=== PATIENT | female | born 1970 | race Caucasian/White ===

== ENCOUNTER 2016-05-19 16:12 | Emergency (ER) | payer OTHER ==
[~2016-05-19 16:12] MED LIST: GLYB2.5T6 OR
[2016-05-19] MEDS ORDERED: traMADol 50 MG TAB As Ordered ONE (17:28)
[2016-05-19] MEDS ORDERED: METHOCARBAMOL 500 MG TAB As Ordered ONE (17:28)
[2016-05-19] MEDS ORDERED: ONDANSETRON 4 MG ORAL DISINTEGRATING TAB (S0181) As Ordered ONE ×2 (17:29→17:35)
[2016-05-19 17:59] LABS: BASO # 0.1 K/mm3 (0.0-0.2); BASO % 1.1 % (0.0-1.0); EOS # 0.2 K/mm3 (0.0-0.50); LARGE UNSTAINED CELL # 0.2 K/mm3 (0.0-0.4); LARGE UNSTAINED CELL % 1.9 % (0.0-4.0); LYMPH # 2.8 K/mm3 (1.5-4.5); LYMPH % 31.8 % (24.0-44.0); MEAN CORPUSCULAR HEMOGLOBIN 28.1 pg (27.0-33.0); MEAN CORPUSCULAR HGB CONC 33.1 g/dl (32.0-36.5); MONO # 0.6 K/mm3 (0.0-0.8); MONO % 7.6 % (0.0-5.0); NEUTROPHILS # 4.5 K/mm3 (1.8-7.7); NEUTROPHILS % 55.5 % (36.0-66.0); PLATELET COUNT, AUTOMATED 279 k/mm3 (150-450); RED CELL DISTRIBUTION WIDTH 13.8 % (11.5-14.5); WHITE BLOOD COUNT 8.1 K/mm3 (4.0-10.0)
[2016-05-19 18:25] LABS: ANION GAP 7 MEQ/L (8-16); BLOOD UREA NITROGEN 6 MG/DL (7-18); CALCIUM LEVEL 8.5 MG/DL (8.5-10.1); CARBON DIOXIDE LEVEL 29 MEQ/L (21-32); CHLORIDE LEVEL 106 MEQ/L (98-107); CREATININE FOR GFR 0.69 MG/DL (0.55-1.02); GLOMERULAR FILTRATION RATE > 60.0 (>58); GLUCOSE, FASTING 123 MG/DL (70-105); SODIUM LEVEL 142 MEQ/L (136-145)
--- NOTE | 2016-05-19 18:40 | REP ---
CT cervical spine without contrast: HISTORY: Neck pain. There is no acute fracture or subluxation. Disc bulges are present at the C3-4 through C6-7 levels. There is minimal narrowing of the spinal canal. The neural foramina are patent. The C5-6 intervertebral disc is decreased in height consistent with disc degeneration. Calcification is present in the anterior longitudinal ligament at the C6-7 level. An accessory ossicle and osteophyte formation are present at the C1-2 level. IMPRESSION: 1. There is no acute fracture or subluxation. 2. There is cervical spondylosis at the C1-2 and C3-4 through C6-7 levels. Signed by Jimbo Green MD 05/19/2016 06:42 P
--- NOTE | 2016-05-19 18:59 | EDDOCDS ---
Nurse's Notes [facility] Name: Cece Bridges Age: 45 yrs Sex: Female : 1970 Arrival Date: 05/19/2016 Time: 16:12 Bed PD Private MD: Walter Hanks NCFM Diagnosis: Cervicalgia;Other sprain of left shoulder joint;Other internal derangements of left knee;Gastritis, unspecified Presentation: 05/19 16:57 Presenting complaint: Patient states: last Monday front deck collapsed and pt was in a dsf whole and c/o left side of body hurts. Risk Factors No acute neurological deficit is noted. Adult Sepsis Screening: The patient does not have new or worsening altered mentation. Patient's respiratory rate is less than 22. Systolic blood pressure is greater than 100. Patient has a qSOFA score of 0- Negative Sepsis Screen. Suicide/Homicide risk assessment- the patient denies having any suicidal and/or homicidal ideations and does not present with any other emotional, behavioral or mental health complaints. Status: Patient is not a social services assistant or dependent. Transition of care: patient was not received from another setting of care. 16:57 Acuity: ANNMARIE Level 4 dsf 16:57 Method Of Arrival: Walkin/Carried/Asstd dsf Triage Assessment: 17:01 General: Appears in no apparent distress, Behavior is appropriate for age, cooperative, dsf pt just rambling on . Pain: Location: left side of body Pain currently is 3 out of 10 on a pain scale. HIV screening NA for this visit Offered previously. GI: Reports upper abdominal pain, nausea. Musculoskeletal: Reports pain in left side of body. 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 atorvastatin oral once daily 2. glyburide 5 mg Oral tab 2 times per day (Last dose: 05/18/2016) 3. metformin 500 mg Oral Tb24 2 tabs 2 times per day (Last dose: 05/18/2016) 4. pregabalin 75 mg Oral cap three times a day (Last dose: 05/18/2016) 5. Onglyza 5 mg oral tab 1 tab once daily (Last dose: 05/18/2016) 6. multivitamin oral tab 1 tablet daily (Last dose: 05/18/2016) 7. muscle relaxant - PMHx: Diabetes - NIDDM: controlled; Hypercholesterolemia; neuropathy; - PSHx: ; - Social history: Smoking status: Patient uses tobacco products, current every day smoker. No barriers to communication noted, The patient speaks fluent Welsh, Speaks appropriately for age. - Family history: Not pertinent. - : The pt / caregiver states he / she is not on anticoagulants. Home medication list is obtained from the patient. - Exposure Risk Screening:: None identified. Screenin:56 Screening information is obtained from the patient. Primary language is Welsh. Fall dwg risk: No risks identified. Assistance ADL's: requires no assistance with activities of daily living. Abuse/DV Screen: The patient / caregiver reports he/she is: not in a situation that causes fear, pain or injury. Nutritional screening: No deficits noted. Advance Directives: Currently, there is no health care proxy. There is no active DNR order. There is no living will. There is no Power of [place] Machine Operator. Advance directive information has not previously been placed in an [facility] medical record. Further advance directive information is declined. home support is adequate. Assessment: 18:56 The patient / caregiver is instructed regarding the plan of care and ED course. [facility] Physical assessment to be completed by PA/EDMD. Vital Signs: 16:14 BP 134 / 73; Pulse 102; Resp 18 S; Temp 99.3(O); Pulse Ox 96% on R/A; Weight 97.98 kg gr2 (R); Height 5 ft. 3 in. (160.02 cm) (R); Pain 6/10; 18:57 BP 141 / 76; Pulse 92; Resp 16; Temp 98.9(T); Pulse Ox 97% on R/A; dwg 16:14 Body Mass Index 38.26 (97.98 kg, 160.02 cm) gr2 Vitals: 16:14 Log In Time: May 19, 2016 at 16:14. gr2 ED Course: 16:13 Patient visited by Ayla Tesfaye. gr2 16:13 Patient moved to Waiting gr2 16:14 Walter Hanks is Private Physician. gr2 16:16 Patient visited by Ayla Tesfaye. gr2 16:16 Patient moved to Pre RCE gr2 16:59 Triage Initiated dsf 17:02 Patient moved to Triage 1 dsf 17:05 [facility] ck7 17:05 Jodi Giron MD is Attending Physician. ck7 17:05 Patient visited by Quinn San RPA-C. ck7 17:20 Patient moved to I4 / M4 dwg 17:22 Patient moved to PD2 / 27 dwg 17:36 Patient visited by Pat Eugene. dem1 17:36 Ghazal collar applied to patient. dem1 17:51 MED Profile Sent. dem1 17:51 CBC with Diff Sent. dem1 18:18 Patient visited by Quinn San RPA-C. ck7 18:43 Walter Hanks is Referral Physician. ck7 18:58 No IV's were initiated during this patient's visit. No procedures done that require dwg assistance. 18:59 Patient has correct armband on for positive identification. dwg Administered Medications: 17:21 CANCELLED (Other Intervention Used): Ondansetron 4 mg IVP once ck7 17:37 Drug: traMADol 50 mg [tramadol 50 mg tablet (1 tabs)] Route: PO; dwg 18:58 Follow up: Response: Pain is decreased dwg 17:37 Drug: Methocarbamol 1 grams [methocarbamol 500 mg tablet (2 tabs)] Route: PO; dwg 18:57 Follow up: Response: Pain is decreased dwg 17:37 Drug: Ondansetron ODT 4 mg [ondansetron 4 mg disintegrating tablet (1 tabs)] Route: PO; dwg 18:57 Follow up: Response: Nausea is resolved dwg Order Results: Lab Order: CBC with Diff; SPEC'M 05/19/16 17:49 Test: WHITE BLOOD COUNT; Value: 8.1; Range: 4.0-10.0; Units: K/mm3; Status: F Test: RED BLOOD COUNT; Value: 4.70; Range: 4.00-5.40; Units: M/mm3; Status: F Test: HEMOGLOBIN; Value: 13.2; Range: 12.0-16.0; Units: g/dl; Status: F Test: HEMATOCRIT; Value: 39.9; Range: 36.0-47.0; Units: %; Status: F Test: MEAN CORPUSCULAR VOLUME; Value: 85.0; Range: 80.0-96.0; Units: fl; Status: F Test: MEAN CORPUSCULAR HEMOGLOBIN; Value: 28.1; Range: 27.0-33.0; Units: pg; Status: F Test: MEAN CORPUSCULAR HGB CONC; Value: 33.1; Range: 32.0-36.5; Units: g/dl; Status: F Test: RED CELL DISTRIBUTION WIDTH; Value: 13.8; Range: 11.5-14.5; Units: %; Status: F Test: PLATELET COUNT, AUTOMATED; Value: 279; Range: 150-450; Units: k/mm3; Status: F Test: NEUTROPHILS %; Value: 55.5; Range: 36.0-66.0; Units: %; Status: F Test: LYMPH %; Value: 31.8; Range: 24.0-44.0; Units: %; Status: F Test: MONO %; Value: 7.6; Range: 0.0-5.0; Abnormal: Above high normal; Units: %; Status: F Test: EOS %; Value: 2.0; Range: 0.0-3.0; Units: %; Status: F Test: BASO %; Value: 1.1; Range: 0.0-1.0; Abnormal: Above high normal; Units: %; Status: F Test: LARGE UNSTAINED CELL %; Value: 1.9; Range: 0.0-4.0; Units: %; Status: F Test: NEUTROPHILS #; Value: 4.5; Range: 1.8-7.7; Units: K/mm3; Status: F Test: LYMPH #; Value: 2.8; Range: 1.5-4.5; Units: K/mm3; Status: F Test: MONO #; Value: 0.6; Range: 0.0-0.8; Units: K/mm3; Status: F Test: EOS #; Value: 0.2; Range: 0.0-0.50; Units: K/mm3; Status: F Test: BASO #; Value: 0.1; Range: 0.0-0.2; Units: K/mm3; Status: F Test: LARGE UNSTAINED CELL #; Value: 0.2; Range: 0.0-0.4; Units: K/mm3; Status: F Lab Order: JOSE LUIS MITCHELL 05/19/16 17:49 Test: GLUCOSE, FASTING; Value: 123; Range: 70-105; Abnormal: Above high normal; Units: MG/DL; Status: F Test: BLOOD UREA NITROGEN; Value: 6; Range: 7-18; Abnormal: Below low normal; Units: MG/DL; Status: F Test: CREATININE FOR GFR; Value: 0.69; Range: 0.55-1.02; Units: MG/DL; Status: F Test: GLOMERULAR FILTRATION RATE; Value: > 60.0; Range: >58; Status: F Test: SODIUM LEVEL; Value: 142; Range: 136-145; Units: MEQ/L; Status: F Test: POTASSIUM SERUM; Value: 4.0; Range: 3.5-5.1; Units: MEQ/L; Status: F Test: CHLORIDE LEVEL; Value: 106; Range: 98-107; Units: MEQ/L; Status: F Test: CARBON DIOXIDE LEVEL; Value: 29; Range: 21-32; Units: MEQ/L; Status: F Test: ANION GAP; Value: 7; Range: 8-16; Abnormal: Below low normal; Units: MEQ/L; Status: F Test: CALCIUM LEVEL; Value: 8.5; Range: 8.5-10.1; Units: MG/DL; Status: F Test Note: ; Units are mL/min/1.73 m2 Chronic Kidney Disease Staging per NKF: Stage I & II GFR >=60 Normal to Mildly Decreased Stage III GFR 30-59 Moderately Decreased Stage IV GFR 15-29 Severely Decreased Stage V GFR <15 Very Little GFR Left ESRD GFR <15 on [employer] Outcome: 18:45 Discharge ordered by Provider. ck7 18:58 The following High Risk Discharge criteria are identified: None. Discharged to home dwg ambulatory. Condition: good Condition: stable. No special radiology studies were completed. 18:58 Discharge Assessment: Patient awake, alert and oriented x 3. No cognitive and/or dwg functional deficits noted. Patient verbalized understanding of disposition instructions. patient administered narcotics - no. Property sent home with patient. 18:59 Patient left the ED. dwg Signatures: Nabeel Ruiz, RN RN Pretty Garber RN RN dsf JabierDiliaedgartatiannaling dem1 Quinn San, RPA-C RPA-[id number] Ayla Tesfaye gr2 Corrections: (The following items were deleted from the chart) 17:36 17:35 Clavicle strap applied on dem1 dem1 MTDD
--- NOTE | 2016-05-19 18:59 | EDDOCDS ---
Physician Documentation [facility] Name: Cece Bridges Age: 45 yrs Sex: Female : 1970 Arrival Date: 05/19/2016 Time: 16:12 Bed PD Private MD: Walter Hanks [facility] Disposition: 05/19/16 18:45 Discharged to Home/Self Care. Impression: Cervicalgia, Other sprain of left shoulder joint, Other internal derangements of left knee, Gastritis, unspecified. - Condition is Stable. - Discharge Instructions: Gastritis, Adult, Knee Pain, Soft Tissue Injury of the Neck, Shoulder Sprain. - Prescriptions for Ultram 50 mg Oral Tablet - take 1 tablet by ORAL route every 6 hours As needed MDD: 4 tabs; 10 tablet. ZOFRAN ODT 4 mg - dissolve 1 tablet by ORAL route 4 times per day As needed do not chew, do not swallow whole; 10 tablet. - Medication Reconciliation, Local Pharmacy Hours form. - Follow up: Walter Hanks; When: 1 - 2 days; Reason: Recheck today's complaints, Continuance of care. - Problem is new. - Symptoms have improved. Historical: - Allergies: Naproxen; - Home Meds: 1. atorvastatin oral once daily 2. glyburide 5 mg Oral tab 2 times per day (Last dose: 05/18/2016) 3. metformin 500 mg Oral Tb24 2 tabs 2 times per day (Last dose: 05/18/2016) 4. pregabalin 75 mg Oral cap three times a day (Last dose: 05/18/2016) 5. Onglyza 5 mg oral tab 1 tab once daily (Last dose: 05/18/2016) 6. multivitamin oral tab 1 tablet daily (Last dose: 05/18/2016) 7. muscle relaxant - PMHx: Diabetes - NIDDM: controlled; Hypercholesterolemia; neuropathy; - PSHx: ; - Social history: Smoking status: Patient uses tobacco products, current every day smoker. No barriers to communication noted, The patient speaks fluent Chilean, Speaks appropriately for age. - Family history: Not pertinent. - : The pt / caregiver states he / she is not on anticoagulants. Home medication list is obtained from the patient. - Exposure Risk Screening:: None identified. 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 3 in. (160.02 cm) (R); Pain 6/10; 18:57 BP 141 / 76; Pulse 92; Resp 16; Temp 98.9(T); Pulse Ox 97% on R/A; dwg 16:14 Body Mass Index 38.26 (97.98 kg, 160.02 cm) gr2 MDM: 17:16 traMADol 50 mg PO once ordered. ck7 17:16 Methocarbamol 1 grams PO once ordered. ck7 17:17 Apply Ghazal Collar to Patient. ordered. ck7 17:18 CT Spine,Cervical W/o Contrast Ordered. EDMS 17:18 CBC with Diff Ordered. EDMS 17:18 MED Profile Ordered. EDMS 17:19 Shoulder, Complete Ordered. EDMS 17:19 Knee, Complete Ordered. EDMS 17:19 Abdomen, Flat\E\Upright,PA Chest Ordered. EDMS 17:22 Ondansetron ODT Oral Disintegrating Tablet 4 mg PO once ordered. ck7 18:03 CBC with Diff Reviewed. ck7 18:26 MED Profile Reviewed. ck7 Administered Medications: 17:21 CANCELLED (Other Intervention Used): Ondansetron 4 mg IVP once ck7 17:37 Drug: traMADol 50 mg [tramadol 50 mg tablet (1 tabs)] Route: PO; dwg 18:58 Follow up: Response: Pain is decreased dwg 17:37 Drug: Methocarbamol 1 grams [methocarbamol 500 mg tablet (2 tabs)] Route: PO; dwg 18:57 Follow up: Response: Pain is decreased dwg 17:37 Drug: Ondansetron ODT 4 mg [ondansetron 4 mg disintegrating tablet (1 tabs)] Route: PO; dwg 18:57 Follow up: Response: Nausea is resolved dw Signatures: Dispatcher [employer] EDNabeel Mosquera RN RN dwg Fuller, Desiree, RN RN dsf Quinn San, CHANCE-C [id number] The chart was reviewed and I authenticate all verbal orders and agree with the evaluation and treatment provided.Corrections: (The following items were deleted from the chart) 17:21 17:17 Ondansetron 4 mg IVP once ordered. ck7 ck7 MTDD
--- NOTE | 2016-05-19 19:12 | REP ---
LEFT SHOULDER, THREE VIEWS: HISTORY: Swelling. There is no acute fracture or dislocation. The joints spaces are normal in appearance. IMPRESSION: There is no acute fracture or dislocation. Signed by Jimbo Green MD 05/19/2016 07:14 P
--- NOTE | 2016-05-19 19:14 | REP ---
LEFT KNEE, FIVE VIEWS: HISTORY: Swelling. There is no acute fracture or dislocation. There is minimal narrowing of the patellofemoral joints space. Osteophytes are present on the patella and tibia. IMPRESSION: Degenerative changes as described above. Signed by Jimbo Green MD 05/19/2016 07:15 P
--- NOTE | 2016-05-19 19:16 | REP ---
ABDOMEN FLAT UPRIGHT, PA CHEST, THREE VIEWS: HISTORY: Abdominal pain. A small amount of air is present in the small and large intestine. There are no air fluid levels or dilated loops of intestine. There is no pneumoperitoneum. A mild amount of stool is present in the colon. The lungs are clear. IMPRESSION:Nonspecific bowel gas pattern. There is a mild amount of stool in the colon. Signed by Jimbo Green MD 05/19/2016 07:18 P
--- NOTE | 2016-05-21 20:00 | EDDOCDS ---
Physician Documentation [facility] Name: Cece Bridges Age: 45 yrs Sex: Female : 1970 Arrival Date: 05/19/2016 Time: 16:12 Bed PD Private MD: Walter Hanks [facility] Disposition: 05/19/16 18:45 Discharged to Home/Self Care. Impression: Cervicalgia, Other sprain of left shoulder joint, Other internal derangements of left knee, Gastritis, unspecified. - Condition is Stable. - Discharge Instructions: Gastritis, Adult, Knee Pain, Soft Tissue Injury of the Neck, Shoulder Sprain. - Prescriptions for Ultram 50 mg Oral Tablet - take 1 tablet by ORAL route every 6 hours As needed MDD: 4 tabs; 10 tablet. ZOFRAN ODT 4 mg - dissolve 1 tablet by ORAL route 4 times per day As needed do not chew, do not swallow whole; 10 tablet. - Medication Reconciliation, Local Pharmacy Hours form. - Follow up: Walter Hanks; When: 1 - 2 days; Reason: Recheck today's complaints, Continuance of care. - Problem is new. - Symptoms have improved. Historical: - Allergies: Naproxen; - Home Meds: 1. atorvastatin oral once daily 2. glyburide 5 mg Oral tab 2 times per day (Last dose: 05/18/2016) 3. metformin 500 mg Oral Tb24 2 tabs 2 times per day (Last dose: 05/18/2016) 4. pregabalin 75 mg Oral cap three times a day (Last dose: 05/18/2016) 5. Onglyza 5 mg oral tab 1 tab once daily (Last dose: 05/18/2016) 6. multivitamin oral tab 1 tablet daily (Last dose: 05/18/2016) 7. muscle relaxant - PMHx: Diabetes - NIDDM: controlled; Hypercholesterolemia; neuropathy; - PSHx: ; - Social history: Smoking status: Patient uses tobacco products, current every day smoker. No barriers to communication noted, The patient speaks fluent [place], Speaks appropriately for age. - Family history: Not pertinent. - : The pt / caregiver states he / she is not on anticoagulants. Home medication list is obtained from the patient. - Exposure Risk Screening:: None identified. 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 3 in. (160.02 cm) (R); Pain 6/10; 18:57 BP 141 / 76; Pulse 92; Resp 16; Temp 98.9(T); Pulse Ox 97% on R/A; dwg 16:14 Body Mass Index 38.26 (97.98 kg, 160.02 cm) gr2 MDM: 17:16 traMADol 50 mg PO once ordered. ck7 17:16 Methocarbamol 1 grams PO once ordered. ck7 17:17 Apply Ghazal Collar to Patient. ordered. ck7 17:18 CT Spine,Cervical W/o Contrast Ordered. EDMS 17:18 CBC with Diff Ordered. EDMS 17:18 MED Profile Ordered. EDMS 17:19 Shoulder, Complete Ordered. EDMS 17:19 Knee, Complete Ordered. EDMS 17:19 Abdomen, Flat\E\Upright,PA Chest Ordered. EDMS 17:22 Ondansetron ODT Oral Disintegrating Tablet 4 mg PO once ordered. ck7 18:03 CBC with Diff Reviewed. ck7 18:26 MED Profile Reviewed. ck7 05/20 11:00 T-Sheet-- Draft Copy was scanned into [employer] and attached to record. gb Administered Medications: 05/19 17:21 CANCELLED (Other Intervention Used): Ondansetron 4 mg IVP once ck7 17:37 Drug: traMADol 50 mg [tramadol 50 mg tablet (1 tabs)] Route: PO; [facility] 18:58 Follow up: Response: Pain is decreased dw 17:37 Drug: Methocarbamol 1 grams [methocarbamol 500 mg tablet (2 tabs)] Route: PO; dwg 18:57 Follow up: Response: Pain is decreased dw 17:37 Drug: Ondansetron ODT 4 mg [ondansetron 4 mg disintegrating tablet (1 tabs)] Route: PO; dwg 18:57 Follow up: Response: Nausea is resolved dwg Signatures: Dispatcher [employer] EDMS Nabeel Ruiz RN RN dwg Geovanna Purdy, Reg Reg gb Pretty Ya,RN RN dsf Quinn San, RPA-C [id number] The chart was reviewed and I authenticate all verbal orders and agree with the evaluation and treatment provided.Corrections: (The following items were deleted from the chart) 17:21 17:17 Ondansetron 4 mg IVP once ordered. ck7 ck7 Attachments: 05/20 11:00 T-Sheet-- Draft Copy gb Chart Complete MTDD
--- NOTE | 2016-05-21 20:00 | EDDOCDS ---
Physician Documentation [facility] Name: Cece Bridges Age: 45 yrs Sex: Female : 1970 Arrival Date: 05/19/2016 Time: 16:12 Bed PD Private MD: Walter Hanks [facility] Disposition: 05/19/16 18:45 Discharged to Home/Self Care. Impression: Cervicalgia, Other sprain of left shoulder joint, Other internal derangements of left knee, Gastritis, unspecified. - Condition is Stable. - Discharge Instructions: Gastritis, Adult, Knee Pain, Soft Tissue Injury of the Neck, Shoulder Sprain. - Prescriptions for Ultram 50 mg Oral Tablet - take 1 tablet by ORAL route every 6 hours As needed MDD: 4 tabs; 10 tablet. ZOFRAN ODT 4 mg - dissolve 1 tablet by ORAL route 4 times per day As needed do not chew, do not swallow whole; 10 tablet. - Medication Reconciliation, Local Pharmacy Hours form. - Follow up: Walter Hanks; When: 1 - 2 days; Reason: Recheck today's complaints, Continuance of care. - Problem is new. - Symptoms have improved. Historical: - Allergies: Naproxen; - Home Meds: 1. atorvastatin oral once daily 2. glyburide 5 mg Oral tab 2 times per day (Last dose: 05/18/2016) 3. metformin 500 mg Oral Tb24 2 tabs 2 times per day (Last dose: 05/18/2016) 4. pregabalin 75 mg Oral cap three times a day (Last dose: 05/18/2016) 5. Onglyza 5 mg oral tab 1 tab once daily (Last dose: 05/18/2016) 6. multivitamin oral tab 1 tablet daily (Last dose: 05/18/2016) 7. muscle relaxant - PMHx: Diabetes - NIDDM: controlled; Hypercholesterolemia; neuropathy; - PSHx: ; - Social history: Smoking status: Patient uses tobacco products, current every day smoker. No barriers to communication noted, The patient speaks fluent Micronesian, Speaks appropriately for age. - Family history: Not pertinent. - : The pt / caregiver states he / she is not on anticoagulants. Home medication list is obtained from the patient. - Exposure Risk Screening:: None identified. 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 3 in. (160.02 cm) (R); Pain 6/10; 18:57 BP 141 / 76; Pulse 92; Resp 16; Temp 98.9(T); Pulse Ox 97% on R/A; dwg 16:14 Body Mass Index 38.26 (97.98 kg, 160.02 cm) gr2 MDM: 17:16 traMADol 50 mg PO once ordered. ck7 17:16 Methocarbamol 1 grams PO once ordered. ck7 17:17 Apply Ghazal Collar to Patient. ordered. ck7 17:18 CT Spine,Cervical W/o Contrast Ordered. EDMS 17:18 CBC with Diff Ordered. EDMS 17:18 MED Profile Ordered. EDMS 17:19 Shoulder, Complete Ordered. EDMS 17:19 Knee, Complete Ordered. EDMS 17:19 Abdomen, Flat\E\Upright,PA Chest Ordered. EDMS 17:22 Ondansetron ODT Oral Disintegrating Tablet 4 mg PO once ordered. ck7 18:03 CBC with Diff Reviewed. ck7 18:26 MED Profile Reviewed. ck7 05/20 11:00 T-Sheet-- Draft Copy was scanned into [employer] and attached to record. gb Administered Medications: 05/19 17:21 CANCELLED (Other Intervention Used): Ondansetron 4 mg IVP once ck7 17:37 Drug: traMADol 50 mg [tramadol 50 mg tablet (1 tabs)] Route: PO; [facility] 18:58 Follow up: Response: Pain is decreased dw 17:37 Drug: Methocarbamol 1 grams [methocarbamol 500 mg tablet (2 tabs)] Route: PO; dwg 18:57 Follow up: Response: Pain is decreased dw 17:37 Drug: Ondansetron ODT 4 mg [ondansetron 4 mg disintegrating tablet (1 tabs)] Route: PO; dwg 18:57 Follow up: Response: Nausea is resolved dwg Signatures: Dispatcher [employer] EDMS Nabeel Riuz RN RN dwg Geovanna Purdy, Reg Reg gb Pretty Ya,RN RN dsf Quinn San, RPA-C [id number] The chart was reviewed and I authenticate all verbal orders and agree with the evaluation and treatment provided.Corrections: (The following items were deleted from the chart) 17:21 17:17 Ondansetron 4 mg IVP once ordered. ck7 ck7 Attachments: 05/20 11:00 T-Sheet-- Draft Copy gb Chart Complete MTDD
--- NOTE | 2016-05-21 20:01 | EDDOCDS ---
Nurse's Notes [facility] Name: Cece Bridges Age: 45 yrs Sex: Female : 1970 Arrival Date: 05/19/2016 Time: 16:12 Bed PD Private MD: Walter Hanks NCFM Diagnosis: Cervicalgia;Other sprain of left shoulder joint;Other internal derangements of left knee;Gastritis, unspecified Presentation: 05/19 16:57 Presenting complaint: Patient states: last Monday front deck collapsed and pt was in a dsf whole and c/o left side of body hurts. Risk Factors No acute neurological deficit is noted. Adult Sepsis Screening: The patient does not have new or worsening altered mentation. Patient's respiratory rate is less than 22. Systolic blood pressure is greater than 100. Patient has a qSOFA score of 0- Negative Sepsis Screen. Suicide/Homicide risk assessment- the patient denies having any suicidal and/or homicidal ideations and does not present with any other emotional, behavioral or mental health complaints. 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 Transition of care: patient was not received from another setting of care. 16:57 Acuity: ANNMARIE Level 4 dsf 16:57 Method Of Arrival: Walkin/Carried/Asstd dsf Triage Assessment: 17:01 General: Appears in no apparent distress, Behavior is appropriate for age, cooperative, dsf pt just rambling on . Pain: Location: left side of body Pain currently is 3 out of 10 on a pain scale. HIV screening NA for this visit Offered previously. GI: Reports upper abdominal pain, nausea. Musculoskeletal: Reports pain in left side of body. 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 atorvastatin oral once daily 2. glyburide 5 mg Oral tab 2 times per day (Last dose: 05/18/2016) 3. metformin 500 mg Oral Tb24 2 tabs 2 times per day (Last dose: 05/18/2016) 4. pregabalin 75 mg Oral cap three times a day (Last dose: 05/18/2016) 5. Onglyza 5 mg oral tab 1 tab once daily (Last dose: 05/18/2016) 6. multivitamin oral tab 1 tablet daily (Last dose: 05/18/2016) 7. muscle relaxant - PMHx: Diabetes - NIDDM: controlled; Hypercholesterolemia; neuropathy; - PSHx: ; - Social history: Smoking status: Patient uses tobacco products, current every day smoker. No barriers to communication noted, The patient speaks fluent Croatian, Speaks appropriately for age. - Family history: Not pertinent. - : The pt / caregiver states he / she is not on anticoagulants. Home medication list is obtained from the patient. - Exposure Risk Screening:: None identified. Screenin:56 Screening information is obtained from the patient. Primary language is Croatian. Fall dwg risk: No risks identified. Assistance ADL's: requires no assistance with activities of daily living. Abuse/DV Screen: The patient / caregiver reports he/she is: not in a situation that causes fear, pain or injury. Nutritional screening: No deficits noted. Advance Directives: Currently, there is no health care proxy. There is no active DNR order. There is no living will. There is no Power of Passenger Agent. Advance directive information has not previously been placed in an [facility] medical record. Further advance directive information is declined. home support is adequate. Assessment: 18:56 The patient / caregiver is instructed regarding the plan of care and ED course. [facility] Physical assessment to be completed by PA/EDMD. Vital Signs: 16:14 BP 134 / 73; Pulse 102; Resp 18 S; Temp 99.3(O); Pulse Ox 96% on R/A; Weight 97.98 kg gr2 (R); Height 5 ft. 3 in. (160.02 cm) (R); Pain 6/10; 18:57 BP 141 / 76; Pulse 92; Resp 16; Temp 98.9(T); Pulse Ox 97% on R/A; dwg 16:14 Body Mass Index 38.26 (97.98 kg, 160.02 cm) gr2 Vitals: 16:14 Log In Time: May 19, 2016 at 16:14. gr2 ED Course: 16:13 Patient visited by Ayla Tesfaye. gr2 16:13 Patient moved to Waiting gr2 16:14 Walter Hanks is Private Physician. gr2 16:16 Patient visited by Ayla Tesfaye. gr2 16:16 Patient moved to Pre RCE gr2 16:59 Triage Initiated dsf 17:02 Patient moved to Triage 1 dsf 17:05 Quinn [facility] ck7 17:05 Jodi Giron MD is Attending Physician. ck7 17:05 Patient visited by Quinn San RPA-C. ck7 17:20 Patient moved to I4 / M4 dwg 17:22 Patient moved to PD2 / 27 dwg 17:36 Patient visited by Pat Eugene. dem1 17:36 Ghazal collar applied to patient. dem1 17:51 MED Profile Sent. dem1 17:51 CBC with Diff Sent. dem1 18:18 Patient visited by Quinn San RPA-C. ck7 18:43 Walter Hanks is Referral Physician. ck7 18:58 No IV's were initiated during this patient's visit. No procedures done that require dwg assistance. 18:59 Patient has correct armband on for positive identification. dwg 19:11 CT Spine,Cervical W/o Contrast Returned. EDMS 20:09 Shoulder, Complete Returned. EDMS 20:09 Knee, Complete Returned. EDMS 20:09 Abdomen, Flat\E\Upright,PA Chest Returned. EDMS 05/20 11:00 T-Sheet-- Draft Copy was scanned into [employer] and attached to record. gb Administered Medications: 05/19 17:21 CANCELLED (Other Intervention Used): Ondansetron 4 mg IVP once ck7 17:37 Drug: traMADol 50 mg [tramadol 50 mg tablet (1 tabs)] Route: PO; dwg 18:58 Follow up: Response: Pain is decreased dwg 17:37 Drug: Methocarbamol 1 grams [methocarbamol 500 mg tablet (2 tabs)] Route: PO; dwg 18:57 Follow up: Response: Pain is decreased dwg 17:37 Drug: Ondansetron ODT 4 mg [ondansetron 4 mg disintegrating tablet (1 tabs)] Route: PO; dwg 18:57 Follow up: Response: Nausea is resolved dwg Order Results: Lab Order: CBC with Diff; SPEC'M 05/19/16 17:49 Test: WHITE BLOOD COUNT; Value: 8.1; Range: 4.0-10.0; Units: K/mm3; Status: F Test: RED BLOOD COUNT; Value: 4.70; Range: 4.00-5.40; Units: M/mm3; Status: F Test: HEMOGLOBIN; Value: 13.2; Range: 12.0-16.0; Units: g/dl; Status: F Test: HEMATOCRIT; Value: 39.9; Range: 36.0-47.0; Units: %; Status: F Test: MEAN CORPUSCULAR VOLUME; Value: 85.0; Range: 80.0-96.0; Units: fl; Status: F Test: MEAN CORPUSCULAR HEMOGLOBIN; Value: 28.1; Range: 27.0-33.0; Units: pg; Status: F Test: MEAN CORPUSCULAR HGB CONC; Value: 33.1; Range: 32.0-36.5; Units: g/dl; Status: F Test: RED CELL DISTRIBUTION WIDTH; Value: 13.8; Range: 11.5-14.5; Units: %; Status: F Test: PLATELET COUNT, AUTOMATED; Value: 279; Range: 150-450; Units: k/mm3; Status: F Test: NEUTROPHILS %; Value: 55.5; Range: 36.0-66.0; Units: %; Status: F Test: LYMPH %; Value: 31.8; Range: 24.0-44.0; Units: %; Status: F Test: MONO %; Value: 7.6; Range: 0.0-5.0; Abnormal: Above high normal; Units: %; Status: F Test: EOS %; Value: 2.0; Range: 0.0-3.0; Units: %; Status: F Test: BASO %; Value: 1.1; Range: 0.0-1.0; Abnormal: Above high normal; Units: %; Status: F Test: LARGE UNSTAINED CELL %; Value: 1.9; Range: 0.0-4.0; Units: %; Status: F Test: NEUTROPHILS #; Value: 4.5; Range: 1.8-7.7; Units: K/mm3; Status: F Test: LYMPH #; Value: 2.8; Range: 1.5-4.5; Units: K/mm3; Status: F Test: MONO #; Value: 0.6; Range: 0.0-0.8; Units: K/mm3; Status: F Test: EOS #; Value: 0.2; Range: 0.0-0.50; Units: K/mm3; Status: F Test: BASO #; Value: 0.1; Range: 0.0-0.2; Units: K/mm3; Status: F Test: LARGE UNSTAINED CELL #; Value: 0.2; Range: 0.0-0.4; Units: K/mm3; Status: F Lab Order: MED Profile; SPEC'M 05/19/16 17:49 Test: GLUCOSE, FASTING; Value: 123; Range: 70-105; Abnormal: Above high normal; Units: MG/DL; Status: F Test: BLOOD UREA NITROGEN; Value: 6; Range: 7-18; Abnormal: Below low normal; Units: MG/DL; Status: F Test: CREATININE FOR GFR; Value: 0.69; Range: 0.55-1.02; Units: MG/DL; Status: F Test: GLOMERULAR FILTRATION RATE; Value: > 60.0; Range: >58; Status: F Test: SODIUM LEVEL; Value: 142; Range: 136-145; Units: MEQ/L; Status: F Test: POTASSIUM SERUM; Value: 4.0; Range: 3.5-5.1; Units: MEQ/L; Status: F Test: CHLORIDE LEVEL; Value: 106; Range: 98-107; Units: MEQ/L; Status: F Test: CARBON DIOXIDE LEVEL; Value: 29; Range: 21-32; Units: MEQ/L; Status: F Test: ANION GAP; Value: 7; Range: 8-16; Abnormal: Below low normal; Units: MEQ/L; Status: F Test: CALCIUM LEVEL; Value: 8.5; Range: 8.5-10.1; Units: MG/DL; Status: F Test Note: ; Units are mL/min/1.73 m2 Chronic Kidney Disease Staging per NKF: Stage I & II GFR >=60 Normal to Mildly Decreased Stage III GFR 30-59 Moderately Decreased Stage IV GFR 15-29 Severely Decreased Stage V GFR <15 Very Little GFR Left ESRD GFR <15 on [employer]ER Radiology Order: CT Spine,Cervical W/o Contrast Test: CT Spine,Cervical W/o Contrast REASON FOR EXAMINATION: neck pain s/p fall; CT cervical spine without contrast:; ; HISTORY: Neck pain.; ; There is no acute fracture or subluxation. Disc bulges are present at the C3-4; through C6-7 levels. There is minimal narrowing of the spinal canal. The neural; foramina are patent. The C5-6 intervertebral disc is decreased in height; consistent with disc degeneration. Calcification is present in the anterior; longitudinal ligament at the C6-7 level. An accessory ossicle and osteophyte; formation are present at the C1-2 level.; ; IMPRESSION:; ; 1. There is no acute fracture or subluxation.; ; 2. There is cervical spondylosis at the C1-2 and C3-4 through C6-7 levels.; ; ; Signed by; Jimbo Green MD 05/19/2016 06:42 P; Radiology Order: Shoulder, Complete Test: Shoulder, Complete REASON FOR EXAMINATION: Deformity/Swelling; LEFT SHOULDER, THREE VIEWS:; ; HISTORY: Swelling.; ; There is no acute fracture or dislocation. The joints spaces are normal in; appearance.; ; IMPRESSION:; ; There is no acute fracture or dislocation.; ; ; Signed by; Jimbo Green MD 05/19/2016 07:14 P; Radiology Order: Knee, Complete Test: Knee, Complete REASON FOR EXAMINATION: Deformity/Swelling; LEFT KNEE, FIVE VIEWS:; ; HISTORY: Swelling.; ; There is no acute fracture or dislocation. There is minimal narrowing of the; patellofemoral joints space. Osteophytes are present on the patella and tibia.; ; IMPRESSION:; ; Degenerative changes as described above.; ; ; Signed by; Jimbo Green MD 05/19/2016 07:15 P; Radiology Order: Abdomen, Flat\E\Upright,PA Chest Test: Abdomen, Flat\E\Upright,PA Chest REASON FOR EXAMINATION: abdominal pain, nausea, r/o obstruction/constipation; ABDOMEN FLAT UPRIGHT, PA CHEST, THREE VIEWS:; ; HISTORY: Abdominal pain.; ; A small amount of air is present in the small and large intestine. There are no; air fluid levels or dilated loops of intestine. There is no pneumoperitoneum. A; mild amount of stool is present in the colon. The lungs are clear.; ; IMPRESSION:Nonspecific bowel gas pattern. There is a mild amount of stool in the; colon.; ; ; Signed by; Jimbo Green MD 05/19/2016 07:18 P; Outcome: 18:45 Discharge ordered by Provider. ck7 18:58 The following High Risk Discharge criteria are identified: None. Discharged to home dwg ambulatory. Condition: good Condition: stable. No special radiology studies were completed. 18:58 Discharge Assessment: Patient awake, alert and oriented x 3. No cognitive and/or dwg functional deficits noted. Patient verbalized understanding of disposition instructions. patient administered narcotics - no. Property sent home with patient. 18:59 Patient left the ED. dwg Signatures: Dispatcher [employer] EDNabeel Mosquera, RN RN dwGeovanna Morrison Reg Reg gb Fuller, DesireeRN RN Pat [facility] Quinn San, RPA-C [id number] Ayla Tesfaye gr2 Corrections: (The following items were deleted from the chart) 17:36 17:35 Clavicle strap applied on dem1 dem1 Chart Complete MTDD
== END 2016-05-19 18:59 | disposition home or self-care (01) ==
LOC: M ED 16:12
DX: S43.402A Unspecified sprain of left shoulder joint, initial encounter (principal); M54.2 Cervicalgia; M23.92 Unspecified internal derangement of left knee; W17.89XA Other fall from one level to another, initial encounter; Y92.098 Other place in other non-institutional residence as the place of occurrence of the external cause; Y93.89 Activity, other specified; Y99.8 Other external cause status; R11.0 Nausea; R10.9 Unspecified abdominal pain; E11.9 Type 2 diabetes mellitus without complications; G62.9 Polyneuropathy, unspecified; E78.00 Pure hypercholesterolemia, unspecified; F17.210 Nicotine dependence, cigarettes, uncomplicated; Z79.899 Other long term (current) drug therapy; Z79.84 Long term (current) use of oral hypoglycemic drugs; Z88.8 Allergy status to other drugs, medicaments and biological substances

== ENCOUNTER 2017-03-15 20:51 | Emergency (ER) | payer OTHER ==
[~2017-03-15] VITALS: Ht 160 cm; Wt 99.1 kg
[2017-03-15] MEDS ORDERED: LYRI75CA PO (21:05)
[2017-03-15] MEDS ORDERED: LIPI10TA PO (21:05)
[2017-03-15] MEDS ORDERED: METF10004 PO (21:05)
[2017-03-15] MEDS ORDERED: CYCL5TAB PO (21:05)
[2017-03-15] MEDS ORDERED: PENICILLIN V POTASSIUM 500 MG TAB PO ONE (21:30)
[2017-03-15] MEDS ORDERED: PENI500T PO (21:35)
[2017-03-15 21:43] VITALS: BP 165/86
== END 2017-03-15 21:54 | disposition home or self-care (01) ==
LOC: M ED 20:51
DX: J02.9 Acute pharyngitis, unspecified (principal); I10 Essential (primary) hypertension; E11.9 Type 2 diabetes mellitus without complications; F17.210 Nicotine dependence, cigarettes, uncomplicated; Z79.899 Other long term (current) drug therapy; Z79.52 Long term (current) use of systemic steroids; Z88.8 Allergy status to other drugs, medicaments and biological substances

== ENCOUNTER → 2018-01-09 | Outpatient (CLI) | payer OTHER ==
[2018-01-09 10:50] LABS: ESTIMATED AVERAGE GLUCOSE 137 MG/DL (60-110); HEMOGLOBIN A1c 6.4 %
[2018-01-09 11:13] LABS: FREE T4 1.01 NG/DL (0.76-1.46); THYROID STIMULATING HORMONE 0.632 uIU/ML (0.358-3.740)
== END ==
LOC: M RAD 08:46
DX: Z12.31 Encounter for screening mammogram for malignant neoplasm of breast (principal)
CPT/HCPCS: 77067

== ENCOUNTER → 2018-05-15 | Outpatient (CLI) | payer OTHER ==
[~2018-05-15] MED LIST changes: +CYCL5TAB PO; +LIPI10TA PO; +LYRI75CA PO; +METF10004 PO; +PENI500T PO
--- NOTE | 2018-05-16 08:48 | REP ---
MRI CERVICAL SPINE WITHOUT CONTRAST: HISTORY: Neck pain. A small central disc protrusion is present at the C3-4 level. There is minimal effacement of the thecal sac without spinal cord compression. The C3 neural foramina are patent. A disc bulge is present at the C4-5 level. There is minimal effacement of the thecal sac without spinal cord compression. The C4 neural foramina are patent. A disc bulge with associated osteophyte formation is present at the C5-6 level. There is moderate effacement of the thecal sac without spinal cord compression. Bilateral uncinate process hypertrophy is present. This produces moderate narrowing of the C5 neural foramina. A disc bulge is present at the C6-7 level. There is minimal effacement of the thecal sac without spinal cord compression. The C6 neural foramina are patent. There is no other disc bulge or herniation. The remaining neural foramina are patent. The spinal cord is normal in signal intensity. The C5-6 intervertebral disc is decreased in height consistent with disc degeneration. Normal signal intensity is present in the cervical vertebral bodies. IMPRESSION: There is cervical spondylosis at the C3-4 through C6-7 levels without spinal cord compression. Electronically Signed by Jimbo Green MD 05/16/2018 08:54 A
== END ==
LOC: M RAD 18:06
PROVIDERS: ATTEND Physician Assistant
DX: M47.812 Spondylosis without myelopathy or radiculopathy, cervical region (principal); M50.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, unspecified cervical region

== ENCOUNTER → 2018-06-14 | Outpatient (CLI) | payer OTHER ==
[2018-06-14 10:35] LABS: BASO % 0.3 % (0.0-1.0); EOS # 0.2 10^3/uL (0.0-0.50); EOS % 1.8 % (0.0-3.0); HEMATOCRIT 39.7 % (36.0-47.0); LYMPH # 3.7 10^3/uL (1.5-4.5); LYMPH % 33.8 % (24.0-44.0); MEAN CORPUSCULAR HEMOGLOBIN 29.2 pg (27.0-33.0); MEAN CORPUSCULAR HGB CONC 32.7 g/dl (32.0-36.5); MEAN CORPUSCULAR VOLUME 89.2 fl (80.0-96.0); MONO # 0.8 10^3/uL (0.0-0.8); MONO % 7.6 % (0.0-5.0); NEUTROPHILS # 6.1 10^3/uL (1.8-7.7); PLATELET COUNT, AUTOMATED 337 10^3/uL (150-450); RED BLOOD COUNT 4.45 10^6/uL (4.00-5.40); WHITE BLOOD COUNT 10.8 10^3/uL (4.0-10.0)
[2018-06-14 10:56] LABS: HEMOGLOBIN A1c 7.7 %
[2018-06-14 11:00] LABS: ALBUMIN 3.6 GM/DL (3.2-5.2); ALT/SGPT 27 U/L (12-78); BILIRUBIN,TOTAL 0.4 MG/DL (0.2-1.0); BLOOD UREA NITROGEN 11 MG/DL (7-18); CALCIUM LEVEL 8.6 MG/DL (8.5-10.1); CARBON DIOXIDE LEVEL 28 MEQ/L (21-32); CHLORIDE LEVEL 106 MEQ/L (98-107); CREATININE FOR GFR 0.64 MG/DL (0.55-1.30); GLOMERULAR FILTRATION RATE > 60.0 (>58); GLUCOSE, FASTING 131 MG/DL (70-100); POTASSIUM SERUM 4.6 MEQ/L (3.5-5.1); SODIUM LEVEL 139 MEQ/L (136-145); TOTAL PROTEIN 6.8 GM/DL (6.4-8.2)
[2018-06-14 11:35] LABS: MALB URINE SIEMENS 5.6 MG/L
== END ==
LOC: M LAB 10:04
PROVIDERS: ATTEND Physician Assistant Medical
DX: E78.00 Pure hypercholesterolemia, unspecified (principal)

== ENCOUNTER → 2018-06-22 | Outpatient (CLI) | payer OTHER ==
--- NOTE | 2018-06-22 11:14 | REP ---
Clinical: Subacute cough . Comparison: 05/19/2016 of the . Technique: PA and lateral. Findings: The mediastinum and cardiac silhouette are normal. The lung bhandari are clear and without acute consolidation, effusion, or pneumothorax. The skeletal structures are intact and normal. Impression: 1. No acute cardiopulmonary process. Electronically Signed by Rodríguez Carey MD 06/22/2018 11:06 A
== END ==
LOC: M SMT 10:44
PROVIDERS: ATTEND Physician Assistant Medical
DX: R05 Cough (principal)

== ENCOUNTER 2018-12-22 22:12 | Emergency (ER) | payer OTHER ==
[~2018-12-22] VITALS: Ht 160 cm; Wt 94.1 kg
[2018-12-22] MEDS ORDERED: OFLO3OPSO IO (22:53)
[2018-12-22] MEDS ORDERED: ALL10TAB29 OR (22:53)
[2018-12-22] MEDS ORDERED: ALOG25TA OR (22:53)
[2018-12-22] MEDS ORDERED: PARO20TA3 OR (22:53)
[2018-12-22] MEDS ORDERED: LISI10TA4 OR (22:53)
[2018-12-23] MEDS ORDERED: FLUORESCEIN OPHTH 1 MG STRIP OS ONE (00:30)
[2018-12-23] MEDS ORDERED: TETRACAINE 0.5% OPHTH SOLN 4ML OS ONE (00:30)
[2018-12-23] MEDS ORDERED: CLEO300C2 PO (00:47)
[2018-12-23] MEDS ORDERED: ERYT1OIN26 OP (00:48)
[2018-12-23 00:56] VITALS: BP 139/96
== END 2018-12-23 01:00 | disposition home or self-care (01) ==
LOC: M ED 22:12
DX: H10.022 Other mucopurulent conjunctivitis, left eye (principal); L03.213 Periorbital cellulitis; E11.9 Type 2 diabetes mellitus without complications; Z79.899 Other long term (current) drug therapy; Z79.84 Long term (current) use of oral hypoglycemic drugs; Z88.8 Allergy status to other drugs, medicaments and biological substances

== ENCOUNTER → 2018-12-26 | Outpatient (REF) | payer OTHER ==
[~2018-12-26] MED LIST changes: +ALL10TAB29 OR; +ALOG25TA OR; +CLEO300C2 PO; +ERYT1OIN26 OP; +LISI10TA4 OR; +OFLO3OPSO IO; +PARO20TA3 OR
== END ==
LOC: M LAB REF 15:41
PROVIDERS: ATTEND Ophthalmology
DX: Z00.00 Encounter for general adult medical examination without abnormal findings (principal)

== ENCOUNTER → 2019-01-08 | Outpatient (REF) | payer OTHER ==
[2019-01-08 17:11] LABS: HEMOGLOBIN A1c 7.8 %
== END ==
LOC: M SFHCPLAZ 14:14
PROVIDERS: ATTEND Physician Assistant Medical
DX: E11.8 Type 2 diabetes mellitus with unspecified complications (principal)

== ENCOUNTER 2019-01-22 09:55 | Emergency (ER) | payer OTHER ==
[~2019-01-22] VITALS: Ht 160 cm; Wt 93.5 kg
[2019-01-22] MEDS ORDERED: FLUTISP (10:02)
[2019-01-22] MEDS ORDERED: IPRATROPIUM 0.5MG/ALBUTEROL 2.5MG INH SOL UD 3ML (DUONEB)(J7620) NEB ONE (11:45)
[2019-01-22] MEDS ORDERED: guaiFENesin SYRUP 200 MG/10 ML UDC PO ONE (11:45)
--- NOTE | 2019-01-22 12:18 | REP ---
Chest x-ray: Two views. History: cough cough, pneumonia exposure . Comparison study: June 22, 2018 . Findings: The lungs are well inflated and free of infiltrate. The pleural angles are sharp. The heart size is normal. Pulmonary vasculature is not increased. No significant bony abnormality is seen. Impression: Negative chest x-ray. Electronically Signed by Spencer Nichols MD 01/22/2019 12:10 P
[2019-01-22] MEDS ORDERED: GUAI100L6 PO (12:29)
[2019-01-22 12:43] VITALS: BP 146/79
== END 2019-01-22 12:44 | disposition home or self-care (01) ==
LOC: M ED 09:55
DX: J06.9 Acute upper respiratory infection, unspecified (principal); R06.09 Other forms of dyspnea; F17.218 Nicotine dependence, cigarettes, with other nicotine-induced disorders; E11.9 Type 2 diabetes mellitus without complications; K21.9 Gastro-esophageal reflux disease without esophagitis; Z88.8 Allergy status to other drugs, medicaments and biological substances

== ENCOUNTER → 2019-02-14 | Outpatient (REF) | payer OTHER ==
[~2019-02-14] MED LIST changes: +FLUTISP; +GUAI100L6 PO
[2019-02-16 15:57] LABS: HPV HYBRID CAPTURE II Negative (Negative)
== END ==
LOC: M SFHCWAGY 10:39
PROVIDERS: ATTEND Nurse Practitioner Family
DX: Z12.4 Encounter for screening for malignant neoplasm of cervix (principal)

== ENCOUNTER 2019-02-26 21:31 | Emergency (ER) | payer OTHER ==
[~2019-02-26] VITALS: Ht 160 cm; Wt 94.5 kg
[2019-02-26] MEDS ORDERED: IBUP200C33 PO (21:45)
[2019-02-26] MEDS ORDERED: GLIM2TAB29 PO (21:45)
[2019-02-26 23:34] VITALS: BP 146/71
--- NOTE | 2019-02-27 02:27 | REP ---
Clinical: Trauma . Technique: AP, lateral, bilateral oblique, and coned-down views. Findings: Alignment and lordosis is maintained. The vertebral bodies including transverse process and spinous processes are intact and relatively age-appropriate. There is no evidence for acute fracture / compression injury or subluxation. No evidence for spondylolysis or spondylolisthesis. Impression: No acute fracture / compression injury or subluxation. Electronically Signed by Rodríguez Carey MD 02/27/2019 02:19 A
--- NOTE | 2019-02-27 02:29 | REP ---
Clinical: Trauma with thoracic pain. Technique: AP, lateral, and swimmers views. Findings: Alignment and kyphosis is maintained. Vertebral bodies intact. No acute fracture / compression injury or subluxation. Paravertebral soft tissues are normal. Impression: No acute fracture / compression injury or subluxation. Electronically Signed by Rodríguez Carey MD 02/27/2019 02:21 A
--- NOTE | 2019-02-27 02:30 | REP ---
Clinical: Trauma. Technique: AP and frog lateral views of the right femur. Findings: No acute fracture or dislocation. Skeletal structures, joint spaces, and surrounding soft tissues are essentially normal for age. No subcutaneous emphysema. No foreign body. Impression: No acute fracture or dislocation. Electronically Signed by Rodríguez Carey MD 02/27/2019 02:22 A
== END 2019-02-26 23:35 | disposition home or self-care (01) ==
LOC: M ED 21:31
DX: S70.11XA Contusion of right thigh, initial encounter (principal); M54.9 Dorsalgia, unspecified; W00.0XXA Fall on same level due to ice and snow, initial encounter; Y92.007 Garden or yard of unspecified non-institutional (private) residence as the place of occurrence of the external cause; Y93.9 Activity, unspecified; E11.40 Type 2 diabetes mellitus with diabetic neuropathy, unspecified; K21.9 Gastro-esophageal reflux disease without esophagitis; Z79.4 Long term (current) use of insulin; Z88.6 Allergy status to analgesic agent; Z79.84 Long term (current) use of oral hypoglycemic drugs; F17.218 Nicotine dependence, cigarettes, with other nicotine-induced disorders; Y99.9 Unspecified external cause status; Z91.81 History of falling

== ENCOUNTER → 2019-03-19 | Outpatient (REF) | payer OTHER ==
[~2019-03-19] MED LIST changes: +GLIM2TAB29 PO; +IBUP200C33 PO
== END ==
LOC: M SFHCPLAZ 18:46
PROVIDERS: ATTEND Physician Assistant Medical
DX: L82.0 Inflamed seborrheic keratosis (principal)

== ENCOUNTER → 2019-04-09 | Outpatient (CLI) | payer OTHER ==
--- NOTE | 2019-04-09 16:36 | REPPI ---
Seven views cervical spine: 04/09/2019. Indication: Cervical myelopathy. Comparison: 05/15/2018. Findings: There is no acute fracture, subluxation or dislocation. Multilevel spondylosis is redemonstrated. The prevertebral and remaining visualized soft tissues are unremarkable. There is no instability demonstrated during dynamic testing. Impression: No acute cervical spine osseous injury. Electronically Signed by Efe Garner DO 04/09/2019 04:29 P
--- NOTE | 2019-04-09 17:29 | REPPI ---
REASON: Shoulder pain. No trauma. PRIORS: 05/19/2016. FINDINGS: Three views of the shoulder were performed. The acromioclavicular and glenohumeral relationships are within normal limits. There is no acute fracture or destructive osseous lesion. No significant change from the prior exam. Electronically Signed by Zachary Jj DO 04/10/2019 11:31 A
== END ==
LOC: M PLAIMG 15:47
PROVIDERS: ATTEND Nurse Practitioner Family
DX: M47.12 Other spondylosis with myelopathy, cervical region (principal); M25.512 Pain in left shoulder

== ENCOUNTER → 2019-06-07 | Outpatient (REF) | payer OTHER ==
[2019-06-07 15:37] LABS: CHLAMYDIA DNA AMPLIFICATION NEGATIVE (NEGATIVE); GC DNA AMPLIFICATION NEGATIVE (NEGATIVE)
== END ==
LOC: M WHC 13:43
PROVIDERS: ATTEND Nurse Practitioner Family
DX: Z11.3 Encounter for screening for infections with a predominantly sexual mode of transmission (principal)

== ENCOUNTER → 2019-06-10 | Outpatient (CLI) | payer OTHER ==
--- NOTE | 2019-06-10 14:05 | REP ---
Clinical: Right ovarian cyst. Technique: Transabdominal ultrasound examination with color evaluation. Comparison: 04/18/2012 Comparison: Bladder is normal and measures approximately 11.0 x 9.6 x 6.4 cm Normal anteverted uterus measures 10.7 x 3.2 x 6.0 cm. Endometrial complex measures 6.5 mm thickness. The bilateral ovaries are normal in appearance and vascularity without torsion. Right ovary measures 3.1 x 1.5 x 2.3 cm and includes 1.3 cm simple likely physiologic cyst. Left ovary measures 4.0 x 2.7 x 3.4 cm and demonstrates 3.3 cm simple likely physiologic cyst. No pelvic fluid or adnexal mass lesion. Impression: Simple bilateral ovarian cysts likely physiologic.
== END ==
LOC: M WHC 13:04
PROVIDERS: ATTEND Nurse Practitioner Family
DX: N83.201 Unspecified ovarian cyst, right side (principal)

== ENCOUNTER → 2019-07-03 | Outpatient (REF) | payer OTHER | LOC: M SFHCPLAZ 11:08 | PROVIDERS: ATTEND Physician Assistant Medical | DX: J30.9 Allergic rhinitis, unspecified (principal) ==

== ENCOUNTER → 2019-08-26 | Outpatient (REF) | payer OTHER ==
[~2019-08-26] MED LIST changes: -ERYT1OIN26 OP; +ERYT5OIN25 OP
[2019-08-26 17:38] LABS: BASO % 0.3 % (0.0-1.0); EOS # 0.1 10^3/uL (0.0-0.5); EOS % 1.3 % (0.0-3.0); HEMATOCRIT 41.7 % (36.0-47.0); HEMOGLOBIN 14.4 g/dl (12.0-15.5); LYMPH # 3.7 10^3/uL (1.5-5.0); LYMPH % 37.1 % (24.0-44.0); MEAN CORPUSCULAR HEMOGLOBIN 31.2 pg (27.0-33.0); MEAN CORPUSCULAR HGB CONC 34.5 g/dl (32.0-36.5); MEAN CORPUSCULAR VOLUME 90.3 fl (80.0-96.0); MONO # 0.8 10^3/uL (0.0-0.8); MONO % 7.8 % (0.0-5.0); NEUTROPHILS # 5.3 10^3/uL (1.5-8.5); NEUTROPHILS % 53.1 % (36.0-66.0); PLATELET COUNT, AUTOMATED 272 10^3/uL (150-450); RED BLOOD COUNT 4.62 10^6/uL (4.00-5.40)
[2019-08-26 18:13] LABS: ALBUMIN 3.9 GM/DL (3.2-5.2); ALT/SGPT 34 U/L (12-78); BILIRUBIN,TOTAL 0.2 MG/DL (0.2-1.0); BLOOD UREA NITROGEN 11 MG/DL (7-18); CALCIUM LEVEL 9.4 MG/DL (8.5-10.1); CARBON DIOXIDE LEVEL 29 MEQ/L (21-32); CHLORIDE LEVEL 99 MEQ/L (98-107); CREATININE FOR GFR 0.62 MG/DL (0.55-1.30); FREE T4 1.08 NG/DL (0.76-1.46); GLOMERULAR FILTRATION RATE > 60.0 (>58); GLUCOSE, FASTING 212 MG/DL (70-100); POTASSIUM SERUM 4.1 MEQ/L (3.5-5.1); SODIUM LEVEL 134 MEQ/L (136-145); THYROID STIMULATING HORMONE 0.859 uIU/ML (0.358-3.740); TOTAL PROTEIN 7.4 GM/DL (6.4-8.2)
[2019-08-26 18:56] LABS: HEMOGLOBIN A1c 9.1 %
== END ==
LOC: M SFHCPLAZ 15:43
PROVIDERS: ATTEND Physician Assistant Medical
DX: E11.3219 Type 2 diabetes mellitus with mild nonproliferative diabetic retinopathy with macular edema, unspecified eye (principal); I10 Essential (primary) hypertension; F41.9 Anxiety disorder, unspecified

== ENCOUNTER → 2019-09-13 | Outpatient (REF) | payer OTHER ==
[2019-09-13 17:28] LABS: APPEARANCE, URINE CLOUDY (CLEAR); BACTERIA, URINE AUTO NEGATIVE (NEGATIVE); BILIRUBIN, URINE AUTO NEGATIVE (NEGATIVE); BLOOD, URINE BLOOD 3+ (NEGATIVE); COLOR, URINE YELLOW (YELLOW); GLUCOSE, URINE (UA) AUTO 3+ mg/dL (NEGATIVE); KETONE, URINE AUTO NEGATIVE (NEGATIVE); LEUKOCYTE ESTERASE, URINE AUTO 2+ (NEGATIVE); MUCUS, URINE SMALL (NEGATIVE); NITRITE, URINE AUTO NEGATIVE (NEGATIVE); PROTEIN, URINE AUTO 1+ mg/dL (NEGATIVE); RBC, URINE AUTO 105 /HPF (0-3); SPECIFIC GRAVITY URINE AUTO 1.021 (1.002-1.035); SQUAMOUS EPITHELIAL CELL UR AU 1 /HPF (0-6); TRANSITIONAL EPITHELIAL AUTO 3 /HPF; UROBILINOGEN, URINE AUTO 0.2 mg/dL (0.0-2.0); WBC, URINE AUTO 180 /HPF (0-3)
== END ==
LOC: M SFHCPLAZ 14:57
PROVIDERS: ATTEND Family Medicine
DX: R30.0 Dysuria (principal)

== ENCOUNTER → 2019-12-11 | Outpatient (CLI) | payer OTHER ==
[~2019-12-11] MED LIST changes: -ALL10TAB29 OR; +CETI-24 OR
[2019-12-11 18:48] LABS: ALBUMIN 3.7 GM/DL (3.2-5.2); ALT/SGPT 32 U/L (12-78); BILIRUBIN,TOTAL 0.2 MG/DL (0.2-1.0); BLOOD UREA NITROGEN 7 MG/DL (7-18); CALCIUM LEVEL 9.5 MG/DL (8.5-10.1); CARBON DIOXIDE LEVEL 32 MEQ/L (21-32); CHLORIDE LEVEL 103 MEQ/L (98-107); CREATININE FOR GFR 0.74 MG/DL (0.55-1.30); GLOMERULAR FILTRATION RATE > 60.0 (>51); GLUCOSE, FASTING 126 MG/DL (70-100); POTASSIUM SERUM 4.3 MEQ/L (3.5-5.1); SODIUM LEVEL 138 MEQ/L (136-145); TOTAL PROTEIN 7.3 GM/DL (6.4-8.2)
== END ==
LOC: M PLALAB 15:33
PROVIDERS: ATTEND Podiatrist Foot & Ankle Surgery
DX: E86.0 Dehydration (principal)

== ENCOUNTER → 2020-02-07 | Outpatient (CLI) | payer OTHER ==
[2020-02-07 15:07] LABS: ALBUMIN 3.8 GM/DL (3.2-5.2); ALT/SGPT 34 U/L (12-78); BILIRUBIN,TOTAL 0.2 MG/DL (0.2-1.0); BLOOD UREA NITROGEN 11 MG/DL (7-18); CALCIUM LEVEL 9.1 MG/DL (8.5-10.1); CARBON DIOXIDE LEVEL 29 MEQ/L (21-32); CHLORIDE LEVEL 104 MEQ/L (98-107); CREATININE FOR GFR 0.71 MG/DL (0.55-1.30); GLOMERULAR FILTRATION RATE > 60.0 (>51); GLUCOSE, FASTING 175 MG/DL (70-100); POTASSIUM SERUM 4.6 MEQ/L (3.5-5.1); SODIUM LEVEL 137 MEQ/L (136-145); TOTAL PROTEIN 7.1 GM/DL (6.4-8.2)
== END ==
LOC: M PLALAB 09:51
PROVIDERS: ATTEND Physician Assistant Medical
DX: E11.9 Type 2 diabetes mellitus without complications (principal)

== ENCOUNTER → 2020-02-20 | Outpatient (CLI) | payer OTHER ==
--- NOTE | 2020-02-20 12:29 | REPMRS ---
Patient History No known family history of cancer. 3D TOMOSYNTHESIS WAS PERFORMED. The Hemal Garland lifetime risk for breast cancer is 9.1 %. Volpara breast density b. Digital Woman Screen Mammo: February 20, 2020 - Exam #: [id number] Bilateral CC and MLO view(s) were taken. Technologist: Carmella Lott, Technologist Prior study comparison: January 09, 2018, bilateral digital mammo screening bilat, performed at [facility]. February 27, 2014, bilateral digital mammo screening bilat, performed at [facility]. FINDINGS: There are scattered fibroglandular densities. There has been no change in the appearance of the mammogram from the prior studies. There is a mild amount of residual fibroglandular tissue which is fairly symmetric. There is no interval development of dominant mass, architectural distortion, or clustered microcalcification suggestive of malignancy. Assessment: BI-RADS/ACR category 1 mammogram. Negative Mammogram. Recommendation Routine screening mammogram in 1 year (for women over age 40). This mammogram was interpreted with the aid of an FDA-approved computer-aided dectection system. Electronically Signed By: Nabeel Munoz MD 02/20/20 [id number]
== END ==
LOC: M WHC 10:29
PROVIDERS: ATTEND Nurse Practitioner Family
DX: Z12.31 Encounter for screening mammogram for malignant neoplasm of breast (principal)

== ENCOUNTER → 2020-03-25 | Outpatient (CLI) | payer OTHER ==
--- NOTE | 2020-03-26 01:38 | REPPI ---
INDICATION: M54.5 ACUTE MIDLINE LOW BACK PAIN WITHOUT SCIATICA COMPARISON: 02/26/2019 TECHNIQUE: AP, lateral, bilateral oblique, and coned-down views of the lumbar spine. FINDINGS: Alignment and lordosis maintained. Vertebral bodies are intact and there is no evidence for acute fracture/compression injury or subluxation. Moderate multilevel degenerative changes are similar to prior examination and include endplate sclerosis with hypertrophic facet changes and mild disc space narrowing at L1-2 and L2-3. No obvious spondylolysis or spondylolisthesis. IMPRESSION: Moderate multilevel degenerative changes similar to prior examination. <Electronically signed by Rodríguez Carey > 03/26/20 0134
--- NOTE | 2020-03-26 01:40 | REPPI ---
INDICATION: M54.5 ACUTE MIDLINE LOW BACK PAIN WITHOUT SCIATICA COMPARISON: 02/26/2019 TECHNIQUE: AP, lateral, and swimmers views. FINDINGS: Alignment and kyphosis is maintained. Vertebral bodies intact. No acute fracture / compression injury or subluxation. Mild/early moderate degenerative changes include endplate sclerosis with marginal spurring and minimal disc space narrowing at multiple levels. IMPRESSION: Mild/early moderate degenerative changes. <Electronically signed by Rodríguez Carey > 03/26/20 0136
== END ==
LOC: M PLAIMG 15:34
PROVIDERS: ATTEND Physician Assistant Medical
DX: M54.5 Low back pain (principal)

== ENCOUNTER → 2020-04-29 | Outpatient (REF) | payer OTHER ==
[2020-04-29 13:51] LABS: BASO % 0.3 % (0.0-1.0); EOS # 0.2 10^3/uL (0.0-0.5); EOS % 1.5 % (0.0-3.0); HEMATOCRIT 38.5 % (36.0-47.0); HEMOGLOBIN 12.7 g/dl (12.0-15.5); LYMPH # 2.8 10^3/uL (1.5-5.0); LYMPH % 25.1 % (24.0-44.0); MEAN CORPUSCULAR HEMOGLOBIN 30.7 pg (27.0-33.0); MONO # 0.8 10^3/uL (0.0-0.8); MONO % 7.7 % (0.0-5.0); NEUTROPHILS # 7.1 10^3/uL (1.5-8.5); NEUTROPHILS % 64.9 % (36.0-66.0); PLATELET COUNT, AUTOMATED 309 10^3/uL (150-450); RED BLOOD COUNT 4.14 10^6/uL (4.00-5.40)
[2020-04-29 14:17] LABS: HEMOGLOBIN A1c 9.5 %
[2020-04-29 14:31] LABS: ALBUMIN 3.5 GM/DL (3.2-5.2); ALT/SGPT 27 U/L (12-78); BILIRUBIN,TOTAL 0.2 MG/DL (0.2-1.0); BLOOD UREA NITROGEN 8 MG/DL (7-18); CALCIUM LEVEL 9.1 MG/DL (8.5-10.1); CARBON DIOXIDE LEVEL 30 MEQ/L (21-32); CHLORIDE LEVEL 102 MEQ/L (98-107); CHOLESTEROL LEVEL 207 MG/DL (<200); CHOLESTEROL RISK RATIO 5.594 (<5); CREATININE FOR GFR 0.72 MG/DL (0.55-1.30); FREE T4 0.99 NG/DL (0.76-1.46); GLOMERULAR FILTRATION RATE > 60.0 (>51); GLUCOSE, FASTING 291 MG/DL (70-100); HDL CHOLESTEROL 37 MG/DL (>40); LDL CHOLESTEROL 102 MG/DL (<100); NON-HDL-C 170 MG/DL; POTASSIUM SERUM 4.6 MEQ/L (3.5-5.1); SODIUM LEVEL 136 MEQ/L (136-145); THYROID STIMULATING HORMONE 0.994 uIU/ML (0.358-3.740); TOTAL PROTEIN 6.8 GM/DL (6.4-8.2); TRIGLYCERIDES LEVEL 340 MG/DL (<150)
[2020-04-30 06:08] LABS: RUBELLA IgG FOR TORCH EVAL 4.97 index (Immune >0.99); RUBEOLA IgG ANTIBODY 84.2 AU/mL (Immune >16.4)
== END ==
LOC: M SFHCPLAZ 09:13
PROVIDERS: ATTEND Physician Assistant Medical
DX: Z23 Encounter for immunization (principal); I10 Essential (primary) hypertension; E78.00 Pure hypercholesterolemia, unspecified; F41.9 Anxiety disorder, unspecified; E11.8 Type 2 diabetes mellitus with unspecified complications

== ENCOUNTER → 2020-08-11 | Outpatient (REF) | payer OTHER ==
[~2020-08-11] MED LIST changes: +LISI10TA22 OR; -LISI10TA4 OR
[2020-08-11 16:04] LABS: HEMOGLOBIN A1c 8.6 %
[2020-08-11 16:19] LABS: ALBUMIN 4.1 GM/DL (3.2-5.2); ALT/SGPT 44 U/L (12-78); BILIRUBIN,TOTAL 0.2 MG/DL (0.2-1.0); BLOOD UREA NITROGEN 9 MG/DL (7-18); CALCIUM LEVEL 9.6 MG/DL (8.5-10.1); CARBON DIOXIDE LEVEL 31 MEQ/L (21-32); CHLORIDE LEVEL 104 MEQ/L (98-107); CREATININE FOR GFR 0.65 MG/DL (0.55-1.30); GLOMERULAR FILTRATION RATE > 60.0 (>51); GLUCOSE, FASTING 129 MG/DL (70-100); POTASSIUM SERUM 4.4 MEQ/L (3.5-5.1); SODIUM LEVEL 140 MEQ/L (136-145); TOTAL PROTEIN 7.7 GM/DL (6.4-8.2)
== END ==
LOC: M SFHCPLAZ 14:05
PROVIDERS: ATTEND Physician Assistant Medical
DX: E11.9 Type 2 diabetes mellitus without complications (principal); E78.00 Pure hypercholesterolemia, unspecified

== ENCOUNTER → 2020-09-15 | Outpatient (REF) | payer OTHER ==
[2020-09-15 17:40] LABS: BASO # 0.1 10^3/uL (0.0-0.2); BASO % 0.5 % (0.0-1.0); EOS # 0.3 10^3/uL (0.0-0.5); EOS % 2.6 % (0.0-3.0); HEMATOCRIT 39.7 % (36.0-47.0); HEMOGLOBIN 13.3 g/dl (12.0-15.5); LYMPH # 3.7 10^3/uL (1.5-5.0); LYMPH % 34.3 % (24.0-44.0); MEAN CORPUSCULAR HEMOGLOBIN 31.2 pg (27.0-33.0); MEAN CORPUSCULAR HGB CONC 33.5 g/dl (32.0-36.5); MEAN CORPUSCULAR VOLUME 93.2 fl (80.0-96.0); MONO # 0.8 10^3/uL (0.0-0.8); MONO % 7.5 % (2.0-8.0); NEUTROPHILS # 5.8 10^3/uL (1.5-8.5); NEUTROPHILS % 54.7 % (36.0-66.0); PLATELET COUNT, AUTOMATED 292 10^3/uL (150-450); RED BLOOD COUNT 4.26 10^6/uL (4.00-5.40); WHITE BLOOD COUNT 10.7 10^3/uL (4.0-10.0)
[2020-09-15 17:46] LABS: HCG, SERUM QUALITATIVE NEGATIVE (NEGATIVE)
[2020-09-15 17:56] LABS: ALBUMIN 3.6 GM/DL (3.2-5.2); ALT/SGPT 111 U/L (12-78); BILIRUBIN,TOTAL 0.2 MG/DL (0.2-1.0); BLOOD UREA NITROGEN 8 MG/DL (7-18); CALCIUM LEVEL 9.4 MG/DL (8.5-10.1); CARBON DIOXIDE LEVEL 29 MEQ/L (21-32); CHLORIDE LEVEL 100 MEQ/L (98-107); CREATININE FOR GFR 0.71 MG/DL (0.55-1.30); GLOMERULAR FILTRATION RATE > 60.0 (>51); GLUCOSE, FASTING 322 MG/DL (70-100); POTASSIUM SERUM 4.4 MEQ/L (3.5-5.1); SODIUM LEVEL 134 MEQ/L (136-145)
[2020-09-16 12:27] LABS: STABLE ALKPHOS 60 U/L
[2020-09-16 12:28] LABS: % LABILE ALKALINE PHOSPHATASE 62.3 %; LABILE ALKPHOS 99 U/L
[2020-09-16 12:41] LABS: HEPATITIS A ANTIBODY IGM NEGATIVE (NEGATIVE); HEPATITIS B SURFACE ANTIBODY NEGATIVE (POSITIVE); HEPATITIS B SURFACE ANTIGEN NEGATIVE (NEGATIVE)
== END ==
LOC: M SFHCPLAZ 14:43
PROVIDERS: ATTEND Physician Assistant Medical
DX: E11.8 Type 2 diabetes mellitus with unspecified complications (principal); N91.2 Amenorrhea, unspecified; R11.0 Nausea

== ENCOUNTER → 2020-11-05 | Outpatient (CLI) | payer OTHER ==
--- NOTE | 2020-11-05 08:29 | REP ---
INDICATION: R79.89 ELEVATED LFTs COMPARISON: Correlation with CT dated 03/29/2009 TECHNIQUE: Real time cameron scale ultrasound examination using curved array transducer. FINDINGS: Liver is hyperechoic and enlarged measuring 19 cm in craniocaudal length. Hypoechoic area adjacent to the gallbladder fossa suggests focal fat sparing or possible hepatic cyst. Pancreas is incompletely evaluated due to interposed bowel gas. Gallbladder and biliary system are normal. No gallstones, wall thickening, or pericholecystic fluid is appreciated. No biliary ductal dilatation noted and the common bile duct measures 4.2 mm diameter. The right kidney is normal in reniform shape without hydronephrosis and measures 11.7 x 5.1 x 4.3 cm. No ascites in the visualized right upper quadrant. IMPRESSION: Mild hepatomegaly and diffuse hepatosteatosis. Focal fatty sparing versus hepatic cyst adjacent to the gallbladder fossa. <Electronically signed by Rodríguez Carey > 11/05/20 0626
== END ==
LOC: M WHC 07:18
PROVIDERS: ATTEND Physician Assistant Medical
DX: R79.89 Other specified abnormal findings of blood chemistry (principal)

== ENCOUNTER → 2020-12-11 | Outpatient (CLI) | payer OTHER | LOC: M PLALAB 12:59 | PROVIDERS: ATTEND Physician Assistant Medical | DX: R79.89 Other specified abnormal findings of blood chemistry (principal) ==

== ENCOUNTER 2021-02-05 23:34 | Emergency (ER) | payer OTHER ==
--- OUTSIDE RECORDS SUMMARY | 2021-02-06 00:10 | CCD ---
Author Author [facility] em[facility] Organization [facility] ems Address Unknown Phone Unavailable Care Team Providers Care Mooner Name Role Phone Estelle Craven Unavailable PROBLEMS Type Condition ICD9-CM Code UXV01-KB Code Onset Dates Condition S tatus W/U Status Risk SNOMED Code Notes Problem Pure hypercholesterolemia E78.00 Active confirmed 259127391 Problem Anxiety disorder, unspecified F41.9 Active confirm ed 82937358 Problem Essential hypertension I10 Active confirmed 85528930 Problem Abscess L02.91 Active confirmed 413198869 Problem Major depressive disorder, single episode, unspecified F32.9 Active confirmed 60696168 Problem Cervical spine disease M48.9 Active confirmed 599939236 Problem Carpal tunnel syndrome of left wrist G56.02 Act scarlet confirmed 62580721 Problem Dyspareunia in female N94.10 Active confirmed 71763496 Problem Late menses N92.6 Active confirmed 85331221 Problem Obesity (BMI 35.0-39.9 without comorbidity) E66.9 Active confirmed 673895733 Problem Complication of type 2 diabetes mellitus E11.8 Active confirmed 90375473783090 Problem Infection of both eyes H44.003 Active confirmed 667626238 Problem Cigarette smoker F17.210 Active confirmed 65 515290 Problem Obesity (BMI 30-39.9) E66.9 Active confirmed 241334770 Problem Stress incontinence N39.3 Active confirmed 89051578 Problem Other spondylosis with myelopathy, cervical region M47.12 Active confirmed 46252873 Problem 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 Active confirmed 32433656 Problem Perimenopausal N95.1 Active confirmed 29511 8717078112 Problem Cervical spondylosis with myelopathy and radiculopathy M47.12 Active confirmed 23005289 Problem Type 2 diabetes mellitus wit hout complication, without long-term current use of insulin E11.9 Active confirmed 701817121 Problem Encounter for screening for malignant neoplasm of breast, unspecified screening modality Z12.39 Active confirmed 293740404 Problem Cervical cancer screening Z12.4 Active confirmed 244450291 Problem Perceived hearing changes H91.90 Active confir med 43796240906154125 Problem Seasonal allergic rhinitis, unspecified trigger J3 0.2 Active confirmed 615437093 Problem Fatty liver K76.0 Active confirmed 37423520 7 Problem Physical exam, pre-employment Z02.1 Active confirm ed 800675380 Problem Allergic rhinitis, unspecified seasonality, unspecifie d trigger J30.9 Active confirmed 41987473 Problem Encounter for screening mammogram for malignant neoplasm of breast Z12.31 Active confirmed 331265390 Problem Colon cancer screening Z12.11 Active confirmed 861490054 Problem Amenorrhea N91.2 Active confirmed 65097787 Problem Elevated LFTs R79.89 Active confirmed 639298 004 ALLERGIES Allergen (clinical drug ingredient) Drug/Non Drug Allergy do cumented on EMR Reaction Allergy Type Onset Date Status naproxen Naproxen([facility] Code:[address]-15) itching Drug Allergy Active ENCOUNTERS from 1970 to 2021-01-13 Encounter Location Date Provider Diagnosis [place] [address] [facility] [phone] [place] [address] Dec, Estelle Craven IMMUNIZATIONS Vaccine Route Administration Date Status Influenza 18 yrs & older Flublok IM Intramuscular Mar 12, 2019 Administered SOCIAL HISTORY Tobacco Use: Social History Observation Description Date Details (start date - stop date) Current Smoker Sex Assigned At : Social History Observation Description Sex Assigned At Unknown Education: Question Answer Notes Level of Education: Finished High School Audit Question Answer Notes Total Score: 0 Interpretation: Alcohol Education Language: Question Answer Notes Languages spoken: Yi Jew: Question Answer Notes Jew 20 Christian Sexual Hx: Question Answer Notes Had sex in the last 12 months (vaginal, oral, or anal)? Yes LMP: 12/16/2017 Have you ever had an STD? No Prevention Strategies discussed: Other with Men only Use protection? No Drug and Alcohol Question Answer Notes Total Score: 0 Interpretation: No problems reported Alcohol Screening: Question Answer Notes Did you have a drink containing alcohol in the past year? Ye s Points 1 Interpretation Negative How often did you have six or more drinks on one occas ion in the past year? Never (0 points) How many drinks did you have on a typica l day when you were drinking in the past year? 1 or 2 (0 points) How often did you have a drink containing alcohol in t he past year? Monthly or less (1 point) BMI Care Goal Follow-Up Question Answer Notes Above Normal BMI Follow-Up Lifestyle education regarding t Tobacco Use: Question Answer Notes Are you a: current smoker Smoking Cessation Information Given 08/11/2020 Patient counseled on the dangers of tobacco use and urged to quit: 08/11/2020 How many cigarettes a day do you smoke? 6-10 Are you interested in quitting? Ready to quit Counseled the patient on tobacco use, cessation provided REASON FOR REFERRAL No Information VITAL SIGNS No information MEDICATIONS Medication SIG (Take, Route, Frequency, Duration) Notes Start Da te End Date Status Glucometer as directed dx E11.8 3-4x/week Active Lisinopril 20 MG 1 tablet Orally Once a day Active Cyclobenzaprine HCl 10 MG 1 tablet as needed Orally bid for 30 days Active Lancets - as directed dx E11.8 3-4x/week Active Mucinex 600 MG 1 tablet as needed Orally every 12 hrs for 5 day (s) Nov, Active Trulicity 3 MG/0.5ML as directed Subcutaneous weekly for 30 Days Nov, Active Atorvastatin Calcium 20 MG TAKE ONE TABLET BY MOUTH EVERY DAY for 30 Active Lyrica 75 MG 1 capsule mdd:3 Orally Three times a day for 30 Days Active Glimepiride 4 MG 1 tablet with breakfast or t he first main meal of the day Orally bid for 30 Days Active Levocetirizine Dihydrochloride 5 MG 1 tablet in the ev ening Orally Once a day for 30 day(s) Dec, Active Vitamin B Complex - as directed Orally Active Ibuprofen 600 MG 1 tablet with food or milk a s needed Orally Three times a day for 30 Days Active metFORMIN HCl 500 MG 2 tablet with meals Orally Twice a day Active Atorvastatin Calcium 20 MG TAKE ONE TABLET BY MOUTH EVERY DAY Active May Have - cockup wrist splint _ before bedtime for 99 months Mar, Active Blood Glucose Test - as directed dx E11,8 3-4x/week Active Glimepiride 4 MG 1 tablet with breakfast or t he first main meal of the day Orally Once a day Active Paxil 10 MG 1.5 tablet Orally Once a day Active Lisinopril 20 MG 1 tablet Orally Once a day for 30 Active Trulicity 0.75 MG/0.5ML as directed Subcutaneous weekly for 30 Days Active Fish Oil 1000 MG 1 capsule Orally twice daily Active PROCEDURES No Information RESULTS No Results REASON FOR VISIT no show informational letter MEDICAL (GENERAL) HISTORY Type Description Date Medical History migraines Medical History Type 2 diabetes Medical History HTN Medical History HL Medical History DDD-cervical Medical History allergic rhinitis Medical History fungal eye infection and eye ulcers left Surgical History Left knee arthroscopy 2007 Surgical History Right knee arthroscopy 1996 Surgical History Right carpal tunnel repair 2012 Surgical History C section Surgical History Left Carpal Tunnel Repair 2020 Hospitalization History surgeries Goals Section No Information Health Concerns No Information MEDICAL EQUIPMENT No Information MENTAL STATUS No Information FUNCTIONAL STATUS No Information ASSESSMENTS No Information PLAN OF TREATMENT Medication Medication Name Sig Start Date Stop Date Lyrica 75 MG 1 capsule mdd:3 Orally Three times a day for 30 Days Levocetirizine Dihydrochloride 5 MG 1 tablet in the ev ening Orally Once a day for 30 day(s) Dec, Trulicity 3 MG/0.5ML as directed Subcutaneous weekly for 30 Days Nov, Glimepiride 4 MG 1 tablet with breakfast or t he first main meal of the day Orally bid for 30 Days Glimepiride 4 MG 1 tablet with breakfast or t he first main meal of the day Orally Once a day Ibuprofen 600 MG 1 tablet with food or milk a s needed Orally Three times a day for 30 Days Trulicity 0.75 MG/0.5ML as directed Subcutaneous weekly for 30 D ays metFORMIN HCl 500 MG 2 tablet with meals Orally Twice a day Lancets - as directed dx E11.8 3-4x/week Blood Glucose Test - as directed dx E11,8 3-4x/week Atorvastatin Calcium 20 MG TAKE ONE TABLET BY MOUTH EVERY DAY Cyclobenzaprine HCl 10 MG 1 tablet as needed Orally bid for 30 d ays Lisinopril 20 MG 1 tablet Orally Once a day Paxil 10 MG 1.5 tablet Orally Once a day Next Appt Details Provider Name:Estelle Craven, 2020-04 09:30:00 AM, [address] [place] [address], , [place], [address], Provider Name:Kaylin ROMERO, 2021-02-22 09:30:00 AM, [address] [place] [address], , [place], [address], Provider Name:Beatrice Chahal, 2021-02-25 02:00:00 PM, [address] [place] [address], , [place], [address], Provider Name:Alix Weir, 2021-02-23 4 01:00:00 PM, [address] [place] [address], , [place], [address], Insurance Providers Payer Name Payer Address Payer Phone Insured Name Patient Relati onship to Insured Coverage Start Date Coverage End Date [facility] [address] [facility] [address] MARITZA FLORES self
--- OUTSIDE RECORDS SUMMARY | 2021-02-06 00:10 | CCD ---
Continuity of Care Document (CCD) Created on: 12/09/2020 Cece Bridges External Reference #: [id number] : [id number] Sex: Female Author Author Cece AVELAR DPM Organization Unknown Address [address] [place] [address], [facility] [address] [place] [address] Phone [phone] Care Team Providers Care Esthetician Makeup Artist Name Role Phone DR. Kimball AUTM [phone] Problems Active Problems Provider Date Type 2 diabetes mellitus Cuate Avelar DPM Onset: 018 Neuralgia Cuate Avelar DPM Onset: 08/29/2017 Bunion Cuate Avelar DPM Onset: 10/22/2019 Plantar fascial fibromatosis Cuate Avelar DPM Onset: 05/2019 Social History Type Date Description Comments Sex Unknown ETOH Use Denies alcohol use Tobacco Use Start: Unknown Has smoked for 48 years with 6 c igarettes daily. Allergies, Adverse Reactions, Alerts Active Allergies Criticality Reaction | Severity Comments Date Naproxen Unable to assess criticality 08/22/2017 Gabapentin Unable to assess criticality 08/22/2017 Medications Active Medications SIG Qnty Indications Ordering Provide r Date B Complex Tablets 1 b y mouth every day 90tabs Cuate Avelar DPM 10/21/2019 Alogliptin Benzoate 12.5mg Tablets Unknown Trulicity Unknown Penicillin V Potassium 500mg Tablets Unknown Fluticasone Propionate 50mcg/Act Suspension Newport One Newport In Each Nostril Every Day Unknown Prednisone 20mg Tablets Unknown Ventolin HFA 108(90Base) mcg/Act A erosol Unknown Benzonatate 100mg Capsules Unknown Acetaminophen-Codeine 120-12mg/5ML Solution Unknown Amoxicillin/Clavulanate Potassium 875-125mg Tablets Unknown Atorvastatin Calcium 20mg Tablets Unknown Cyclobenzaprine HCL 10mg Tablets Unknown Glyburide 5mg Tablets Unknown Metformin HCL 500mg Tablets Unknown Onetouch Delica Lancets Extra Fine 33G Misc Test Once Daily Unknown Onetouch Ultra Blue Strips Use as Directed Once Daily Unknown Lisinopril 10mg Tablets Take One Tablet By Mouth Every Day Unknown Lyrica 75mg Capsules 1 tablet three times daily 90caps Cuate Avelar DPM Immunizations Description No Information Available Vital Signs Date Vital Result Comment 10/19/2020 1:42pm Height 63 inches 5'3" Weight 208.00 lb BP Systolic 122 mmHg BP Diastolic 68 mmHg Heart Rate 93 /min BMI (Body Mass Index) 36.8 kg/m2 10/21/2019 1:42pm Height 63 inches 5'3" Weight 212.00 lb BP Systolic 124 mmHg BP Diastolic 66 mmHg Heart Rate 100 /min BMI (Body Mass Index) 37.6 kg/m2 Results Description No Information Available Procedures Date Code Description Status 10/19/2020 67445 Office/Outpatient Established Lo w MDM 20-29 Min Completed Medical Devices Description No Information Available Encounters Type Date Location Provider Dx Diagnosis Office Visit 10/19/2020 1:30p [place] [facility] Cuate Avelar DPM M21.619 Bunion of unspecified foot E11.9 Type 2 diabetes mellitus wit hout complications Assessments Date Code Description Provider 10/19/2020 M21.619 Bunion of unspecified foot Vitaly Avelar DPM 10/19/2020 E11.9 Type 2 diabetes mellitus without complications Cuate Avelar DPM Plan of Treatment Future Appointment(s):* 10/19/2021 1:30 pm - Cuate Avelar DPM at [facility] [place] [facility] [place] Functional Status Description No Information Available Mental Status Description No Information Available Referrals Refer to Reason for Referral Status Appt Date Cuate Avelar DPM Created [address] [facility] [address] [place] [address] [phone]
--- OUTSIDE RECORDS SUMMARY | 2021-02-06 00:10 | CCD ---
Author Author [facility] em[facility] Organization [facility] ems Address Unknown Phone Unavailable Care Team Providers Care Histotechnician Name Role Phone Estelle Craven Unavailable PROBLEMS Type Condition ICD9-CM Code ASA20-RW Code Onset Dates Condition S tatus W/U Status Risk SNOMED Code Notes Problem Pure hypercholesterolemia E78.00 Active confirmed 330143514 Problem Anxiety disorder, unspecified F41.9 Active confirm ed 08551214 Problem Essential hypertension I10 Active confirmed 55188711 Problem Abscess L02.91 Active confirmed 526957883 Problem Major depressive disorder, single episode, unspecified F32.9 Active confirmed 51373195 Problem Cervical spine disease M48.9 Active confirmed 586314013 Problem Carpal tunnel syndrome of left wrist G56.02 Act scarlet confirmed 22598458 Problem Dyspareunia in female N94.10 Active confirmed 55683440 Problem Late menses N92.6 Active confirmed 71548719 Problem Obesity (BMI 35.0-39.9 without comorbidity) E66.9 Active confirmed 553101945 Problem Complication of type 2 diabetes mellitus E11.8 Active confirmed 07404023042139 Problem Infection of both eyes H44.003 Active confirmed 770518785 Problem Cigarette smoker F17.210 Active confirmed 65 064095 Problem Obesity (BMI 30-39.9) E66.9 Active confirmed 507025739 Problem Stress incontinence N39.3 Active confirmed 63186862 Problem Other spondylosis with myelopathy, cervical region M47.12 Active confirmed 79323005 Problem 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 Active confirmed 52157550 Problem Perimenopausal N95.1 Active confirmed 04408 1108539298 Problem Cervical spondylosis with myelopathy and radiculopathy M47.12 Active confirmed 34976032 Problem Type 2 diabetes mellitus wit hout complication, without long-term current use of insulin E11.9 Active confirmed 456481794 Problem Encounter for screening for malignant neoplasm of breast, unspecified screening modality Z12.39 Active confirmed 337959865 Problem Cervical cancer screening Z12.4 Active confirmed 515572718 Problem Perceived hearing changes H91.90 Active confir med 94662740833794665 Problem Seasonal allergic rhinitis, unspecified trigger J3 0.2 Active confirmed 971952410 Problem Fatty liver K76.0 Active confirmed 42516107 7 Problem Physical exam, pre-employment Z02.1 Active confirm ed 082591114 Problem Allergic rhinitis, unspecified seasonality, unspecifie d trigger J30.9 Active confirmed 33125544 Problem Encounter for screening mammogram for malignant neoplasm of breast Z12.31 Active confirmed 650312768 Problem Colon cancer screening Z12.11 Active confirmed 995577801 Problem Amenorrhea N91.2 Active confirmed 07644455 Problem Elevated LFTs R79.89 Active confirmed 389933 004 ALLERGIES Allergen (clinical drug ingredient) Drug/Non Drug Allergy do cumented on EMR Reaction Allergy Type Onset Date Status naproxen Naproxen([facility] Code:[address]-86) itching Drug Allergy Active ENCOUNTERS from 1970 to 2021-01-22 Encounter Location Date Provider Diagnosis [address] [phone] [place] [address] Jan, Estelle Merissa Complication of type 2 diabe negrito mellitus E11.8 ; Cervical spine disease M48.9 ; Essential hypertension I10 ; Pure hypercholesterolemia E78.00 ; Anxiety disorder, unspecified F41.9 ; Colon cancer screening Z12.11 ; Cervical cancer screening Z12.4 ; Encounter for screening mammogram for malignant neoplasm of breast Z12.31 and Type 2 diabetes mellitus without complication, without long-term current use of insulin E11.9 IMMUNIZATIONS Vaccine Route Administration Date Status Influenza [...] Education Language: Question Answer Notes Languages spoken: Vietnamese Evangelical: Question Answer Notes Evangelical 21 Anabaptist Sexual Hx: Question Answer Notes Had sex [...] a: current smoker Smoking Cessation Information Given 01/22/2021 Patient counseled on the dangers of tobacco use and urged to quit: 01/22/2021 How many cigarettes a day do you smoke? 6-10 Are you interested in quitting? Ready to quit Counseled the patient on tobacco use, cessation provided 04/2020 REASON FOR REFERRAL from 1970 to 2021-01-22 Reason 50yoc[age] c cervical stenosis, spine dis. for further rx. Diagnosis 1 Cervical spine disease (M48. 9) Diagnosis 2 Spinal stenosis in cervical region (M48.02) Referral Organization [facility] Referring Provider First Name Estelle Referring Provider Last Name Merissa Referring Provider Specialty Family Medicine Referred Provider [facility],Orthopedics Referred Provider Specialty Physical Therapist Referral Priority Routine VITAL SIGNS Weight 202 lbs Jan, Weight-kg 91.63 kg Jan, Height 63 in Jan, BMI 35.78 kg/m2 Jan, Heart Rate 100 /min Jan, Respiratory Rate 18 /min Jan, Temperature 97.4 degrees Fahrenheit Jan, Oximetry 100 Jan, Blood pressure systolic 122 mm Hg Jan, Blood pressure diastolic 68 mm Hg Jan, MEDICATIONS Medication SIG (Take, Route, Frequency, Duration) Notes Start Da te End Date Status Blood Glucose Test - as directed dx E11,8 3-4x/week Active Glimepiride 4 MG 1 tablet with breakfast or t he first main meal of the day Orally Once a day Active Trulicity 3 MG/0.5ML as directed Subcutaneous weekly for 30 Days Nov, Active Trulicity 4.5 MG/0.5ML as directed Subcutaneous weekly for 30 Da ys Jan, Active Paxil 10 MG 1.5 tablet Orally Once a day Active Ibuprofen 600 MG 1 tablet with food or milk a s needed Orally Three times a day for 30 Days Active Lancets - as directed dx E11.8 3-4x/week Active Cyclobenzaprine HCl 10 MG 1 tablet as needed Orally bid Active Lyrica 75 MG 1 capsule mdd:3 Orally Three times a day for 30 Days Active metFORMIN HCl 500 MG 2 tablet with meals Orally Twice a day Active Fish Oil 1000 MG 1 capsule Orally twice daily Active Mucinex 600 MG 1 tablet as needed Orally every 12 hrs for 5 day (s) prn Nov, Active Levocetirizine Dihydrochloride 5 MG 1 tablet in the ev ening Orally Once a day for 30 day(s) Dec, Active Glucometer as directed dx E11.8 3-4x/week Active Lisinopril 20 MG 1 tablet Orally Once a day Active Atorvastatin Calcium 20 MG TAKE ONE TABLET BY MOUTH EVERY DAY Active Vitamin B Complex - as directed Orally Active PROCEDURES No Information RESULTS No Results REASON FOR VISIT FOLLOW UP MEDICAL (GENERAL) HISTORY Type Description Date Medical [...] No Information FUNCTIONAL STATUS No Information ASSESSMENTS Encounter Date Diagnosis Assessment Notes Treatment Notes Treatm ent Clinical Notes Jan, Complication of type 2 diabetes mellitus (ICD-10 - E11.8) neuropathy Jan, Cervical spine disease (ICD-10 - M48.9) Wants to retry PT again c NCOG- PT Jan, Essential hypertension (ICD-10 - I10) repeat bp 122/88 will monitor 04/2020 wbc 11.0, H&H 12.7&38.5, 309k Jan, Pure hypercholesterolemia (ICD-10 - E78.00) 04/2020 Ldl 102/HDl 37/TG 340; nl lfts 04/2020 na 135, 4.6, bun/cr 8/0.72, gluc 291, clac. 9.1, ast 9, alt 27 Jan, Anxiety disorder, unspecified (ICD-10 - F41.9) Corrected well c above 04/2020 TSh 0.994, FT4 0.99 Jan, Colon cancer screening (ICD-10 - Z12.11) Her Dad has colon CA, polyps Jan, Cervical cancer screening (ICD-10 - Z12.4) 01/[address] 01/2019 PAP NILM, HPV- ST Jan, Encounter for screening mamm ogram for malignant neoplasm of breast (ICD-10 - Z12.31) 01/2020 Cat. 1 zoey. mammo. Jan, Type 2 diabetes mellitus wit hout complication, without long-term current use of insulin (ICD-10 - E11.9) check a1c, increasing trulicity Jan, Other 30" chart revie w, orders, h&p PLAN OF TREATMENT Medication Medication Name Sig Start Date Stop Date Cyclobenzaprine HCl 10 MG 1 tablet as needed Orally bid Lisinopril 20 MG 1 tablet Orally Once a day Lancets - as directed dx E11.8 3-4x/week Trulicity 4.5 MG/0.5ML as directed Subcutaneous weekly for 30 Da ys Jan, Ibuprofen 600 MG 1 tablet with food or milk a s needed Orally Three times a day for 30 Days Blood Glucose Test - as directed dx E11,8 3-4x/week Glimepiride 4 MG 1 tablet with breakfast or t he first main meal of the day Orally Once a day Atorvastatin Calcium 20 MG TAKE ONE TABLET BY MOUTH EVERY DAY Paxil 10 MG 1.5 tablet Orally Once a day Lyrica 75 MG 1 capsule mdd:3 Orally Three times a day for 30 Days metFORMIN HCl 500 MG 2 tablet with meals Orally Twice a day Treatment Notes Assessment Notes Clinical Notes Complication of type 2 diabetes mellitus neuropathy Cervical spine disease Wants to retry PT again c NCOG- PT Essential hypertension repeat bp 122/88 will monitor04/2020 wbc 11.0, H&H 12.7&38.5, 309k Pure hypercholesterolemia 04/2020 Ldl 102 /HDl 37/TG 340; nl lfts04/2020 na 135, 4.6, bun/cr 8/0.72, gluc 291, clac. 9.1, ast 9, alt 27 Anxiety disorder, unspecified Corrected well c above04/2020 TSh 0.994, FT4 0.99 Colon cancer screening Her Dad has colon CA, polyps Cervical cancer screening 01/[address]/2019 PAP NILM, HPV- ST Encounter for screening mammogram for malignant neoplasm of breast 01/2020 Cat. 1 zoey. mammo. Type 2 diabetes mellitus without complic ation, without long-term current use of insulin check a1c, increasing trulic ity Referrals Referral Date Details 50yocf c cervical stenosis, spine dis. for further rx., Orthopedics [facility] Next Appt Details 4 Weeks c SS med dose increase Reason: Provider Name:Estelle Craven, 2020-04 0 08:30:00 AM, [address] [place] [address] , [place], [place], [address] [place] [address], Provider Name:Kaylin ROMERO, 2021-02-22 09:30:00 AM, [address] [place] [address] , [place], [address], Provider Name:Beatrice Chahal, 2021-02-25 02:00:00 PM, [address] [place] [address]785-[address]155, [place], [address], Provider Name:Alix Weir, 2021-02-23 4 01:00:00 PM, [address] [place] [address] , [place], [address], Insurance Providers Payer Name Payer Address Payer Phone Insured Name Patient Relati onship to Insured Coverage Start Date Coverage End Date [facility] [address] [facility] [id number] MARITZA FLORES self
--- OUTSIDE RECORDS SUMMARY | 2021-02-06 00:10 | CCD | Continuity of Care Document ---
Author Author Cece WARREN P.A. Organization Unknown Address [address] [place] [address] Phone [phone] Care Team Providers Care Lead Cargo Mover Name Role Phone Nati Carter NP AUTM Unavailable Elliot Breen [facility] AUTM [phone] Estelle Craven RPA-C AUTM [phone] Problems Description No Information Available Social History Type Date Description Comments Sex Unknown ETOH Use Rarely consumes alcohol Tobacco Use Start: Unknown Patient is a current smoker, smo kes every day Allergies, Adverse Reactions, Alerts Active Allergies Criticality Reaction | Severity Comments Date Naproxin Unable to assess criticality 03/27/2018 Medications Active Medications SIG Qnty Indications Ordering Provide r Date Tylenol With Codeine #3 300-30mg T ablets 1 tab every 6 hours as needed for post op pain(Please DO Not Fill Until 06/02/2020) 30tabs Reji Tyson MD 06/02/2020 Glimepiride 4mg Tablets Estelle Craven RPA-Eduarda Oseltamivir Phosphate 75mg Capsules Estelle Craven RPA-C Ciprofloxacin HCL 500mg Tablets Bhaskar Kearney MD Glimepiride 2mg Tablets Take One Tablet By Mouth Once Daily With Breakfast Or The First Meal Of The Day Unknown Hydrochlorothiazide 12.5mg Tablets Estelle Craven RPA-C Fluconazole 150mg Tablets Kaylin Jacobsen FNP Onetouch Delica Plus Lancets Extra Fine 33G Plus 33G Misc Use as Directed 3 4 Times A Week Unknow n Onetouch Ultra Strips Use as Directed 3 4 Times A Week Unknown Alogliptin Benzoate 25mg Tablets Take One Tablet By Mouth Every Day Unknown Cetirizine HCL 10mg Tablets Take One Tablet By Mouth Every Day Unknown Trulicity 0.75mg/0.5 ML Solution Pen-Inject Estelle Craven, CHANCE-C 0 Multivitamin Adult Tablets 1 by mouth every day G56.02 Unknown Ibuprofen 200mg Tablets 2 tabs by mouth every 4 hours as needed G56.02 Unknown 00 Cyclobenzaprine HCL 10mg Tablets take one tablet by mouth three times a day as needed Unkn own Lyrica 75mg Capsules 1 by mouth twice a day Unknown Paxil 10mg Tablets 1 by mo uth every day Unknown Atorvastatin Calcium 20mg Tablets 1 by mouth every day Unknown Lisinopril 10mg Tablets 1 by mouth every day Unknown Alogliptin Benzoate 12.5mg Tablets 1 by mouth every day Unknown Metformin HCL 500mg Tablets take one tablet by mouth twice a day Unknown Glyburide 5mg Tablets take two tablets by mouth twice a day Unknown Immunizations Description No Information Available Vital Signs Date Vital Result Comment 06/16/2020 9:35am Body Temperature 97.1 F 05/28/2020 10:11am Body Temperature 97.3 F Height 63 inches 5'3" Weight 205.00 lb BMI (Body Mass Index) 36.3 kg/m2 Results Description No Information Available Procedures Date Code Description Status 11/12/2020 21138 Office/Outpatient Established Mo d MDM 30-39 Min Completed 11/10/2020 64322 Therapeutic Activities Direct, E ach 15 Minutes Completed 11/06/2020 04684 Therapeutic Activities Direct, E ach 15 Minutes Completed 11/06/2020 50196 Manual Therapy Each 15 Minutes C ompleted 11/06/2020 16120 Therapeutic Procedure, Each 15 M inutes Completed 11/06/2020 84056 Electrical Stimulati on Manual, Each 15 Min, Constant Attendance Completed 11/04/2020 92407 Therapeutic Activities Direct, E ach 15 Minutes Completed 11/04/2020 56223 Manual Therapy Each 15 Minutes C ompleted 11/04/2020 44794 Therapeutic Procedure, Each 15 M inutes Completed 11/04/2020 68832 Electrical Stimulati on Manual, Each 15 Min, Constant Attendance Completed 11/02/2020 88227 Therapeutic Activities Direct, E ach 15 Minutes Completed 11/02/2020 21974 Manual Therapy Each 15 Minutes C ompleted 11/02/2020 18856 Therapeutic Procedure, Each 15 M inutes Completed 11/02/2020 52696 Electrical Stimulati on Manual, Each 15 Min, Constant Attendance Completed 10/29/2020 61066 Therapeutic Activities Direct, E ach 15 Minutes Completed 10/29/2020 46983 Hot Or Cold Packs Completed 10/27/2020 20993 Electrical Stimulati on Manual, Each 15 Min, Constant Attendance Completed 10/27/2020 01417 Therapeutic Activities Direct, E ach 15 Minutes Completed 10/23/2020 98855 Therapeutic Activities Direct, E ach 15 Minutes Completed 10/21/2020 80735 Therapeutic Activities Direct, E ach 15 Minutes Completed 10/21/2020 77614 Manual Therapy Each 15 Minutes C ompleted 10/21/2020 09427 Electrical Stimulati on Manual, Each 15 Min, Constant Attendance Completed 10/16/2020 20666 Electrical Stimulati on Manual, Each 15 Min, Constant Attendance Completed 10/16/2020 28607 Therapeutic Procedure, Each 15 M inutes Completed 10/16/2020 05959 Manual Therapy Each 15 Minutes C ompleted 10/16/2020 47924 Therapeutic Activities Direct, E ach 15 Minutes Completed 10/12/2020 55076 Therapeutic Activities Direct, E ach 15 Minutes Completed 10/12/2020 37830 Electrical Stimulati on Manual, Each 15 Min, Constant Attendance Completed 10/12/2020 68437 Hot Or Cold Packs Completed 10/09/2020 55748 Therapeutic Activities Direct, E ach 15 Minutes Completed 10/09/2020 05131 Electrical Stimulati on Manual, Each 15 Min, Constant Attendance Completed 10/01/2020 81105 Therapeutic Activities Direct, E ach 15 Minutes Completed 10/01/2020 13995 Hot Or Cold Packs Completed 10/01/2020 58552 Electrical Stimulati on Manual, Each 15 Min, Constant Attendance Completed 10/01/2020 25844 Manual Therapy Each 15 Minutes C ompleted 10/01/2020 61708 Therapeutic Procedure, Each 15 M inutes Completed 09/29/2020 97216 Therapeutic Activities Direct, E ach 15 Minutes Completed 09/24/2020 74863 Therapeutic Activities Direct, E ach 15 Minutes Completed 09/22/2020 86906 Therapeutic Activities Direct, E ach 15 Minutes Completed 09/22/2020 77037 Manual Therapy Each 15 Minutes C ompleted 09/22/2020 20753 Therapeutic Procedure, Each 15 M inutes Completed 09/22/2020 48644 Electrical Stimulati on Manual, Each 15 Min, Constant Attendance Completed 09/22/2020 76210 Hot Or Cold Packs Completed 09/17/2020 07874 Therapeutic Activities Direct, E ach 15 Minutes Completed 09/17/2020 29938 Manual Therapy Each 15 Minutes C ompleted 09/17/2020 43122 Therapeutic Procedure, Each 15 M inutes Completed 09/17/2020 20069 Hot Or Cold Packs Completed 09/15/2020 81602 Manual Therapy Each 15 Minutes C ompleted 09/15/2020 90083 Electrical Stimulati on Manual, Each 15 Min, Constant Attendance Completed 09/15/2020 13195 Therapeutic Procedure, Each 15 M inutes Completed 09/15/2020 32487 Therapeutic Activities Direct, E ach 15 Minutes Completed 09/11/2020 78331 Office/Outpatient Established Lo w MDM 20-29 Min Completed 09/10/2020 79659 Therapeutic Activities Direct, E ach 15 Minutes Completed 09/10/2020 22443 Manual Therapy Each 15 Minutes C ompleted 09/10/2020 23746 Therapeutic Procedure, Each 15 M inutes Completed 09/10/2020 43232 Electrical Stimulati on Manual, Each 15 Min, Constant Attendance Completed 09/08/2020 51058 Therapeutic Activities Direct, E ach 15 Minutes Completed 09/08/2020 97684 Manual Therapy Each 15 Minutes C ompleted 09/08/2020 83475 Therapeutic Procedure, Each 15 M inutes Completed 09/08/2020 03115 Electrical Stimulati on Manual, Each 15 Min, Constant Attendance Completed 09/01/2020 76605 Physical Therapy Eval - Low Comp lexity Completed 08/06/2020 93941 Office/Outpatient Established Mo d MDM 30-39 Min Completed Medical Devices Description No Information Available Encounters Type Date Location Provider Dx Diagnosis Office Visit 11/12/2020 10:45a [facility] Schrader M50.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, unsp cervical 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, 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, lumbar region Office Visit 09/11/2020 4:00p [facility]urnumEmeterio SchraderALupe M50.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, unsp cervical 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, 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, lumbar region Office Visit 08/10/2020 5:30p Jaelyn Good Z48.811 Encntr for surgical aftcr fol surgery on the nervous sys Office Visit 08/06/2020 2:15p Emeterio GoodALupe M50.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, unsp cervical 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, 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, lumbar region Assessments Date Code Description Provider 01/01/2021 M50.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 , unspecified cervical region Samir Warren, P.A. 01/01/2021 M51.34 Other intervertebral disc degene ration, thoracic region Samri Warren, P.A. 01/01/2021 M51.36 Other intervertebral disc degene ration, lumbar region Samir Warren, P.A. 01/01/2021 M48.02 Spinal stenosis, cervical region Samir Warren, P.A. 11/12/2020 M50.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 , unspecified cervical region Samir Warren, P.A. 11/12/2020 M51.34 Other intervertebral disc degene ration, thoracic region Samir Warren, P.A. 11/12/2020 M51.36 Other intervertebral disc degene ration, lumbar region Samir Warren, P.A. 11/10/2020 M50.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 , unspecified cervical region Nayla Cuevase P.T.A. 11/10/2020 M51.34 Other intervertebral disc degene ration, thoracic region Nayla Scee P.T.A. 11/10/2020 M51.36 Other intervertebral disc degene ration, lumbar region Nayla Scee P.T.A. 11/06/2020 M50.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 , unspecified cervical region Nayla Scee P.T.A. 11/06/2020 M51.34 Other intervertebral disc degene ration, thoracic region Nayla Scee P.T.A. 11/06/2020 M51.36 Other intervertebral disc degene ration, lumbar region Nayla Scee P.T.A. 11/04/2020 M50.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 , unspecified cervical region Danamarie Ortolano, CRISIS INTERVENTION SPECIALIST 11/04/2020 M51.34 Other intervertebral disc degene ration, thoracic region Danamarie Ortolano, CRISIS INTERVENTION SPECIALIST 11/04/2020 M51.36 Other intervertebral disc degene ration, lumbar region Danamarie Ortolano, CRISIS INTERVENTION SPECIALIST 11/02/2020 M50.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 , unspecified cervical region Danamarie Ortolano, CRISIS INTERVENTION SPECIALIST 11/02/2020 M51.34 Other intervertebral disc degene ration, thoracic region Danamarie Ortolano, CRISIS INTERVENTION SPECIALIST 11/02/2020 M51.36 Other intervertebral disc degene ration, lumbar region Danamarie Ortolano, CRISIS INTERVENTION SPECIALIST 10/29/2020 M50.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 , unspecified cervical region Yen [place], MSPT 10/29/2020 M51.34 Other intervertebral disc degene ration, thoracic region Yen [place], MSPT 10/29/2020 M51.36 Other intervertebral disc degene ration, lumbar region [place]en [place], MSPT 10/27/2020 M50.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 , unspecified cervical region Danamarie Ortolano, CRISIS INTERVENTION SPECIALIST 10/27/2020 M51.34 Other intervertebral disc degene ration, thoracic region Danamarie Ortolano, CRISIS INTERVENTION SPECIALIST 10/27/2020 M51.36 Other intervertebral disc degene ration, lumbar region Danamarie Ortolano, CRISIS INTERVENTION SPECIALIST 10/23/2020 M50.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 , unspecified cervical region Danamarie Ortolano, CRISIS INTERVENTION SPECIALIST 10/23/2020 M51.34 Other intervertebral disc degene ration, thoracic region Danamarie Ortolano, CRISIS INTERVENTION SPECIALIST 10/23/2020 M51.36 Other intervertebral disc degene ration, lumbar region Danamarie Ortolano, CRISIS INTERVENTION SPECIALIST 10/21/2020 M50.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 , unspecified cervical region Danamarie Ortolano, CRISIS INTERVENTION SPECIALIST 10/21/2020 M51.34 Other intervertebral disc degene ration, thoracic region Danamarie Ortolano, CRISIS INTERVENTION SPECIALIST 10/21/2020 M51.36 Other intervertebral disc degene ration, lumbar region Danamarie Ortolano, CRISIS INTERVENTION SPECIALIST 10/16/2020 M50.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 , unspecified cervical region Nayla Scee P.T.A. 10/16/2020 M51.34 Other intervertebral disc degene ration, thoracic region Nayla Scee P.T.A. 10/16/2020 M51.36 Other intervertebral disc degene ration, lumbar region Nayla Scee P.T.A. 10/12/2020 M50.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 , unspecified cervical region Yen NicoleLupe [place], MSPT 10/12/2020 M51.34 Other intervertebral disc degene ration, thoracic region Yen NicoleLupe [place], MSPT 10/12/2020 M51.36 Other intervertebral disc degene ration, lumbar region Yen NicoleLupe [place], MSPT 10/09/2020 M50.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 , unspecified cervical region Danamarie Ortolano, CRISIS INTERVENTION SPECIALIST 10/09/2020 M51.34 Other intervertebral disc degene ration, thoracic region Danamarie Ortolano, CRISIS INTERVENTION SPECIALIST 10/09/2020 M51.36 Other intervertebral disc degene ration, lumbar region Danamarie Ortolano, CRISIS INTERVENTION SPECIALIST 10/01/2020 M50.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 , unspecified cervical region Yen Nicole. Jaya, MSPT 10/01/2020 M51.34 Other intervertebral disc degene ration, thoracic region Yen [place], MSPT 10/01/2020 M51.36 Other intervertebral disc degene ration, lumbar region Yen [place], MSPT 09/29/2020 M50.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 , unspecified cervical region Danamarie Ortolano, CRISIS INTERVENTION SPECIALIST 09/29/2020 M51.34 Other intervertebral disc degene ration, thoracic region Danamarie Ortolano, CRISIS INTERVENTION SPECIALIST 09/29/2020 M51.36 Other intervertebral disc degene ration, lumbar region Danamarie Ortolano, CRISIS INTERVENTION SPECIALIST 09/24/2020 M50.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 , unspecified cervical region Alix Lyndsey Rowley, CRISIS INTERVENTION SPECIALIST 09/24/2020 M51.34 Other intervertebral disc degene ration, thoracic region Alix Lyndsey Rowley, CRISIS INTERVENTION SPECIALIST 09/24/2020 M51.36 Other intervertebral disc degene ration, lumbar region Alix Lyndsey Rowley, CRISIS INTERVENTION SPECIALIST 09/22/2020 M50.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 , unspecified cervical region Alix Lyndsey Rowley, CRISIS INTERVENTION SPECIALIST 09/22/2020 M51.34 Other intervertebral disc degene ration, thoracic region Alix Lyndsey Rowley, CRISIS INTERVENTION SPECIALIST 09/22/2020 M51.36 Other intervertebral disc degene ration, lumbar region Alix Lyndsey Rowley, CRISIS INTERVENTION SPECIALIST 09/17/2020 M50.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 , unspecified cervical region Alix Lyndsey Rowley, CRISIS INTERVENTION SPECIALIST 09/17/2020 M51.34 Other intervertebral disc degene ration, thoracic region Alix Lyndsey Rowley, CRISIS INTERVENTION SPECIALIST 09/17/2020 M51.36 Other intervertebral disc degene ration, lumbar region Alix Lyndsey Rowley, CRISIS INTERVENTION SPECIALIST 09/15/2020 M50.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 , unspecified cervical region Yen [place], MSPT 09/15/2020 M51.34 Other intervertebral disc degene ration, thoracic region Yen [place], MSPT 09/15/2020 M51.36 Other intervertebral disc degene ration, lumbar region Yen [place], MSPT 09/11/2020 M50.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 , unspecified cervical region Samir Warren, P.A. 09/11/2020 M51.34 Other intervertebral disc degene ration, thoracic region Samir Warren, P.A. 09/11/2020 M51.36 Other intervertebral disc degene ration, lumbar region Samir Warren, P.A. 09/10/2020 M50.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 , unspecified cervical region Nayla Scee P.T.A. 09/10/2020 M51.34 Other intervertebral disc degene ration, thoracic region Nayla Scee P.T.A. 09/10/2020 M51.36 Other intervertebral disc degene ration, lumbar region Nayla Scee P.T.A. 09/08/2020 M50.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 , unspecified cervical region Nayla Scee P.T.A. 09/08/2020 M51.34 Other intervertebral disc degene ration, thoracic region Nayla Scee P.T.A. 09/08/2020 M51.36 Other intervertebral disc degene ration, lumbar region Nayla Scee P.T.A. 09/01/2020 M50.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 , unspecified cervical region [facility]en [place]upe [place], [facility] 09/01/2020 M51.34 Other intervertebral disc degene ration, thoracic region Yen MLupe Lake, MSPT 09/01/2020 M51.36 Other intervertebral disc degene ration, lumbar region Yen RiveraLupe [place], [facility] 08/10/2020 Z48.811 Encounter for surgic al aftercare following surgery on the nervous system Samir Warren, P.A. 08/06/2020 M50.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 , unspecified cervical region Samir Warren, P.A. 08/06/2020 M51.34 Other intervertebral disc degene ration, thoracic region Samir Warren, P.A. 08/06/2020 M51.36 Other intervertebral disc degene ration, lumbar region Samir Warren, P.A. Plan of Treatment 01/01/2021 - Johanna Diallo.* M50.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, unspecified cervical region* Follow up:* prn * M51.34 Other intervertebral disc degeneration, thoracic region * M51.36 Other intervertebral disc degeneration, lumbar region * M48.02 Spinal stenosis, cervical region Functional Status Description No Information Available Mental Status Description No Information Available Referrals Refer to Reason for Referral Status Appt Date Samir Warren, PA OV M50.30 OTHER CERVICAL DIS C DEGENERATION, UNSPECIFIED CERVICAL REGION Created [address] [place] [address] [phone] Samir Warren, PA MRI APPROVED PER THE [facility] WEB FOR MRI OF CERVICAL SPINE (18551) TO ZIGGY Marnie DG Created [facility] [place] [address] [phone] Samir Warren, PA AUTH FOR PT EVAL C,T,L-SPINE [id number]. PAT GOING TO [facility] – [place]. PASSED TO PT DEPT.HW Created [address] [place] [address] [phone] [place] Warren[place] [id number] C,T,L- SPINE. 64 15 MINUTE VISITS.HW Created [address] [place] [address] [phone] Samir Warren PA O/V - M51.36 & M51.34 BACK Created [facility] [address] [phone]
--- OUTSIDE RECORDS SUMMARY | 2021-02-06 00:10 | CCD ---
Author Author [facility] em[facility] Organization [facility] ems Address Unknown Phone Unavailable Care Team Providers Care Recruitment Director Name Role Phone Estelle Craven Unavailable PROBLEMS Type Condition ICD9-CM Code XMD43-DD Code Onset Dates Condition S tatus W/U Status Risk SNOMED Code Notes Problem Pure hypercholesterolemia E78.00 Active confirmed 394006323 Problem Anxiety disorder, unspecified F41.9 Active confirm ed 27171800 Problem Essential hypertension I10 Active confirmed 31226461 Problem Abscess L02.91 Active confirmed 051180083 Problem Major depressive disorder, single episode, unspecified F32.9 Active confirmed 92704170 Problem Cervical spine disease M48.9 Active confirmed 105811868 Problem Carpal tunnel syndrome of left wrist G56.02 Act scarlet confirmed 84567666 Problem Dyspareunia in female N94.10 Active confirmed 13612539 Problem Late menses N92.6 Active confirmed 65458040 Problem Obesity (BMI 35.0-39.9 without comorbidity) E66.9 Active confirmed 434973982 Problem Complication of type 2 diabetes mellitus E11.8 Active confirmed 55039819655270 Problem Infection of both eyes H44.003 Active confirmed 416388968 Problem Cigarette smoker F17.210 Active confirmed 65 943889 Problem Obesity (BMI 30-39.9) E66.9 Active confirmed 131427331 Problem Stress incontinence N39.3 Active confirmed 85602658 Problem Other spondylosis with myelopathy, cervical region M47.12 Active confirmed 96296122 Problem 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 Active confirmed 92696812 Problem Perimenopausal N95.1 Active confirmed 35567 6452993598 Problem Cervical spondylosis with myelopathy and radiculopathy M47.12 Active confirmed 83519487 Problem Type 2 diabetes mellitus wit hout complication, without long-term current use of insulin E11.9 Active confirmed 202807591 Problem Encounter for screening for malignant neoplasm of breast, unspecified screening modality Z12.39 Active confirmed 044818023 Problem Cervical cancer screening Z12.4 Active confirmed 403661177 Problem Perceived hearing changes H91.90 Active confir med 24221430874532883 Problem Seasonal allergic rhinitis, unspecified trigger J3 0.2 Active confirmed 951150797 Problem Fatty liver K76.0 Active confirmed 50834424 7 Problem Physical exam, pre-employment Z02.1 Active confirm ed 818368733 Problem Allergic rhinitis, unspecified seasonality, unspecifie d trigger J30.9 Active confirmed 97853527 Problem Encounter for screening mammogram for malignant neoplasm of breast Z12.31 Active confirmed 793388662 Problem Colon cancer screening Z12.11 Active confirmed 936779690 Problem Amenorrhea N91.2 Active confirmed 04201499 Problem Elevated LFTs R79.89 Active confirmed 658898 004 ALLERGIES Allergen (clinical drug ingredient) Drug/Non Drug Allergy do cumented on EMR Reaction Allergy Type Onset Date Status naproxen Naproxen([facility] Code:[address]-03) itching Drug Allergy Active ENCOUNTERS from 1970 to 2021-01-07 Encounter Location Date Provider Diagnosis [place] [id number] [facility] [phone] [place] [address] 16 Dec, 2020 Estelle Craven Complication of type 2 diabe negrito mellitus E11.8 IMMUNIZATIONS Vaccine Route Administration Date Status Influenza [...] Education Language: Question Answer Notes Languages spoken: Khmer Latter-Day: Question Answer Notes Latter-Day 21 Evangelical Sexual Hx: Question Answer Notes Had sex [...] Notes Start Da te End Date Status metFORMIN HCl 500 MG 2 tablet with meals Orally Twice a day Active Atorvastatin Calcium 20 MG TAKE ONE TABLET BY MOUTH EVERY DAY for 30 Active Cyclobenzaprine HCl 10 MG 1 tablet as needed Orally bid for 30 Active May Have - cockup wrist splint _ before bedtime for 99 months Mar, Active Trulicity 3 MG/0.5ML as directed Subcutaneous weekly for 30 Days Nov, Active Lyrica 75 MG 1 capsule mdd:3 Orally Three times a day for 30 Days Dec, Active Glimepiride 4 MG 1 tablet with breakfast or t he first main meal of the day Orally bid for 30 Days Active Levocetirizine Dihydrochloride 5 MG 1 tablet in the ev ening Orally Once a day for 30 day(s) Dec, Active Paxil 10 MG 1.5 tablet Orally Once a day for 30 Days Active Fish Oil 1000 MG 1 capsule Orally twice daily Active Blood Glucose Test - as directed dx E11,8 3-4x/week Active Mucinex 600 MG 1 tablet as needed Orally every 12 hrs for 5 day (s) Nov, Active Ibuprofen 600 MG 1 tablet with food or milk as needed Ora lly Three times a day Active Glucometer as directed dx E11.8 3-4x/week Active Lisinopril 20 MG 1 tablet Orally Once a day for 30 Active Vitamin B Complex - as directed Orally Active Lancets - as directed dx E11.8 3-4x/week Active PROCEDURES No Information RESULTS No Results REASON FOR VISIT refill MEDICAL (GENERAL) HISTORY Type Description Date Medical [...] Notes Treatment Notes Treatm ent Clinical Notes Dec, Complication of type 2 diabetes mellitus (ICD-10 - E11.8) PLAN OF TREATMENT Medication Medication Name Sig Start Date Stop Date Lyrica 75 MG 1 capsule mdd:3 Orally Three times a day for 30 Days Dec, Levocetirizine Dihydrochloride 5 MG 1 tablet in the ev ening Orally Once a day for 30 day(s) Dec, Trulicity 3 MG/0.5ML as directed Subcutaneous weekly for 30 Days Nov, Glimepiride 4 MG 1 tablet with breakfast or t he first main meal of the day Orally bid for 30 Days Lancets - as directed dx E11.8 3-4x/week Blood Glucose Test - as directed dx E11,8 3-4x/week metFORMIN HCl 500 MG 2 tablet with meals Orally Twice a day Next Appt Details Provider Name:Estelle Craven, 9- 10:45:00 AM, [address] [place] [address] , [place], [address], Provider Name:Alix Weir, 2020-12-24 2 01:00:00 PM, [address] [place] [address] , [place], [address], Provider Name:Kaylin ROMERO, 2021-02-22 09:30:00 AM, [address] [place] [address] , [place], [address], Insurance Providers Payer Name Payer Address Payer Phone Insured Name Patient Relati onship to Insured Coverage Start Date Coverage End Date [facility] [address] [facility] [phone] MARITZA FLORES self
--- OUTSIDE RECORDS SUMMARY | 2021-02-06 00:10 | CCD | Continuity of Care Document ---
Author Author Cece WARREN P.A. Organization Unknown Address [address] [place] [address] Phone [phone] Care Team Providers Care Assistant Golf Professional Name Role Phone Nati Carter NP AUTM Unavailable Elliot Breen [facility] [phone] Estelle Craven RPA-C AUTM Problems Description No Information Available Social History [...] Information Available Procedures Date Code Description Status 01/01/2021 76143 Office/Outpatient Established Lo w MDM 20-29 Min Completed 11/12/2020 18708 Office/Outpatient Established Mo d MDM 30-39 Min Completed 11/10/2020 04603 Therapeutic Activities Direct, E ach 15 Minutes Completed 11/06/2020 38291 Therapeutic Activities Direct, E ach 15 Minutes Completed 11/06/2020 64958 Manual Therapy Each 15 Minutes C ompleted 11/06/2020 74227 Therapeutic Procedure, Each 15 M inutes Completed 11/06/2020 72028 Electrical Stimulati on Manual, Each 15 Min, Constant Attendance Completed 11/04/2020 74508 Therapeutic Activities Direct, E ach 15 Minutes Completed 11/04/2020 87132 Manual Therapy Each 15 Minutes C ompleted 11/04/2020 21141 Therapeutic Procedure, Each 15 M inutes Completed 11/04/2020 44755 Electrical Stimulati on Manual, Each 15 Min, Constant Attendance Completed 11/02/2020 38173 Therapeutic Activities Direct, E ach 15 Minutes Completed 11/02/2020 22785 Manual Therapy Each 15 Minutes C ompleted 11/02/2020 13505 Therapeutic Procedure, Each 15 M inutes Completed 11/02/2020 50828 Electrical Stimulati on Manual, Each 15 Min, Constant Attendance Completed 10/29/2020 89023 Hot Or Cold Packs Completed 10/29/2020 02603 Therapeutic Activities Direct, E ach 15 Minutes Completed 10/27/2020 96090 Therapeutic Activities Direct, E ach 15 Minutes Completed 10/27/2020 67107 Electrical Stimulati on Manual, Each 15 Min, Constant Attendance Completed 10/23/2020 73799 Therapeutic Activities Direct, E ach 15 Minutes Completed 10/21/2020 97829 Therapeutic Activities Direct, E ach 15 Minutes Completed 10/21/2020 96065 Manual Therapy Each 15 Minutes C ompleted 10/21/2020 09387 Electrical Stimulati on Manual, Each 15 Min, Constant Attendance Completed 10/16/2020 58866 Therapeutic Activities Direct, E ach 15 Minutes Completed 10/16/2020 14951 Manual Therapy Each 15 Minutes C ompleted 10/16/2020 98641 Therapeutic Procedure, Each 15 M inutes Completed 10/16/2020 32723 Electrical Stimulati on Manual, Each 15 Min, Constant Attendance Completed 10/12/2020 15431 Therapeutic Activities Direct, E ach 15 Minutes Completed 10/12/2020 20786 Electrical Stimulati on Manual, Each 15 Min, Constant Attendance Completed 10/12/2020 99541 Hot Or Cold Packs Completed 10/09/2020 86202 Electrical Stimulati on Manual, Each 15 Min, Constant Attendance Completed 10/09/2020 11316 Therapeutic Activities Direct, E ach 15 Minutes Completed 10/01/2020 49165 Therapeutic Activities Direct, E ach 15 Minutes Completed 10/01/2020 92023 Manual Therapy Each 15 Minutes C ompleted 10/01/2020 05701 Therapeutic Procedure, Each 15 M inutes Completed 10/01/2020 53244 Electrical Stimulati on Manual, Each 15 Min, Constant Attendance Completed 10/01/2020 08461 Hot Or Cold Packs Completed 09/29/2020 01708 Therapeutic Activities Direct, E ach 15 Minutes Completed 09/24/2020 11774 Therapeutic Activities Direct, E ach 15 Minutes Completed 09/22/2020 71862 Therapeutic Activities Direct, E ach 15 Minutes Completed 09/22/2020 26748 Manual Therapy Each 15 Minutes C ompleted 09/22/2020 17342 Therapeutic Procedure, Each 15 M inutes Completed 09/22/2020 98499 Electrical Stimulati on Manual, Each 15 Min, Constant Attendance Completed 09/22/2020 19308 Hot Or Cold Packs Completed 09/17/2020 74543 Hot Or Cold Packs Completed 09/17/2020 90620 Therapeutic Procedure, Each 15 M inutes Completed 09/17/2020 47540 Therapeutic Activities Direct, E ach 15 Minutes Completed 09/17/2020 60267 Manual Therapy Each 15 Minutes C ompleted 09/15/2020 86990 Therapeutic Activities Direct, E ach 15 Minutes Completed 09/15/2020 04445 Manual Therapy Each 15 Minutes C ompleted 09/15/2020 52701 Therapeutic Procedure, Each 15 M inutes Completed 09/15/2020 16787 Electrical Stimulati on Manual, Each 15 Min, Constant Attendance Completed 09/11/2020 28857 Office/Outpatient Established Lo w MDM 20-29 Min Completed 09/10/2020 82097 Manual Therapy Each 15 Minutes C ompleted 09/10/2020 40669 Electrical Stimulati on Manual, Each 15 Min, Constant Attendance Completed 09/10/2020 67550 Therapeutic Procedure, Each 15 M inutes Completed 09/10/2020 64969 Therapeutic Activities Direct, E ach 15 Minutes Completed 09/08/2020 34040 Therapeutic Activities Direct, E ach 15 Minutes Completed 09/08/2020 61617 Manual Therapy Each 15 Minutes C ompleted 09/08/2020 61268 Therapeutic Procedure, Each 15 M inutes Completed 09/08/2020 96446 Electrical Stimulati on Manual, Each 15 Min, Constant Attendance Completed 09/01/2020 00680 Physical Therapy Eval - Low Comp lexity Completed 08/06/2020 24605 Office/Outpatient Established Mo d MDM 30-39 Min Completed Medical Devices Description No Information Available Encounters Type Date Location Provider Dx Diagnosis Office Visit 01/01/2021 5:30p [place] Sameera Diallo.A. M50.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, unsp cervical 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, 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, lumbar region M48.02 Spinal stenosis, cervical re gion Office Visit 11/12/2020 10:45a [place] Samir Warren P.A. M50.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, unsp cervical 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, 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, lumbar region Office Visit 09/11/2020 4:00p [place] P.A. M50.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, unsp cervical 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, 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, lumbar region Office Visit 08/10/2020 5:30p [place] Samir Warren, P.A. Z48.811 Encntr for surgical aftcr fol surgery on the nervous sys Office Visit 08/06/2020 2:15p [place] P.A. M50.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, unsp cervical 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, 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, lumbar region Assessments Date Code Description Provider 01/01/2021 M50.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 , unspecified cervical region Samir Warren, P.A. 01/01/2021 M51.34 Other intervertebral disc degene ration, thoracic region Samir Warren P.A. 01/01/2021 M51.36 Other intervertebral disc degene ration, lumbar region Sameera Diallo.A. 01/01/2021 M48.02 Spinal stenosis, cervical region Samir Warren, P.A. 11/12/2020 M50.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 , unspecified cervical region Samir Warren, P.A. 11/12/2020 M51.34 Other intervertebral disc degene ration, thoracic region Samir Warren, P.A. 11/12/2020 M51.36 Other intervertebral disc degene ration, lumbar region Samir Warren, P.A. 11/10/2020 M50.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 , unspecified cervical region Nayla Scee P.T.A. 11/10/2020 M51.34 Other intervertebral disc degene [...] degeneration , unspecified cervical region Danamarie Ortolano, [employer] 11/04/2020 M51.34 Other intervertebral disc degene ration, thoracic region Danamarie Ortolano, [employer] CLERK 11/04/2020 M51.36 Other intervertebral disc degene ration, lumbar region Danamarie Ortolano, [employer] CLERK 11/02/2020 M50.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 , unspecified cervical region Danamarie Ortolano, [employer] CLERK 11/02/2020 M51.34 Other intervertebral disc degene ration, thoracic region Danamarie Ortolano, [employer] CLERK 11/02/2020 M51.36 Other intervertebral disc degene ration, lumbar region Danamarie Ortolano, [employer] CLERK 10/29/2020 M50.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 , unspecified cervical region Yen Lake, MSPT 10/29/2020 M51.34 Other intervertebral disc degene ration, thoracic region [place], MSPT 10/29/2020 M51.36 Other intervertebral disc degene ration, lumbar region Yen M. Vespa, MSPT 10/27/2020 M50.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 , unspecified cervical region Danamarie Ortolano, [employer] CLERK 10/27/2020 M51.34 Other intervertebral disc degene ration, thoracic region Danamarie Ortolano, [employer] CLERK 10/27/2020 M51.36 Other intervertebral disc degene ration, lumbar region Danamarie Ortolano, [employer] CLERK 10/23/2020 M50.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 , unspecified cervical region Danamarie Ortolano, [employer] CLERK 10/23/2020 M51.34 Other intervertebral disc degene ration, thoracic region Danamarie Ortolano, [employer] CLERK 10/23/2020 M51.36 Other intervertebral disc degene ration, lumbar region Danamarie Ortolano, [employer] CLERK 10/21/2020 M50.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 , unspecified cervical region Danamarie Ortolano, [employer] CLERK 10/21/2020 M51.34 Other intervertebral disc degene ration, thoracic region Danamarie Ortolano, [employer] CLERK 10/21/2020 M51.36 Other intervertebral disc degene ration, lumbar region Danamarie Ortolano, [employer] CLERK 10/16/2020 M50.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 , unspecified cervical region Nayla Scee P.T.A. 10/16/2020 M51.34 Other intervertebral disc degene ration, thoracic region Nayla Scee P.T.A. 10/16/2020 M51.36 Other intervertebral disc degene ration, lumbar region Nayla Scee P.T.A. 10/12/2020 M50.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 , unspecified cervical region Yen [place], MSPT 10/12/2020 M51.34 Other intervertebral disc degene ration, thoracic region Yen [place], MSPT 10/12/2020 M51.36 Other intervertebral disc degene ration, lumbar region Yen [place], MSPT 10/09/2020 M50.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 , unspecified cervical region Danamarie Ortolano, [employer] CLERK 10/09/2020 M51.34 Other intervertebral disc degene ration, thoracic region Danamarie Ortolano, [employer] CLERK 10/09/2020 M51.36 Other intervertebral disc degene ration, lumbar region Danamarie Ortolano, [employer] CLERK 10/01/2020 M50.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 , unspecified cervical region Yen [place], MSPT 10/01/2020 M51.34 Other intervertebral disc degene ration, thoracic region Yen [place], MSPT 10/01/2020 M51.36 Other intervertebral disc degene ration, lumbar region Yen [place], MSPT 09/29/2020 M50.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 , unspecified cervical region Danamarie Ortolano, [employer] CLERK 09/29/2020 M51.34 Other intervertebral disc degene ration, thoracic region Danamarie Ortolano, [employer] CLERK 09/29/2020 M51.36 Other intervertebral disc degene ration, lumbar region Danamarie Ortolano, [employer] CLERK 09/24/2020 M50.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 , unspecified cervical region Alix Lyndsey Rowley, [employer] CLERK 09/24/2020 M51.34 Other intervertebral disc degene ration, thoracic region Alix Lyndsey Rowley, [employer] CLERK 09/24/2020 M51.36 Other intervertebral disc degene ration, lumbar region Alix Lyndsey Rowley, [employer] CLERK 09/22/2020 M50.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 , unspecified cervical region Alix Lyndsey Rowley, [employer] CLERK 09/22/2020 M51.34 Other intervertebral disc degene ration, thoracic region Alix Lyndsey Rowley, [employer] CLERK 09/22/2020 M51.36 Other intervertebral disc degene ration, lumbar region Alix Lyndsey Rowley, [employer] CLERK 09/17/2020 M50.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 , unspecified cervical region Alix Lyndsey Rowley, [employer] CLERK 09/17/2020 M51.34 Other intervertebral disc degene ration, thoracic region Alix Lyndsey Rowley, [employer] CLERK 09/17/2020 M51.36 Other intervertebral disc degene ration, lumbar region Alix Lyndsey Rowley, [employer] CLERK 09/15/2020 M50.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 , unspecified cervical region Yen [place], MSPT 09/15/2020 M51.34 Other intervertebral disc degene ration, thoracic region Yen [place], MSPT 09/15/2020 M51.36 Other intervertebral disc degene ration, lumbar region Yen Laek, [facility] 09/11/2020 M50.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 , [...] degeneration , unspecified cervical region Yen [place], [facility] 09/01/2020 M51.34 Other intervertebral disc degene ration, thoracic region Yen [place], [facility] 09/01/2020 M51.36 Other intervertebral disc degene ration, lumbar region Yen [place], [facility] 08/10/2020 Z48.811 Encounter for surgic al aftercare following surgery on the nervous system Samir Warren, P.A. 08/06/2020 M50.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 , unspecified cervical region Samir Warren, P.A. 08/06/2020 M51.34 Other intervertebral disc degene ration, thoracic region Samir Warren, P.A. 08/06/2020 M51.36 Other intervertebral disc degene ration, lumbar region Jaelyn Diallo Plan of Treatment 01/01/2021 - Jaelyn Diallo* M50.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, unspecified cervical region* Follow up:* prn * M51.34 Other intervertebral disc degeneration, thoracic region * M51.36 Other intervertebral disc degeneration, lumbar region * M48.02 Spinal stenosis, cervical region Functional Status Description No Information Available Mental Status Description No Information Available Referrals Refer to Dr Reason for Referral Status Appt Date Samir Warren PA OV M50.30 OTHER CERVICAL DIS C DEGENERATION, UNSPECIFIED CERVICAL REGION Created [address] [place] [address] [phone] Samir Warren PA MRI APPROVED PER [facility] WEB FOR MRI OF CERVICAL SPINE (71721) TO ZIGGY BeasleyLupe DG Created [address] [place] [address] [phone] Samir Warren, PA AUTH FOR PT EVAL C,T,L-SPINE [id number]. PAT GOING TO [facility]. PASSED TO PT DEPT.HW Created [facility] [place] [address] [phone] Samir [place] [id number] C,T,L- SPINE. 64 15 MINUTE VISITS. Created [facility] [place] [address] [phone]
--- OUTSIDE RECORDS SUMMARY | 2021-02-06 00:10 | CCD ---
Author Author [facility] em[facility] Organization [facility] ems Address Unknown Phone Unavailable Care Team Providers Care Elastic Cutter Name Role Phone Estelle Craven Unavailable PROBLEMS Type Condition ICD9-CM Code [id number] Code Onset Dates Condition S tatus W/U Status Risk SNOMED Code Notes Problem Pure hypercholesterolemia E78.00 Active confirmed 367899261 Problem Anxiety disorder, unspecified F41.9 Active confirm ed 82873141 Problem Essential hypertension I10 Active confirmed 98538226 Problem Abscess L02.91 Active confirmed 769549061 Problem Major depressive disorder, single episode, unspecified F32.9 Active confirmed 95140195 Problem Cervical spine disease M48.9 Active confirmed 176881359 Problem Carpal tunnel syndrome of left wrist G56.02 Act scarlet confirmed 94207977 Problem Dyspareunia in female N94.10 Active confirmed 77207029 Problem Late menses N92.6 Active confirmed 06012998 Problem Obesity (BMI 35.0-39.9 without comorbidity) E66.9 Active confirmed 995196930 Problem Complication of type 2 diabetes mellitus E11.8 Active confirmed 18283887212360 Problem Infection of both eyes H44.003 Active confirmed 770218027 Problem Cigarette smoker F17.210 Active confirmed 65 974342 Problem Obesity (BMI 30-39.9) E66.9 Active confirmed 399239584 Problem Stress incontinence N39.3 Active confirmed 53816162 Problem Other spondylosis with myelopathy, cervical region M47.12 Active confirmed 56808502 Problem 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 Active confirmed 35236247 Problem Perimenopausal N95.1 Active confirmed 18794 1074148215 Problem Cervical spondylosis with myelopathy and radiculopathy M47.12 Active confirmed 62563782 Problem Type 2 diabetes mellitus wit hout complication, without long-term current use of insulin E11.9 Active confirmed 228689375 Problem Encounter for screening for malignant neoplasm of breast, unspecified screening modality Z12.39 Active confirmed 234412471 Problem Cervical cancer screening Z12.4 Active confirmed 427296129 Problem Perceived hearing changes H91.90 Active confir med 46668858758608992 Problem Seasonal allergic rhinitis, unspecified trigger J3 0.2 Active confirmed 667468902 Problem Fatty liver K76.0 Active confirmed 90188900 7 Problem Physical exam, pre-employment Z02.1 Active confirm ed 970422575 Problem Allergic rhinitis, unspecified seasonality, unspecifie d trigger J30.9 Active confirmed 90312278 Problem Encounter for screening mammogram for malignant neoplasm of breast Z12.31 Active confirmed 978017411 Problem Colon cancer screening Z12.11 Active confirmed 565909465 Problem Amenorrhea N91.2 Active confirmed 31944155 Problem Elevated LFTs R79.89 Active confirmed 760678 004 ALLERGIES Allergen (clinical drug ingredient) Drug/Non Drug Allergy do cumented on EMR Reaction Allergy Type Onset Date Status naproxen Naproxen([facility] Code:[address]-30) itching Drug Allergy Active ENCOUNTERS from 1969 to 2021-01-07 Encounter Location Date Provider Diagnosis [place] [address] [facility] [phone] [place] [address] 14 Dec, 2020 Estelle Craven Allergic rhinitis, unspecifi ed seasonality, unspecified trigger J30.9 IMMUNIZATIONS Vaccine Route Administration Date Status Influenza [...] Education Language: Question Answer Notes Languages spoken: Urdu Jewish: Question Answer Notes Jewish 21 Islam Sexual Hx: Question Answer Notes Had sex [...] Information RESULTS No Results REASON FOR VISIT allergy medication MEDICAL (GENERAL) HISTORY Type Description Date Medical [...] Treatment Notes Treatm ent Clinical Notes Dec, Allergic rhinitis, unspecifi ed seasonality, unspecified trigger (ICD-10 - J30.9) PLAN OF TREATMENT Medication Medication Name Sig [...] day Next Appt Details Provider Name:Estelle Craven, - 10:45:00 AM, [address] [place] [address] , [place], [address], Provider Name:Alix Weir, 2020-12-24 2 01:00:00 PM, [address] [place] [address] , [place], [address], Provider Name:Kaylin ROMERO, 2021-02-22 09:30:00 AM, [address] [place] [address] , [place], [address], Insurance Providers Payer Name Payer Address Payer Phone Insured Name Patient Relati onship to Insured Coverage Start Date Coverage End Date [facility] COMMUNITY PLAN [facility] [address] [facility] [address] MARITZA FLORES self
--- OUTSIDE RECORDS SUMMARY | 2021-02-06 00:10 | CCD ---
Author Author [facility] em[facility] Organization [facility] ems Address Unknown Phone Unavailable Care Team Providers Care Monologist Name Role Phone Beatrice Chahal Unavailable PROBLEMS Type Condition ICD9-CM Code WAX15-YE Code Onset Dates Condition S tatus W/U Status Risk SNOMED Code Notes Problem Pure hypercholesterolemia E78.00 Active confirmed 058665558 Problem Anxiety disorder, unspecified F41.9 Active confirm ed 77641974 Problem Essential hypertension I10 Active confirmed 47329298 Problem Abscess L02.91 Active confirmed 983734933 Problem Major depressive disorder, single episode, unspecified F32.9 Active confirmed 98474411 Problem Cervical spine disease M48.9 Active confirmed 778426783 Problem Carpal tunnel syndrome of left wrist G56.02 Act scarlet confirmed 20676964 Problem Dyspareunia in female N94.10 Active confirmed 54650540 Problem Late menses N92.6 Active confirmed 39185757 Problem Obesity (BMI 35.0-39.9 without comorbidity) E66.9 Active confirmed 379840136 Problem Complication of type 2 diabetes mellitus E11.8 Active confirmed 03021524505213 Problem Infection of both eyes H44.003 Active confirmed 969918296 Problem Cigarette smoker F17.210 Active confirmed 65 201158 Problem Obesity (BMI 30-39.9) E66.9 Active confirmed 365193970 Problem Stress incontinence N39.3 Active confirmed 30487719 Problem Other spondylosis with myelopathy, cervical region M47.12 Active confirmed 67502816 Problem 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 Active confirmed 17003128 Problem Perimenopausal N95.1 Active confirmed 72587 2392745601 Problem Cervical spondylosis with myelopathy and radiculopathy M47.12 Active confirmed 77681221 Problem Type 2 diabetes mellitus wit hout complication, without long-term current use of insulin E11.9 Active confirmed 347364845 Problem Encounter for screening for malignant neoplasm of breast, unspecified screening modality Z12.39 Active confirmed 302522844 Problem Cervical cancer screening Z12.4 Active confirmed 680742725 Problem Perceived hearing changes H91.90 Active confir med 25476496889227167 Problem Seasonal allergic rhinitis, unspecified trigger J3 0.2 Active confirmed 064085813 Problem Fatty liver K76.0 Active confirmed 93039049 7 Problem Physical exam, pre-employment Z02.1 Active confirm ed 302702288 Problem Allergic rhinitis, unspecified seasonality, unspecifie d trigger J30.9 Active confirmed 64668533 Problem Encounter for screening mammogram for malignant neoplasm of breast Z12.31 Active confirmed 432778137 Problem Colon cancer screening Z12.11 Active confirmed 054208721 Problem Amenorrhea N91.2 Active confirmed 65888896 Problem Elevated LFTs R79.89 Active confirmed 909014 004 ALLERGIES Allergen (clinical drug ingredient) Drug/Non Drug Allergy do cumented on EMR Reaction Allergy Type Onset Date Status naproxen Naproxen([facility] Code:[address]-91) itching Drug Allergy Active ENCOUNTERS from 1969 to 2021-01-13 Encounter Location Date Provider Diagnosis [facility] [address] [facility] [phone] [place] [address] 22 Dec, 2020 Beatrice Chahal IMMUNIZATIONS Vaccine Route Administration Date Status Influenza [...] Education Language: Question Answer Notes Languages spoken: Filipino Episcopalian: Question Answer Notes Episcopalian 21 Latter Day Sexual Hx: Question Answer Notes Had sex [...] Information RESULTS No Results REASON FOR VISIT appt MEDICAL (GENERAL) HISTORY Type Description Date Medical [...] Details Provider Name:Estelle Craven, 2020-04 09:30:00 AM, [address] [place] [address], , [place], [address], Provider Name:Kaylin ROMERO, 2021-02-22 09:30:00 AM, [address] [place] [address], , [place], [address], Provider Name:Beatrice Chahal, 2021-02-25 02:00:00 PM, [address] [place] [address], , [place], [address], Provider Name:Alix Weir, 2021-02-23 4 01:00:00 PM, [address] [place] [address], , [place], [address], Insurance Providers Payer Name Payer Address Payer Phone Insured Name Patient Relati onship to Insured Coverage Start Date Coverage End Date [facility] COMMUNITY PLAN [facility] [address] [facility] [phone] MARITZA FLORES self
--- OUTSIDE RECORDS SUMMARY | 2021-02-06 00:10 | CCD ---
Author Author [facility]st ems Organization [facility] ems Address Unknown Phone Unavailable Care Team Providers Care Chairman Name Role Phone Alix Weir Unavailable PROBLEMS Type Condition ICD9-CM Code [id number] Code Onset Dates Condition S tatus W/U Status Risk SNOMED Code Notes Problem Pure hypercholesterolemia E78.00 Active confirmed 654414951 Problem Anxiety disorder, unspecified F41.9 Active confirm ed 69566619 Problem Essential hypertension I10 Active confirmed 51772898 Problem Abscess L02.91 Active confirmed 592005404 Problem Major depressive disorder, single episode, unspecified F32.9 Active confirmed 21242819 Problem Cervical spine disease M48.9 Active confirmed 887873702 Problem Carpal tunnel syndrome of left wrist G56.02 Act scarlet confirmed 45437315 Problem Dyspareunia in female N94.10 Active confirmed 66705868 Problem Late menses N92.6 Active confirmed 62058611 Problem Obesity (BMI 35.0-39.9 without comorbidity) E66.9 Active confirmed 469960243 Problem Complication of type 2 diabetes mellitus E11.8 Active confirmed 00048999138638 Problem Infection of both eyes H44.003 Active confirmed 712013480 Problem Cigarette smoker F17.210 Active confirmed 65 179880 Problem Obesity (BMI 30-39.9) E66.9 Active confirmed 954009719 Problem Stress incontinence N39.3 Active confirmed 11551304 Problem Other spondylosis with myelopathy, cervical region M47.12 Active confirmed 10204238 Problem 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 Active confirmed 35349664 Problem Perimenopausal N95.1 Active confirmed 65832 3258376964 Problem Cervical spondylosis with myelopathy and radiculopathy M47.12 Active confirmed 06956020 Problem Type 2 diabetes mellitus wit hout complication, without long-term current use of insulin E11.9 Active confirmed 578456238 Problem Encounter for screening for malignant neoplasm of breast, unspecified screening modality Z12.39 Active confirmed 168310340 Problem Cervical cancer screening Z12.4 Active confirmed 439012545 Problem Perceived hearing changes H91.90 Active confir med [id number] Problem Seasonal allergic rhinitis, unspecified trigger J3 0.2 Active confirmed 055086497 Problem Fatty liver K76.0 Active confirmed 50945093 7 Problem Physical exam, pre-employment Z02.1 Active confirm ed 357281831 Problem Allergic rhinitis, unspecified seasonality, unspecifie d trigger J30.9 Active confirmed 96853501 Problem Encounter for screening mammogram for malignant neoplasm of breast Z12.31 Active confirmed 476800703 Problem Colon cancer screening Z12.11 Active confirmed 045492937 Problem Amenorrhea N91.2 Active confirmed 07087337 Problem Elevated LFTs R79.89 Active confirmed 866114 004 ALLERGIES Allergen (clinical drug ingredient) Drug/Non Drug Allergy do cumented on EMR Reaction Allergy Type Onset Date Status naproxen Naproxen([facility] Code:[address]-51) itching Drug Allergy Active ENCOUNTERS from 1969 to 2021-01-14 Encounter Location Date Provider Diagnosis [address] [phone] [place] [address] Dec, Alix Intorcia Type 2 diabetes mellitus wit hout complication, [...] Language: Question Answer Notes Languages spoken: Vietnamese Jehovah'S Witness: Question Answer Notes Jehovah'S Witness 21 Worship Sexual Hx: Question Answer Notes Had sex [...] REASON FOR REFERRAL No Information VITAL SIGNS Weight 203.6 lbs Dec, Weight-kg 92.35 kg Dec, Height 63 in Dec, BMI 36.06 kg/m2 Dec, MEDICATIONS Medication SIG (Take, Route, Frequency, Duration) [...] Information RESULTS No Results REASON FOR VISIT Initial Medical Nutrition Therapy r/t E11.9 MEDICAL (GENERAL) HISTORY Type Description Date Medical [...] Treatment Notes Treatm ent Clinical Notes Dec, Type 2 diabetes mellitus wit hout complication, without long-term current use of insulin (ICD-10 - E11.9) Dec, Other Food Allergies: NKFA'S Food Dislikes: REE= 1533 calories/day for weight loss 24 hour food recall: Breakfast: coffee n sweet n low Lunch: [employer] -filet of fish, medium ff, medium coke Dinner: chicken thigh, 1 c. real mashed potato, 1/3 c corn Snacks: 9 amaral tomatoes off my plant, banana, apple Drinks: not discussed today LABS: 09/15/20 no new labs A1c 8.6%^ (was 9.5% 04/29/20) Glucose Fasting- 322^ EAG- 226^ Na-134v K+ wnl BUN/Cr/GFR-wnl ALT-33^ Alk Phos-156^ Leroy/Cr -PLEASE ORDER F16-UIISCK ORDER 04/29/20: TG -340^ Cholesterol- 207^ LDL- 102^ HDL-37v TSH/T4-wnl Blood Glucose: complained cannot get below 200 mg/dl Pertinent Medications: glimepiride 4mg- times per day with meals, Trulicity 1.5 weekly, Metformin HCL-500 jh-7grvw-0cejon daily, atorvastatin 20 mg daily, lisinopril 20 mg daily, paxil 10 mg-1.5 pills daily, Lyrica 75 mg TID, Vit B complex bid, cyclobenzaprine 10 mg -2 times daily prn Failed DM Medications: none noted (d/c'd DPP-4 to start GLP-1 RA) Activity: very active working on her [employer] Eye Exam: did not discuss today Foot Exam: did not discuss today-saw Dr. 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 Nutrition Prescription: 1) Diet Education: 30 gm carb each meal 2) Goal Setting-Patient will continue to improve her A1c. 3) Evidence of Learning: Verbalizes Understanding 4) Expected Adherence: Unable to Determine 5) Barriers to Adherence: None noted COMMENTS: Patient returned for MNT r/t recently diagnosed Type 2 DM with hyperglycemia. A1c showed improvement but remained elevated( 04/29/20 was 9.5% improved to 8.6 08/11/20)and lipids elevated. Currently prescribed medications per above. No problems taking meds or getting refills in a timely manner. Last checked fingerstick last week and was 180 mg/dl. Reviewed 24 hour food recall. Made patient aware that [facility] [place] meal had 90 gm carb and if she must eat there to order a small plain burger and small ff with water. Also encouraged patient to eat 3 balanced meals a day using portin plate method which would keep carb intake to 30-40 gm carb each meal. Reviewed portion plate method. Explained Non carb foods including: non-starchy vegetables, lean meat, and healthy fats in small amounts, helped to keep her full and avoid symptoms of low blood sugar. Next educated which food groups contained carbohydrate and the importance of increased fiber in her carbohydrate choices. Used food models to display appropriate portion sizes on an 8 inch plate to make a meal. 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 Patient seemed to understand and has RDs contact information in case of questions. GOALS: I will reach an A1c below 8% by next lab draw. 1) Eat 3 meals a day using portion plate method/carb counting 2) Check BS before meals with goal 80-130. 3) Be as active as possible on the [employer]. Monitor: _x_ Diet _x _WT _x__ Meds _x_ BS log __ Food Log __Activity PLAN OF TREATMENT Medication Medication Name Sig [...] Orally Once a day Next Appt Details MonMar 17, 2021 1-2pm Reason: Provider Name:Estelle Craven, 2020-04 09:30:00 AM, [address] [facility], , [place], [address], Provider Name:Kaylin ROMERO, 2021-02-22 09:30:00 AM, [address] [place] [address], , [place], [address], Provider Name:Beatrice Chahal, 2021-02-25 02:00:00 PM, [address] [place] [address], , [place], [address], Provider Name:Alix Weir, 2021-02-23 4 01:00:00 PM, [address] [place] [address], , [place], [address], Insurance Providers Payer Name Payer Address Payer Phone Insured Name Patient Relati onship to Insured Coverage Start Date Coverage End Date [facility] [address] [facility] [address] [phone] MARITZA FLORES self
--- OUTSIDE RECORDS SUMMARY | 2021-02-06 00:10 | CCD ---
Author Author [facility] ems Organization [facility] ems Address Unknown Phone Unavailable Care Team Providers Care Machine Ironer Name Role Phone Estelle Craven Unavailable PROBLEMS Type Condition ICD9-CM Code [id number] Code Onset Dates Condition S tatus W/U Status Risk SNOMED Code Notes Problem Pure hypercholesterolemia E78.00 Active confirmed 906658881 Problem Anxiety disorder, unspecified F41.9 Active confirm ed 40796137 Problem Essential hypertension I10 Active confirmed 25186919 Problem Abscess L02.91 Active confirmed 741125845 Problem Major depressive disorder, single episode, unspecified F32.9 Active confirmed 75487484 Problem Cervical spine disease M48.9 Active confirmed 253815188 Problem Carpal tunnel syndrome of left wrist G56.02 Act scarlet confirmed 03763785 Problem Dyspareunia in female N94.10 Active confirmed 81819427 Problem Late menses N92.6 Active confirmed 94803276 Problem Obesity (BMI 35.0-39.9 without comorbidity) E66.9 Active confirmed 329657447 Problem Complication of type 2 diabetes mellitus E11.8 Active confirmed 81682885652313 Problem Infection of both eyes H44.003 Active confirmed 307965822 Problem Cigarette smoker F17.210 Active confirmed 65 683280 Problem Obesity (BMI 30-39.9) E66.9 Active confirmed 240113051 Problem Stress incontinence N39.3 Active confirmed 74746089 Problem Other spondylosis with myelopathy, cervical region M47.12 Active confirmed 14639142 Problem 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 Active confirmed 52273756 Problem Perimenopausal N95.1 Active confirmed 22438 2357030178 Problem Cervical spondylosis with myelopathy and radiculopathy M47.12 Active confirmed 68260488 Problem Type 2 diabetes mellitus wit hout complication, without long-term current use of insulin E11.9 Active confirmed 079133218 Problem Encounter for screening for malignant neoplasm of breast, unspecified screening modality Z12.39 Active confirmed 038774620 Problem Cervical cancer screening Z12.4 Active confirmed 113207836 Problem Perceived hearing changes H91.90 Active confir med 73409400721273906 Problem Seasonal allergic rhinitis, unspecified trigger J3 0.2 Active confirmed 006935332 Problem Fatty liver K76.0 Active confirmed 06686735 7 Problem Physical exam, pre-employment Z02.1 Active confirm ed 130332831 Problem Allergic rhinitis, unspecified seasonality, unspecifie d trigger J30.9 Active confirmed 07538518 Problem Encounter for screening mammogram for malignant neoplasm of breast Z12.31 Active confirmed 571233541 Problem Colon cancer screening Z12.11 Active confirmed 538061633 Problem Amenorrhea N91.2 Active confirmed 24311701 Problem Elevated LFTs R79.89 Active confirmed 792932 004 ALLERGIES Allergen (clinical drug ingredient) Drug/Non Drug Allergy do cumented on EMR Reaction Allergy Type Onset Date Status naproxen Naproxen([facility] Code:[address]-22) itching Drug Allergy Active ENCOUNTERS from 1969 to 2021-02-02 Encounter Location Date Provider Diagnosis [place] [address] [facility] [phone] [place] [address] 12 Jan, 2021 Estelle Craven IMMUNIZATIONS Vaccine Route Administration Date [...] Education Language: Question Answer Notes Languages spoken: Kyrgyz Orthodoxy: Question Answer Notes Orthodoxy 21 Religious Sexual Hx: Question Answer Notes Had sex [...] use, cessation provided 04/2020 REASON FOR REFERRAL No Information VITAL SIGNS [...] Three times a day for 30 Days lost her medication Jan, Active metFORMIN HCl 500 MG 2 tablet [...] Information RESULTS No Results REASON FOR VISIT lost medication MEDICAL (GENERAL) HISTORY Type Description Date [...] Three times a day for 30 Days Jan, metFORMIN HCl 500 MG 2 tablet with meals Orally Twice a day Next Appt Details Provider Name:Estelle Craven, 2020-04 08:30:00 AM, [address] [place] [address] , [place], [address], Provider Name:Beatrice Chahal, 2021-02-25 02:00:00 PM, [address] [place] [address] , [place], [address], Provider Name:Alix Weir, 2021-02-23 4 01:00:00 PM, [address] [place] [address] , [place], [address], Insurance Providers Payer Name Payer Address Payer Phone Insured Name Patient Relati onship to Insured Coverage Start Date Coverage End Date [facility] [address] [facility] [phone] MARITZA FLORES self
--- OUTSIDE RECORDS SUMMARY | 2021-02-06 00:10 | CCD ---
Author Author [facility] ems Organization [facility] ems Address Unknown Phone Unavailable Care Team Providers Care Tax Professional Name Role Phone Bhaskar Kearney Unavailable PROBLEMS Type Condition ICD9-CM Code [id number] Code Onset Dates Condition S tatus W/U Status Risk SNOMED Code Notes Problem Pure hypercholesterolemia E78.00 Active confirmed 372883467 Problem Anxiety disorder, unspecified F41.9 Active confirm ed 19612998 Problem Essential hypertension I10 Active confirmed 52299557 Problem Abscess L02.91 Active confirmed 498964891 Problem Major depressive disorder, single episode, unspecified F32.9 Active confirmed 25019072 Problem Cervical spine disease M48.9 Active confirmed 887595359 Problem Carpal tunnel syndrome of left wrist G56.02 Act scarlet confirmed 05569030 Problem Dyspareunia in female N94.10 Active confirmed 62234895 Problem Late menses N92.6 Active confirmed 00904798 Problem Obesity (BMI 35.0-39.9 without comorbidity) E66.9 Active confirmed 556590154 Problem Complication of type 2 diabetes mellitus E11.8 Active confirmed 53183682706947 Problem Infection of both eyes H44.003 Active confirmed 003985271 Problem Cigarette smoker F17.210 Active confirmed 65 046166 Problem Obesity (BMI 30-39.9) E66.9 Active confirmed 274575053 Problem Stress incontinence N39.3 Active confirmed 15023260 Problem Other spondylosis with myelopathy, cervical region M47.12 Active confirmed 35773499 Problem 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 Active confirmed 61334537 Problem Perimenopausal N95.1 Active confirmed 53365 8277853203 Problem Cervical spondylosis with myelopathy and radiculopathy M47.12 Active confirmed 53645236 Problem Type 2 diabetes mellitus wit hout complication, without long-term current use of insulin E11.9 Active confirmed 241159695 Problem Encounter for screening for malignant neoplasm of breast, unspecified screening modality Z12.39 Active confirmed 478155060 Problem Cervical cancer screening Z12.4 Active confirmed 732430557 Problem Perceived hearing changes H91.90 Active confir med 71787980197458931 Problem Seasonal allergic rhinitis, unspecified trigger J3 0.2 Active confirmed 692018248 Problem Fatty liver K76.0 Active confirmed 62857545 7 Problem Physical exam, pre-employment Z02.1 Active confirm ed 401354821 Problem Allergic rhinitis, unspecified seasonality, unspecifie d trigger J30.9 Active confirmed 33258798 Problem Encounter for screening mammogram for malignant neoplasm of breast Z12.31 Active confirmed 239696229 Problem Colon cancer screening Z12.11 Active confirmed 395788750 Problem Amenorrhea N91.2 Active confirmed 74156993 Problem Elevated LFTs R79.89 Active confirmed 817052 004 ALLERGIES Allergen (clinical drug ingredient) Drug/Non Drug Allergy do cumented on EMR Reaction Allergy Type Onset Date Status naproxen Naproxen([facility] Code:[address]-26) itching Drug Allergy Active ENCOUNTERS from 1969 to 2021-02-02 Encounter Location Date Provider Diagnosis [address] [phone] [place] [address] 12 Jan, 2021 Bhaskar Kearney Complication of type 2 diabe negrito mellitus [...] Education Language: Question Answer Notes Languages spoken: Japanese Yazidi: Question Answer Notes Yazidi 21 Spiritism Sexual Hx: Question Answer Notes Had sex [...] Information RESULTS No Results REASON FOR VISIT scripts MEDICAL (GENERAL) HISTORY Type Description Date Medical [...] Next Appt Details Provider Name:Estelle Craven, 2020-04 0 08:30:00 AM, [address] [place] [address], , [place], [address], Provider Name:Beatrice Chahal, 2021-02-25 02:00:00 PM, [address] [place] [address], , [place], [address], Provider Name:Alix Weir, 2021-02-23 4 01:00:00 PM, [address] [facility], , [place], [address], Insurance Providers Payer Name Payer Address Payer Phone Insured Name Patient Relati onship to Insured Coverage Start Date Coverage End Date [facility] [address] [facility] [address] MARITZA FLORES self
--- OUTSIDE RECORDS SUMMARY | 2021-02-06 00:10 | CCD ---
Author Author [facility] Syst ems Organization [facility] ems Address Unknown Phone Unavailable Care Team Providers Care Inspector Returned Materials Name Role Phone Estelle Craven Unavailable PROBLEMS Type Condition ICD9-CM Code [id number] Code Onset Dates Condition S tatus W/U Status Risk SNOMED Code Notes Problem Pure hypercholesterolemia E78.00 Active confirmed 599890782 Problem Anxiety disorder, unspecified F41.9 Active confirm ed 42030390 Problem Essential hypertension I10 Active confirmed 44544934 Problem Abscess L02.91 Active confirmed 855127322 Problem Major depressive disorder, single episode, unspecified F32.9 Active confirmed 81874595 Problem Cervical spine disease M48.9 Active confirmed 956760083 Problem Carpal tunnel syndrome of left wrist G56.02 Act scarlet confirmed 13534799 Problem Dyspareunia in female N94.10 Active confirmed 32836325 Problem Late menses N92.6 Active confirmed 30953448 Problem Obesity (BMI 35.0-39.9 without comorbidity) E66.9 Active confirmed 692364544 Problem Complication of type 2 diabetes mellitus E11.8 Active confirmed 03123601345859 Problem Infection of both eyes H44.003 Active confirmed 079814245 Problem Cigarette smoker F17.210 Active confirmed 65 237361 Problem Obesity (BMI 30-39.9) E66.9 Active confirmed 780195018 Problem Stress incontinence N39.3 Active confirmed 89830092 Problem Other spondylosis with myelopathy, cervical region M47.12 Active confirmed 79245497 Problem 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 Active confirmed 24410785 Problem Perimenopausal N95.1 Active confirmed 74731 1735313759 Problem Cervical spondylosis with myelopathy and radiculopathy M47.12 Active confirmed 78370756 Problem Type 2 diabetes mellitus wit hout complication, without long-term current use of insulin E11.9 Active confirmed 294649644 Problem Encounter for screening for malignant neoplasm of breast, unspecified screening modality Z12.39 Active confirmed 294898338 Problem Cervical cancer screening Z12.4 Active confirmed 178465431 Problem Perceived hearing changes H91.90 Active confir med 14430177269756735 Problem Seasonal allergic rhinitis, unspecified trigger J3 0.2 Active confirmed 513878592 Problem Fatty liver K76.0 Active confirmed 25013975 7 Problem Physical exam, pre-employment Z02.1 Active confirm ed 649070497 Problem Allergic rhinitis, unspecified seasonality, unspecifie d trigger J30.9 Active confirmed 90683885 Problem Encounter for screening mammogram for malignant neoplasm of breast Z12.31 Active confirmed 513299331 Problem Colon cancer screening Z12.11 Active confirmed 756271210 Problem Amenorrhea N91.2 Active confirmed 90033545 Problem Elevated LFTs R79.89 Active confirmed 519030 004 ALLERGIES Allergen (clinical drug ingredient) Drug/Non Drug Allergy do cumented on EMR Reaction Allergy Type Onset Date Status naproxen Naproxen([facility] Code:[address]-44) itching Drug Allergy Active ENCOUNTERS from 1969 to 2020-12-24 Encounter Location Date Provider Diagnosis [place] [address] [facility] [phone] [place] [address] 20 Nov, 2020 Estelle Craven Elevated LFTs R79.89 ; Fatty liver K76.0 and Complication of type 2 diabetes mellitus E11.8 IMMUNIZATIONS Vaccine Route Administration Date [...] Education Language: Question Answer Notes Languages spoken: Belgian Pentecostal: Question Answer Notes Pentecostal 21 Shinto Sexual Hx: Question Answer Notes Had sex [...] FOR REFERRAL No Information VITAL SIGNS Weight 207 lbs Nov, Weight-kg 93.89 kg Nov, Height 63 in Nov, BMI 36.66 kg/m2 Nov, Heart Rate 98 /min Nov, Respiratory Rate 18 /min Nov, Temperature 97.2 degrees Fahrenheit Nov, Oximetry 98 Nov, Blood pressure systolic 124 mm Hg Nov, Blood pressure diastolic 78 mm Hg Nov, MEDICATIONS Medication SIG (Take, Route, Frequency, Duration) Notes Start Da te End Date Status Lyrica 75 MG 1 capsule mdd:3 Orally Three times a day for 30 Days Active May Have - cockup wrist splint _ before bedtime for 99 months Mar, Active Paxil 10 MG 1.5 tablet Orally Once a day for 30 Days Active Vitamin B Complex - as directed Orally Active Trulicity 3 MG/0.5ML as directed Subcutaneous weekly for 30 Days Nov, Active Blood Glucose Test - as directed dx E11,8 3-4x/week Active Glimepiride 4 MG 1 tablet with breakfast or t he first main meal of the day Orally bid for 30 Days Active Mucinex 600 MG 1 tablet as needed Orally every 12 hrs for 5 day (s) Nov, Active Glucometer as directed dx E11.8 3-4x/week Active Ibuprofen 600 MG 1 tablet with food or milk as needed Ora lly Three times a day Active Atorvastatin Calcium 20 MG TAKE ONE TABLET BY MOUTH EVERY DAY for 30 Active Fish Oil 1000 MG 1 capsule Orally twice daily Active Lancets - as directed dx E11.8 3-4x/week Active Lisinopril 20 MG 1 tablet Orally Once a day for 30 Active Cyclobenzaprine HCl 10 MG 1 tablet as needed Orally bid for 30 Active metFORMIN HCl 500 MG 2 tablet with meals Orally Twice a day Active PROCEDURES No Information RESULTS Component Value Reference Range Fibrospect Diaz Reviewed date:12/22/2020 17:26:05 Interpretation: Performing Lab:[facility], [email or web address] [address] [facility] [address] , ,[place] [address] AMG(Alpha-2 macroglobulin) SEE SEPARATE REPORT REASON FOR VISIT f/u after ultrasound MEDICAL (GENERAL) HISTORY Type Description Date Medical [...] Notes Treatment Notes Treatm ent Clinical Notes Nov, Elevated LFTs (ICD-10 - R79.89) She is pending colonoscopy, egd consult & wants this addressed 08/2020 ast 111, alt 156; afp neg., neg. Hep A,B,C Nov, Fatty liver (ICD-10 - K76.0) mild hepatomegaly on US, fatty liver seen s ascites 10/2020 Liver US fatty liver, mild HM Nov, Complication of type 2 diabetes mellitus (ICD-10 - E11.8) Refilled glimeperide 08/2020 increased glimeperide to 4mg bid Nov, Other 20" chart revie w, h&p, orders/plan PLAN OF TREATMENT Medication Medication Name Sig Start Date Stop Date Trulicity 3 MG/0.5ML as directed Subcutaneous weekly [...] day Treatment Notes Assessment Notes Clinical Notes Elevated LFTs She is pending colon oscopy, egd consult & wants this addressed ast 111, alt 156; afp neg., neg. Hep A,B,C Fatty liver mild hepatomegaly on US, fatty liver seen s ascites10/2020 Liver US fatty liver, mild HM Complication of type 2 diabetes mellitus Refilled glimeperide08/2020 increased glimeperide to 4mg bid Next Appt Details c SS Reason: Provider Name:Estelle Craven, - 10:45:00 AM, [address] [place] [address], , [place], [address], Provider Name:Alix Weir, 2020-12-24 2 01:00:00 PM, [address] [place] [address], , [place], [address], Provider Name:Kaylin ROMERO, 2021-02-22 09:30:00 AM, [address] [place] [address], , [place], [address], Insurance Providers Payer Name Payer Address Payer Phone Insured Name Patient Relati onship to Insured Coverage Start Date Coverage End Date [facility] [address] [facility] [phone] MARITZA FLORES self
--- OUTSIDE RECORDS SUMMARY | 2021-02-06 00:10 | CCD ---
Author Author [facility] Syst ems Organization [facility] ems Address Unknown Phone Unavailable Care Team Providers Care Body Trimmer Name Role Phone Estelle Craven Unavailable PROBLEMS Type Condition ICD9-CM Code [id number] Code Onset Dates Condition S tatus W/U Status Risk SNOMED Code Notes Problem Obesity (BMI 35.0-39.9 without comorbidity) E66.9 Active confirmed 691930124 Problem Essential hypertension I10 Active confirmed 62510487 Problem Pure hypercholesterolemia E78.00 Active confirmed 387694303 Problem Major depressive disorder, single episode, unspecified F32.9 Active confirmed 49972065 Problem Anxiety disorder, unspecified F41.9 Active confirm ed 00360656 Problem Carpal tunnel syndrome of left wrist G56.02 Act scarlet confirmed 26076560 Problem Abscess L02.91 Active confirmed 602714581 Problem Late menses N92.6 Active confirmed 18008108 Problem Perimenopausal N95.1 Active confirmed 84992 0107470044 Problem Complication of type 2 diabetes mellitus E11.8 Active confirmed 74354112403415 Problem Allergic rhinitis, unspecified seasonality, unspecifie d trigger J30.9 Active confirmed 52303068 Problem Seasonal allergic rhinitis, unspecified trigger J3 0.2 Active confirmed 115540978 Problem Stress incontinence N39.3 Active confirmed 80374755 Problem Infection of both eyes H44.003 Active confirmed 330100896 Problem 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 Active confirmed 17383562 Problem Obesity (BMI 30-39.9) E66.9 Active confirmed 188320482 Problem Cervical spondylosis with myelopathy and radiculopathy M47.12 Active confirmed 93406126 Problem Other spondylosis with myelopathy, cervical region M47.12 Active confirmed 72038592 Problem Dyspareunia in female N94.10 Active confirmed 52407326 Problem Type 2 diabetes mellitus wit hout complication, without long-term current use of insulin E11.9 Active confirmed 007050350 Problem Encounter for screening for malignant neoplasm of breast, unspecified screening modality Z12.39 Active confirmed 724154981 Problem Amenorrhea N91.2 Active confirmed 00527418 Problem Physical exam, pre-employment Z02.1 Active confirm ed 798306797 Problem Perceived hearing changes H91.90 Active confir med [id number] Problem Cervical spine disease M48.9 Active confirmed 610824742 Problem Cigarette smoker F17.210 Active confirmed 65 343404 Problem Cervical cancer screening Z12.4 Active confirmed 148297611 Problem Encounter for screening mammogram for malignant neoplasm of breast Z12.31 Active confirmed 364171554 Problem Colon cancer screening Z12.11 Active confirmed 570545298 Problem Elevated LFTs R79.89 Active confirmed 899167 004 ALLERGIES Allergen (clinical drug ingredient) Drug/Non Drug Allergy do cumented on EMR Reaction Allergy Type Onset Date Status naproxen Naproxen([facility] Code:[address]-53) itching Drug Allergy Active ENCOUNTERS from 1969 to 2020-12-10 Encounter Location Date Provider Diagnosis [address] [phone] [place] [address] 05 Nov, 2020 Estelle Craven Allergic rhinitis, unspecifi ed seasonality, unspecified trigger J30.9 and Acute pansinusitis, recurrence not specified J01.40 IMMUNIZATIONS Vaccine Route Administration Date Status Influenza [...] Education Language: Question Answer Notes Languages spoken: Tunisian Latter Day: Question Answer Notes Latter Day 21 Orthodox Sexual Hx: Question Answer Notes Had sex [...] FOR REFERRAL No Information VITAL SIGNS Weight 206 lbs Nov, Height 63 in Nov, BMI 36.49 kg/m2 Nov, Heart Rate 118 /min Nov, Respiratory Rate 18 /min Nov, Temperature 96.4 degrees Fahrenheit Nov, Oximetry 98 Nov, Blood pressure systolic 118 mm Hg Nov, Blood pressure diastolic 60 mm Hg Nov, MEDICATIONS Medication SIG (Take, Route, Frequency, Duration) Notes Start Da te End Date Status Glucometer as directed dx E11.8 3-4x/week Active Cyclobenzaprine HCl 10 MG 1 tablet as needed Orally bid for 30 Active Vitamin B Complex - as directed Orally Active May Have - cockup wrist splint _ before bedtime for 99 months Mar, Active Lyrica 75 MG 1 capsule mdd:3 Orally Three times a day for 30 Days Active Lancets - as directed dx E11.8 3-4x/week Active Paxil 10 MG 1.5 tablet Orally Once a day for 30 Days Active Trulicity 1.5 MG/0.5ML 1 injection Subcutaneous weekly for 30 Days Active Triamcinolone Acetonide 55 MCG/ACT 1 spray in each nos tril Nasally Once a day for 30 day(s) Nov, Active Mucinex 600 MG 1 tablet as needed Orally every 12 hrs for 5 day (s) Nov, Active Fish Oil 1000 MG 1 capsule Orally twice daily Active Glimepiride 4 MG 1 tablet with breakfast or t he first main meal of the day Orally bid for 30 Days Active Lisinopril 20 MG 1 tablet Orally Once a day for 30 Active metFORMIN HCl 500 MG 2 tablet with meals Orally Twice a day Active Triamcinolone Acetonide 55 MCG/ACT 1 spray in each nos tril Nasally Once a day for 30 day(s) Sep, Active Atorvastatin Calcium 20 MG TAKE ONE TABLET BY MOUTH EVERY DAY for 30 Active Ibuprofen 600 MG 1 tablet with food or milk as needed Ora lly Three times a day Active Levaquin 750 MG 1 tablet Orally Once a day for 10 day(s) 0 Nov, Active Blood Glucose Test - as directed dx E11,8 3-4x/week Active PROCEDURES No Information RESULTS No Results REASON FOR VISIT green phlegm/cough MEDICAL (GENERAL) HISTORY Type Description Date Medical [...] Treatment Notes Treatm ent Clinical Notes Nov, Allergic rhinitis, unspecifi ed seasonality, unspecified trigger (ICD-10 - J30.9) May resume zyrtec when sinusitis is resolved Nov, Acute pansinusitis, recurrence not specified (IC D-10 - J01.40) hold anithist. until symps. are gone Nov, Other 15" h&p, orders /plan PLAN OF TREATMENT Medication Medication Name Sig Start Date Stop Date Mucinex 600 MG 1 tablet as needed Orally every 12 hrs for 5 day (s) Nov, Ibuprofen 600 MG 1 tablet with food or milk as needed Ora lly Three times a day Levaquin 750 MG 1 tablet Orally Once a day for 10 day(s) Nov, Triamcinolone Acetonide 55 MCG/ACT 1 spray in each nos tril Nasally Once a day for 30 day(s) Nov, Treatment Notes Assessment Notes Clinical Notes Allergic rhinitis, unspecified seasonality, unspecified trig pepe May resume zyrtec when sinusitis is resolved Acute pansinusitis, recurrence not specified hold anithist. until symps. are gone Next Appt Details c SS Reason: Provider Name:Estelle Craven, 12-11 11:15:00 AM, [address] [place] [address], , [place], [address], Provider Name:Estelle Craven, 01-12 10:45:00 AM, [address] [place] [address], , [place], [address], Provider Name:Kaylin ROMERO, 2021-02-22 09:30:00 AM, [address] [place] [address], , [place], [address], Insurance Providers Payer Name Payer Address Payer Phone Insured Name Patient Relati onship to Insured Coverage Start Date Coverage End Date [facility] [address] [facility] [address] MARITZA FLORES self
--- OUTSIDE RECORDS SUMMARY | 2021-02-06 00:11 | CCD ---
Author Author [facility] Syst ems Organization [facility] ems Address Unknown Phone Unavailable Care Team Providers Care Dividing Machine Operator Name Role Phone Estelle Craven Unavailable PROBLEMS Type Condition ICD9-CM Code [id number] Code Onset Dates Condition S tatus W/U Status Risk SNOMED Code Notes Problem Obesity (BMI 35.0-39.9 without comorbidity) E66.9 Active confirmed 829968997 Problem Essential hypertension I10 Active confirmed 47785062 Problem Pure hypercholesterolemia E78.00 Active confirmed 174231219 Problem Major depressive disorder, single episode, unspecified F32.9 Active confirmed 27839147 Problem Anxiety disorder, unspecified F41.9 Active confirm ed 50377011 Problem Carpal tunnel syndrome of left wrist G56.02 Act scarlet confirmed 93797665 Problem Abscess L02.91 Active confirmed 284138819 Problem Late menses N92.6 Active confirmed 39252946 Problem Perimenopausal N95.1 Active confirmed 92711 7494367584 Problem Complication of type 2 diabetes mellitus E11.8 Active confirmed 04866976690377 Problem Allergic rhinitis, unspecified seasonality, unspecifie d trigger J30.9 Active confirmed 07129621 Problem Seasonal allergic rhinitis, unspecified trigger J3 0.2 Active confirmed 381421950 Problem Stress incontinence N39.3 Active confirmed 39160817 Problem Infection of both eyes H44.003 Active confirmed 935168079 Problem 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 Active confirmed 86234536 Problem Obesity (BMI 30-39.9) E66.9 Active confirmed 174794073 Problem Cervical spondylosis with myelopathy and radiculopathy M47.12 Active confirmed 49022986 Problem Other spondylosis with myelopathy, cervical region M47.12 Active confirmed 82674363 Problem Dyspareunia in female N94.10 Active confirmed 71101132 Problem Type 2 diabetes mellitus wit hout complication, without long-term current use of insulin E11.9 Active confirmed 431010644 Problem Encounter for screening for malignant neoplasm of breast, unspecified screening modality Z12.39 Active confirmed 457742860 Problem Amenorrhea N91.2 Active confirmed 07366005 Problem Physical exam, pre-employment Z02.1 Active confirm ed 896938123 Problem Perceived hearing changes H91.90 Active confir med 21767716312717137 Problem Cervical spine disease M48.9 Active confirmed 750948586 Problem Cigarette smoker F17.210 Active confirmed 65 369322 Problem Cervical cancer screening Z12.4 Active confirmed 494444767 Problem Encounter for screening mammogram for malignant neoplasm of breast Z12.31 Active confirmed 881546509 Problem Colon cancer screening Z12.11 Active confirmed 305701374 Problem Elevated LFTs R79.89 Active confirmed 271558 004 ALLERGIES Allergen (clinical drug ingredient) Drug/Non Drug Allergy do cumented on EMR Reaction Allergy Type Onset Date Status naproxen Naproxen([facility] Code:[address]-19) itching Drug Allergy Active ENCOUNTERS from 1969 to 2020-11-16 Encounter Location Date Provider Diagnosis [address] [phone] [place] [address] Oct, Estelle Pamelaworth Complication of type 2 diabe negrito mellitus E11.8 and Anxiety disorder, unspecified F41.9 IMMUNIZATIONS Vaccine Route Administration Date Status Influenza [...] Education Language: Question Answer Notes Languages spoken: Pashto Adventism: Question Answer Notes Adventism 21 Gnosticist Sexual Hx: Question Answer Notes Had sex [...] Notes Start Da te End Date Status Cyclobenzaprine HCl 10 MG 1 tablet as needed Orally bid for 30 Active ZyrTEC 10 MG 1 tablet Orally Daily A ctive Trulicity 1.5 MG/0.5ML 1 injection Subcutaneous weekly for 30 Days Active Lisinopril 20 MG 1 tablet Orally Once a day for 30 Active Triamcinolone Acetonide 55 MCG/ACT 1 spray in each nos tril Nasally Once a day for 30 day(s) Sep, Active May Have - cockup wrist splint _ before bedtime for 99 months Mar, Active Fish Oil 1000 MG 1 capsule Orally twice daily Active Vitamin B Complex - as directed Orally Active Blood Glucose Test - as directed dx E11,8 3-4x/week Active Atorvastatin Calcium 20 MG TAKE ONE TABLET BY MOUTH EVERY DAY for 30 Active Ibuprofen 600 MG 1 tablet with food or milk a s needed Orally Three times a day for 30 Days Active Lancets - as directed dx E11.8 3-4x/week Active Lyrica 75 MG 1 capsule mdd:3 Orally Three times a day for 30 Days Active Glimepiride 4 MG 1 tablet with breakfast or t he first main meal of the day Orally bid for 30 Days Active Glucometer as directed dx E11.8 3-4x/week Active Paxil 10 MG 1.5 tablet Orally Once a day for 30 Days Active metFORMIN HCl 500 MG 2 tablet with meals Orally Twice a day Active PROCEDURES No Information RESULTS No Results REASON FOR VISIT meds refill MEDICAL (GENERAL) HISTORY Type Description Date [...] Notes Treatment Notes Treatm ent Clinical Notes Oct, Complication of type 2 diabetes mellitus (ICD-10 - E11.8) Oct, Anxiety disorder, unspecified (ICD-10 - F41.9) PLAN OF TREATMENT Medication Medication Name Sig Start Date Stop Date Lyrica 75 MG 1 capsule mdd:3 Orally Three times a day for 30 Days Paxil 10 MG 1.5 tablet Orally Once a day for 30 Days Atorvastatin Calcium 20 MG TAKE ONE TABLET BY MOUTH EVERY DAY fo r 30 Trulicity 1.5 MG/0.5ML 1 injection Subcutaneous weekly for 30 Da ys Glimepiride 4 MG 1 tablet with breakfast or t he first main meal of the day Orally bid for 30 Days Blood Glucose Test - as directed dx E11,8 3-4x/week metFORMIN HCl 500 MG 2 tablet with meals Orally Twice a day Lancets - as directed dx E11.8 3-4x/week Next Appt Details Provider Name:Alix Weir, 3 09:00:00 AM, [address] [place] [address] , [place], [address], Provider Name:Estelle Craven, 12-08 10:30:00 AM, [address] [place] [address] , [place], [address], Provider Name:Estelle Craven, 01-12 10:45:00 AM, [address] [place] [address] , [place], [address], Provider Name:Kaylin Jacobsen, 2021-02-22 09:30:00 AM, [address] [facility], , [place], [address], Insurance Providers Payer Name Payer Address Payer Phone Insured Name Patient Relati onship to Insured Coverage Start Date Coverage End Date [facility] [address] [facility] [address] MARITZA FLORES self
--- OUTSIDE RECORDS SUMMARY | 2021-02-06 00:11 | CCD ---
Author Author [facility] Syst ems Organization [facility] ems Address Unknown Phone Unavailable Care Team Providers Care Applications Sales Representative Name Role Phone Carmella Carson Unavailable PROBLEMS Type Condition ICD9-CM Code KBR21-AU Code Onset Dates Condition S tatus W/U Status Risk SNOMED Code Notes Problem Obesity (BMI 35.0-39.9 without comorbidity) E66.9 Active confirmed 294361801 Problem Essential hypertension I10 Active confirmed 82589479 Problem Pure hypercholesterolemia E78.00 Active confirmed 762505477 Problem Major depressive disorder, single episode, unspecified F32.9 Active confirmed 63200652 Problem Anxiety disorder, unspecified F41.9 Active confirm ed 01692131 Problem Carpal tunnel syndrome of left wrist G56.02 Act scarlet confirmed 63444933 Problem Abscess L02.91 Active confirmed 748590384 Problem Late menses N92.6 Active confirmed 89866279 Problem Perimenopausal N95.1 Active confirmed 73904 7340380935 Problem Complication of type 2 diabetes mellitus E11.8 Active confirmed 58487702690275 Problem Allergic rhinitis, unspecified seasonality, unspecifie d trigger J30.9 Active confirmed 30267567 Problem Seasonal allergic rhinitis, unspecified trigger J3 0.2 Active confirmed 673007675 Problem Stress incontinence N39.3 Active confirmed 49758169 Problem Infection of both eyes H44.003 Active confirmed 222276145 Problem 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 Active confirmed 29360917 Problem Obesity (BMI 30-39.9) E66.9 Active confirmed 085434520 Problem Cervical spondylosis with myelopathy and radiculopathy M47.12 Active confirmed 85646633 Problem Other spondylosis with myelopathy, cervical region M47.12 Active confirmed 19907911 Problem Dyspareunia in female N94.10 Active confirmed 33746671 Problem Type 2 diabetes mellitus wit hout complication, without long-term current use of insulin E11.9 Active confirmed 737730628 Problem Encounter for screening for malignant neoplasm of breast, unspecified screening modality Z12.39 Active confirmed 147396266 Problem Amenorrhea N91.2 Active confirmed 87881811 Problem Physical exam, pre-employment Z02.1 Active confirm ed 857221454 Problem Perceived hearing changes H91.90 Active confir med 03513185234441190 Problem Cervical spine disease M48.9 Active confirmed 058983501 Problem Cigarette smoker F17.210 Active confirmed 65 448262 Problem Cervical cancer screening Z12.4 Active confirmed 119163957 Problem Encounter for screening mammogram for malignant neoplasm of breast Z12.31 Active confirmed 138197116 Problem Colon cancer screening Z12.11 Active confirmed 387270556 Problem Elevated LFTs R79.89 Active confirmed 439676 004 ALLERGIES Allergen (clinical drug ingredient) Drug/Non Drug Allergy do cumented on EMR Reaction Allergy Type Onset Date Status naproxen Naproxen([facility] Code:[address]-53) itching Drug Allergy Active ENCOUNTERS from 1969 to 2020-11-25 Encounter Location Date Provider Diagnosis [facility] [address] [facility] [phone] [place] [address] 04 Nov, 2020 Carmella Carson IMMUNIZATIONS Vaccine Route Administration Date Status Influenza [...] Education Language: Question Answer Notes Languages spoken: Spanish Presybeterian: Question Answer Notes Presybeterian 21 Anglican Sexual Hx: Question Answer Notes Had sex [...] dx E11.8 3-4x/week Next Appt Details Provider Name:Estelle Craven, 12-08 10:30:00 AM, [address] [place] [address] , [place], [address], Provider Name:Estelle Craven, 01-12 10:45:00 AM, [address] [place] [address] , [place], [address], Provider Name:Kaylin Jacobsen, 2021-02-22 09:30:00 AM, [address] [place] [address] , [place], [address], Insurance Providers Payer Name Payer Address Payer Phone Insured Name Patient Relati onship to Insured Coverage Start Date Coverage End Date [facility] [id number] [facility] [phone] MARITZA FLORES self
--- OUTSIDE RECORDS SUMMARY | 2021-02-06 00:11 | CCD | Continuity of Care Document ---
Author Author Cece WARREN P.A. Organization Unknown Address [address] [place] [address] Phone [phone] Care Team Providers Care Doctor Of Naprapathic Medicine Name Role Phone Nati Carter NP AUTM Unavailable Elliot Breen [facility] AUTM [phone] Estelle Craven RPA-C AUTM Problems Description No Information Available Social History Type Date Description Comments Sex Unknown ETOH Use Rarely consumes alcohol Tobacco Use Start: Unknown Patient is a current smoker, smo kes every day Allergies, Adverse Reactions, Alerts Active Allergies Reaction Severity Comments Date Naproxin 03/27/2018 Medications Active Medications SIG Qnty Indications Ordering Provide r Date Tylenol With Codeine #3 300-30mg T ablets 1 tab every 6 hours as needed for post op pain(Please DO Not Fill Until 06/02/2020) 30tabs Reji Tyson MD 06/02/2020 Glimepiride 4mg Tablets Estelle Craven RPA-C Oseltamivir Phosphate 75mg Capsules Estelle Craven RPA-Eduarda Ciprofloxacin HCL 500mg Tablets Bhaskar Kearney MD [...] Trulicity 0.75mg/0.5 ML Solution Pen-Inject Estelle Craven, CHANCE-Eduarda 0 Multivitamin Adult Tablets 1 by mouth [...] BMI (Body Mass Index) 36.3 kg/m2 Results Test Acquired Date Facility Test Result H/L Range Note Laboratory test finding 05/25/2020 In House Covid Rapid Testing NEGATIVE Procedures Date Code Description Status 11/10/2020 68034 Therapeutic Procedure, Each 15 M inutes Completed 11/10/2020 15471 Manual Therapy Each 15 Minutes C ompleted 11/10/2020 61963 Electrical Stimulati on Manual, Each 15 Min, Constant Attendance Completed 11/06/2020 66009 Therapeutic Activities Direct, E ach 15 Minutes Completed 11/06/2020 27997 Manual Therapy Each 15 Minutes C ompleted 11/06/2020 03656 Therapeutic Procedure, Each 15 M inutes Completed 11/06/2020 11988 Electrical Stimulati on Manual, Each 15 Min, Constant Attendance Completed 11/04/2020 24726 Therapeutic Activities Direct, E ach 15 Minutes Completed 11/04/2020 02921 Manual Therapy Each 15 Minutes C ompleted 11/04/2020 59568 Therapeutic Procedure, Each 15 M inutes Completed 11/04/2020 72106 Electrical Stimulati on Manual, Each 15 Min, Constant Attendance Completed 11/02/2020 73485 Therapeutic Activities Direct, E ach 15 Minutes Completed 11/02/2020 69125 Manual Therapy Each 15 Minutes C ompleted 11/02/2020 75352 Therapeutic Procedure, Each 15 M inutes Completed 11/02/2020 41169 Electrical Stimulati on Manual, Each 15 Min, Constant Attendance Completed 10/29/2020 79164 Therapeutic Activities Direct, E ach 15 Minutes Completed 10/29/2020 34384 Hot Or Cold Packs Completed 10/27/2020 09337 Therapeutic Activities Direct, E ach 15 Minutes Completed 10/27/2020 52047 Electrical Stimulati on Manual, Each 15 Min, Constant Attendance Completed 10/23/2020 38454 Therapeutic Activities Direct, E ach 15 Minutes Completed 10/21/2020 48323 Therapeutic Activities Direct, E ach 15 Minutes Completed 10/21/2020 10582 Manual Therapy Each 15 Minutes C ompleted 10/21/2020 46626 Electrical Stimulati on Manual, Each 15 Min, Constant Attendance Completed 10/16/2020 90352 Electrical Stimulati on Manual, Each 15 Min, Constant Attendance Completed 10/16/2020 38901 Therapeutic Procedure, Each 15 M inutes Completed 10/16/2020 81495 Manual Therapy Each 15 Minutes C ompleted 10/16/2020 83270 Therapeutic Activities Direct, E ach 15 Minutes Completed 10/12/2020 57839 Therapeutic Activities Direct, E ach 15 Minutes Completed 10/12/2020 03280 Electrical Stimulati on Manual, Each 15 Min, Constant Attendance Completed 10/12/2020 46603 Hot Or Cold Packs Completed 10/09/2020 73342 Therapeutic Activities Direct, E ach 15 Minutes Completed 10/09/2020 01163 Electrical Stimulati on Manual, Each 15 Min, Constant Attendance Completed 10/01/2020 78836 Hot Or Cold Packs Completed 10/01/2020 21732 Manual Therapy Each 15 Minutes C ompleted 10/01/2020 12812 Electrical Stimulati on Manual, Each 15 Min, Constant Attendance Completed 10/01/2020 51964 Therapeutic Activities Direct, E ach 15 Minutes Completed 10/01/2020 42914 Therapeutic Procedure, Each 15 M inutes Completed 09/29/2020 98812 Therapeutic Activities Direct, E ach 15 Minutes Completed 09/24/2020 87190 Therapeutic Activities Direct, E ach 15 Minutes Completed 09/22/2020 96924 Therapeutic Activities Direct, E ach 15 Minutes Completed 09/22/2020 47448 Manual Therapy Each 15 Minutes C ompleted 09/22/2020 15602 Therapeutic Procedure, Each 15 M inutes Completed 09/22/2020 08552 Electrical Stimulati on Manual, Each 15 Min, Constant Attendance Completed 09/22/2020 08334 Hot Or Cold Packs Completed 09/17/2020 47765 Therapeutic Activities Direct, E ach 15 Minutes Completed 09/17/2020 53515 Manual Therapy Each 15 Minutes C ompleted 09/17/2020 65614 Therapeutic Procedure, Each 15 M inutes Completed 09/17/2020 11655 Hot Or Cold Packs Completed 09/15/2020 97472 Electrical Stimulati on Manual, Each 15 Min, Constant Attendance Completed 09/15/2020 50699 Therapeutic Procedure, Each 15 M inutes Completed 09/15/2020 53104 Therapeutic Activities Direct, E ach 15 Minutes Completed 09/15/2020 48197 Manual Therapy Each 15 Minutes C ompleted 09/11/2020 28181 Office/Outpatient Established Lo w MDM 20-29 Min Completed 09/10/2020 79202 Therapeutic Activities Direct, E ach 15 Minutes Completed 09/10/2020 20990 Manual Therapy Each 15 Minutes C ompleted 09/10/2020 89520 Therapeutic Procedure, Each 15 M inutes Completed 09/10/2020 64303 Electrical Stimulati on Manual, Each 15 Min, Constant Attendance Completed 09/08/2020 92047 Manual Therapy Each 15 Minutes C ompleted 09/08/2020 78853 Electrical Stimulati on Manual, Each 15 Min, Constant Attendance Completed 09/08/2020 76731 Therapeutic Procedure, Each 15 M inutes Completed 09/08/2020 68911 Therapeutic Activities Direct, E ach 15 Minutes Completed 09/01/2020 46218 Physical Therapy Eval - Low Comp lexity Completed 08/06/2020 76081 Office/Outpatient Established Mo d MDM 30-39 Min Completed 06/02/2020 21208 Neuroplasty/Transposition, Media n Nerve At Carpal Tunnel Completed 05/28/2020 93870 Office/Outpatient Established Mo d MDM 30-39 Min Completed 05/28/2020 83962 X-Ray Spine Cervical 6 Or More V iews Completed 05/21/2020 56399 Office/Outpatient Established Mo d MDM 30-39 Min Completed Medical Devices Description No Information Available Encounters Type Date Location Provider Dx Diagnosis Office Visit 09/11/2020 4:00p Emeterio GoodALupe M50.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, unsp cervical 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, 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, lumbar region Office Visit 08/10/2020 5:30p Emeterio GoodALupe Z48.811 Encntr for surgical aftcr fol surgery on the nervous sys Office Visit 08/06/2020 2:15p Emeterio GoodALupe M50.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, unsp cervical 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, 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, lumbar region Office Visit 06/16/2020 9:15a Juaquin Tyson MD Z48.811 Encntr for surgical aftcr fol surgery on the nervous sys Office Visit 05/28/2020 10:00a Juaquin Warren P.A. M51.36 Other intervertebral disc degeneration, 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, thoracic region M50.30 Other cervical disc degenera tion, unsp cervical region Office Visit 05/21/2020 10:15a Juaquin Tyson MD G56.02 Carpal tunnel syndrome, left upper limb Assessments Date Code Description Provider 11/12/2020 M50.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 , unspecified cervical region Jaelyn Diallo 11/12/2020 M51.34 Other intervertebral disc degene ration, [...] degeneration , unspecified cervical region Danamarie Ortolano, APPLICATION DEVELOPMENT PROJECT MANAGER 11/04/2020 M51.34 Other intervertebral disc degene ration, thoracic region Danamarie Ortolano, APPLICATION DEVELOPMENT PROJECT MANAGER 11/04/2020 M51.36 Other intervertebral disc degene ration, lumbar region Danamarie Ortolano, APPLICATION DEVELOPMENT PROJECT MANAGER 11/02/2020 M50.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 , unspecified cervical region Danamarie Ortolano, APPLICATION DEVELOPMENT PROJECT MANAGER 11/02/2020 M51.34 Other intervertebral disc degene ration, thoracic region Danamarie Ortolano, APPLICATION DEVELOPMENT PROJECT MANAGER 11/02/2020 M51.36 Other intervertebral disc degene ration, lumbar region Danamarie Ortolano, APPLICATION DEVELOPMENT PROJECT MANAGER 10/29/2020 M50.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 , unspecified cervical region Yen [place], MSPT 10/29/2020 M51.34 Other intervertebral disc degene ration, thoracic region Yen [place], MSPT 10/29/2020 M51.36 Other intervertebral disc degene ration, lumbar region [place]en [place], MSPT 10/27/2020 M50.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 , unspecified cervical region Danamarie Ortolano, APPLICATION DEVELOPMENT PROJECT MANAGER 10/27/2020 M51.34 Other intervertebral disc degene ration, thoracic region Danamarie Ortolano, APPLICATION DEVELOPMENT PROJECT MANAGER 10/27/2020 M51.36 Other intervertebral disc degene ration, lumbar region Danamarie Ortolano, APPLICATION DEVELOPMENT PROJECT MANAGER 10/23/2020 M50.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 , unspecified cervical region Danamarie Ortolano, APPLICATION DEVELOPMENT PROJECT MANAGER 10/23/2020 M51.34 Other intervertebral disc degene ration, thoracic region Danamarie Ortolano, APPLICATION DEVELOPMENT PROJECT MANAGER 10/23/2020 M51.36 Other intervertebral disc degene ration, lumbar region Danamarie Ortolano, APPLICATION DEVELOPMENT PROJECT MANAGER 10/21/2020 M50.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 , unspecified cervical region Danamarie Ortolano, APPLICATION DEVELOPMENT PROJECT MANAGER 10/21/2020 M51.34 Other intervertebral disc degene ration, thoracic region Danamarie Ortolano, APPLICATION DEVELOPMENT PROJECT MANAGER 10/21/2020 M51.36 Other intervertebral disc degene ration, lumbar region Danamarie Ortolano, APPLICATION DEVELOPMENT PROJECT MANAGER 10/16/2020 M50.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 , [...] intervertebral disc degene ration, lumbar region Yen Rivera. Jaya, MSPT 10/09/2020 M50.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 , unspecified cervical region Danamarie Ortolano, APPLICATION DEVELOPMENT PROJECT MANAGER 10/09/2020 M51.34 Other intervertebral disc degene ration, thoracic region Danamarie Ortolano, APPLICATION DEVELOPMENT PROJECT MANAGER 10/09/2020 M51.36 Other intervertebral disc degene ration, lumbar region Danamarie Ortolano, APPLICATION DEVELOPMENT PROJECT MANAGER 10/01/2020 M50.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 , unspecified cervical region [place], MSPT 10/01/2020 M51.34 Other intervertebral disc degene ration, thoracic region Yen [place], MSPT 10/01/2020 M51.36 Other intervertebral disc degene ration, lumbar region Yen [place], MSPT 09/29/2020 M50.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 , unspecified cervical region Danamarie Ortolano, APPLICATION DEVELOPMENT PROJECT MANAGER 09/29/2020 M51.34 Other intervertebral disc degene ration, thoracic region Danamarie Ortolano, APPLICATION DEVELOPMENT PROJECT MANAGER 09/29/2020 M51.36 Other intervertebral disc degene ration, lumbar region Danamarie Ortolano, APPLICATION DEVELOPMENT PROJECT MANAGER 09/24/2020 M50.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 , unspecified cervical region Alix Lyndsey Rowley, APPLICATION DEVELOPMENT PROJECT MANAGER 09/24/2020 M51.34 Other intervertebral disc degene ration, thoracic region Alix Lyndsey Rowley, APPLICATION DEVELOPMENT PROJECT MANAGER 09/24/2020 M51.36 Other intervertebral disc degene ration, lumbar region Alix Lyndsey Rowley, APPLICATION DEVELOPMENT PROJECT MANAGER 09/22/2020 M50.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 , unspecified cervical region Alix Lyndsey Rowley, APPLICATION DEVELOPMENT PROJECT MANAGER 09/22/2020 M51.34 Other intervertebral disc degene ration, thoracic region Alix Lyndsey Rowley, APPLICATION DEVELOPMENT PROJECT MANAGER 09/22/2020 M51.36 Other intervertebral disc degene ration, lumbar region Alix Lyndsey Rowley, APPLICATION DEVELOPMENT PROJECT MANAGER 09/17/2020 M50.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 , unspecified cervical region Alix Lyndsey Rowley, APPLICATION DEVELOPMENT PROJECT MANAGER 09/17/2020 M51.34 Other intervertebral disc degene ration, thoracic region Alix Lyndsey Rowley, APPLICATION DEVELOPMENT PROJECT MANAGER 09/17/2020 M51.36 Other intervertebral disc degene ration, lumbar region Alix Lyndsey Rowley, APPLICATION DEVELOPMENT PROJECT MANAGER 09/15/2020 M50.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 , unspecified cervical region Yen [place], MSPT 09/15/2020 M51.34 Other intervertebral disc degene ration, thoracic region Yen [place], MSPT 09/15/2020 M51.36 Other intervertebral disc degene ration, lumbar region Yen M. Nolviapa, [facility] 09/11/2020 M50.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 , [...] degeneration , unspecified cervical region [place]en [place], [facility] 09/01/2020 M51.34 Other intervertebral disc degene ration, thoracic region [place]en [place], [facility] 09/01/2020 M51.36 Other intervertebral disc degene ration, lumbar region Yen [place], [facility] 08/10/2020 Z48.811 Encounter for surgic al aftercare following surgery on the nervous system Samir Warren, P.A. 08/06/2020 M50.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 , unspecified cervical region Samir Warren, P.A. 08/06/2020 M51.34 Other intervertebral disc degene ration, thoracic region Samir Warren, P.A. 08/06/2020 M51.36 Other intervertebral disc degene ration, lumbar region Samir Warren, P.A. 06/16/2020 Z48.811 Encounter for surgic al aftercare following surgery on the nervous system Reji Tyson MD 06/02/2020 G56.02 Carpal tunnel syndrome, left upp er limb Reji Tyson MD 05/28/2020 Z20.828 Contact with and (lakhani spected) exposure to other viral communicable diseases Vasu Aleman MD 05/28/2020 M51.36 Other intervertebral disc degene ration, lumbar region Emeterio DialloA. 05/28/2020 Z20.828 Contact with and (lakhani spected) exposure to other viral communicable diseases Lab 05/28/2020 M51.34 Other intervertebral disc degene ration, thoracic region Emeterio DialloA. 05/28/2020 Z01.818 Encounter for other preprocedura l examination Vasu Aleman MD 05/28/2020 M50.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 , unspecified cervical region Emeterio DialloA. 05/28/2020 Z01.818 Encounter for other preprocedura l examination Lab 05/25/2020 Z20.828 Contact w and exposure to oth vi ral communicable diseases Reji Tyson MD 05/21/2020 G56.02 Carpal tunnel syndrome, left upp er limb Reji Tyson MD Plan of Treatment 11/12/2020 - Samir Warren, P.A.* M50.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, unspecified cervical region* New Xrays:* MRI Cervical Spine, Ordered: 11/12/20 * Follow up:* with M after mri for results * M51.34 Other intervertebral disc degeneration, thoracic region * M51.36 Other intervertebral disc degeneration, lumbar region Functional Status Description No Information Available Mental Status Description No Information Available Referrals Refer to Dr Reason for Referral Status Appt Date Samir Warren PA AUTH FOR PT EVAL C,T,L-SPINE [id number]. PAT GOING TO [facility]. PASSED TO PT DEPT.HW Created [address] [place] [address] [address] [place] [address] [phone] [place] [id number] C,T,L- SPINE. 64 15 MINUTE VISITS. Created [address] [facility] [address] [place], [place] [id number] [phone] Samir Warren PA O/V - M51.36 & M51.34 BACK Created [address] [place] [address] [address] [place] [id number] [phone] Reji Tyson MD AUTH FOR PT EVAL C-SPINE/L-S PINE [id number]. PAT GOING TO [facility]. PASSED TO PT DEPT. Created [facility], [address] [address] [phone] [place] [id number]. 24 15 MINUTE VISITS. Cremele katie [facility], [address] [address] [phone] Reji Tyson MD SURGERY PER [employer] NO AU TH REQUIRED FOR LEFT CTR([id number]) TO SURGERY NT Created [address] [place] [address], [address] [place] [address] [phone]
--- OUTSIDE RECORDS SUMMARY | 2021-02-06 00:11 | CCD ---
Author Author [facility] em[facility] Organization [facility] ems Address Unknown Phone Unavailable Care Team Providers Care Body Painter Name Role Phone Estelle Craven Unavailable PROBLEMS Type Condition ICD9-CM Code [id number] Code Onset Dates Condition S tatus W/U Status Risk SNOMED Code Notes Problem Obesity (BMI 35.0-39.9 without comorbidity) E66.9 Active confirmed 382685137 Problem Essential hypertension I10 Active confirmed 66678709 Problem Pure hypercholesterolemia E78.00 Active confirmed 358100124 Problem Major depressive disorder, single episode, unspecified F32.9 Active confirmed 84217207 Problem Anxiety disorder, unspecified F41.9 Active confirm ed 49802453 Problem Carpal tunnel syndrome of left wrist G56.02 Act scarlet confirmed 68203087 Problem Abscess L02.91 Active confirmed 606256374 Problem Late menses N92.6 Active confirmed 68896722 Problem Perimenopausal N95.1 Active confirmed 37866 7537831773 Problem Complication of type 2 diabetes mellitus E11.8 Active confirmed 99983376247592 Problem Allergic rhinitis, unspecified seasonality, unspecifie d trigger J30.9 Active confirmed 54183888 Problem Seasonal allergic rhinitis, unspecified trigger J3 0.2 Active confirmed 309769072 Problem Stress incontinence N39.3 Active confirmed 99468734 Problem Infection of both eyes H44.003 Active confirmed 115511702 Problem 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 Active confirmed 75467629 Problem Obesity (BMI 30-39.9) E66.9 Active confirmed 082497394 Problem Cervical spondylosis with myelopathy and radiculopathy M47.12 Active confirmed 49461942 Problem Other spondylosis with myelopathy, cervical region M47.12 Active confirmed 91515602 Problem Dyspareunia in female N94.10 Active confirmed 68509710 Problem Type 2 diabetes mellitus wit hout complication, without long-term current use of insulin E11.9 Active confirmed 215014775 Problem Encounter for screening for malignant neoplasm of breast, unspecified screening modality Z12.39 Active confirmed 551636433 Problem Amenorrhea N91.2 Active confirmed 54195566 Problem Physical exam, pre-employment Z02.1 Active confirm ed 889656817 Problem Perceived hearing changes H91.90 Active confir med [id number] Problem Cervical spine disease M48.9 Active confirmed 051804917 Problem Cigarette smoker F17.210 Active confirmed 65 860699 Problem Cervical cancer screening Z12.4 Active confirmed 596396115 Problem Encounter for screening mammogram for malignant neoplasm of breast Z12.31 Active confirmed 549469969 Problem Colon cancer screening Z12.11 Active confirmed 805372353 Problem Elevated LFTs R79.89 Active confirmed 457683 004 ALLERGIES Allergen (clinical drug ingredient) Drug/Non Drug Allergy do cumented on EMR Reaction Allergy Type Onset Date Status naproxen Naproxen([facility] Code:[address]-46) itching Drug Allergy Active ENCOUNTERS from 1969 to 2020-11-26 Encounter Location Date Provider Diagnosis [address] [phone] [place] [address] 05 Nov, 2020 Estelle Craven Anxiety disorder, unspecifie d F41.9 IMMUNIZATIONS Vaccine Route Administration Date Status [...] Education Language: Question Answer Notes Languages spoken: Czech Jain: Question Answer Notes Jain 21 Rastafari Sexual Hx: Question Answer Notes Had sex [...] Treatment Notes Treatm ent Clinical Notes Nov, Anxiety disorder, unspecified (ICD-10 - F41.9) PLAN [...] Once a day for 30 day(s) Nov, Next Appt Details Provider Name:Estelle Craven, 12-11 11:15:00 AM, [address] [place] [address] , [place], [address], Provider Name:Estelle Craven, 01-12 10:45:00 AM, [address] [place] [address] , [place], [address], Provider Name:Kaylin Jacobsen, 2021-02-22 09:30:00 AM, [address] [place] [address] , [place], [address], Insurance Providers Payer Name Payer Address Payer Phone Insured Name Patient Relati onship to Insured Coverage Start Date Coverage End Date [facility] [address] [facility] [address] MARITZA FLORES self
--- OUTSIDE RECORDS SUMMARY | 2021-02-06 00:11 | CCD | Continuity of Care Document ---
Author Author Cece CHAN Organization Unknown Address [address] [place] [address] Phone [phone] Care Team Providers Care Junk Dealer Name Role Phone Nati Carter STILL OPERATOR [facility] AUTM Unavailable Elliot Breen [facility] AUTM [phone] Estelle Craven RPA-C AUTM Problems Description No [...] Trulicity 0.75mg/0.5 ML Solution Pen-Inject Estelle Craven, [facility] 0 Multivitamin Adult Tablets 1 by mouth [...] Available Procedures Date Code Description Status 11/12/2020 47314 Office/Outpatient Established Mo d MDM 30-39 Min Completed 11/10/2020 57758 Therapeutic Activities Direct, E ach 15 Minutes Completed 11/06/2020 83653 Therapeutic Activities Direct, E ach 15 Minutes Completed 11/06/2020 87775 Manual Therapy Each 15 Minutes C ompleted 11/06/2020 04136 Therapeutic Procedure, Each 15 M inutes Completed 11/06/2020 23709 Electrical Stimulati on Manual, Each 15 Min, Constant Attendance Completed 11/04/2020 30198 Therapeutic Activities Direct, E ach 15 Minutes Completed 11/04/2020 67575 Manual Therapy Each 15 Minutes C ompleted 11/04/2020 96368 Therapeutic Procedure, Each 15 M inutes Completed 11/04/2020 77802 Electrical Stimulati on Manual, Each 15 Min, Constant Attendance Completed 11/02/2020 41788 Therapeutic Activities Direct, E ach 15 Minutes Completed 11/02/2020 33738 Manual Therapy Each 15 Minutes C ompleted 11/02/2020 60876 Therapeutic Procedure, Each 15 M inutes Completed 11/02/2020 12679 Electrical Stimulati on Manual, Each 15 Min, Constant Attendance Completed 10/29/2020 74181 Therapeutic Activities Direct, E ach 15 Minutes Completed 10/29/2020 39056 Hot Or Cold Packs Completed 10/27/2020 76578 Electrical Stimulati on Manual, Each 15 Min, Constant Attendance Completed 10/27/2020 61938 Therapeutic Activities Direct, E ach 15 Minutes Completed 10/23/2020 89607 Therapeutic Activities Direct, E ach 15 Minutes Completed 10/21/2020 12312 Therapeutic Activities Direct, E ach 15 Minutes Completed 10/21/2020 16231 Manual Therapy Each 15 Minutes C ompleted 10/21/2020 13045 Electrical Stimulati on Manual, Each 15 Min, Constant Attendance Completed 10/16/2020 82509 Electrical Stimulati on Manual, Each 15 Min, Constant Attendance Completed 10/16/2020 44261 Therapeutic Procedure, Each 15 M inutes Completed 10/16/2020 60949 Manual Therapy Each 15 Minutes C ompleted 10/16/2020 98024 Therapeutic Activities Direct, E ach 15 Minutes Completed 10/12/2020 90995 Therapeutic Activities Direct, E ach 15 Minutes Completed 10/12/2020 13535 Electrical Stimulati on Manual, Each 15 Min, Constant Attendance Completed 10/12/2020 23379 Hot Or Cold Packs Completed 10/09/2020 26723 Therapeutic Activities Direct, E ach 15 Minutes Completed 10/09/2020 95507 Electrical Stimulati on Manual, Each 15 Min, Constant Attendance Completed 10/01/2020 92659 Therapeutic Activities Direct, E ach 15 Minutes Completed 10/01/2020 50116 Hot Or Cold Packs Completed 10/01/2020 19804 Electrical Stimulati on Manual, Each 15 Min, Constant Attendance Completed 10/01/2020 21843 Manual Therapy Each 15 Minutes C ompleted 10/01/2020 84730 Therapeutic Procedure, Each 15 M inutes Completed 09/29/2020 29038 Therapeutic Activities Direct, E ach 15 Minutes Completed 09/24/2020 92733 Therapeutic Activities Direct, E ach 15 Minutes Completed 09/22/2020 25041 Therapeutic Activities Direct, E ach 15 Minutes Completed 09/22/2020 68646 Manual Therapy Each 15 Minutes C ompleted 09/22/2020 24298 Therapeutic Procedure, Each 15 M inutes Completed 09/22/2020 51271 Electrical Stimulati on Manual, Each 15 Min, Constant Attendance Completed 09/22/2020 34403 Hot Or Cold Packs Completed 09/17/2020 81504 Therapeutic Activities Direct, E ach 15 Minutes Completed 09/17/2020 28850 Manual Therapy Each 15 Minutes C ompleted 09/17/2020 51087 Therapeutic Procedure, Each 15 M inutes Completed 09/17/2020 39152 Hot Or Cold Packs Completed 09/15/2020 69383 Manual Therapy Each 15 Minutes C ompleted 09/15/2020 02109 Electrical Stimulati on Manual, Each 15 Min, Constant Attendance Completed 09/15/2020 47650 Therapeutic Procedure, Each 15 M inutes Completed 09/15/2020 99057 Therapeutic Activities Direct, E ach 15 Minutes Completed 09/11/2020 61128 Office/Outpatient Established Lo w MDM 20-29 Min Completed 09/10/2020 07051 Therapeutic Activities Direct, E ach 15 Minutes Completed 09/10/2020 76784 Manual Therapy Each 15 Minutes C ompleted 09/10/2020 55370 Therapeutic Procedure, Each 15 M inutes Completed 09/10/2020 91224 Electrical Stimulati on Manual, Each 15 Min, Constant Attendance Completed 09/08/2020 79422 Therapeutic Activities Direct, E ach 15 Minutes Completed 09/08/2020 85852 Manual Therapy Each 15 Minutes C ompleted 09/08/2020 27106 Therapeutic Procedure, Each 15 M inutes Completed 09/08/2020 40110 Electrical Stimulati on Manual, Each 15 Min, Constant Attendance Completed 09/01/2020 12250 Physical Therapy Eval - Low Comp lexity Completed 08/06/2020 42789 Office/Outpatient Established Mo d MDM 30-39 Min Completed Medical Devices Description No Information Available Encounters Type Date Location Provider Dx Diagnosis Office Visit 11/12/2020 10:45a [facility] M50.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, unsp cervical 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, 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, lumbar region Office Visit 09/11/2020 4:00p [facility] Schrader[facility] M50.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, unsp cervical 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, 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, lumbar region Office Visit 08/10/2020 5:30p [facility].AL[facility] Z48.811 Encntr for surgical aftcr fol surgery on the nervous sys Office Visit 08/06/2020 2:15p [facility] M50.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, unsp cervical 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, 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, lumbar region Office Visit 06/16/2020 9:15a [facility] MD Z48.811 Encntr for surgical aftcr fol surgery on the nervous sys Assessments Date Code Description Provider 11/12/2020 M50.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 , unspecified cervical region Sameera Diallo.A. 11/12/2020 M51.34 Other intervertebral disc degene ration, thoracic region Samir Warren P.A. 11/12/2020 M51.36 Other intervertebral disc degene [...] degeneration , unspecified cervical region Danamarie Ortolano, [employer] OPERATOR 11/04/2020 M51.34 Other intervertebral disc degene ration, thoracic region Danamarie Ortolano, [employer]LE[employer] OPERATOR 11/04/2020 M51.36 Other intervertebral disc degene ration, lumbar region Danamarie Ortolano, [employer] OPERATOR 11/02/2020 M50.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 , unspecified cervical region Danamarie Ortolano, [employer] OPERATOR 11/02/2020 M51.34 Other intervertebral disc degene ration, thoracic region Danamarie Ortolano, [employer] OPERATOR 11/02/2020 M51.36 Other intervertebral disc degene ration, lumbar region Danamarie Ortolano, [employer] OPERATOR 10/29/2020 M50.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 , unspecified cervical region Yen M. Vesmorris, MSPT 10/29/2020 M51.34 Other intervertebral disc degene ration, thoracic region Yen M. Vespa, MSPT 10/29/2020 M51.36 Other intervertebral disc degene ration, lumbar region Yen M. Vespa, MSPT 10/27/2020 M50.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 , unspecified cervical region Danamarie Ortolano, [employer] OPERATOR 10/27/2020 M51.34 Other intervertebral disc degene ration, thoracic region Danamarie Ortolano, [employer] OPERATOR 10/27/2020 M51.36 Other intervertebral disc degene ration, lumbar region Danamarie Ortolano, [employer]LE[employer] OPERATOR 10/23/2020 M50.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 , unspecified cervical region Danamarie Ortolano, [employer]LE[employer] OPERATOR 10/23/2020 M51.34 Other intervertebral disc degene ration, thoracic region Danamarie Ortolano, [employer]LE[employer] OPERATOR 10/23/2020 M51.36 Other intervertebral disc degene ration, lumbar region Danamarie Ortolano, [employer]LE[employer] OPERATOR 10/21/2020 M50.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 , unspecified cervical region Danamarie Ortolano, [employer]LE[employer] OPERATOR 10/21/2020 M51.34 Other intervertebral disc degene ration, thoracic region Danamarie Ortolano, [employer]LE[employer] OPERATOR 10/21/2020 M51.36 Other intervertebral disc degene ration, lumbar region Danamarie Ortolano, [employer]LE[employer] OPERATOR 10/16/2020 M50.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 , unspecified cervical region Nayla Scee P.T.A. 10/16/2020 M51.34 Other intervertebral disc degene ration, thoracic region Nayla Scee P.T.A. 10/16/2020 M51.36 Other intervertebral disc degene ration, lumbar region Nayla Scee P.T.A. 10/12/2020 M50.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 , unspecified cervical region Yen Lake, MSPT 10/12/2020 M51.34 Other intervertebral disc degene ration, thoracic region Yen De Souzapa, MSPT 10/12/2020 M51.36 Other intervertebral disc degene ration, lumbar region Yen Nicole. Nolviapa, MSPT 10/09/2020 M50.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 , unspecified cervical region Danamarie Ortolano, [employer]LE[employer] OPERATOR 10/09/2020 M51.34 Other intervertebral disc degene ration, thoracic region Danamarie Ortolano, [employer]LE[employer] OPERATOR 10/09/2020 M51.36 Other intervertebral disc degene ration, lumbar region Danamarie Ortolano, [employer]LE[employer] OPERATOR 10/01/2020 M50.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 , unspecified cervical region Yen M. Nolviapa, MSPT 10/01/2020 M51.34 Other intervertebral disc degene ration, thoracic region Yen M. Vespa, MSPT 10/01/2020 M51.36 Other intervertebral disc degene ration, lumbar region Yen M. Vespa, MSPT 09/29/2020 M50.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 , unspecified cervical region Danamarie Ortolano, [employer]LE[employer] OPERATOR 09/29/2020 M51.34 Other intervertebral disc degene ration, thoracic region Danamarie Ortolano, [employer]LE[employer] OPERATOR 09/29/2020 M51.36 Other intervertebral disc degene ration, lumbar region Danamarie Ortolano, [employer]LE[employer] OPERATOR 09/24/2020 M50.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 , unspecified cervical region Alix Lyndsey Rowley, [employer]LE[employer] OPERATOR 09/24/2020 M51.34 Other intervertebral disc degene ration, thoracic region Alix Lyndsey Rowley, [employer]LE[employer] OPERATOR 09/24/2020 M51.36 Other intervertebral disc degene ration, lumbar region Alix Lyndsey Rowley, [employer]LE[employer] OPERATOR 09/22/2020 M50.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 , unspecified cervical region Alix Lyndsey Rowley, [employer]LECTION OPERATOR 09/22/2020 M51.34 Other intervertebral disc degene ration, thoracic region Alix Lyndsey Rowley, [employer]LE[employer] OPERATOR 09/22/2020 M51.36 Other intervertebral disc degene ration, lumbar region Alix Lyndsey Rowley, [employer]LE[employer] OPERATOR 09/17/2020 M50.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 , unspecified cervical region Alix Lyndsey Rowley, [employer]LECTION OPERATOR 09/17/2020 M51.34 Other intervertebral disc degene ration, thoracic region Alix Lyndsey Rowley, [employer]LECTION OPERATOR 09/17/2020 M51.36 Other intervertebral disc degene ration, lumbar region Alix Lyndsey Rowley, [employer]LE[employer] OPERATOR 09/15/2020 M50.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 , [...] disc degeneration , unspecified cervical region Nayla Chan P.T.A. 09/10/2020 M51.34 Other intervertebral disc degene [...] degeneration , unspecified cervical region [facility] [place], [facility] 09/01/2020 M51.34 Other intervertebral disc degene ration, thoracic region Yen [place], [facility] 09/01/2020 M51.36 Other intervertebral disc degene ration, lumbar region Yen [place], [facility] 08/10/2020 Z48.811 Encounter for surgic al aftercare following surgery on the nervous system Emeterio DialloA. 08/06/2020 M50.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 , unspecified cervical region Samir Warren P.A. 08/06/2020 M51.34 Other intervertebral disc degene ration, thoracic region Samir Warren P.A. 08/06/2020 M51.36 Other intervertebral disc degene ration, lumbar region Samir Warren, P.A. 06/16/2020 Z48.811 Encounter for surgic al aftercare following surgery on the nervous system Reji Tyson MD Plan of Treatment Future Appointment(s):* 01/01/2021 5:30 pm - Je[facility]yn Diallo at [facility] 11/12/2020 - Jaelyn Diallo* M50.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, unspecified cervical region* Follow up:* with [facility] after mri for results * M51.34 Other intervertebral disc degeneration, thoracic region * M51.36 Other intervertebral disc degeneration, lumbar region Functional Status Description No Information Available Mental Status Description No Information Available Referrals Refer to Dr Reason for Referral Status Appt Date Samir Warren PA MRI APPROVED PER [facility] FOR MRI OF CERVICAL SPINE (71093) TO [facility] D[facility] DG Created [address] [place] [address] [phone] Samir Warren, PA AUTH FOR PT EVAL C,T,L-SPINE [id number]. [place] [facility] [place]PT.HW Created [address] [place] [address] [phone] [place] [id number] C,T,L- SPINE. 64 15 MINUTE VISITS.HW Created [facility] [place] [address] [phone] Samir Warren PA O/V - M51.36 & M51.34 BACK Created [address] [place] [address] [phone]
--- OUTSIDE RECORDS SUMMARY | 2021-02-06 00:11 | CCD ---
Author Author [facility] Syst ems Organization [facility] ems Address Unknown Phone Unavailable Care Team Providers Care Client Development Manager Name Role Phone Estelle Craven Unavailable PROBLEMS Type Condition ICD9-CM Code [id number] Code Onset Dates Condition S tatus W/U Status Risk SNOMED Code Notes Problem Obesity (BMI 35.0-39.9 without comorbidity) E66.9 Active confirmed 811917988 Problem Essential hypertension I10 Active confirmed 73930105 Problem Pure hypercholesterolemia E78.00 Active confirmed 374465790 Problem Major depressive disorder, single episode, unspecified F32.9 Active confirmed 65036803 Problem Anxiety disorder, unspecified F41.9 Active confirm ed 05418836 Problem Carpal tunnel syndrome of left wrist G56.02 Act scarlet confirmed 29664620 Problem Abscess L02.91 Active confirmed 466379557 Problem Late menses N92.6 Active confirmed 01225589 Problem Perimenopausal N95.1 Active confirmed 80148 9095418750 Problem Complication of type 2 diabetes mellitus E11.8 Active confirmed 00260116272944 Problem Allergic rhinitis, unspecified seasonality, unspecifie d trigger J30.9 Active confirmed 55032620 Problem Seasonal allergic rhinitis, unspecified trigger J3 0.2 Active confirmed 760291723 Problem Stress incontinence N39.3 Active confirmed 17698018 Problem Infection of both eyes H44.003 Active confirmed 010768815 Problem 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 Active confirmed 07211394 Problem Obesity (BMI 30-39.9) E66.9 Active confirmed 386032556 Problem Cervical spondylosis with myelopathy and radiculopathy M47.12 Active confirmed 85023281 Problem Other spondylosis with myelopathy, cervical region M47.12 Active confirmed 01320453 Problem Dyspareunia in female N94.10 Active confirmed 69986928 Problem Type 2 diabetes mellitus wit hout complication, without long-term current use of insulin E11.9 Active confirmed 283536330 Problem Encounter for screening for malignant neoplasm of breast, unspecified screening modality Z12.39 Active confirmed 316690804 Problem Amenorrhea N91.2 Active confirmed 28958930 Problem Physical exam, pre-employment Z02.1 Active confirm ed 023868765 Problem Perceived hearing changes H91.90 Active confir med 55462567212291242 Problem Cervical spine disease M48.9 Active confirmed 079580176 Problem Cigarette smoker F17.210 Active confirmed 65 219915 Problem Cervical cancer screening Z12.4 Active confirmed 929963159 Problem Encounter for screening mammogram for malignant neoplasm of breast Z12.31 Active confirmed 493120437 Problem Colon cancer screening Z12.11 Active confirmed 512053652 Problem Elevated LFTs R79.89 Active confirmed 808706 004 ALLERGIES Allergen (clinical drug ingredient) Drug/Non Drug Allergy do cumented on EMR Reaction Allergy Type Onset Date Status naproxen Naproxen([facility] Code:[address]-00) itching Drug Allergy Active ENCOUNTERS from 1969 to 2020-11-19 Encounter Location Date Provider Diagnosis [address] [phone] [place] [address] 06 Oct, 2020 Estelle Craven Elevated LFTs R79.89 and Com plication of type 2 diabetes mellitus E11.8 IMMUNIZATIONS [...] Education Language: Question Answer Notes Languages spoken: Ghanaian Voodoo: Question Answer Notes Voodoo 21 Confucianism Sexual Hx: Question Answer Notes Had sex [...] No Information VITAL SIGNS Weight 207 lbs Oct, Height 63 in Oct, BMI 36.66 kg/m2 Oct, Heart Rate 102 /min Oct, Respiratory Rate 18 /min Oct, Temperature 97.4 degrees Fahrenheit Oct, Oximetry 99 Oct, Blood pressure systolic 122 mm Hg Oct, Blood pressure diastolic 68 mm Hg Oct, MEDICATIONS Medication SIG (Take, Route, Frequency, Duration) [...] Information RESULTS No Results REASON FOR VISIT 1-2 Week f/u for other issues c SS MEDICAL (GENERAL) HISTORY Type Description Date Medical [...] Treatment Notes Treatm ent Clinical Notes Oct, Elevated LFTs (ICD-10 - R79.89) She is pending colonoscopy, egd consult & wants this addressed 08/2020 ast 111, alt 156; afp neg., neg. Hep A,B,C Oct, Complication of type 2 diabetes mellitus (ICD-10 - E11.8) Refilled glimeperide 08/2020 increased glimeperide to 4mg bid Oct, Other 10:51-11:18=27" review of chart, H&P, orders PLAN OF TREATMENT Medication Medication Name Sig [...] Lancets - as directed dx E11.8 3-4x/week Treatment Notes Assessment Notes Clinical Notes Elevated LFTs She is pending colon oscopy, egd consult & wants this addressed ast 111, alt 156; afp neg., neg. Hep A,B,C Complication of type 2 diabetes mellitus Refilled glimeperide08/2020 increased glimeperide to 4mg bid Next Appt Details 12/2020 Reason: Provider Name:Alix Nusratjes, 3 09:00:00 AM, [address] [place], [place] [id number], [place], [address], Provider Name:Estelle Craven, 12-08 10:30:00 AM, [address] [place], [place] [id number], [place], [address], Provider Name:Estelle Craven, 01-12 10:45:00 AM, [address] [place] [phone], [place], [address], Provider Name:Kaylin Ann-Marie, 2021-02-22 09:30:00 AM, [address] [place] [address] , [place], [address], Insurance Providers Payer Name Payer Address Payer Phone Insured Name Patient Relati onship to Insured Coverage Start Date Coverage End Date [facility] [employer] [facility] [address] [facility] [address] MARITZA FLORES self
--- OUTSIDE RECORDS SUMMARY | 2021-02-06 00:11 | CCD ---
Author Author [facility] Syst ems Organization [facility] ems Address Unknown Phone Unavailable Care Team Providers Care Painter And Decorator Name Role Phone Estelle Craven Unavailable PROBLEMS Type Condition ICD9-CM Code [id number] Code Onset Dates Condition S tatus W/U Status Risk SNOMED Code Notes Problem Obesity (BMI 35.0-39.9 without comorbidity) E66.9 Active confirmed 587219010 Problem Essential hypertension I10 Active confirmed 19367393 Problem Pure hypercholesterolemia E78.00 Active confirmed 465467105 Problem Major depressive disorder, single episode, unspecified F32.9 Active confirmed 32058558 Problem Anxiety disorder, unspecified F41.9 Active confirm ed 68586020 Problem Carpal tunnel syndrome of left wrist G56.02 Act scarlet confirmed 72134719 Problem Abscess L02.91 Active confirmed 973325509 Problem Late menses N92.6 Active confirmed 20542483 Problem Perimenopausal N95.1 Active confirmed 18405 2697058785 Problem Complication of type 2 diabetes mellitus E11.8 Active confirmed 23134011904445 Problem Allergic rhinitis, unspecified seasonality, unspecifie d trigger J30.9 Active confirmed 31605153 Problem Seasonal allergic rhinitis, unspecified trigger J3 0.2 Active confirmed 715004268 Problem Stress incontinence N39.3 Active confirmed 68601714 Problem Infection of both eyes H44.003 Active confirmed 454140747 Problem 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 Active confirmed 57778562 Problem Obesity (BMI 30-39.9) E66.9 Active confirmed 023015767 Problem Cervical spondylosis with myelopathy and radiculopathy M47.12 Active confirmed 07899453 Problem Other spondylosis with myelopathy, cervical region M47.12 Active confirmed 70468100 Problem Dyspareunia in female N94.10 Active confirmed 64166336 Problem Type 2 diabetes mellitus wit hout complication, without long-term current use of insulin E11.9 Active confirmed 367516391 Problem Encounter for screening for malignant neoplasm of breast, unspecified screening modality Z12.39 Active confirmed 452324380 Problem Amenorrhea N91.2 Active confirmed 08373204 Problem Physical exam, pre-employment Z02.1 Active confirm ed 301181773 Problem Perceived hearing changes H91.90 Active confir med 11484722810394058 Problem Cervical spine disease M48.9 Active confirmed 014376817 Problem Cigarette smoker F17.210 Active confirmed 65 989792 Problem Cervical cancer screening Z12.4 Active confirmed 867502461 Problem Encounter for screening mammogram for malignant neoplasm of breast Z12.31 Active confirmed 636714908 Problem Colon cancer screening Z12.11 Active confirmed 781110791 Problem Elevated LFTs R79.89 Active confirmed 840626 004 ALLERGIES Allergen (clinical drug ingredient) Drug/Non Drug Allergy do cumented on EMR Reaction Allergy Type Onset Date Status naproxen Naproxen([facility] Code:[address]-33) itching Drug Allergy Active ENCOUNTERS from 1969 to 2020-11-30 Encounter Location Date Provider Diagnosis [address] [phone] [place] [address] 05 Nov, 2020 Estelle Craven IMMUNIZATIONS Vaccine Route Administration Date [...] Education Language: Question Answer Notes Languages spoken: Burundian Amish: Question Answer Notes Amish 21 Yazidi Sexual Hx: Question Answer Notes Had sex [...] Information RESULTS No Results REASON FOR VISIT PA Paxil 10mg tablets, #45/30 MEDICAL (GENERAL) HISTORY Type Description Date Medical [...] Details Provider Name:Estelle Craven, 12-11 11:15:00 AM, [address] [place] [address] , [place], [address], Provider Name:Estelle Craven, 01-12 10:45:00 AM, [address] [place] [address] , [place], [address], Provider Name:Kaylin ROMERO, 2021-02-22 09:30:00 AM, [address] [place] [address] , [place], [address], Insurance Providers Payer Name Payer Address Payer Phone Insured Name Patient Relati onship to Insured Coverage Start Date Coverage End Date [facility] [address] [facility] [address] [phone] MARITZA FLORES self
--- OUTSIDE RECORDS SUMMARY | 2021-02-06 00:11 | CCD ---
Author Author [facility] Syst ems Organization [facility] ems Address Unknown Phone Unavailable Care Team Providers Care Talent Development Specialist Name Role Phone Estelle Craven Unavailable PROBLEMS Type Condition ICD9-CM Code [id number] Code Onset Dates Condition S tatus W/U Status Risk SNOMED Code Notes Problem Obesity (BMI 35.0-39.9 without comorbidity) E66.9 Active confirmed 483616812 Problem Essential hypertension I10 Active confirmed 19707717 Problem Pure hypercholesterolemia E78.00 Active confirmed 988084071 Problem Major depressive disorder, single episode, unspecified F32.9 Active confirmed 85153584 Problem Anxiety disorder, unspecified F41.9 Active confirm ed 68431422 Problem Carpal tunnel syndrome of left wrist G56.02 Act scarlet confirmed 57646651 Problem Abscess L02.91 Active confirmed 856506204 Problem Late menses N92.6 Active confirmed 78555512 Problem Perimenopausal N95.1 Active confirmed 89528 9617869282 Problem Complication of type 2 diabetes mellitus E11.8 Active confirmed 78229412477308 Problem Allergic rhinitis, unspecified seasonality, unspecifie d trigger J30.9 Active confirmed 90593318 Problem Seasonal allergic rhinitis, unspecified trigger J3 0.2 Active confirmed 656279418 Problem Stress incontinence N39.3 Active confirmed 48467923 Problem Infection of both eyes H44.003 Active confirmed 421583284 Problem 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 Active confirmed 26798646 Problem Obesity (BMI 30-39.9) E66.9 Active confirmed 503850992 Problem Cervical spondylosis with myelopathy and radiculopathy M47.12 Active confirmed 65972520 Problem Other spondylosis with myelopathy, cervical region M47.12 Active confirmed 68193263 Problem Dyspareunia in female N94.10 Active confirmed 25359604 Problem Type 2 diabetes mellitus wit hout complication, without long-term current use of insulin E11.9 Active confirmed 437937403 Problem Encounter for screening for malignant neoplasm of breast, unspecified screening modality Z12.39 Active confirmed 296713535 Problem Amenorrhea N91.2 Active confirmed 31698961 Problem Physical exam, pre-employment Z02.1 Active confirm ed 414022840 Problem Perceived hearing changes H91.90 Active confir med 91056230040703624 Problem Cervical spine disease M48.9 Active confirmed 739911701 Problem Cigarette smoker F17.210 Active confirmed 65 742706 Problem Cervical cancer screening Z12.4 Active confirmed 888088444 Problem Encounter for screening mammogram for malignant neoplasm of breast Z12.31 Active confirmed 150913343 Problem Colon cancer screening Z12.11 Active confirmed 079526406 Problem Elevated LFTs R79.89 Active confirmed 497226 004 ALLERGIES Allergen (clinical drug ingredient) Drug/Non Drug Allergy do cumented on EMR Reaction Allergy Type Onset Date Status naproxen Naproxen([facility] Code:[address]-94) itching Drug Allergy Active ENCOUNTERS from 1969 to 2020-11-26 Encounter Location Date Provider Diagnosis [address] [phone] [place] [address] 05 Nov, 2020 Estelle Craven IMMUNIZATIONS Vaccine [...] Education Language: Question Answer Notes Languages spoken: [place] Scientologist: Question Answer Notes Scientologist 21 Sikh Sexual Hx: Question Answer Notes Had sex [...] Once a day for 10 day(s) 0 5 Nov, 2020 Active Blood Glucose Test - as directed [...] Details Provider Name:Estelle Craven, 12-11 11:15:00 AM, [address] [place], [place] [id number], [place], [address], Provider Name:Estelle Craven, 01-12 10:45:00 AM, [address] [place] [address] , [place], [address], Provider Name:Kaylin Jacobsen, 2021-02-22 09:30:00 AM, [address] [place] [phone], [place], [address], Insurance Providers Payer Name Payer Address Payer Phone Insured Name Patient Relati onship to Insured Coverage Start Date Coverage End Date [facility] [address] [place] [phone] MARITZA FLORES self
--- OUTSIDE RECORDS SUMMARY | 2021-02-06 00:11 | CCD | Continuity of Care Document ---
Author Author Cece CHAN Organization Unknown Address [address] [place] [address] Phone [phone] Care Team Providers Care Manufacturers Representative Name Role Phone Nati Carter TECHNICIAN TRAINEE AUTM Unavailable Elliot Breen [facility] AUTM [phone] Estelle Craven RPA-C AUTM Problems Description No [...] Estelle Craven RPA-C Fluconazole 150mg Tablets Kaylin Jacosben FNP Onetouch Delica Plus Lancets Extra Fine [...] Trulicity 0.75mg/0.5 ML Solution Pen-Inject Estelle Craven, RPA-C 0 Multivitamin Adult Tablets 1 by mouth [...] NEGATIVE Procedures Date Code Description Status 11/10/2020 19397 Therapeutic Procedure, Each 15 M inutes Completed 11/10/2020 00644 Manual Therapy Each 15 Minutes C ompleted 11/10/2020 93201 Electrical Stimulati on Manual, Each 15 Min, Constant Attendance Completed 11/06/2020 18695 Therapeutic Activities Direct, E ach 15 Minutes Completed 11/06/2020 78392 Manual Therapy Each 15 Minutes C ompleted 11/06/2020 55055 Therapeutic Procedure, Each 15 M inutes Completed 11/06/2020 11684 Electrical Stimulati on Manual, Each 15 Min, Constant Attendance Completed 11/04/2020 12218 Therapeutic Activities Direct, E ach 15 Minutes Completed 11/04/2020 90118 Manual Therapy Each 15 Minutes C ompleted 11/04/2020 18015 Therapeutic Procedure, Each 15 M inutes Completed 11/04/2020 22788 Electrical Stimulati on Manual, Each 15 Min, Constant Attendance Completed 11/02/2020 98861 Therapeutic Activities Direct, E ach 15 Minutes Completed 11/02/2020 23584 Manual Therapy Each 15 Minutes C ompleted 11/02/2020 72595 Therapeutic Procedure, Each 15 M inutes Completed 11/02/2020 08930 Electrical Stimulati on Manual, Each 15 Min, Constant Attendance Completed 10/29/2020 41949 Therapeutic Activities Direct, E ach 15 Minutes Completed 10/29/2020 90247 Hot Or Cold Packs Completed 10/27/2020 69497 Therapeutic Activities Direct, E ach 15 Minutes Completed 10/27/2020 76707 Electrical Stimulati on Manual, Each 15 Min, Constant Attendance Completed 10/23/2020 24770 Therapeutic Activities Direct, E ach 15 Minutes Completed 10/21/2020 39437 Therapeutic Activities Direct, E ach 15 Minutes Completed 10/21/2020 14073 Manual Therapy Each 15 Minutes C ompleted 10/21/2020 13454 Electrical Stimulati on Manual, Each 15 Min, Constant Attendance Completed 10/16/2020 25458 Electrical Stimulati on Manual, Each 15 Min, Constant Attendance Completed 10/16/2020 34632 Therapeutic Procedure, Each 15 M inutes Completed 10/16/2020 17291 Manual Therapy Each 15 Minutes C ompleted 10/16/2020 80998 Therapeutic Activities Direct, E ach 15 Minutes Completed 10/12/2020 00316 Therapeutic Activities Direct, E ach 15 Minutes Completed 10/12/2020 55891 Electrical Stimulati on Manual, Each 15 Min, Constant Attendance Completed 10/12/2020 47277 Hot Or Cold Packs Completed 10/09/2020 67717 Therapeutic Activities Direct, E ach 15 Minutes Completed 10/09/2020 67529 Electrical Stimulati on Manual, Each 15 Min, Constant Attendance Completed 10/01/2020 13186 Hot Or Cold Packs Completed 10/01/2020 92174 Manual Therapy Each 15 Minutes C ompleted 10/01/2020 82912 Electrical Stimulati on Manual, Each 15 Min, Constant Attendance Completed 10/01/2020 72101 Therapeutic Activities Direct, E ach 15 Minutes Completed 10/01/2020 27078 Therapeutic Procedure, Each 15 M inutes Completed 09/29/2020 82153 Therapeutic Activities Direct, E ach 15 Minutes Completed 09/24/2020 51449 Therapeutic Activities Direct, E ach 15 Minutes Completed 09/22/2020 88087 Therapeutic Activities Direct, E ach 15 Minutes Completed 09/22/2020 55846 Manual Therapy Each 15 Minutes C ompleted 09/22/2020 77281 Therapeutic Procedure, Each 15 M inutes Completed 09/22/2020 85490 Electrical Stimulati on Manual, Each 15 Min, Constant Attendance Completed 09/22/2020 73129 Hot Or Cold Packs Completed 09/17/2020 59634 Therapeutic Activities Direct, E ach 15 Minutes Completed 09/17/2020 86779 Manual Therapy Each 15 Minutes C ompleted 09/17/2020 09436 Therapeutic Procedure, Each 15 M inutes Completed 09/17/2020 42121 Hot Or Cold Packs Completed 09/15/2020 83572 Electrical Stimulati on Manual, Each 15 Min, Constant Attendance Completed 09/15/2020 18057 Therapeutic Procedure, Each 15 M inutes Completed 09/15/2020 86813 Therapeutic Activities Direct, E ach 15 Minutes Completed 09/15/2020 20279 Manual Therapy Each 15 Minutes C ompleted 09/11/2020 80287 Office/Outpatient Established Lo w MDM 20-29 Min Completed 09/10/2020 65782 Therapeutic Activities Direct, E ach 15 Minutes Completed 09/10/2020 39285 Manual Therapy Each 15 Minutes C ompleted 09/10/2020 51488 Therapeutic Procedure, Each 15 M inutes Completed 09/10/2020 91589 Electrical Stimulati on Manual, Each 15 Min, Constant Attendance Completed 09/08/2020 56684 Manual Therapy Each 15 Minutes C ompleted 09/08/2020 81515 Electrical Stimulati on Manual, Each 15 Min, Constant Attendance Completed 09/08/2020 84122 Therapeutic Procedure, Each 15 M inutes Completed 09/08/2020 85049 Therapeutic Activities Direct, E ach 15 Minutes Completed 09/01/2020 58196 Physical Therapy Eval - Low Comp lexity Completed 08/06/2020 77982 Office/Outpatient Established Mo d MDM 30-39 Min Completed 06/02/2020 33538 Neuroplasty/Transposition, Media n Nerve At Carpal Tunnel Completed 05/28/2020 28189 Office/Outpatient Established Mo d MDM 30-39 Min Completed 05/28/2020 91251 X-Ray Spine Cervical 6 Or More V iews Completed 05/21/2020 47504 Office/Outpatient Established Mo d MDM 30-39 Min Completed Medical Devices Description No Information Available Encounters Type Date Location Provider Dx Diagnosis Office Visit 09/11/2020 4[facility]p [facility] M50.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, unsp cervical 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, 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, lumbar region Office Visit 08/10/2020 5:30p Emeterio GoodA. Z48.811 Encntr for surgical aftcr fol surgery on the nervous sys Office Visit 08/06/2020 2:15p Sameera Good.A. M50.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, unsp cervical 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, 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, lumbar region Office Visit 06/16/2020 9:15a Juaquin Tyson MD Z48.811 Encntr for surgical aftcr fol surgery on the nervous sys Office Visit 05/28/2020 10:00a [facility] Warren P.A. M51.36 Other intervertebral disc degeneration, 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, thoracic region M50.30 Other cervical disc degenera tion, unsp cervical region Office Visit 05/21/2020 10:15a Juaquin Tyson MD G56.02 Carpal tunnel syndrome, left upper limb Assessments Date Code Description Provider 11/10/2020 M50.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 , unspecified cervical region Nayla Chan P.T.A. 11/10/2020 M51.34 Other intervertebral disc degene [...] degeneration , unspecified cervical region Danamarie Ortolano, SOLAR SALES REPRESENTATIVE 11/04/2020 M51.34 Other intervertebral disc degene ration, thoracic region Danamarie Ortolano, SOLAR SALES REPRESENTATIVE 11/04/2020 M51.36 Other intervertebral disc degene ration, lumbar region Danamarie Ortolano, SOLAR SALES REPRESENTATIVE 11/02/2020 M50.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 , unspecified cervical region Danamarie Ortolano, SOLAR SALES REPRESENTATIVE 11/02/2020 M51.34 Other intervertebral disc degene ration, thoracic region Danamarie Ortolano, SOLAR SALES REPRESENTATIVE 11/02/2020 M51.36 Other intervertebral disc degene ration, lumbar region Danamarie Ortolano, SOLAR SALES REPRESENTATIVE 10/29/2020 M50.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 , unspecified cervical region Yen M. Jaya, MSPT 10/29/2020 M51.34 Other intervertebral disc degene ration, thoracic region Yen M. Vesmorris, MSPT 10/29/2020 M51.36 Other intervertebral disc degene ration, lumbar region Yen M. Vespa, MSPT 10/27/2020 M50.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 , unspecified cervical region Danamarie Ortolano, SOLAR SALES REPRESENTATIVE 10/27/2020 M51.34 Other intervertebral disc degene ration, thoracic region Danamarie Ortolano, SOLAR SALES REPRESENTATIVE 10/27/2020 M51.36 Other intervertebral disc degene ration, lumbar region Danamarie Ortolano, SOLAR SALES REPRESENTATIVE 10/23/2020 M50.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 , unspecified cervical region Danamarie Ortolano, SOLAR SALES REPRESENTATIVE 10/23/2020 M51.34 Other intervertebral disc degene ration, thoracic region Danamarie Ortolano, SOLAR SALES REPRESENTATIVE 10/23/2020 M51.36 Other intervertebral disc degene ration, lumbar region Danamarie Ortolano, SOLAR SALES REPRESENTATIVE 10/21/2020 M50.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 , unspecified cervical region Danamarie Ortolano, SOLAR SALES REPRESENTATIVE 10/21/2020 M51.34 Other intervertebral disc degene ration, thoracic region Danamarie Ortolano, SOLAR SALES REPRESENTATIVE 10/21/2020 M51.36 Other intervertebral disc degene ration, lumbar region Danamarie Ortolano, SOLAR SALES REPRESENTATIVE 10/16/2020 M50.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 , unspecified cervical region Nayla Scee P.T.A. 10/16/2020 M51.34 Other intervertebral disc degene ration, thoracic region Nayla Scee P.T.A. 10/16/2020 M51.36 Other intervertebral disc degene ration, lumbar region Nayla Scee P.T.A. 10/12/2020 M50.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 , unspecified cervical region Yen M. Nolvi[place], MSPT 10/12/2020 M51.34 Other intervertebral disc degene ration, thoracic region Yen M. Vespa, MSPT 10/12/2020 M51.36 Other intervertebral disc degene ration, lumbar region Yen M. Vespa, MSPT 10/09/2020 M50.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 , unspecified cervical region Danamarie Ortolano, SOLAR SALES REPRESENTATIVE 10/09/2020 M51.34 Other intervertebral disc degene ration, thoracic region Danamarie Ortolano, SOLAR SALES REPRESENTATIVE 10/09/2020 M51.36 Other intervertebral disc degene ration, lumbar region Danamarie Ortolano, SOLAR SALES REPRESENTATIVE 10/01/2020 M50.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 , unspecified cervical region Yen M. Vespa, MSPT 10/01/2020 M51.34 Other intervertebral disc degene ration, thoracic region Yen M. Vespa, MSPT 10/01/2020 M51.36 Other intervertebral disc degene ration, lumbar region Yen M. Vespa, MSPT 09/29/2020 M50.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 , unspecified cervical region Danamarie Ortolano, SOLAR SALES REPRESENTATIVE 09/29/2020 M51.34 Other intervertebral disc degene ration, thoracic region Danamarie Ortolano, SOLAR SALES REPRESENTATIVE 09/29/2020 M51.36 Other intervertebral disc degene ration, lumbar region Danamarie Ortolano, SOLAR SALES REPRESENTATIVE 09/24/2020 M50.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 , unspecified cervical region Alix Lyndsey Rowley, SOLAR SALES REPRESENTATIVE 09/24/2020 M51.34 Other intervertebral disc degene ration, thoracic region Alix Lyndsey Rowley, SOLAR SALES REPRESENTATIVE 09/24/2020 M51.36 Other intervertebral disc degene ration, lumbar region Alix Lyndsey Rowley, SOLAR SALES REPRESENTATIVE 09/22/2020 M50.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 , unspecified cervical region Alix Lyndsey Rowley, SOLAR SALES REPRESENTATIVE 09/22/2020 M51.34 Other intervertebral disc degene ration, thoracic region Alix Lyndsey Rowley, SOLAR SALES REPRESENTATIVE 09/22/2020 M51.36 Other intervertebral disc degene ration, lumbar region Alix Lyndsey Rowley, SOLAR SALES REPRESENTATIVE 09/17/2020 M50.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 , unspecified cervical region Alix Lyndsey Rowley, SOLAR SALES REPRESENTATIVE 09/17/2020 M51.34 Other intervertebral disc degene ration, thoracic region Alix Lyndsey Rowley, SOLAR SALES REPRESENTATIVE 09/17/2020 M51.36 Other intervertebral disc degene ration, lumbar region Alix Lyndsey Rowley, SOLAR SALES REPRESENTATIVE 09/15/2020 M50.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 , unspecified cervical region Yen NicoleLupe [place], MSPT 09/15/2020 M51.34 Other intervertebral disc degene ration, thoracic region Yen Nicole. [place], MSPT 09/15/2020 M51.36 Other intervertebral disc degene ration, lumbar region Yen M. Vespa, MSPT 09/11/2020 M50.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 [...] degeneration , unspecified cervical region [place], [facility] 09/01/2020 M51.34 Other intervertebral disc degene ration, thoracic region [place]en [place], [facility] 09/01/2020 M51.36 Other intervertebral disc degene ration, lumbar region [place], [facility] 08/10/2020 Z48.811 Encounter for surgic al aftercare [...] limb Reji Tyson MD Plan of Treatment Future Appointment(s):* 11/12/2020 10:45 am - Jaelyn Diallo at [facility] Functional Status Description No Information Available Mental Status Description No Information Available Referrals Refer to Dr Reason for Referral Status Appt Date Samir Warren PA AUTH FOR PT EVAL C,T,L-SPINE [id number]. PAT GOING TO NCO. PASSED TO PT DEPT. Created [address] [place] [address] [phone] [place] [id number] C,T,L- SPINE. 64 15 MINUTE VISITS. Created [address] [place] [address] [phone] Samir Warern PA O/V - M51.36 & M51.34 BACK Created [address] [place] [address] [phone] Reji Tyson MD AUTH FOR PT EVAL C-SPINE/L-S PINE [id number]. PAT GOING TO NCOG. PASSED TO PT DEPT. Created [address] [place] [address], [address] [phone] [place] [id number]. 24 15 MINUTE VISITS. GABO wilson [address] [place] [address], [address] [place] [address] [phone] Reji Tyson MD SURGERY PER [employer] NO AU TH REQUIRED FOR LEFT CTR([id number]) TO SURGERY NT Created [address] [place] [address], [address] [place] [address] [phone]
--- OUTSIDE RECORDS SUMMARY | 2021-02-06 00:11 | CCD | Continuity of Care Document ---
Author Author Cece WARREN P.A. Organization Unknown Address [address] [place] [id number] Phone [phone] Care Team Providers Care Neurology Epilepsy Physician Name Role Phone Nati Carter NP [facility] Unavailable Elliot Breen [facility] [phone] Estelle Craven RPA-C [facility] Problems Description No [...] Available Procedures Date Code Description Status 11/12/2020 41101 Office/Outpatient Established Mo d MDM 30-39 Min Completed 11/10/2020 63292 Manual Therapy Each 15 Minutes C ompleted 11/10/2020 97779 Electrical Stimulati on Manual, Each 15 Min, Constant Attendance Completed 11/10/2020 48104 Therapeutic Procedure, Each 15 M inutes Completed 11/06/2020 20546 Therapeutic Activities Direct, E ach 15 Minutes Completed 11/06/2020 82054 Manual Therapy Each 15 Minutes C ompleted 11/06/2020 82940 Therapeutic Procedure, Each 15 M inutes Completed 11/06/2020 25849 Electrical Stimulati on Manual, Each 15 Min, Constant Attendance Completed 11/04/2020 15882 Therapeutic Activities Direct, E ach 15 Minutes Completed 11/04/2020 07711 Manual Therapy Each 15 Minutes C ompleted 11/04/2020 16591 Therapeutic Procedure, Each 15 M inutes Completed 11/04/2020 16812 Electrical Stimulati on Manual, Each 15 Min, Constant Attendance Completed 11/02/2020 52072 Therapeutic Activities Direct, E ach 15 Minutes Completed 11/02/2020 61304 Manual Therapy Each 15 Minutes C ompleted 11/02/2020 58486 Therapeutic Procedure, Each 15 M inutes Completed 11/02/2020 46954 Electrical Stimulati on Manual, Each 15 Min, Constant Attendance Completed 10/29/2020 05376 Therapeutic Activities Direct, E ach 15 Minutes Completed 10/29/2020 21333 Hot Or Cold Packs Completed 10/27/2020 27272 Therapeutic Activities Direct, E ach 15 Minutes Completed 10/27/2020 62636 Electrical Stimulati on Manual, Each 15 Min, Constant Attendance Completed 10/23/2020 35547 Therapeutic Activities Direct, E ach 15 Minutes Completed 10/21/2020 98321 Therapeutic Activities Direct, E ach 15 Minutes Completed 10/21/2020 78829 Manual Therapy Each 15 Minutes C ompleted 10/21/2020 60425 Electrical Stimulati on Manual, Each 15 Min, Constant Attendance Completed 10/16/2020 72552 Electrical Stimulati on Manual, Each 15 Min, Constant Attendance Completed 10/16/2020 20708 Therapeutic Procedure, Each 15 M inutes Completed 10/16/2020 40502 Manual Therapy Each 15 Minutes C ompleted 10/16/2020 83717 Therapeutic Activities Direct, E ach 15 Minutes Completed 10/12/2020 12872 Therapeutic Activities Direct, E ach 15 Minutes Completed 10/12/2020 31594 Electrical Stimulati on Manual, Each 15 Min, Constant Attendance Completed 10/12/2020 65363 Hot Or Cold Packs Completed 10/09/2020 80865 Therapeutic Activities Direct, E ach 15 Minutes Completed 10/09/2020 98982 Electrical Stimulati on Manual, Each 15 Min, Constant Attendance Completed 10/01/2020 89318 Therapeutic Activities Direct, E ach 15 Minutes Completed 10/01/2020 30638 Hot Or Cold Packs Completed 10/01/2020 27983 Electrical Stimulati on Manual, Each 15 Min, Constant Attendance Completed 10/01/2020 44584 Manual Therapy Each 15 Minutes C ompleted 10/01/2020 53111 Therapeutic Procedure, Each 15 M inutes Completed 09/29/2020 68499 Therapeutic Activities Direct, E ach 15 Minutes Completed 09/24/2020 85250 Therapeutic Activities Direct, E ach 15 Minutes Completed 09/22/2020 13103 Therapeutic Activities Direct, E ach 15 Minutes Completed 09/22/2020 06386 Manual Therapy Each 15 Minutes C ompleted 09/22/2020 19371 Therapeutic Procedure, Each 15 M inutes Completed 09/22/2020 25951 Electrical Stimulati on Manual, Each 15 Min, Constant Attendance Completed 09/22/2020 30367 Hot Or Cold Packs Completed 09/17/2020 17780 Therapeutic Activities Direct, E ach 15 Minutes Completed 09/17/2020 68027 Manual Therapy Each 15 Minutes C ompleted 09/17/2020 52252 Therapeutic Procedure, Each 15 M inutes Completed 09/17/2020 88153 Hot Or Cold Packs Completed 09/15/2020 42764 Therapeutic Procedure, Each 15 M inutes Completed 09/15/2020 17329 Electrical Stimulati on Manual, Each 15 Min, Constant Attendance Completed 09/15/2020 56723 Manual Therapy Each 15 Minutes C ompleted 09/15/2020 71683 Therapeutic Activities Direct, E ach 15 Minutes Completed 09/11/2020 00657 Office/Outpatient Established Lo w MDM 20-29 Min Completed 09/10/2020 53355 Therapeutic Activities Direct, E ach 15 Minutes Completed 09/10/2020 06231 Manual Therapy Each 15 Minutes C ompleted 09/10/2020 29219 Therapeutic Procedure, Each 15 M inutes Completed 09/10/2020 25748 Electrical Stimulati on Manual, Each 15 Min, Constant Attendance Completed 09/08/2020 37409 Therapeutic Activities Direct, E ach 15 Minutes Completed 09/08/2020 25363 Manual Therapy Each 15 Minutes C ompleted 09/08/2020 30673 Therapeutic Procedure, Each 15 M inutes Completed 09/08/2020 40172 Electrical Stimulati on Manual, Each 15 Min, Constant Attendance Completed 09/01/2020 42273 Physical Therapy Eval - Low Comp lexity Completed 08/06/2020 92522 Office/Outpatient Established Mo d MDM 30-39 Min Completed 06/02/2020 73429 Neuroplasty/Transposition, Media n Nerve At Carpal Tunnel Completed 05/28/2020 72963 Office/Outpatient Established Mo d MDM 30-39 Min Completed 05/28/2020 57444 X-Ray Spine Cervical 6 Or More V iews Completed Medical Devices Description No Information Available Encounters Type Date Location Provider Dx Diagnosis Office Visit [place].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, unsp cervical 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, 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, lumbar region Office Visit 09/11/2020 4[place] M50.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, unsp cervical 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, 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, lumbar region Office Visit 08/10/2020 5[place] Z48.811 Encntr for surgical aftcr fol surgery on the nervous sys Office Visit 08/06/2020 2:[place]p [place] M50.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, unsp cervical 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, 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, lumbar region Office Visit 06/16/2020 9:[place] Z48.811 Encntr for surgical aftcr fol surgery on the nervous sys Office Visit 05/28/2020 10:[place]a [place] M51.36 Other intervertebral disc degeneration, 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, thoracic region M50.30 Other cervical disc degenera tion, unsp cervical region Assessments Date Code Description Provider 11/12/2020 M50.30 [...] degeneration , unspecified cervical region Danamarie Ortolano, [employer] 11/04/2020 M51.34 Other intervertebral disc degene ration, thoracic region Danamarie Ortolano, [employer] 11/04/2020 M51.36 Other intervertebral disc degene ration, lumbar region Danamarie Ortolano, [employer] 11/02/2020 M50.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 , unspecified cervical region Danamarie Ortolano, [employer] 11/02/2020 M51.34 Other intervertebral disc degene ration, thoracic region Danamarie Ortolano, [employer] 11/02/2020 M51.36 Other intervertebral disc degene ration, lumbar region Danamarie Ortolano, [employer] 10/29/2020 M50.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 , unspecified cervical region [place]en [place], [facility] 10/29/2020 M51.34 Other intervertebral disc degene ration, thoracic region [place], [facility] 10/29/2020 M51.36 Other intervertebral disc degene ration, lumbar region [place], [facility] 10/27/2020 M50.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 , unspecified cervical region Danamarie Ortolano, [employer] 10/27/2020 M51.34 Other intervertebral disc degene ration, thoracic region Danamarie Ortolano, [employer] 10/27/2020 M51.36 Other intervertebral disc degene ration, lumbar region Danamarie Ortolano, [employer] 10/23/2020 M50.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 , unspecified cervical region Danamarie Ortolano, [employer] 10/23/2020 M51.34 Other intervertebral disc degene ration, thoracic region Danamarie Ortolano, [employer] 10/23/2020 M51.36 Other intervertebral disc degene ration, lumbar region Danamarie Ortolano, [employer] 10/21/2020 M50.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 , unspecified cervical region Danamarie Ortolano, [employer] 10/21/2020 M51.34 Other intervertebral disc degene ration, thoracic region Danamarie Ortolano, [employer] 10/21/2020 M51.36 Other intervertebral disc degene ration, lumbar region Danamarie Ortolano, [employer] 10/16/2020 M50.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 , [...] degeneration , unspecified cervical region Danamarie Ortolano, [employer] 10/09/2020 M51.34 Other intervertebral disc degene ration, thoracic region Danamarie Ortolano, [employer] 10/09/2020 M51.36 Other intervertebral disc degene ration, lumbar region Danamarie Ortolano, [employer] 10/01/2020 M50.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 , unspecified cervical region [place], [facility] 10/01/2020 M51.34 Other intervertebral disc degene ration, thoracic region [place], [facility] 10/01/2020 M51.36 Other intervertebral disc degene ration, lumbar region [place], [facility] 09/29/2020 M50.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 , unspecified cervical region Danamarie Ortolano, [employer] 09/29/2020 M51.34 Other intervertebral disc degene ration, thoracic region Danamarie Ortolano, [employer] 09/29/2020 M51.36 Other intervertebral disc degene ration, lumbar region Danamarie Ortolano, [employer] 09/24/2020 M50.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 , unspecified cervical region Alix Lyndsey Rowley, [employer] 09/24/2020 M51.34 Other intervertebral disc degene ration, thoracic region Alix Lyndsey Rowley, [employer] 09/24/2020 M51.36 Other intervertebral disc degene ration, lumbar region Alix Lyndsey Rowley, [employer] 09/22/2020 M50.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 , unspecified cervical region Alix Lyndsey Rowley, [employer] 09/22/2020 M51.34 Other intervertebral disc degene ration, thoracic region Alix Lyndsey Rowley, [employer] 09/22/2020 M51.36 Other intervertebral disc degene ration, lumbar region Alix Lyndsey Rowley, [employer] 09/17/2020 M50.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 , unspecified cervical region Alix Lyndsey Rowley, [employer] 09/17/2020 M51.34 Other intervertebral disc degene ration, thoracic region Alix Lyndsey Rowley, [employer] 09/17/2020 M51.36 Other intervertebral disc degene ration, lumbar region Alix Lyndsey Rowley, [employer] 09/15/2020 M50.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 , [...] , unspecified cervical region [facility] [place], [facility] 09/01/2020 M51.34 Other intervertebral disc degene ration, thoracic region [place], [facility] 09/01/2020 M51.36 Other intervertebral disc degene ration, lumbar region [place], [facility] 08/10/2020 Z48.811 Encounter for surgic al [...] Encounter for other preprocedura l examination Lab Plan of Treatment 11/12/2020 - Samir Warren, P.A.* M50.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, unspecified cervical region* New Xrays:* MRI Cervical Spine, Scheduled: 12/08/20 * Follow up:* with [facility] after mri for results * M51.34 Other intervertebral disc degeneration, thoracic region * M51.36 Other intervertebral disc degeneration, lumbar region Functional Status Description No Information Available Mental Status Description No Information Available Referrals Refer to Dr Reason for Referral Status Appt Date Samir Warren PA MRI APPROVED PER [facility] FOR MRI OF CERVICAL SPINE (81029) TO [facility] D[facility] DG Created [address] [place] [address] [phone] Samir Warren PA AUTH FOR PT EVAL C,T,L-SPINE [id number]. PAT GOING TO [facility]. PASSED TO PT DEPT.HW Created [address] [place] [address] [address] [place] [address] [phone] [place] [id number] C,T,L- SPINE. 64 15 MINUTE VISITS.HW Created [address] [place] [address] [phone] Samir Warren PA O/V - M51.36 & M51.34 BACK Created [facility] [place] [address] [phone] Reji Tyson MD AUTH FOR PT EVAL C-SPINE/L-S [place] [id number]. PAT GOING TO [facility]. PASSED TO PT DEPT. Created [facility] [address] [address] [phone] [place] [id number]. 24 15 MINUTE VISITS. Ezequiel wilson [facility] [address] [address] [phone]
--- OUTSIDE RECORDS SUMMARY | 2021-02-06 00:13 | CCD ---
Author Author [facility] Organization [facility] Address Unknown Phone Unavailable Care Team Providers Care Travel Director Name Role Phone Fish, B Reji DIAZ Unavailable Unavailable Fish, B Reji DIAZ Unavailable Unavailable Fish, B Reji DIAZ Unavailable Unavailable Fish, B Reji DIAZ Unavailable Unavailable Fish, B Reji DIAZ Unavailable Unavailable Fish, B Reji DIAZ Unavailable Unavailable Fish, B Reji DIAZ Unavailable Unavailable Fish, B Reji DIAZ Unavailable Unavailable Fish, B Reji DIAZ Unavailable Unavailable Fish, B Reji DIAZ Unavailable Unavailable Fish, B Reji DIAZ Unavailable Unavailable Fish, B Reji DIAZ Unavailable Unavailable Fish, B Reji DIAZ Unavailable Unavailable Fish, B Reji DIAZ Unavailable Unavailable Fish, B Reji DIAZ Unavailable Unavailable Fish, B Reji DIAZ Unavailable Unavailable Fish, B Reji DIAZ Unavailable Unavailable Fish, B Reji DIAZ Unavailable Unavailable Fish, B Reji DIAZ Unavailable Unavailable Fish, B Reji DIAZ Unavailable Unavailable Fish, B Reji DIAZ Unavailable Unavailable Fish, B Reji DIAZ Unavailable Unavailable Fish, B Reji DIAZ Unavailable Unavailable Fish, B Reji DIAZ Unavailable Unavailable Fish, B Reji DIAZ Unavailable Unavailable Fish, B Reji DIAZ Unavailable Unavailable Fish, B Reji DIAZ Unavailable Unavailable Fish, B Reji DIAZ Unavailable Unavailable Fish, B Reji DIAZ Unavailable Unavailable Fish, B Reji DIAZ Unavailable Unavailable Fish, B Reji DIAZ Unavailable Unavailable Fish, B Reji DIAZ Unavailable Unavailable Fish, B Reji DIAZ Unavailable Unavailable Fish, B Reji DIAZ Unavailable Unavailable Fish, B Reji DIAZ Unavailable Unavailable Fish, B Reji DIAZ Unavailable Unavailable Fish, B Reji DIAZ Unavailable Unavailable Fish, B Reji DIAZ Unavailable Unavailable Fish, B Reji DIAZ Unavailable Unavailable Fish, B Reji DIAZ Unavailable Unavailable Fish, B Reji DIAZ Unavailable Unavailable Fish, B Reji DIAZ Unavailable Unavailable Fish, B Reji DIAZ Unavailable Unavailable Fish, B Reji DIAZ Unavailable Unavailable Fish, B Reji DIAZ Unavailable Unavailable Fish, B Reji DIAZ Unavailable Unavailable Fish, B Reji DIAZ Unavailable Unavailable Fish, B Reji DIAZ Unavailable Unavailable Fish, B Reji DIAZ Unavailable Unavailable Fish, B Reji DIAZ Unavailable Unavailable Fish, B Reji DIAZ Unavailable Unavailable Fish, B Reji DIAZ Unavailable Unavailable Fish, B Reji DIAZ Unavailable Unavailable Fish, B Reji DIAZ Unavailable Unavailable Fish, B Reji DIAZ Unavailable Unavailable Fish, B Reji DIAZ Unavailable Unavailable MCELHERAN, CB PA Unavailable Unavailable MCELHERAN, CB PA Unavailable Unavailable MCELHERAN, CB PA Unavailable Unavailable MCELHERAN, CB PA Unavailable Unavailable MCELHERAN, CB PA Unavailable Unavailable MCELHERAN, CB PA Unavailable Unavailable MCELHERAN, CB PA Unavailable Unavailable MCELHERAN, CB PA Unavailable Unavailable MCELHERAN, CB PA Unavailable Unavailable MCELHERAN, CB PA Unavailable Unavailable MCELHERAN, CB PA Unavailable Unavailable MCELHERAN, CB PA Unavailable Unavailable MCELHERAN, CB PA Unavailable Unavailable MCELHERAN, CB PA Unavailable Unavailable MCELHERAN, CB PA Unavailable Unavailable MCELHERAN, CB PA Unavailable Unavailable MCELHERAN, CB PA Unavailable Unavailable MCELHERAN, CB PA Unavailable Unavailable MCELHERAN, CB PA Unavailable Unavailable MCELHERAN, CB PA Unavailable Unavailable MCELHERAN, CB PA Unavailable Unavailable MCELHERAN, CB PA Unavailable Unavailable MCELHERAN, CB PA Unavailable Unavailable MCELHERAN, CB PA Unavailable Unavailable MCELHERAN, CB PA Unavailable Unavailable MCELHERAN, CB PA Unavailable Unavailable MCELHERAN, CB PA Unavailable Unavailable MCELHERAN, CB PA Unavailable Unavailable MCELHERAN, CB PA Unavailable Unavailable MCELHERAN, CB PA Unavailable Unavailable MCELHERAN, CB PA Unavailable Unavailable MCELHERAN, CB PA Unavailable Unavailable MCELHERAN, CB PA Unavailable Unavailable MCELHERAN, CB PA Unavailable Unavailable MCELHERAN, CB PA Unavailable Unavailable MCELHERAN, CB PA Unavailable Unavailable MCELHERAN, CB PA Unavailable Unavailable MCELHERAN, CB PA Unavailable Unavailable MCELHERAN, CB PA Unavailable Unavailable MCELHERAN, CB PA Unavailable Unavailable MCELHERAN, CB PA Unavailable Unavailable MCELHERAN, CB PA Unavailable Unavailable MCELHERAN, CB PA Unavailable Unavailable MCELHERAN, CB PA Unavailable Unavailable MCELHERAN, CB PA Unavailable Unavailable MCELHERAN, CB PA Unavailable Unavailable MCELHERAN, CB PA Unavailable Unavailable MCELHERAN, CB PA Unavailable Unavailable MCELHERAN, CB PA Unavailable Unavailable MCELHERAN, CB PA Unavailable Unavailable MCELHERAN, CB PA Unavailable Unavailable MCELHERAN, CB PA Unavailable Unavailable MCELHERAN, CB PA Unavailable Unavailable MCELHERAN, CB PA Unavailable Unavailable MCELHERAN, CB PA Unavailable Unavailable MCELHERAN, CB PA Unavailable Unavailable MCELHERAN, CB PA Unavailable Unavailable MCELHERAN, CB PA Unavailable Unavailable Barter, D Walter PRIOR AUTHORIZATION NURSE Unavailable Unavailable Barter, D Walter PRIOR AUTHORIZATION NURSE Unavailable Unavailable Barter, D Walter PRIOR AUTHORIZATION NURSE Unavailable Unavailable Barter, D Walter PRIOR AUTHORIZATION NURSE Unavailable Unavailable Barter, D Walter PRIOR AUTHORIZATION NURSE Unavailable Unavailable Barter, D Walter PRIOR AUTHORIZATION NURSE Unavailable Unavailable Barter, D Walter PRIOR AUTHORIZATION NURSE Unavailable Unavailable Barter, D Walter PRIOR AUTHORIZATION NURSE Unavailable Unavailable Barter, D Walter PRIOR AUTHORIZATION NURSE Unavailable Unavailable Barter, D Walter PRIOR AUTHORIZATION NURSE Unavailable Unavailable Barter, D Walter PRIOR AUTHORIZATION NURSE Unavailable Unavailable Barter, D Walter PRIOR AUTHORIZATION NURSE Unavailable Unavailable Barter, D Walter PRIOR AUTHORIZATION NURSE Unavailable Unavailable Barter, D Walter PRIOR AUTHORIZATION NURSE Unavailable Unavailable Barter, D Walter PRIOR AUTHORIZATION NURSE Unavailable Unavailable Barter, D Walter PRIOR AUTHORIZATION NURSE Unavailable Unavailable Barter, D Walter PRIOR AUTHORIZATION NURSE Unavailable Unavailable Barter, D Walter PRIOR AUTHORIZATION NURSE Unavailable Unavailable Barter, D Walter PRIOR AUTHORIZATION NURSE Unavailable Unavailable Barter, D Walter PRIOR AUTHORIZATION NURSE Unavailable Unavailable Barter, D Walter PRIOR AUTHORIZATION NURSE Unavailable Unavailable Barter, D Walter PRIOR AUTHORIZATION NURSE Unavailable Unavailable Barter, D Walter PRIOR AUTHORIZATION NURSE Unavailable Unavailable Barter, D Walter PRIOR AUTHORIZATION NURSE Unavailable Unavailable Barter, D Walter PRIOR AUTHORIZATION NURSE Unavailable Unavailable Barter, D Walter PRIOR AUTHORIZATION NURSE Unavailable Unavailable Barter, D Walter PRIOR AUTHORIZATION NURSE Unavailable Unavailable Barter, D Walter PRIOR AUTHORIZATION NURSE Unavailable Unavailable Barter, D Walter PRIOR AUTHORIZATION NURSE Unavailable Unavailable Barter, D Walter PRIOR AUTHORIZATION NURSE Unavailable Unavailable Barter, D Walter PRIOR AUTHORIZATION NURSE Unavailable Unavailable Barter, D Walter PRIOR AUTHORIZATION NURSE Unavailable Unavailable Barter, D Walter PRIOR AUTHORIZATION NURSE Unavailable Unavailable Barter, D Walter PRIOR AUTHORIZATION NURSE Unavailable Unavailable Barter, D Walter PRIOR AUTHORIZATION NURSE Unavailable Unavailable Barter, D Walter PRIOR AUTHORIZATION NURSE Unavailable Unavailable Barter, D Walter PRIOR AUTHORIZATION NURSE Unavailable Unavailable Barter, D Walter PRIOR AUTHORIZATION NURSE Unavailable Unavailable Barter, D Walter PRIOR AUTHORIZATION NURSE Unavailable Unavailable Barter, D Walter PRIOR AUTHORIZATION NURSE Unavailable Unavailable Barter, D Walter PRIOR AUTHORIZATION NURSE Unavailable Unavailable Barter, D Walter PRIOR AUTHORIZATION NURSE Unavailable Unavailable Barter, D Walter PRIOR AUTHORIZATION NURSE Unavailable Unavailable Barter, D Walter PRIOR AUTHORIZATION NURSE Unavailable Unavailable Barter, D Walter PRIOR AUTHORIZATION NURSE Unavailable Unavailable Barter, D Walter PRIOR AUTHORIZATION NURSE Unavailable Unavailable Barter, D Walter PRIOR AUTHORIZATION NURSE Unavailable Unavailable Barter, D Walter PRIOR AUTHORIZATION NURSE Unavailable Unavailable Barter, D Walter PRIOR AUTHORIZATION NURSE Unavailable Unavailable Barter, D Walter PRIOR AUTHORIZATION NURSE Unavailable Unavailable Barter, D Walter PRIOR AUTHORIZATION NURSE Unavailable Unavailable Barter, D Walter PRIOR AUTHORIZATION NURSE Unavailable Unavailable Barter, D Walter PRIOR AUTHORIZATION NURSE Unavailable Unavailable MAJAK, R GINO DPM Unavailable Unavailable MAJAK, R GINO DPM Unavailable Unavailable MAJAK, R GINO DPM Unavailable Unavailable MAJAK, R GINO DPM Unavailable Unavailable MAJAK, R GINO DPM Unavailable Unavailable MAJAK, R GINO DPM Unavailable Unavailable MAJAK, R GINO DPM Unavailable Unavailable MAJAK, R GINO DPM Unavailable Unavailable MAJAK, R GINO DPM Unavailable Unavailable MAJAK, R GINO DPM Unavailable Unavailable MAJAK, R GINO DPM Unavailable Unavailable MAJAK, R GINO DPM Unavailable Unavailable MAJAK, R GINO DPM Unavailable Unavailable MAJAK, R GINO DPM Unavailable Unavailable MAJAK, R GINO DPM Unavailable Unavailable MAJAK, R GINO DPM Unavailable Unavailable MAJAK, R GINO DPM Unavailable Unavailable MAJAK, R GINO DPM Unavailable Unavailable MAJAK, R GINO DPM Unavailable Unavailable MAJAK, R GINO DPM Unavailable Unavailable MAJAK, R GINO DPM Unavailable Unavailable MAJAK, R GINO DPM Unavailable Unavailable MAJAK, R GINO DPM Unavailable Unavailable MAJAK, R GINO DPM Unavailable Unavailable MAJAK, R GINO DPM Unavailable Unavailable MAJAK, R GINO DPM Unavailable Unavailable MAJAK, R GINO DPM Unavailable Unavailable MAJAK, R GINO DPM Unavailable Unavailable MAJAK, R GINO DPM Unavailable Unavailable MAJAK, R GINO DPM Unavailable Unavailable MAJAK, R GINO DPM Unavailable Unavailable Swatsworth, R Estelle PA Unavailable Unavailable Swatsworth, R Estelle PA Unavailable Unavailable Swatsworth, R Estelle PA Unavailable Unavailable Swatsworth, R Estelle PA Unavailable Unavailable Swatsworth, R Estelle PA Unavailable Unavailable Swatsworth, R Estelle PA Unavailable Unavailable Swatsworth, R Estelle PA Unavailable Unavailable Swatsworth, R Estelle PA Unavailable Unavailable Swatsworth, R Estelle PA Unavailable Unavailable Swatsworth, R Estelle PA Unavailable Unavailable Swatsworth, R Estelle PA Unavailable Unavailable Swatsworth, R Estelle PA Unavailable Unavailable Swatsworth, R Estelle PA Unavailable Unavailable Swatsworth, R Estelle PA Unavailable Unavailable Swatsworth, R Estelle PA Unavailable Unavailable Swatsworth, R Estelle PA Unavailable Unavailable Swatsworth, R Estelle PA Unavailable Unavailable Swatsworth, R Estelle PA Unavailable Unavailable Swatsworth, R Estelle PA Unavailable Unavailable Swatsworth, R Estelle PA Unavailable Unavailable Swatsworth, R Estelle PA Unavailable Unavailable Swatsworth, R Estelle PA Unavailable Unavailable Swatsworth, R Estelle PA Unavailable Unavailable Swatsworth, R Estelle PA Unavailable Unavailable Swatsworth, R Estelle PA Unavailable Unavailable Swatsworth, R Estelle PA Unavailable Unavailable Swatsworth, R Estelle PA Unavailable Unavailable Swatsworth, R Estelle PA Unavailable Unavailable Swatsworth, R Estelle PA Unavailable Unavailable Swatsworth, R Estelle PA Unavailable Unavailable Swatsworth, R Estelle PA Unavailable Unavailable Swatsworth, R Estelle PA Unavailable Unavailable Swatsworth, R Estelle PA Unavailable Unavailable Swatsworth, R Estelle PA Unavailable Unavailable Swatsworth, R Estelle PA Unavailable Unavailable Swatsworth, R Estelle PA Unavailable Unavailable Swatsworth, R Estelle PA Unavailable Unavailable Swatsworth, R Estelle PA Unavailable Unavailable Swatsworth, R Estelle PA Unavailable Unavailable Swatsworth, R Estelle PA Unavailable Unavailable Swatsworth, R Estelle PA Unavailable Unavailable Swatsworth, R Estelle PA Unavailable Unavailable Swatsworth, R Estelle PA Unavailable Unavailable Swatsworth, R Estelle PA Unavailable Unavailable Swatsworth, R Estelle PA Unavailable Unavailable Swatsworth, R Estelle PA Unavailable Unavailable Swatsworth, R Estelle PA Unavailable Unavailable Swatsworth, R Estelle PA Unavailable Unavailable Swatsworth, R Estelle PA Unavailable Unavailable Jose Guadalupe, Eduadra Navarro PH.D., M.D. Unavailable Unavailable Jose Guadalupe, Eduarda Navarro PH.D., M.D. Unavailable Unavailable Jose Guadalupe, Eduarda Navarro PH.D., M.D. Unavailable Unavailable Jose Guadalupe, Eduarda Navarro PH.D., M.D. Unavailable Unavailable Jose Guadalupe, Eduarda Navarro PH.D., M.D. Unavailable Unavailable Jose Guadalupe, Eduarda Navarro PH.D., M.D. Unavailable Unavailable Jose Guadalupe, Eduarda Navarro PH.D., M.D. Unavailable Unavailable Jose Guadalupe, Eduarda Navarro PH.D., M.D. Unavailable Unavailable Jose Guadalupe, Eduarda Navarro PH.D., M.D. Unavailable Unavailable Jose Guadalupe, Eduarda Navarro PH.D., M.D. Unavailable Unavailable Jose Guadalupe, Eduarda Navarro PH.D., M.D. Unavailable Unavailable Jose Guadalupe, Eduarda Navarro PH.D., M.D. Unavailable Unavailable Jose Guadalupe, Eduarda Navarro PH.D., M.D. Unavailable Unavailable Jose Guadalupe, Eduarda Navarro PH.D., M.D. Unavailable Unavailable Jose Guadalupe, Eduarda Navarro PH.D., M.D. Unavailable Unavailable Jose Guadalupe, Eduarda Navarro PH.D., M.D. Unavailable Unavailable Jose Guadalupe, Eduarda Navarro PH.D., M.D. Unavailable Unavailable Jose Guadalupe, Eduarda Navarro PH.D., M.D. Unavailable Unavailable Jose Guadalupe, Eduarda Navarro PH.D., M.D. Unavailable Unavailable Jose Guadalupe, Eduarda Navarro PH.D., M.D. Unavailable Unavailable Jose Guadalupe, Eduarda Navarro PH.D., M.D. Unavailable Unavailable Jose Guadalupe, Eduarda Navarro PH.D., M.D. Unavailable Unavailable Jose Guadalupe, Eduarda Navarro PH.D., M.D. Unavailable Unavailable Jose Guadalupe, Eduarda Navarro PH.D., M.D. Unavailable Unavailable Jose Guadalupe, Eduarda Navarro PH.D., M.D. Unavailable Unavailable Jose Guadalupe, C Ramon PH.D., M.D. Unavailable Unavailable Jose Guadalupe, C Ramon PH.D., M.D. Unavailable Unavailable Jose Guadalupe, C Ramon PH.D., M.D. Unavailable Unavailable Jose Guadalupe, C Ramon PH.D., M.D. Unavailable Unavailable Jose Guadalupe, C Ramon PH.D., M.D. Unavailable Unavailable Jose Guadalupe, C Ramon PH.D., M.D. Unavailable Unavailable Jose Guadalupe, C Ramon PH.D., M.D. Unavailable Unavailable Jose Guadalupe, C Ramon PH.D., M.D. Unavailable Unavailable Jose Guadalupe, C Ramon PH.D., M.D. Unavailable Unavailable Jose Guadalupe, C Ramon PH.D., M.D. Unavailable Unavailable Jose Guadalupe, C Ramon PH.D., M.D. Unavailable Unavailable Jose Guadalupe, C Ramon PH.D., M.D. Unavailable Unavailable Jose Guadalupe, C Ramon PH.D., M.D. Unavailable Unavailable Jose Guadalupe, C Ramon PH.D., M.D. Unavailable Unavailable Jose Guadalupe, C Ramon PH.D., M.D. Unavailable Unavailable Jose Guadalupe, C Ramon PH.D., M.D. Unavailable Unavailable Jose Guadalupe, C Ramon PH.D., M.D. Unavailable Unavailable Jose Guadalupe, C Ramon PH.D., M.D. Unavailable Unavailable Jose Guadalupe, C Ramon PH.D., M.D. Unavailable Unavailable Jose Guadalupe, C Ramon PH.D., M.D. Unavailable Unavailable Jose Guadalupe, C Ramon PH.D., M.D. Unavailable Unavailable Jose Guadalupe, C Ramon PH.D., M.D. Unavailable Unavailable Jose Guadalupe, C Ramon PH.D., M.D. Unavailable Unavailable Jose Guadalupe, C Ramon PH.D., M.D. Unavailable Unavailable Jose Guadalupe, C Ramon PH.D., M.D. Unavailable Unavailable Jose Guadalupe, C Ramon PH.D., M.D. Unavailable Unavailable Jose Guadalupe, C Ramon PH.D., M.D. Unavailable Unavailable Jose Guadalupe, C Ramon PH.D., M.D. Unavailable Unavailable Jose Guadalupe, C Ramon PH.D., M.D. Unavailable Unavailable Jose Guadalupe, C Ramon PH.D., M.D. Unavailable Unavailable Jose Guadalupe, C Ramon PH.D., M.D. Unavailable Unavailable Jose Guadalupe, C Ramon PH.D., M.D. Unavailable Unavailable Jose Guadalupe, C Ramon PH.D., M.D. Unavailable Unavailable Jose Guadalupe, C Ramon PH.D., M.D. Unavailable Unavailable Jose Guadalupe, Eduarda Navarro PH.D., M.D. Unavailable Unavailable Jose Guadalupe, Eduarda Navarro PH.D., M.D. Unavailable Unavailable Jose Guadalupe, Eduarda Navarro PH.D., M.D. Unavailable Unavailable Jose Guadalupe, Eduarda Navarro PH.D., M.D. Unavailable Unavailable Jose Guadalupe, Eduarda Navarro PH.D., M.D. Unavailable Unavailable Jose Guadalupe, Eduarda Navarro PH.D., M.D. Unavailable Unavailable Jose Guadalupe, Eduarda Navarro PH.D., M.D. Unavailable Unavailable Jose Guadalupe, Eduarda Navarro PH.D., M.D. Unavailable Unavailable Jose Guadalupe, Eduarda Navarro PH.D., M.D. Unavailable Unavailable Jose Guadalupe, Eduarda Navarro PH.D., M.D. Unavailable Unavailable Jose Guadalupe, Eduarda Navarro PH.D., M.D. Unavailable Unavailable Jose Guadalupe, Eduarda Navarro PH.D., M.D. Unavailable Unavailable Jose Guadalupe, Eduarda Navarro PH.D., M.D. Unavailable Unavailable Jose Guadalupe, Eduarda Navarro PH.D., M.D. Unavailable Unavailable Jose Guadalupe, Eduarda Navarro PH.D., M.D. Unavailable Unavailable Jose Guadalupe, Eduarda Navarro PH.D., M.D. Unavailable Unavailable Jose Guadalupe, Eduarda Navarro PH.D., M.D. Unavailable Unavailable Jose Guadalupe, Eduarda Navarro PH.D., M.D. Unavailable Unavailable Jose Guadalupe, Eduarda Navarro PH.D., M.D. Unavailable Unavailable Jose Guadalupe, Eduarda Navarro PH.D., M.D. Unavailable Unavailable Jose Guadalupe, Eduarda Navarro PH.D., M.D. Unavailable Unavailable Jose Guadalupe, Eduarda Navarro PH.D., M.D. Unavailable Unavailable Jose Guadalupe, Eduarda Navarro PH.D., M.D. Unavailable Unavailable CHANLIECCO, C MEGAN DIAZ Unavailable Unavailable CHANLIECCO, C MEGAN MD Unavailable Unavailable CHANLIECCO, C MEGAN MD Unavailable Unavailable CHANLIECCO, C MEGAN MD Unavailable Unavailable CHANLIECCO, C MEGAN MD Unavailable Unavailable CHANLIECCO, C MEGAN MD Unavailable Unavailable CHANLIECCO, C MEGAN MD Unavailable Unavailable CHANLIECCO, C MEGAN MD Unavailable Unavailable CHANLIECCO, C MEGAN MD Unavailable Unavailable CHANLIECCO, C MEGAN MD Unavailable Unavailable CHANLIECCO, C MEGAN MD Unavailable Unavailable Re-disclosure Warning The records that you are about to access may contain information from federally-assisted alcohol or drug abuse programs. If such information is present, then the following federally mandated warning applies: This information has been disclosed to you from records protected by federal confidentiality rules (42 CFR part 2). The federal rules prohibit you from making any further disclosure of this information unless further disclosure is expressly permitted by the written consent of the person to whom it pertains or as otherwise permitted by 42 CFR part 2. A general authorization for the release of medical or other information is NOT sufficient for this purpose. The Federal rules restrict any use of the information to criminally investigate or prosecute any alcohol or drug abuse patient.The records that you are about to access may contain highly sensitive health information, the redisclosure of which is protected by Article 27-F of the [facility] Public Health law. If you continue you may have access to information: Regarding HIV / AIDS; Provided by facilities licensed or operated by the [facility] Office of Mental Health; or Provided by the [facility] Office for People With Developmental Disabilities. If such information is present, then the following [facility] mandated warning applies: This information has been disclosed to you from confidential records which are protected by state law. State law prohibits you from making any further disclosure of this information without the specific written consent of the person to whom it pertains, or as otherwise permitted by law. Any unauthorized further disclosure in violation of state law may result in a fine or snf sentence or both. A general authorization for the release of medical or other information is NOT sufficient authorization for further disc losure. Family History Family Member Name Family Member Gender Family Member Status Date o f Status Description Data Source(s) Unknown Male Problem MEDENT ([facility]) Unknown Unknown Problem [facility] ([facility]) Unknown Male Problem [facility] ([facility] Encounters Encounter Providers Location Date Indications Data Source(s ) Unknown [address] [facility] [place] [address] 02/02/2021 12:00:00 AM EDT eCW1 ([facility], [facility]) Unknown [address] [facility] [place] [address] 02/02/2021 12:00:00 AM EDT eCW1 ([facility], [facility]) Outpatient [address] [facility] [place] [address] 01/22/2021 12:00:00 AM EDT eCW1 ([facility] [place] [address] [facility] [place] [address] 01/13/2021 12:00:00 AM EDT eCW1 ([facility]) [place] [address] [facility] [place] [address] 01/13/2021 12:00:00 AM EDT eCW1 ([facility]) [place] [address] [facility] [place] [address] 01/12/2021 12:00:00 AM EDT eCW1 ([facility] [place] [address] [facility] [place] [address] 01/07/2021 12:00:00 AM EDT eCW1 ([facility]) Unknown [address] [facility] [place] [address] 01/05/2021 12:00:00 AM EDT eCW1 ([facility]) OFFICE OUTPATIENT VISIT 15 MINUTES Attender: CB VILLARREAL Physical Therapy 01/01/2021 05:30:00 PM EDT [facility] ([facility]) Outpatient [address] [facility] [place] [address] 12/11/2020 12:00:00 AM EDT eCW1 ([facility]) Outpatient Attender: CB MAGAÑA PAConsultant: Estelle VILLARREAL 12/08/2020 09:15:00 AM EDT - 12/08/2020 10:15:00 AM EDT [facility] Out[facility] [address] [facility] [place] [address] 11/26/2020 12:00:00 AM EDT eCW1 ([facility] Unknown [address] [facility] [place] [address] 11/26/2020 12:00:00 AM EDT eCW1 ([facility]) Unknown [address] [facility] [place] [address] 11/26/2020 12:00:00 AM EDT eCW1 ([facility]) Unknown [address] [facility] [id number] 11/26/2020 12:00:00 AM EDT eCW1 ([facility], [facility]) Unknown [address] [facility] [place] [address] 11/25/2020 12:00:00 AM EDT eCW1 ([facility], [facility]) Unknown [address] [facility] [id number] 11/16/2020 12:00:00 AM EDT eCW1 ([facility], [facility]) Outpatient Attender: CB VILLARREAL Physical Therapy 11/12/2020 10:45:00 AM EDT MED[facility] ([facility] ) Unknown [address] [facility] [id number] 11/03/2020 12:00:00 AM EDT eCW1 ([facility], [facility]) Outpatient [address] [facility] [address] 10/27/2020 12:00:00 AM EDT eCW1 ([facility], [facility]) Unknown [address] [facility] [id number] 10/20/2020 12:00:00 AM EDT eCW1 ([facility], [facility]) Outpatient Attender: GINO BARDALES [facility] Office 09/23 01:30:00 PM EDT MED[facility] ([facility] Outpatient Attender: Ramon Shi PH.D., M.D. Jeffry/Yesica/Negro chavez/Kavon 10/19/2020 11:00:00 AM EDT MEDENT ([facility] [address]) Outpatient [address] [place] [id number] 10/19/2020 12:00:00 AM EDT eCW1 ([facility], [facility]) Outpatient [address] [facility] [id number] 10/14/2020 12:00:00 AM EDT eCW1 ([facility] Unknown [address] [facility] [place] [address] 10/14/2020 12:00:00 AM EDT eCW1 ([facility]) [place] [address] [facility] [address] 10/14/2020 12:00:00 AM EDT eCW1 ([facility]) [place] [address] [facility] [address] 10/14/2020 12:00:00 AM EDT eCW1 ([facility]) [place] [address] [facility] [address] 10/07/2020 12:00:00 AM EDT eCW1 ([facility]) [place] [address] [facility] [address] 10/05/2020 12:00:00 AM EDT eCW1 ([facility]) [place] [address] [facility] [address] 09/25/2020 12:00:00 AM EDT eCW1 ([facility]) Outpatient [address] [facility] [address] 09/15/2020 12:00:00 AM EDT eCW1 ([facility]) [place] [address] [facility] [address] 09/15/2020 12:00:00 AM EDT eCW1 (Formerly [facility], [facility]–1983) OFFICE OUTPATIENT VISIT 15 MINUTES Attender: CB VILLARREAL Physical Therapy 09/11/2020 04:00:00 PM EDT MEDENT ([facility]) [place] [address] [facility] [place] [address] 09/07/2020 12:00:00 AM EDT eCW1 [facility] [place]patient [address] [facility] [address] 08/11/2020 12:00:00 AM EDT eCW1 ([facility]) Office Visit Attender: CB VILLARREAL Physical Therapy 08/10/2020 05:30:00 PM EDT MEDENT ([facility]) Outpatient Attender: CB VILLARREAL Physical Therapy 08/06/2020 02:15:00 PM EDT MEDENT ([facility]) [place] [address] [facility] [address] 07/24/2020 12:00:00 AM EDT eCW1 ([facility]) Unknown [address] [facility] [address] 07/02/2020 12:00:00 AM EST eCW1 ([facility]) Office Visit Attender: Reji Tyson MD Physical Therapy 2020 08:15:00 AM EST MEDENT ([facility]) Unknown [address] [facility] [address] 06/16/2020 12:00:00 AM EST eCW1 ([facility]) Outpatient Attender: CB VILLARREAL Physical Therapy 05/28/2020 09:00:00 AM EST MEDENT ([facility]) Emergency Attender: MEGAN ARCE MDConsultant: Walter ARMSTRONG 05/26/2020 09:52:00 AM EST - 05/26/2020 01:31:00 PM EST [facility] Patient discharged. Unknown [address] [facility] [address] 05/22/2020 12:00:00 AM EST eCW1 ([facility]) Outpatient Attender: Reji Tyson MD Physical Therapy 05/21/2020 0 9:15:00 AM EST MEDENT ([facility]) Unknown [address] [facility] [address] 05/13/2020 12:00:00 AM EST eCW1 ([facility]) Outpatient [address] [facility] [address] 05/12/2020 12:00:00 AM EST eCW1 ([facility]) Unknown [address] [facility] [address] 05/12/2020 12:00:00 AM EST eCW1 ([facility]) [place]patient [address] [facility] [address] 04/29/2020 12:00:00 AM EST eCW1 ([facility]) Unknown [address] [facility] [address] 04/27/2020 12:00:00 AM EST eCW1 ([facility]) Unknown [address] [facility] [address] 04/01/2020 12:00:00 AM EST eCW1 ([facility]) Outpatient [address] [facility] [address] 03/25/2020 12:00:00 AM EST eCW1 ([facility]) Unknown [address] [facility] [address] 03/16/2020 12:00:00 AM EST eCW1 ([facility]) Unknown [address] [facility] [address] 02/27/2020 12:00:00 AM EST eCW1 ([facility]) Outpatient [address] [facility] [address] 02/20/2020 12:00:00 AM EDT eCW1 ([facility]) Outpatient [address] [facility] [address] 02/10/2020 12:00:00 AM EDT eCW1 ([facility], [facility]) Immunizations Vaccine Date Status Description Data Source(s) TB Skin test is not vaccine. 08/24/2020 10:12:00 AM EDT completed MEDENT ([facility] [place], [facility]) TB Skin test is not vaccine. 08/10/2020 09:45:00 AM EDT completed MEDENT ([facility], [facility]) TB Skin test is not vaccine. 07/06/2020 04:25:00 PM EDT completed MED[facility] ([facility] [place], [facility]) Medications Medication Brand Name Start Date Product Form Dose Route Admi nistrative Instructions Pharmacy Instructions Status Indications Reaction Description Data Source(s) pregabalin 75 MG Oral Capsule [Lyrica] Lyrica 75 MG Lyrica 7 5 MG 02/02/2021 12:00:00 AM EDT active Lyrica 7 5 MG eCW1 ([facility]) 75 mg 02/02/2021 12:00:00 AM EDT capsule 90 TAKE ONE CAPSULE BY MOUTH THREE TIMES A DAY , MAXIMUM DAILY DOSE = 3 CAPSULES TAKE ONE CAPSULE BY MOUTH THREE TIMES A DAY , MAXIMUM DAILY DOSE = 3 CAPSULES SOLD: 02/03/2021 [facility] pregabalin 75 MG Oral Capsule [Lyrica] Lyrica 75 MG Lyrica 7 5 MG 02/02/2021 12:00:00 AM EDT active Lyrica 7 5 MG eCW1 ([facility]) Trulicity 4.5 MG/0.5ML Trulicity 4.5 MG/0.5ML 01/22/2021 12:00:00 AM E DT active Trulicity 4.5 MG/0.5ML eC W1 ([facility]) Trulicity 4.5 MG/0.5ML Trulicity 4.5 MG/0.5ML 01/22/2021 12:00:00 AM E DT active Trulicity 4.5 MG/0.5ML eC W1 ([facility]) 4.5 mg/0.5 mL 01/22/2021 12:00:00 AM EDT pen injector 2 INJECT UNDER THE SKIN ONCE WEEKLY DIRECTED INJECT UNDER THE SKIN ONCE WEEKLY DIRECTED SOLD: 02/02/2021 [facility] Trulicity 4.5 MG/0.5ML Trulicity 4.5 MG/0.5ML 01/22/2021 12:00:00 AM E DT active Trulicity 4.5 MG/0.5ML eC W1 ([facility]) atorvastatin 20 MG Oral Tablet ATORVASTATIN CALCIUM 01/14/2021 1 2:00:00 AM EDT tablet 30 TAKE ONE TABLET BY MOUTH EVERY D AY TAKE ONE TABLET BY MOUTH EVERY DAY SOLD: 01/22/2021 [facility] 75 mg 01/07/2021 12:00:00 AM EDT capsule 90 TAKE ONE CAPSULE BY MOUTH THREE TIMES A DAY MAXIMUM DAILY DOSE = 3 CAPSULES TAKE ONE CAPSULE BY MOUTH THREE TIMES A DAY MAXIMUM DAILY DOSE = 3 CAPSULES SOLD: 01/08/2021 [facility] pregabalin 75 MG Oral Capsule [Lyrica] Lyrica 75 MG Lyrica 7 5 MG 01/07/2021 12:00:00 AM EDT active Lyrica 7 5 MG eCW1 ([facility]) pregabalin 75 MG Oral Capsule [Lyrica] Lyrica 75 MG Lyrica 7 5 MG 01/07/2021 12:00:00 AM EDT active Lyrica 7 5 MG eCW1 ([facility]) levocetirizine dihydrochloride 5 MG Oral Tablet Levocetirizine Dihydrochloride 5 MG Levocetirizine Dihydrochloride 5 MG 01/06/2021 12:00:00 AM EDT 1.0 {tablet_in_the_evening} active Levoceti rizine Dihydrochloride 5 MG eCW1 ([facility]) 5 mg 01/06/2021 12:00:00 AM EDT tablet 30 TAKE ONE TABLET BY MOUTH EVERY EVENING TAKE ONE TABLET BY MOUTH EVERY EVENING SOLD: 02/02/2021 [facility] levocetirizine dihydrochloride 5 MG Oral Tablet Levocetirizine Dihydrochloride 5 MG Levocetirizine Dihydrochloride 5 MG 01/06/2021 12:00:00 AM EDT 1.0 {tablet_in_the_evening} active Levoceti rizine Dihydrochloride 5 MG eCW1 ([facility]) levocetirizine dihydrochloride 5 MG Oral Tablet Levocetirizine Dihydrochloride 5 MG Levocetirizine Dihydrochloride 5 MG 01/06/2021 12:00:00 AM EDT 1.0 {tablet_in_the_evening} active Levoceti rizine Dihydrochloride 5 MG eCW1 ([facility]) levocetirizine dihydrochloride 5 MG Oral Tablet Levocetirizine Dihydrochloride 5 MG Levocetirizine Dihydrochloride 5 MG 01/06/2021 12:00:00 AM EDT 1.0 {tablet_in_the_evening} active Levoceti rizine Dihydrochloride 5 MG eCW1 ([facility]) 5 mg 01/06/2021 12:00:00 AM EDT tablet 30 TAKE ONE TABLET BY MOUTH EVERY EVENING TAKE ONE TABLET BY MOUTH EVERY EVENING SOLD: 01/08/2021 [facility] levocetirizine dihydrochloride 5 MG Oral Tablet Levocetirizine Dihydrochloride 5 MG Levocetirizine Dihydrochloride 5 MG 01/06/2021 12:00:00 AM EDT 1.0 {tablet_in_the_evening} active Levoceti rizine Dihydrochloride 5 MG eCW1 ([facility]) levocetirizine dihydrochloride 5 MG Oral Tablet Levocetirizine Dihydrochloride 5 MG Levocetirizine Dihydrochloride 5 MG 01/06/2021 12:00:00 AM EDT 1.0 {tablet_in_the_evening} active Levoceti rizine Dihydrochloride 5 MG eCW1 ([facility]) levocetirizine dihydrochloride 5 MG Oral Tablet Levocetirizine Dihydrochloride 5 MG Levocetirizine Dihydrochloride 5 MG 01/06/2021 12:00:00 AM EDT 1.0 {tablet_in_the_evening} active Levoceti rizine Dihydrochloride 5 MG eCW1 ([facility]) levocetirizine dihydrochloride 5 MG Oral Tablet Levocetirizine Dihydrochloride 5 MG Levocetirizine Dihydrochloride 5 MG 01/06/2021 12:00:00 AM EDT 1.0 {tablet_in_the_evening} active Levoceti rizine Dihydrochloride 5 MG eCW1 ([facility]) Trulicity 3 MG/0.5ML Trulicity 3 MG/0.5ML 12/11/2020 12:00:00 AM EDT active Trulicity 3 MG/0.5ML eCW1 ([facility]) Trulicity 3 MG/0.5ML Trulicity 3 MG/0.5ML 12/11/2020 12:00:00 AM EDT active Trulicity 3 MG/0.5ML eCW1 ([facility]) Trulicity 3 MG/0.5ML Trulicity 3 MG/0.5ML 12/11/2020 12:00:00 AM EDT active Trulicity 3 MG/0.5ML eCW1 ([facility]) 3 mg/0.5 mL 12/11/2020 12:00:00 AM EDT pen injector 2 INJECT SUBCUTANEOUSLY WEEKLY DIRECTED INJECT SUBCUTANEOUSLY WEEKLY DIRECTED SOLD: 12/15/2020 [facility] Trulicity 3 MG/0.5ML Trulicity 3 MG/0.5ML 12/11/2020 12:00:00 AM EDT active Trulicity 3 MG/0.5ML eCW1 ([facility]) Trulicity 3 MG/0.5ML Trulicity 3 MG/0.5ML 12/11/2020 12:00:00 AM EDT active Trulicity 3 MG/0.5ML eCW1 ([facility]) Trulicity 3 MG/0.5ML Trulicity 3 MG/0.5ML 12/11/2020 12:00:00 AM EDT active Trulicity 3 MG/0.5ML eCW1 ([facility]) Trulicity 3 MG/0.5ML Trulicity 3 MG/0.5ML 12/11/2020 12:00:00 AM EDT active Trulicity 3 MG/0.5ML eCW1 ([facility]) Trulicity 3 MG/0.5ML Trulicity 3 MG/0.5ML 12/11/2020 12:00:00 AM EDT active Trulicity 3 MG/0.5ML eCW1 ([facility]) Trulicity 3 MG/0.5ML Trulicity 3 MG/0.5ML 12/11/2020 12:00:00 AM EDT active Trulicity 3 MG/0.5ML eCW1 ([facility]) 3 mg/0.5 mL 12/11/2020 12:00:00 AM EDT pen injector 2 INJECT SUBCUTANEOUSLY WEEKLY DIRECTED INJECT SUBCUTANEOUSLY WEEKLY DIRECTED SOLD: 01/22/2021 [facility] Paroxetine Hydrochloride 10 MG Oral Tablet PAROXETINE HCL 11/27/2020 12:00:00 AM EDT tablet 45 TAKE 1 & 1/2 TABLETS BY MOUT H EVERY DAY TAKE 1 & 1/2 TABLETS BY MOUTH EVERY DAY SOLD: 12/03/2020 [facility] Paroxetine Hydrochloride 10 MG Oral Tablet PAROXETINE HCL 11/27/2020 12:00:00 AM EDT tablet 45 TAKE 1 & 1/2 TABLETS BY MOUT H EVERY DAY TAKE 1 & 1/2 TABLETS BY MOUTH EVERY DAY SOLD: 01/08/2021 [facility] Paroxetine Hydrochloride 10 MG Oral Tablet PAROXETINE HCL 11/27/2020 12:00:00 AM EDT tablet 45 TAKE 1 & 1/2 TABLETS BY MOUT H EVERY DAY TAKE 1 & 1/2 TABLETS BY MOUTH EVERY DAY SOLD: 02/02/2021 [facility] 12 HR Guaifenesin 600 MG Extended Release Oral Tablet [Mucinex] Mucinex 600 MG Mucinex 600 MG 11/26/2020 12:00:00 AM EDT 1.0 {tablet_as_needed} active Mucinex 600 MG eCW1 ([facility]) Levaquin 750 MG UNK 11/26/2020 12:00:00 AM EDT 1.0 {tablet} active Levaquin 750 MG eCW1 ([facility]) Levaquin 750 MG UNK 11/26/2020 12:00:00 AM EDT 1.0 {tablet} active Levaquin 750 MG eCW1 ([facility]) 12 HR Guaifenesin 600 MG Extended Release Oral Tablet [Mucinex] Mucinex 600 MG Mucinex 600 MG 11/26/2020 12:00:00 AM EDT 1.0 {tablet_as_needed} active Mucinex 600 MG eCW1 ([facility]) 12 HR Guaifenesin 600 MG Extended Release Oral Tablet [Mucinex] Mucinex 600 MG Mucinex 600 MG 11/26/2020 12:00:00 AM EDT 1.0 {tablet_as_needed} active Mucinex 600 MG eCW1 ([facility]) 12 HR Guaifenesin 600 MG Extended Release Oral Tablet [Mucinex] Mucinex 600 MG Mucinex 600 MG 11/26/2020 12:00:00 AM EDT 1.0 {tablet_as_needed} active Mucinex 600 MG eCW1 ([facility]) 12 HR Guaifenesin 600 MG Extended Release Oral Tablet [Mucinex] Mucinex 600 MG Mucinex 600 MG 11/26/2020 12:00:00 AM EDT 1.0 {tablet_as_needed} active Mucinex 600 MG eCW1 ([facility]) Triamcinolone Acetonide 55 MCG/ACT Triamcinolone Acetonide 5 5 MCG/ACT 11/26/2020 12:00:00 AM EDT 1.0 {spray_in_each_nostril} act scarlet Triamcinolone Acetonide 55 MCG/ACT eCW1 ([facility]) 12 HR Guaifenesin 600 MG Extended Release Oral Tablet [Mucinex] Mucinex 600 MG Mucinex 600 MG 11/26/2020 12:00:00 AM EDT 1.0 {tablet_as_needed} active Mucinex 600 MG eCW1 ([facility]) 12 HR Guaifenesin 600 MG Extended Release Oral Tablet [Mucinex] Mucinex 600 MG Mucinex 600 MG 11/26/2020 12:00:00 AM EDT 1.0 {tablet_as_needed} active Mucinex 600 MG eCW1 ([facility]) 12 HR Guaifenesin 600 MG Extended Release Oral Tablet [Mucinex] Mucinex 600 MG Mucinex 600 MG 11/26/2020 12:00:00 AM EDT 1.0 {tablet_as_needed} active Mucinex 600 MG eCW1 ([facility]) Levaquin 750 MG UNK 11/26/2020 12:00:00 AM EDT 1.0 {tablet} active Levaquin 750 MG eCW1 ([facility]) 12 HR Guaifenesin 600 MG Extended Release Oral Tablet [Mucinex] Mucinex 600 MG Mucinex 600 MG 11/26/2020 12:00:00 AM EDT 1.0 {tablet_as_needed} active Mucinex 600 MG eCW1 ([facility]) 750 mg 11/26/2020 12:00:00 AM EDT tablet 10 TAKE ONE TABLET BY MOUTH EVERY DAY FOR 10 DAYS TAKE ONE TABLET BY MOUTH EVERY DAY FOR 10 DAYS SOLD: 08/05/2 021 [facility] Levaquin 750 MG UNK 11/26/2020 12:00:00 AM EDT 1.0 {tablet} active Levaquin 750 MG eCW1 ([facility]) Triamcinolone Acetonide 55 MCG/ACT Triamcinolone Acetonide 5 5 MCG/ACT 11/26/2020 12:00:00 AM EDT 1.0 {spray_in_each_nostril} act scarlet Triamcinolone Acetonide 55 MCG/ACT eCW1 ([facility]) Triamcinolone Acetonide 55 MCG/ACT Triamcinolone Acetonide 5 5 MCG/ACT 11/26/2020 12:00:00 AM EDT 1.0 {spray_in_each_nostril} act scarlet Triamcinolone Acetonide 55 MCG/ACT eCW1 ([facility]) Triamcinolone Acetonide 55 MCG/ACT Triamcinolone Acetonide 5 5 MCG/ACT 11/26/2020 12:00:00 AM EDT 1.0 {spray_in_each_nostril} act scarlet Triamcinolone Acetonide 55 MCG/ACT eCW1 ([facility]) 12 HR Guaifenesin 600 MG Extended Release Oral Tablet [Mucinex] Mucinex 600 MG Mucinex 600 MG 11/26/2020 12:00:00 AM EDT 1.0 {tablet_as_needed} active Mucinex 600 MG eCW1 ([facility]) 12 HR Guaifenesin 600 MG Extended Release Oral Tablet [Mucinex] Mucinex 600 MG Mucinex 600 MG 11/26/2020 12:00:00 AM EDT 1.0 {tablet_as_needed} active Mucinex 600 MG eCW1 ([facility]) 12 HR Guaifenesin 600 MG Extended Release Oral Tablet [Mucinex] Mucinex 600 MG Mucinex 600 MG 11/26/2020 12:00:00 AM EDT 1.0 {tablet_as_needed} active Mucinex 600 MG eCW1 ([facility]) 600 mg 11/26/2020 12:00:00 AM EDT tablet extended release 12hr 10 TAKE ONE TABLET BY MOUTH EVERY 12 HOURS NEEDED FOR 5 DAYS TAKE ONE TABLET BY MOUTH EVERY 12 HOURS NEEDED FOR 5 DAYS SOLD: 11/26/2020 [facility] 12 HR Guaifenesin 600 MG Extended Release Oral Tablet [Mucinex] Mucinex 600 MG Mucinex 600 MG 11/26/2020 12:00:00 AM EDT 1.0 {tablet_as_needed} active Mucinex 600 MG eCW1 ([facility]) 75 mg 11/16/2020 12:00:00 AM EDT capsule 90 TAKE ONE CAPSULE BY MOUTH THREE TIMES A DAY MAXIMUM DAILY DOSE = 3 CAPSULES TAKE ONE CAPSULE BY MOUTH THREE TIMES A DAY MAXIMUM DAILY DOSE = 3 CAPSULES SOLD: 11/17/2020 [facility] atorvastatin 20 MG Oral Tablet ATORVASTATIN CALCIUM 10/27/2020 1 2:00:00 AM EDT tablet 30 TAKE ONE TABLET BY MOUTH EVERY D AY TAKE ONE TABLET BY MOUTH EVERY DAY SOLD: 11/10/2020 [facility] atorvastatin 20 MG Oral Tablet ATORVASTATIN CALCIUM 10/27/2020 1 2:00:00 AM EDT tablet 30 TAKE ONE TABLET BY MOUTH EVERY D AY TAKE ONE TABLET BY MOUTH EVERY DAY SOLD: 12/08/2020 [facility] Triamcinolone Acetonide 55 MCG/ACT Triamcinolone Acetonide 5 5 MCG/ACT 10/15/2020 12:00:00 AM EDT 1.0 {spray_in_each_nostril} act scarlet Triamcinolone Acetonide 55 MCG/ACT eCW1 ([facility]) Triamcinolone Acetonide 55 MCG/ACT Triamcinolone Acetonide 5 5 MCG/ACT 10/15/2020 12:00:00 AM EDT 1.0 {spray_in_each_nostril} act scarlet Triamcinolone Acetonide 55 MCG/ACT eCW1 ([facility]) Triamcinolone Acetonide 55 MCG/ACT Triamcinolone Acetonide 5 5 MCG/ACT 10/15/2020 12:00:00 AM EDT 1.0 {spray_in_each_nostril} act scarlet Triamcinolone Acetonide 55 MCG/ACT eCW1 ([facility]) Triamcinolone Acetonide 55 MCG/ACT Triamcinolone Acetonide 5 5 MCG/ACT 10/15/2020 12:00:00 AM EDT 1.0 {spray_in_each_nostril} act scarlet Triamcinolone Acetonide 55 MCG/ACT eCW1 ([facility]) 55 mcg 10/15/2020 12:00:00 AM EDT aerosol,spray 16 INSTILL ONE SPRAY IN EACH NOSTRIL ONCE DAILY INSTILL ONE SPRAY IN EACH NOSTRIL ONCE DAILY SOLD: 12/15/2020 [facility] Triamcinolone Acetonide 55 MCG/ACT Triamcinolone Acetonide 5 5 MCG/ACT 10/15/2020 12:00:00 AM EDT 1.0 {spray_in_each_nostril} act scarlet Triamcinolone Acetonide 55 MCG/ACT eCW1 ([facility]) glimepiride 4 MG Oral Tablet GLIMEPIRIDE 10/15/2020 12:00:00 AM EDT ta blet 60 TAKE ONE TABLET BY MOUTH TWICE A DAY WITH MEALS TAKE ONE TABLET BY MOUTH TWICE A DAY WITH MEALS SOLD: 10/19/2020 [facility] 55 mcg 10/15/2020 12:00:00 AM EDT aerosol,spray 16 INSTILL ONE SPRAY IN EACH NOSTRIL ONCE DAILY INSTILL ONE SPRAY IN EACH NOSTRIL ONCE DAILY SOLD: 11/17/2020 [facility] glimepiride 4 MG Oral Tablet GLIMEPIRIDE 10/15/2020 12:00:00 AM EDT ta blet 60 TAKE ONE TABLET BY MOUTH TWICE A DAY WITH MEALS TAKE ONE TABLET BY MOUTH TWICE A DAY WITH MEALS SOLD: 02/02/2021 [facility] Triamcinolone Acetonide 55 MCG/ACT Triamcinolone Acetonide 5 5 MCG/ACT 10/15/2020 12:00:00 AM EDT 1.0 {spray_in_each_nostril} act scarlet Triamcinolone Acetonide 55 MCG/ACT eCW1 ([facility]) 55 mcg 10/15/2020 12:00:00 AM EDT aerosol,spray 16 INSTILL ONE SPRAY IN EACH NOSTRIL ONCE DAILY INSTILL ONE SPRAY IN EACH NOSTRIL ONCE DAILY SOLD: 10/19/2020 [facility] Triamcinolone Acetonide 55 MCG/ACT Triamcinolone Acetonide 5 5 MCG/ACT 10/15/2020 12:00:00 AM EDT 1.0 {spray_in_each_nostril} act scarlet Triamcinolone Acetonide 55 MCG/ACT eCW1 ([facility]) Triamcinolone Acetonide 55 MCG/ACT Triamcinolone Acetonide 5 5 MCG/ACT 10/15/2020 12:00:00 AM EDT 1.0 {spray_in_each_nostril} act scarlet Triamcinolone Acetonide 55 MCG/ACT eCW1 ([facility]) glimepiride 4 MG Oral Tablet GLIMEPIRIDE 10/15/2020 12:00:00 AM EDT ta blet 60 TAKE ONE TABLET BY MOUTH TWICE A DAY WITH MEALS TAKE ONE TABLET BY MOUTH TWICE A DAY WITH MEALS SOLD: 11/26/2020 [facility] glimepiride 4 MG Oral Tablet GLIMEPIRIDE 10/15/2020 12:00:00 AM EDT ta blet 60 TAKE ONE TABLET BY MOUTH TWICE A DAY WITH MEALS TAKE ONE TABLET BY MOUTH TWICE A DAY WITH MEALS SOLD: 01/08/2021 [facility] Triamcinolone Acetonide 55 MCG/ACT Triamcinolone Acetonide 5 5 MCG/ACT 10/15/2020 12:00:00 AM EDT 1.0 {spray_in_each_nostril} act scarlet Triamcinolone Acetonide 55 MCG/ACT eCW1 ([facility]) Triamcinolone Acetonide 55 MCG/ACT Triamcinolone Acetonide 5 5 MCG/ACT 10/15/2020 12:00:00 AM EDT 1.0 {spray_in_each_nostril} act scarlet Triamcinolone Acetonide 55 MCG/ACT eCW1 ([facility]) Triamcinolone Acetonide 55 MCG/ACT Triamcinolone Acetonide 5 5 MCG/ACT 10/15/2020 12:00:00 AM EDT 1.0 {spray_in_each_nostril} act scarlet Triamcinolone Acetonide 55 MCG/ACT eCW1 ([facility]) Triamcinolone Acetonide 55 MCG/ACT Triamcinolone Acetonide 5 5 MCG/ACT 10/15/2020 12:00:00 AM EDT 1.0 {spray_in_each_nostril} act scarlet Triamcinolone Acetonide 55 MCG/ACT [facility] ([facility]) Triamcinolone Acetonide 55 MCG/ACT Triamcinolone Acetonide 5 5 MCG/ACT 10/15/2020 12:00:00 AM EDT 1.0 {spray_in_each_nostril} act scarlet Triamcinolone Acetonide 55 MCG/ACT [facility] ([facility]) Flunisolide 25 MCG/ACT (0.025%) Flunisolide 25 MCG/ACT (0.02 5%) 10/14/2020 12:00:00 AM EDT 2.0 {sprays_in_each_nostril} act scarlet Flunisolide 25 MCG/ACT (0.025%) [facility] ([facility]) Flunisolide 25 MCG/ACT (0.025%) Flunisolide 25 MCG/ACT (0.02 5%) 10/14/2020 12:00:00 AM EDT 2.0 {sprays_in_each_nostril} act scarlet Flunisolide 25 MCG/ACT (0.025%) [facility] ([facility]) 1.5 mg/0.5 mL 10/12/2020 12:00:00 AM EDT pen injector 2 INJECT CONTENTS OF 1 PEN SUBCUTANEOUSLY WEEKLY INJECT CONTENTS OF 1 PEN SUBCUTANEOUSLY WEEKLY SOLD: 10/12/2020 [facility] 75 mg 10/07/2020 12:00:00 AM EDT capsule 90 TAKE ONE CAPSULE BY MOUTH THREE TIMES A DAY MAXIMUM DAILY DOSE = 3 TAKE ONE CAPSULE BY MOUTH THREE TIMES A DAY MAXIMUM DAILY DOSE = 3 SOLD: 10/12/2020 [facility] 20 mg 09/29/2020 12:00:00 AM EDT tablet 30 TAKE ONE TABLET BY MOUTH EVERY DAY TAKE ONE TABLET BY MOUTH EVERY DAY SOLD: 12/08/2020 [facility] 20 mg 09/29/2020 12:00:00 AM EDT tablet 30 TAKE ONE TABLET BY MOUTH EVERY DAY TAKE ONE TABLET BY MOUTH EVERY DAY SOLD: 11/10/2020 [facility] 20 mg 09/29/2020 12:00:00 AM EDT tablet 30 TAKE ONE TABLET BY MOUTH EVERY DAY TAKE ONE TABLET BY MOUTH EVERY DAY SOLD: 01/08/2021 [facility] 20 mg 09/29/2020 12:00:00 AM EDT tablet 30 TAKE ONE TABLET BY MOUTH EVERY DAY TAKE ONE TABLET BY MOUTH EVERY DAY SOLD: 10/01/2020 [facility] 20 mg 09/29/2020 12:00:00 AM EDT tablet 30 TAKE ONE TABLET BY MOUTH EVERY DAY TAKE ONE TABLET BY MOUTH EVERY DAY SOLD: 02/02/2021 [facility] glimepiride 4 MG Oral Tablet GLIMEPIRIDE 09/22/2020 12:00:00 AM EDT ta blet 30 TAKE ONE TABLET BY MOUTH EVERY DAY WITH BREAKFAST OR THE FIRST MAIN MEAL OF THE DAY TAKE ONE TABLET BY MOUTH EVERY DAY WITH BREAKFAST OR THE FIRST MAIN MEAL OF THE DAY SOLD: 09/24/2020 [facility] glimepiride 4 MG Oral Tablet GLIMEPIRIDE 09/22/2020 12:00:00 AM EDT ta blet 30 TAKE ONE TABLET BY MOUTH EVERY DAY WITH BREAKFAST OR THE FIRST MAIN MEAL OF THE DAY TAKE ONE TABLET BY MOUTH EVERY DAY WITH BREAKFAST OR THE FIRST MAIN MEAL OF THE DAY SOLD: 11/10/2020 [facility] 500 mg 09/16/2020 12:00:00 AM EDT tablet 120 TAKE TWO TABLETS BY MOUTH TWICE A DAY WITH MEALS TAKE TWO TABLETS BY MOUTH TWICE A DAY WITH MEALS SOLD: 11/17/2020 [facility] 500 mg 09/16/2020 12:00:00 AM EDT tablet 120 TAKE TWO TABLETS BY MOUTH TWICE A DAY WITH MEALS TAKE TWO TABLETS BY MOUTH TWICE A DAY WITH MEALS SOLD: 12/15/2020 [facility] 500 mg 09/16/2020 12:00:00 AM EDT tablet 120 TAKE TWO TABLETS BY MOUTH TWICE A DAY WITH MEALS TAKE TWO TABLETS BY MOUTH TWICE A DAY WITH MEALS SOLD: 09/22/2020 [facility] 1.5 mg/0.5 mL 09/16/2020 12:00:00 AM EDT pen injector 2 INJECT UNDER THE SKIN ONCE WEEKLY INJECT UNDER THE SKIN ONCE WEEKLY SOLD: 09/22/2020 [facility] 500 mg 09/16/2020 12:00:00 AM EDT tablet 120 TAKE TWO TABLETS BY MOUTH TWICE A DAY WITH MEALS TAKE TWO TABLETS BY MOUTH TWICE A DAY WITH MEALS SOLD: 01/22/2021 [facility] 75 mg 09/07/2020 12:00:00 AM EDT capsule 90 TAKE ONE CAPSULE BY MOUTH THREE TIMES A DAY, MAXIMUM DAILY DOSE = THREE TABLETS TAKE ONE CAPSULE BY MOUTH THREE TIMES A DAY, MAXIMUM DAILY DOSE = THREE TABLETS SOLD: 09/08/2020 [facility] Cyclobenzaprine hydrochloride 10 MG Oral Tablet CYCLOBENZAPR INE HCL 09/01/2020 12:00:00 AM EDT tablet 60 TAKE ONE TABLET BY MOUTH TWICE A DAY NEEDED TAKE ONE TABLET BY MOUTH TWICE A DAY NEEDED SOLD: 09/08/2020 [facility] 33 gauge 09/01/2020 12:00:00 AM EDT misc 100 TEST 3 TO 4 TIMES A WEEK DIRECTED TEST 3 TO 4 TIMES A WEEK DIRECTED SOLD: 09/08/2020 [facility] Cyclobenzaprine hydrochloride 10 MG Oral Tablet CYCLOBENZAPR INE HCL 09/01/2020 12:00:00 AM EDT tablet 60 TAKE ONE TABLET BY MOUTH TWICE A DAY NEEDED TAKE ONE TABLET BY MOUTH TWICE A DAY NEEDED SOLD: 11/10/2020 [facility] Cyclobenzaprine hydrochloride 10 MG Oral Tablet CYCLOBENZAPR INE HCL 09/01/2020 12:00:00 AM EDT tablet 60 TAKE ONE TABLET BY MOUTH TWICE A DAY NEEDED TAKE ONE TABLET BY MOUTH TWICE A DAY NEEDED SOLD: 10/12/2020 [facility] 0.75 mg/0.5 mL 08/27/2020 12:00:00 AM EDT pen injector 2 INJECT ONCE WEEKLY DIRECTED INJECT ONCE WEEKLY DIRECTED SOLD: 09/29/2020 [facility] 0.75 mg/0.5 mL 08/27/2020 12:00:00 AM EDT pen injector 2 INJECT ONCE WEEKLY DIRECTED INJECT ONCE WEEKLY DIRECTED SOLD: 09/01/2020 [facility] atorvastatin 20 MG Oral Tablet ATORVASTATIN CALCIUM 08/04/2020 1 2:00:00 AM EDT tablet 30 TAKE ONE TABLET BY MOUTH EVERY D AY TAKE ONE TABLET BY MOUTH EVERY DAY SOLD: 08/04/2020 [facility] 10 mg 08/04/2020 12:00:00 AM EDT tablet 30 TAKE ONE TABLET BY MOUTH EVERY DAY TAKE ONE TABLET BY MOUTH EVERY DAY SOLD: 11/10/2020 [facility] 10 mg 08/04/2020 12:00:00 AM EDT tablet 30 TAKE ONE TABLET BY MOUTH EVERY DAY TAKE ONE TABLET BY MOUTH EVERY DAY SOLD: 09/29/2020 [facility] atorvastatin 20 MG Oral Tablet ATORVASTATIN CALCIUM 08/04/2020 1 2:00:00 AM EDT tablet 30 TAKE ONE TABLET BY MOUTH EVERY D AY TAKE ONE TABLET BY MOUTH EVERY DAY SOLD: 09/01/2020 [facility] 10 mg 08/04/2020 12:00:00 AM EDT tablet 30 TAKE ONE TABLET BY MOUTH EVERY DAY TAKE ONE TABLET BY MOUTH EVERY DAY SOLD: 09/01/2020 [facility] 10 mg 08/04/2020 12:00:00 AM EDT tablet 30 TAKE ONE TABLET BY MOUTH EVERY DAY TAKE ONE TABLET BY MOUTH EVERY DAY SOLD: 08/04/2020 [facility] BLOOD SUGAR DIAGNOSTIC 08/04/2020 12:00:00 AM EDT strip 50 USE DIRECTED 3-4 TIMES A WEEK USE DIRECTED 3-4 TIMES A WEEK SOLD: 08/04/2020 [facility] atorvastatin 20 MG Oral Tablet ATORVASTATIN CALCIUM 08/04/2020 1 2:00:00 AM EDT tablet 30 TAKE ONE TABLET BY MOUTH EVERY D AY TAKE ONE TABLET BY MOUTH EVERY DAY SOLD: 09/29/2020 [facility] 75 mg 07/24/2020 12:00:00 AM EDT capsule 90 TAKE ONE CAPSULE BY MOUTH THREE TIMES A DAY , MAXIMUM DAILY DOSE = 3 CAPSULES TAKE ONE CAPSULE BY MOUTH THREE TIMES A DAY , MAXIMUM DAILY DOSE = 3 CAPSULES SOLD: 07/28/2020 [facility] 20 mg 06/24/2020 12:00:00 AM EST tablet 30 TAKE ONE TABLET BY MOUTH EVERY DAY TAKE ONE TABLET BY MOUTH EVERY DAY SOLD: 06/25/2020 [facility] 20 mg 06/24/2020 12:00:00 AM EST tablet 30 TAKE ONE TABLET BY MOUTH EVERY DAY TAKE ONE TABLET BY MOUTH EVERY DAY SOLD: 07/28/2020 [facility] Lisinopril 20 MG Oral Tablet LISINOPRIL 06/24/2020 12:00:00 AM EST tab let 30 TAKE ONE TABLET BY MOUTH EVERY DAY TAKE ONE TABLET BY MOUTH EVERY DAY SOLD: 08/25/2020 [facility] 75 mg 06/16/2020 12:00:00 AM EST capsule 90 TAKE ONE CAPSULE BY MOUTH THREE TIMES A DAY , MAXIMUM DAILY DOSE = 3 CAPSULES TAKE ONE CAPSULE BY MOUTH THREE TIMES A DAY , MAXIMUM DAILY DOSE = 3 CAPSULES SOLD: 06/16/2020 [facility] Acetaminophen 300 MG / Codeine Phosphate 30 MG Oral Tablet [Tylenol with Codeine] Tylenol With Codeine #3 06/02/2020 12:00:00 AM EST active MEDENT ([facility]) 300-30 mg 05/30/2020 12:00:00 AM EST tablet 30 TAKE ONE TABLET BY MOUTH EVERY 6 HOURS NEEDED FOR POST OP PAIN, MAXIMUM DAILY DOSE = SIX TABLETS TAKE ONE TABLET BY MOUTH EVERY 6 HOURS NEEDED FOR POST OP PAIN, MAXIMUM DAILY DOSE = SIX TABLETS SOLD: 06/01/2020 [facility] Cyclobenzaprine hydrochloride 10 MG Oral Tablet CYCLOBENZAPR INE HCL 05/27/2020 12:00:00 AM EST tablet 9 TAKE ONE TABLET BY MOUTH THREE TIMES A DAY TAKE ONE TABLET BY MOUTH THREE TIMES A DAY SOLD: 06/01/2020 [facility] 75 mg 05/13/2020 12:00:00 AM EST capsule 90 TAKE ONE CAPSULE BY MOUTH THREE TIMES A DAY MAXIMUM DAILY DOSE = 3 CAPS TAKE ONE CAPSULE BY MOUTH THREE TIMES A DAY MAXIMUM DAILY DOSE = 3 CAPS SOLD: 05/17/2020 [facility] 600 mg 05/13/2020 12:00:00 AM EST tablet 90 TAKE ONE TABLET BY MOUTH THREE TIMES A DAY WITH FOOD OR MILK NEEDED TAKE ONE TABLET BY MOUTH THREE TIMES A DAY WITH FOOD OR MILK NEEDED SOLD: 05/17/2020 [facility] 600 mg 05/13/2020 12:00:00 AM EST tablet 90 TAKE ONE TABLET BY MOUTH THREE TIMES A DAY WITH FOOD OR MILK NEEDED TAKE ONE TABLET BY MOUTH THREE TIMES A DAY WITH FOOD OR MILK NEEDED SOLD: 06/16/2020 [facility] 0.5 ML dulaglutide 1.5 MG/ML Auto-Injector [Trulicity] Trulicity 0.75 MG/0.5ML Trulicity 0.75 MG/0.5ML 05/12/2020 12:00:00 AM EST active Trulicity 0.75 MG/0.5ML eCW1 ([facility]) 0.75 mg/0.5 mL 05/12/2020 12:00:00 AM EST pen injector 2 INJECT DIRECTED WEEKLY INJECT DIRECTED WEEKLY SOLD: 06/08/2020 [facility] 0.75 mg/0.5 mL 05/12/2020 12:00:00 AM EST pen injector 2 INJECT DIRECTED WEEKLY INJECT DIRECTED WEEKLY SOLD: 05/12/2020 [facility] 0.75 mg/0.5 mL 05/12/2020 12:00:00 AM EST pen injector 2 INJECT DIRECTED WEEKLY INJECT DIRECTED WEEKLY SOLD: 08/04/2020 [facility] 0.5 ML dulaglutide 1.5 MG/ML Auto-Injector [Trulicity] Trulicity 0.75 MG/0.5ML Trulicity 0.75 MG/0.5ML 05/12/2020 12:00:00 AM EST active Trulicity 0.75 MG/0.5ML eCW1 ([facility]) 0.5 ML dulaglutide 1.5 MG/ML Auto-Injector [Trulicity] Trulicity 0.75 MG/0.5ML Trulicity 0.75 MG/0.5ML 05/12/2020 12:00:00 AM EST active Trulicity 0.75 MG/0.5ML eCW1 ([facility]) 0.5 ML dulaglutide 1.5 MG/ML Auto-Injector [Trulicity] Trulicity 0.75 MG/0.5ML Trulicity 0.75 MG/0.5ML 05/12/2020 12:00:00 AM EST active Trulicity 0.75 MG/0.5ML eCW1 ([facility]) 0.75 mg/0.5 mL 05/12/2020 12:00:00 AM EST pen injector 2 INJECT DIRECTED WEEKLY INJECT DIRECTED WEEKLY SOLD: 07/06/2020 [facility] 0.5 ML dulaglutide 1.5 MG/ML Auto-Injector [Trulicity] Trulicity 0.75 MG/0.5ML Trulicity 0.75 MG/0.5ML 05/12/2020 12:00:00 AM EST active Trulicity 0.75 MG/0.5ML eCW1 ([facility]) 0.5 ML dulaglutide 1.5 MG/ML Auto-Injector [Trulicity] Trulicity 0.75 MG/0.5ML Trulicity 0.75 MG/0.5ML 05/12/2020 12:00:00 AM EST active Trulicity 0.75 MG/0.5ML eCW1 ([facility]) 0.5 ML dulaglutide 1.5 MG/ML Auto-Injector [Trulicity] Trulicity 0.75 MG/0.5ML Trulicity 0.75 MG/0.5ML 05/12/2020 12:00:00 AM EST active Trulicity 0.75 MG/0.5ML eCW1 ([facility]) Cyclobenzaprine hydrochloride 10 MG Oral Tablet CYCLOBENZAPR INE HCL 04/29/2020 12:00:00 AM EST tablet 60 TAKE ONE TABLET BY MOUTH TWICE A DAY NEEDED TAKE ONE TABLET BY MOUTH TWICE A DAY NEEDED SOLD: 06/01/2020 [facility] Cyclobenzaprine hydrochloride 10 MG Oral Tablet CYCLOBENZAPR INE HCL 04/29/2020 12:00:00 AM EST tablet 60 TAKE ONE TABLET BY MOUTH TWICE A DAY NEEDED TAKE ONE TABLET BY MOUTH TWICE A DAY NEEDED SOLD: 07/06/2020 [facility] Cyclobenzaprine hydrochloride 10 MG Oral Tablet CYCLOBENZAPR INE HCL 04/29/2020 12:00:00 AM EST tablet 60 TAKE ONE TABLET BY MOUTH TWICE A DAY NEEDED TAKE ONE TABLET BY MOUTH TWICE A DAY NEEDED SOLD: 08/04/2020 [facility] Cyclobenzaprine hydrochloride 10 MG Oral Tablet CYCLOBENZAPR INE HCL 04/29/2020 12:00:00 AM EST tablet 60 TAKE ONE TABLET BY MOUTH TWICE A DAY NEEDED TAKE ONE TABLET BY MOUTH TWICE A DAY NEEDED SOLD: 05/01/2020 [facility] glimepiride 4 MG Oral Tablet GLIMEPIRIDE 04/21/2020 12:00:00 AM EST ta blet 30 TAKE ONE TABLET BY MOUTH ONCE DAILY WITH BREAKFAST OR FIRST MAIN MEAL OF THE DAY TAKE ONE TABLET BY MOUTH ONCE DAILY WITH BREAKFAST OR FIRST MAIN MEAL OF THE DAY SOLD: 07/28/2020 [facility] glimepiride 4 MG Oral Tablet GLIMEPIRIDE 04/21/2020 12:00:00 AM EST ta blet 30 TAKE ONE TABLET BY MOUTH ONCE DAILY WITH BREAKFAST OR FIRST MAIN MEAL OF THE DAY TAKE ONE TABLET BY MOUTH ONCE DAILY WITH BREAKFAST OR FIRST MAIN MEAL OF THE DAY SOLD: 06/25/2020 [facility] glimepiride 4 MG Oral Tablet GLIMEPIRIDE 04/21/2020 12:00:00 AM EST ta blet 30 TAKE ONE TABLET BY MOUTH ONCE DAILY WITH BREAKFAST OR FIRST MAIN MEAL OF THE DAY TAKE ONE TABLET BY MOUTH ONCE DAILY WITH BREAKFAST OR FIRST MAIN MEAL OF THE DAY SOLD: 05/21/2020 [facility] glimepiride 4 MG Oral Tablet GLIMEPIRIDE 04/21/2020 12:00:00 AM EST ta blet 30 TAKE ONE TABLET BY MOUTH ONCE DAILY WITH BREAKFAST OR FIRST MAIN MEAL OF THE DAY TAKE ONE TABLET BY MOUTH ONCE DAILY WITH BREAKFAST OR FIRST MAIN MEAL OF THE DAY SOLD: 04/22/2020 [facility] glimepiride 4 MG Oral Tablet GLIMEPIRIDE 04/21/2020 12:00:00 AM EST ta blet 30 TAKE ONE TABLET BY MOUTH ONCE DAILY WITH BREAKFAST OR FIRST MAIN MEAL OF THE DAY TAKE ONE TABLET BY MOUTH ONCE DAILY WITH BREAKFAST OR FIRST MAIN MEAL OF THE DAY SOLD: 08/25/2020 [facility] atorvastatin 20 MG Oral Tablet ATORVASTATIN CALCIUM 04/08/2020 1 2:00:00 AM EST tablet 30 TAKE ONE TABLET BY MOUTH ONCE DA CHE TAKE ONE TABLET BY MOUTH ONCE DAILY SOLD: 06/08/2020 [facility] atorvastatin 20 MG Oral Tablet ATORVASTATIN CALCIUM 04/08/2020 1 2:00:00 AM EST tablet 30 TAKE ONE TABLET BY MOUTH ONCE DA CHE TAKE ONE TABLET BY MOUTH ONCE DAILY SOLD: 05/12/2020 [facility] atorvastatin 20 MG Oral Tablet ATORVASTATIN CALCIUM 04/08/2020 1 2:00:00 AM EST tablet 30 TAKE ONE TABLET BY MOUTH ONCE DA CHE TAKE ONE TABLET BY MOUTH ONCE DAILY SOLD: 07/06/2020 [facility] atorvastatin 20 MG Oral Tablet ATORVASTATIN CALCIUM 04/08/2020 1 2:00:00 AM EST tablet 30 TAKE ONE TABLET BY MOUTH ONCE DA CHE TAKE ONE TABLET BY MOUTH ONCE DAILY SOLD: 04/10/2020 [facility] 75 mg 03/18/2020 12:00:00 AM EST capsule 90 TAKE ONE CAPSULE BY MOUTH THREE TIMES A DAY, MAXIMUM DAILY DOSE = 3 TAKE ONE CAPSULE BY MOUTH THREE TIMES A DAY, MAXIMUM DAILY DOSE = 3 SOLD: 03/23/2020 [facility] 20 mg 03/15/2020 12:00:00 AM EST tablet 30 TAKE ONE TABLET BY MOUTH EVERY DAY TAKE ONE TABLET BY MOUTH EVERY DAY SOLD: 03/23/2020 [facility] 20 mg 03/15/2020 12:00:00 AM EST tablet 30 TAKE ONE TABLET BY MOUTH EVERY DAY TAKE ONE TABLET BY MOUTH EVERY DAY SOLD: 04/22/2020 [facility] 20 mg 03/15/2020 12:00:00 AM EST tablet 30 TAKE ONE TABLET BY MOUTH EVERY DAY TAKE ONE TABLET BY MOUTH EVERY DAY SOLD: 05/21/2020 [facility] 10 mg 03/03/2020 12:00:00 AM EST tablet 30 TAKE ONE TABLET BY MOUTH EVERY DAY TAKE ONE TABLET BY MOUTH EVERY DAY SOLD: 04/10/2020 [facility] 10 mg 03/03/2020 12:00:00 AM EST tablet 30 TAKE ONE TABLET BY MOUTH EVERY DAY TAKE ONE TABLET BY MOUTH EVERY DAY SOLD: 03/12/2020 [facility] 25 mg 03/03/2020 12:00:00 AM EST tablet 30 TAKE ONE TABLET BY MOUTH EVERY DAY TAKE ONE TABLET BY MOUTH EVERY DAY SOLD: 05/12/2020 [facility] 25 mg 03/03/2020 12:00:00 AM EST tablet 30 TAKE ONE TABLET BY MOUTH EVERY DAY TAKE ONE TABLET BY MOUTH EVERY DAY SOLD: 03/12/2020 [facility] 10 mg 03/03/2020 12:00:00 AM EST tablet 30 TAKE ONE TABLET BY MOUTH EVERY DAY TAKE ONE TABLET BY MOUTH EVERY DAY SOLD: 05/12/2020 [facility] 25 mg 03/03/2020 12:00:00 AM EST tablet 30 TAKE ONE TABLET BY MOUTH EVERY DAY TAKE ONE TABLET BY MOUTH EVERY DAY SOLD: 04/10/2020 [facility] 10 mg 03/03/2020 12:00:00 AM EST tablet 30 TAKE ONE TABLET BY MOUTH EVERY DAY TAKE ONE TABLET BY MOUTH EVERY DAY SOLD: 07/06/2020 [facility] 10 mg 03/03/2020 12:00:00 AM EST tablet 30 TAKE ONE TABLET BY MOUTH EVERY DAY TAKE ONE TABLET BY MOUTH EVERY DAY SOLD: 06/08/2020 [facility] 25 mg 03/03/2020 12:00:00 AM EST tablet 30 TAKE ONE TABLET BY MOUTH EVERY DAY TAKE ONE TABLET BY MOUTH EVERY DAY SOLD: 06/08/2020 [facility] 25 mg 03/03/2020 12:00:00 AM EST tablet 30 TAKE ONE TABLET BY MOUTH EVERY DAY TAKE ONE TABLET BY MOUTH EVERY DAY SOLD: 07/06/2020 [facility] 33 gauge 02/28/2020 12:00:00 AM EST misc 100 USE DIRECTED 3-4 TIMES A WEEK USE DIRECTED 3-4 TIMES A WEEK SOLD: 03/12/2020 [facility] BLOOD SUGAR DIAGNOSTIC 02/28/2020 12:00:00 AM EST strip 50 USE DIRECTED 3-4 TIMES A WEEK USE DIRECTED 3-4 TIMES A WEEK SOLD: 06/08/2020 [facility] 33 gauge 02/28/2020 12:00:00 AM EST misc 30 USE DIRECTED 3-4 TIMES A WEEK USE DIRECTED 3-4 TIMES A WEEK SOLD: 07/06/2020 [facility] BLOOD SUGAR DIAGNOSTIC 02/28/2020 12:00:00 AM EST strip 100 USE DIRECTED 3-4 TIMES A WEEK USE DIRECTED 3-4 TIMES A WEEK SOLD: 03/12/2020 [facility] BLOOD SUGAR DIAGNOSTIC 02/28/2020 12:00:00 AM EST strip 50 USE DIRECTED 3-4 TIMES A WEEK USE DIRECTED 3-4 TIMES A WEEK SOLD: 07/06/2020 [facility] 33 gauge 02/28/2020 12:00:00 AM EST misc 30 USE DIRECTED 3-4 TIMES A WEEK USE DIRECTED 3-4 TIMES A WEEK SOLD: 08/04/2020 [facility] 33 [facility] [place] 02/28/2020 12:00:00 AM EST misc 30 USE DIRECTED 3-4 TIMES A WEEK USE DIRECTED 3-4 TIMES A WEEK SOLD: 06/08/2020 [facility] 150 mg 02/20/2020 12:00:00 AM EDT tablet 1 TAKE ONE TABLET BY MOUTH ONCE TAKE ONE TABLET BY MOUTH ONCE SOLD: 02/20/2020 [facility] Fluconazole 150 MG Oral Tablet [Diflucan] Diflucan 150 MG Di flucan 150 MG 02/20/2020 12:00:00 AM EDT 1.0 {tablet} suspended Diflucan 150 MG eCW1 ([facility]) Fluconazole 150 MG Oral Tablet [Diflucan] Diflucan 150 MG Di flucan 150 MG 02/20/2020 12:00:00 AM EDT 1.0 {tablet} active Diflucan 150 MG eCW1 ([facility]) Fluconazole 150 MG Oral Tablet [Diflucan] Diflucan 150 MG Di flucan 150 MG 02/20/2020 12:00:00 AM EDT 1.0 {tablet} suspended Diflucan 150 MG eCW1 ([facility]) Fluconazole 150 MG Oral Tablet [Diflucan] Diflucan 150 MG Di flucan 150 MG 02/20/2020 12:00:00 AM EDT 1.0 {tablet} active Diflucan 150 MG eCW1 ([facility]) Fluconazole 150 MG Oral Tablet [Diflucan] Diflucan 150 MG Di flucan 150 MG 02/20/2020 12:00:00 AM EDT 1.0 {tablet} active Diflucan 150 MG eCW1 ([facility]) Fluconazole 150 MG Oral Tablet [Diflucan] Diflucan 150 MG Di flucan 150 MG 02/20/2020 12:00:00 AM EDT 1.0 {tablet} active Diflucan 150 MG eCW1 ([facility]) 75 mg 02/10/2020 12:00:00 AM EDT capsule 90 TAKE ONE CAPSULE BY MOUTH THREE TIMES A DAY, MAXIMUM DAILY DOSE = 3 TAKE ONE CAPSULE BY MOUTH THREE TIMES A DAY, MAXIMUM DAILY DOSE = 3 SOLD: 02/17/2020 [facility] 500 mg 02/05/2020 12:00:00 AM EDT tablet 120 TAKE TWO TABLETS BY MOUTH TWICE A DAY WITH MEALS TAKE TWO TABLETS BY MOUTH TWICE A DAY WITH MEALS SOLD: 03/23/2020 [facility] Paroxetine Hydrochloride 10 MG Oral Tablet PAROXETINE HCL 02/05/2020 12:00:00 AM EDT tablet 60 TAKE ONE AND ONE-HALF TABLET S BY MOUTH EVERY DAY TAKE ONE AND ONE-HALF TABLETS BY MOUTH EVERY DAY SOLD: 05/21/2020 [facility] Paroxetine Hydrochloride 10 MG Oral Tablet PAROXETINE HCL 02/05/2020 12:00:00 AM EDT tablet 60 TAKE ONE AND ONE-HALF TABLET S BY MOUTH EVERY DAY TAKE ONE AND ONE-HALF TABLETS BY MOUTH EVERY DAY SOLD: 04/10/2020 [facility] Metformin hydrochloride 500 MG Oral Tablet METFORMIN HCL 02/05/2020 12:00:00 AM EDT tablet 120 TAKE TWO TABLETS BY MOUTH TW ICE A DAY WITH MEALS TAKE TWO TABLETS BY MOUTH TWICE A DAY WITH MEALS SOLD: 06/25/2020 [facility] Metformin hydrochloride 500 MG Oral Tablet METFORMIN HCL 02/05/2020 12:00:00 AM EDT tablet 120 TAKE TWO TABLETS BY MOUTH TW ICE A DAY WITH MEALS TAKE TWO TABLETS BY MOUTH TWICE A DAY WITH MEALS SOLD: 07/28/2020 [facility] Metformin hydrochloride 500 MG Oral Tablet METFORMIN HCL 02/05/2020 12:00:00 AM EDT tablet 120 TAKE TWO TABLETS BY MOUTH TW ICE A DAY WITH MEALS TAKE TWO TABLETS BY MOUTH TWICE A DAY WITH MEALS SOLD: 05/21/2020 [facility] Paroxetine Hydrochloride 10 MG Oral Tablet PAROXETINE HCL 02/05/2020 12:00:00 AM EDT tablet 60 TAKE ONE AND ONE-HALF TABLET S BY MOUTH EVERY DAY TAKE ONE AND ONE-HALF TABLETS BY MOUTH EVERY DAY SOLD: 02/17/2020 [facility] Paroxetine Hydrochloride 10 MG Oral Tablet PAROXETINE HCL 02/05/2020 12:00:00 AM EDT tablet 60 TAKE ONE AND ONE-HALF TABLET S BY MOUTH EVERY DAY TAKE ONE AND ONE-HALF TABLETS BY MOUTH EVERY DAY SOLD: 07/06/2020 [facility] Paroxetine Hydrochloride 10 MG Oral Tablet PAROXETINE HCL 02/05/2020 12:00:00 AM EDT tablet 60 TAKE ONE AND ONE-HALF TABLET S BY MOUTH EVERY DAY TAKE ONE AND ONE-HALF TABLETS BY MOUTH EVERY DAY SOLD: 08/17/2020 [facility] 500 mg 02/05/2020 12:00:00 AM EDT tablet 120 TAKE TWO TABLETS BY MOUTH TWICE A DAY WITH MEALS TAKE TWO TABLETS BY MOUTH TWICE A DAY WITH MEALS SOLD: 04/22/2020 [facility] Metformin hydrochloride 500 MG Oral Tablet METFORMIN HCL 02/05/2020 12:00:00 AM EDT tablet 120 TAKE TWO TABLETS BY MOUTH TW ICE A DAY WITH MEALS TAKE TWO TABLETS BY MOUTH TWICE A DAY WITH MEALS SOLD: 02/17/2020 [facility] 75 mg 01/07/2020 12:00:00 AM EDT capsule 90 TAKE ONE CAPSULE BY MOUTH THREE TIMES A DAY MAXIMUM DAILY DOSE = 3 CAPSULES TAKE ONE CAPSULE BY MOUTH THREE TIMES A DAY MAXIMUM DAILY DOSE = 3 CAPSULES SOLD: 01/08/2020 [facility] atorvastatin 20 MG Oral Tablet ATORVASTATIN CALCIUM 11/20/2019 1 2:00:00 AM EDT tablet 30 TAKE ONE TABLET BY MOUTH EVERY D AY TAKE ONE TABLET BY MOUTH EVERY DAY SOLD: 03/12/2020 [facility] atorvastatin 20 MG Oral Tablet ATORVASTATIN CALCIUM 11/20/2019 1 2:00:00 AM EDT tablet 30 TAKE ONE TABLET BY MOUTH EVERY D AY TAKE ONE TABLET BY MOUTH EVERY DAY SOLD: 02/03/2020 [facility] atorvastatin 20 MG Oral Tablet ATORVASTATIN CALCIUM 11/20/2019 1 2:00:00 AM EDT tablet 30 TAKE ONE TABLET BY MOUTH EVERY D AY TAKE ONE TABLET BY MOUTH EVERY DAY SOLD: 01/02/2020 [facility] 20 mg 11/02/2019 12:00:00 AM EDT tablet 30 TAKE ONE TABLET BY MOUTH EVERY DAY TAKE ONE TABLET BY MOUTH EVERY DAY SOLD: 02/17/2020 [facility] 20 mg 11/02/2019 12:00:00 AM EDT tablet 30 TAKE ONE TABLET BY MOUTH EVERY DAY TAKE ONE TABLET BY MOUTH EVERY DAY SOLD: 12/09/2019 [facility] 20 mg 11/02/2019 12:00:00 AM EDT tablet 30 TAKE ONE TABLET BY MOUTH EVERY DAY TAKE ONE TABLET BY MOUTH EVERY DAY SOLD: 01/08/2020 [facility] glimepiride 4 MG Oral Tablet GLIMEPIRIDE 10/04/2019 12:00:00 AM EDT ta blet 30 TAKE ONE TABLET BY MOUTH EVERY DAY WITH BREAKFAST OR FIRST MAIN MEAL OF THE DAY TAKE ONE TABLET BY MOUTH EVERY DAY WITH BREAKFAST OR FIRST MAIN MEAL OF THE DAY SOLD: 12/09/2019 [facility] glimepiride 4 MG Oral Tablet GLIMEPIRIDE 10/04/2019 12:00:00 AM EDT ta blet 30 TAKE ONE TABLET BY MOUTH EVERY DAY WITH BREAKFAST OR FIRST MAIN MEAL OF THE DAY TAKE ONE TABLET BY MOUTH EVERY DAY WITH BREAKFAST OR FIRST MAIN MEAL OF THE DAY SOLD: 01/08/2020 [facility] glimepiride 4 MG Oral Tablet GLIMEPIRIDE 10/04/2019 12:00:00 AM EDT ta blet 30 TAKE ONE TABLET BY MOUTH EVERY DAY WITH BREAKFAST OR FIRST MAIN MEAL OF THE DAY TAKE ONE TABLET BY MOUTH EVERY DAY WITH BREAKFAST OR FIRST MAIN MEAL OF THE DAY SOLD: 02/17/2020 [facility] glimepiride 4 MG Oral Tablet GLIMEPIRIDE 10/04/2019 12:00:00 AM EDT ta blet 30 TAKE ONE TABLET BY MOUTH EVERY DAY WITH BREAKFAST OR FIRST MAIN MEAL OF THE DAY TAKE ONE TABLET BY MOUTH EVERY DAY WITH BREAKFAST OR FIRST MAIN MEAL OF THE DAY SOLD: 03/23/2020 [facility] Paroxetine Hydrochloride 10 MG Oral Tablet PAROXETINE HCL 08/24/2019 12:00:00 AM EDT tablet 45 TAKE 1 & 1/2 TABLET BY MOUTH ONCE DAILY TAKE 1 & 1/2 TABLET BY MOUTH ONCE DAILY SOLD: 01/02/2020 [facility] 500 mg 08/22/2019 12:00:00 AM EDT tablet 120 TAKE TWO TABLETS BY MOUTH TWICE A DAY WITH FOOD TAKE TWO TABLETS BY MOUTH TWICE A DAY WITH FOOD SOLD: 01/02/2020 [facility] 25 mg 08/21/2019 12:00:00 AM EDT tablet 30 TAKE ONE TABLET BY MOUTH EVERY DAY TAKE ONE TABLET BY MOUTH EVERY DAY SOLD: 02/03/2020 [facility] 25 mg 08/21/2019 12:00:00 AM EDT tablet 30 TAKE ONE TABLET BY MOUTH EVERY DAY TAKE ONE TABLET BY MOUTH EVERY DAY SOLD: 01/02/2020 [facility] 10 mg 08/21/2019 12:00:00 AM EDT tablet 30 TAKE ONE TABLET BY MOUTH EVERY DAY TAKE ONE TABLET BY MOUTH EVERY DAY SOLD: 02/03/2020 [facility] 10 mg 08/21/2019 12:00:00 AM EDT tablet 30 TAKE ONE TABLET BY MOUTH EVERY DAY TAKE ONE TABLET BY MOUTH EVERY DAY SOLD: 01/02/2020 [facility] Insurance Providers Payer name Policy type / Coverage type Policy ID Covered alliance party ID Covered alliance party's relationship to wiggins Policy [place] Plan Information [employer] ([place]) Workers Compensation [id number] Self [id number] [employer] () Workers Compensation [id number] Self [id number] [employer] [place]) Workers Compensation [id number] Self [id number] [employer] [place]) Workers Compensation [id number] Self [id number] [employer] () Workers Compensation [id number] Self [id number] [employer] ([place]) Workers Compensation [id number] Self [id number] [facility] I [id number] Self [id number] Managed Care - [facility] Community Plan P [id number] S [id number] Medicaid S [id number] S [id number] [facility] [id number] Self [id number] [facility] Commercial [id number] Self [id number] ON LICENSE OF [facility] COMMUNITY PLAN MCDHMO [id number] SP [id number] ON LICENSE OF [facility] COMMUNITY PLAN MCDHMO [id number] SP [id number] ON LICENSE OF [facility] COMMUNITY PLAN MCDHMO [id number] SP [id number] ON LICENSE OF [facility] COMMUNITY PLAN MCDHMO [id number] SP [id number] [facility] MEDICAID [id number] Mamta [id number] [facility] Community Plan Commercial [id number] Self [id number] [facility] [id number] [facility] Health Maintenance Organization (HMO) [id number] Self [id number] [facility]-Medicaid [id number] ANSI-Medicaid [id number] ANSI-Medicaid [id number] [facility] Community Plan Commercial [id number] Self [id number] ANSI-Medicaid [id number] ANSI-Medicaid [id number] ANSI-Medicaid [id number] ANSI-Medicaid [id number] ANSI-Medicaid [id number] [facility] Community Plan Commercial [id number] Self [id number] ANSI-Medicaid [id number] [facility] Community Plan Commercial [id number] Self [id number] [facility] Health Maintenance Organization (HMO) [id number]..[id number] Self [id number] ANSI-Medicaid [id number] ANSI-Medicaid [id number] ANSI-Medicaid [id number] ANSI-Medicaid [id number] ANSI-Medicaid [id number] ANSI-Medicaid [id number] ANSI-Medicaid [id number] ANSI-Medicaid [id number] [facility] Health Maintenance Organization (O) [id number] Self [id number] ANSI-Medicaid [id number] ANSI-Medicaid [id number] [facility]-Medicaid [id number] Formerly [facility], [facility]–1983 Maintenance [facility] ([facility] [place]) [id number] Self [id number] [facility] ([facility] [place]) [id number] Self [id number] [place] [facility] ([facility]) [id number] Self [id number] [employer] [id number] MEDICAID - O/P EMERGENCY ROOM [id number] [facility](MCAID) O [id number] S [id number] [facility] COMM PLAN BASIL [id number] S [id number] SELF PAY UNAVAILABLE SP UNAVAILA BLE BLUE CROSS BRIGHT PLAN [id number] SP [id number] UNHC COMMUNITY PLAN MCDO [id number] SP [id number] MEDICAID [id number] SP [id number] UNHC AMERICHOICE XIX -HMO [id number] 18 [id number] UNHC COMMUNITY PLAN MCDO [id number] SP [id number] [facility](MCAID) O [id number] S [id number] UNHC COMMUNITY PLAN XIX [id number] 18 [id number] ANSI-Medicaid [id number] ANSI-Medicaid [id number] [facility]-Medicaid [id number] [facility]-Medicaid [id number] [facility]-Medicaid [id number] [facility]-Medicaid [id number] [facility]-Medicaid [id number] [facility] Community Plan Commercial [id number] Self [id number] [facility] Plan Commercial [id number] Self [id number] [facility]-Medicaid [id number] [facility] Health Maintenance Organization (HMO) [id number] Self [id number] Problems, Conditions, and Diagnoses Code Display Name Description Problem Type Effective Dates Data Source(s) M9971 Connective tissue and disc s tenosis of intervertebral foramina of cervical region Connective tissue and disc stenosis of i ntervertebral foramina of cervical region Diagnosis 12/08/2020 09:15:00 AM [facility] M4802 Spinal stenosis, cervical region Spinal stenosis , cervical region Diagnosis 12/08/2020 09:15:00 AM [facility] X28387 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 Other cervical disc degeneration at C5-C6 level Diagnosis 12/08/2020 09:15:00 AM [facility] Y[address] or not applicable Unspecified place or not applicable Diagnosis 05/26/2020 09:52:00 AM [facility] [id number] Overexertion from strenuous movement or load, initial encounter Overexertion from strenuous movement or load, initial encounter Diagnosis 05/26/2020 09:52:00 AM [facility] Z7984 [employer] (current) use of oral hypoglyc emic drugs [facility] (current) use of oral hypoglycemic drugs Diagnosis 05/26/2020 09:52:00 AM [facility] [id number] Muscle spasm of back Muscle spasm of back Diagnosis 05/26/2020 09:52:00 AM [facility] S12812 Nicotine dependence, unspecified, uncomp licated Nicotine dependence, unspecified, uncomplicated Diagnosis 05/26/2020 09:52:00 AM [facility] I10 Essential (primary) hypertension Essential (primary) h ypertension Diagnosis 05/26/2020 09:52:00 AM [facility] J449 Chronic obstructive pulmonary disease, u nspecified Chronic obstructive pulmonary disease, unspecified Diagnosis 05/26/2020 09:52:00 AM [facility] E7800 Pure hypercholesterolemia, unspecified P ure hypercholesterolemia, unspecified Diagnosis 05/26/2020 09:52:00 AM [facility] E119 Type 2 diabetes mellitus without complic ations Type 2 diabetes mellitus without complications Diagnosis 05/26/2020 09:52:00 AM [facility] [id number] Wedge compression fracture o f second lumbar vertebra, initial encounter for closed fracture Wedge compression fracture of second lum bar vertebra, initial encounter for closed fracture Diagnosis 05/26/2020 09:52:00 AM [facility] [id number] Wedge compression fracture o f first lumbar vertebra, initial encounter for closed fracture Wedge compression fracture of first lumb ar vertebra, initial encounter for closed fracture Diagnosis 05/26/2020 09:52:00 AM EST [facility] [id number] Wedge compression fracture o f T11-T12 vertebra, initial encounter for closed fracture Wedge compression fracture of T11-T12 ve rtebra, initial encounter for closed fracture Diagnosis 05/26/2020 09:52:00 AM EST [facility] [id number] Strain of muscle, fascia and tendon of l ower back, initial encounter Strain of muscle, fascia and tendon of lower back, initial encounter Diagnosis 05/26/2020 09:52:00 AM [facility] M545 Low back pain Low back pain Diagnosis 05/26/2020 09:52:00 AM [facility] K76.0 [id number] Fatty liver Problem 12/11/2020 12:00:00 AM E DT eCW1 ([facility]) R42 Dizziness and giddiness Dizziness and giddiness Proble m 10/19/2020 12:00:00 AM EDT [facility] ([facility], ) M26.601 Right temporomendibular joint disorder R ight temporomendibular joint disorder Problem 10/19/2020 12:00:00 AM EDT [facility] ([facility], ) H91.90 [id number] Perceived hearing changes Problem 10/14/2020 12:00:00 AM EDT eCW1 ([facility]) R79.89 [id number] Elevated LFTs Problem 09/16/2020 12:00:00 AM EDT eCW1 ([facility]) N91.2 [id number] Amenorrhea Problem 09/15/2020 12:00:00 AM ED T eCW1 ([facility]) [id number] Essential hypertension Essential hypertension Problem 06/30/2020 12:00:00 AM EST [facility] ([facility], ) Z12.11 [id number] Colon cancer screening Problem 05/12/2020 12 :00:00 AM EST eCW1 ([facility]) Z12.31 [id number] Encounter for screen ing mammogram for malignant neoplasm of breast Problem 05/12/2020 12:00:00 AM EST eCW1 ([facility]) Z12.4 [id number] Cervical cancer screening Problem 05/12/2020 12:00:00 AM EST eCW1 ([facility]) Z12.39 [id number] Encounter for screen ing for malignant neoplasm of breast, unspecified screening modality Problem 05/12/2020 12:00:00 AM EST eC W1 ([facility]) E11.9 [id number] Type 2 diabetes pooja itus without complication, without long-term current use of insulin Problem 05/12/2020 12:00:00 AM EST eCW1 [facility] Surgeries/Procedures Procedure Description Date Indications Data Source(s) OFFICE OUTPATIENT VISIT 15 MINUTES 01/01/2021 12:00:00 AM EDT [facility] ([facility] ) OFFICE OUTPATIENT VISIT 25 MINUTES 11/12/2020 12:00:00 AM EDT [facility] ([facility] ) Therapeutic Activities Direct, Each 15 Minutes 12:00:00 AM EDT [facility] ([facility] ) THERAPEUTIC PX 1/> AREAS EACH 15 MIN EXERCISES 12:00:00 AM EDT [facility] ([facility] ) APPL MODALITY 1/> AREAS ELEC STIMJ EA 15 MIN 12:00:00 AM EDT [facility] ([facility] ) MANUAL THERAPY TQS 1/> REGIONS EACH 15 MINUTES 021 12:00:00 AM EDT [facility] ([facility] ) APPL MODALITY 1/> AREAS ELEC STIMJ EA 15 MIN 12:00:00 AM EDT [facility] ([facility] ) THERAPEUTIC PX 1/> AREAS EACH 15 MIN EXERCISES 021 12:00:00 AM EDT [facility] ([facility] ) MANUAL THERAPY TQS 1/> REGIONS EACH 15 MINUTES 021 12:00:00 AM EDT [facility] ([facility] ) Therapeutic Activities Direct, Each 15 Minutes 021 12:00:00 AM EDT [facility] ([facility] ) APPL MODALITY 1/> AREAS ELEC STIMJ EA 15 MIN 12:00:00 AM EDT [facility] ([facility] ) THERAPEUTIC PX 1/> AREAS EACH 15 MIN EXERCISES 12:00:00 AM EDT [facility] ([facility] ) MANUAL THERAPY TQS 1/> REGIONS EACH 15 MINUTES 12:00:00 AM EDT [facility] ([facility] ) Therapeutic Activities Direct, Each 15 Minutes 12:00:00 AM EDT [facility] ([facility] ) APPL MODALITY 1/> AREAS ELEC STIMJ EA 15 MIN 12:00:00 AM EDT [facility] ([facility] ) THERAPEUTIC PX 1/> AREAS EACH 15 MIN EXERCISES 12:00:00 AM EDT [facility] ([facility] ) MANUAL THERAPY TQS 1/> REGIONS EACH 15 MINUTES 12:00:00 AM EDT [facility] ([facility] ) Therapeutic Activities Direct, Each 15 Minutes 12:00:00 AM EDT [facility] ([facility] ) Therapeutic Activities Direct, Each 15 Minutes 12:00:00 AM EDT [facility] ([facility] ) APPLICATION MODALITY 1/> AREAS HOT/COLD PACKS 10/30/19 21 12:00:00 AM EDT [facility] ([facility] ) APPL MODALITY 1/> AREAS ELEC STIMJ EA 15 MIN 12:00:00 AM EDT [facility] ([facility] ) THERAPEUTIC PX 1/> AREAS EACH 15 MIN EXERCISES 12:00:00 AM EDT [facility] ([facility] ) MANUAL THERAPY TQS 1/> REGIONS EACH 15 MINUTES 12:00:00 AM EDT [facility] ([facility] ) APPL MODALITY 1/> AREAS ELEC STIMJ EA 15 MIN 1 12:00:00 AM EDT [facility] ([facility] ) Therapeutic Activities Direct, Each 15 Minutes 021 12:00:00 AM EDT [facility] ([facility] ) THERAPEUTIC PX 1/> AREAS EACH 15 MIN EXERCISES 12:00:00 AM EDT [facility] ([facility] ) Therapeutic Activities Direct, Each 15 Minutes 12:00:00 AM EDT [facility] ([facility]) MANUAL THERAPY TQS 1/> REGIONS EACH 15 MINUTES 12:00:00 AM EDT [facility] ([facility]) APPL MODALITY 1/> AREAS ELEC STIMJ EA 15 MIN 12:00:00 AM EDT [facility] ([facility] ) MANUAL THERAPY TQS 1/> REGIONS EACH 15 MINUTES 12:00:00 AM EDT [facility] ([facility] ) Therapeutic Activities Direct, Each 15 Minutes 12:00:00 AM EDT [facility] ([facility] ) OFFICE OUTPATIENT VISIT 15 MINUTES 10/19/2020 12:00:00 AM EDT [facility] ([facility] OFFICE OUTPATIENT NEW 30 MINUTES 10/19/2020 12:00:00 A M EDT [facility] ([facility], ) APPL MODALITY 1/> AREAS ELEC STIMJ EA 15 MIN 12:00:00 AM EDT [facility] ([facility] ) THERAPEUTIC PX 1/> AREAS EACH 15 MIN EXERCISES 12:00:00 AM EDT [facility] ([facility] ) MANUAL THERAPY TQS 1/> REGIONS EACH 15 MINUTES 12:00:00 AM EDT [facility] ([facility] ) Therapeutic Activities Direct, Each 15 Minutes 12:00:00 AM EDT [facility] ([facility] ) APPLICATION MODALITY 1/> AREAS HOT/COLD PACKS 10/13/19 21 12:00:00 AM EDT [facility] ([facility]) APPL MODALITY 1/> AREAS ELEC STIMJ EA 15 MIN 12:00:00 AM EDT [facility] ([facility]) Therapeutic Activities Direct, Each 15 Minutes 021 12:00:00 AM EDT [facility] ([facility]) Therapeutic Activities Direct, Each 15 Minutes 12:00:00 AM EDT [facility] ([facility] ) APPL MODALITY 1/> AREAS ELEC STIMJ EA 15 MIN 12:00:00 AM EDT [facility] ([facility] ) MANUAL THERAPY TQS 1/> REGIONS EACH 15 MINUTES 021 12:00:00 AM EDT [facility] ([facility] ) THERAPEUTIC PX 1/> AREAS EACH 15 MIN EXERCISES 12:00:00 AM EDT [facility] ([facility] ) APPLICATION MODALITY 1/> AREAS HOT/COLD PACKS 10/02/19 21 12:00:00 AM EDT [facility] ([facility] ) APPL MODALITY 1/> AREAS ELEC STIMJ EA 15 MIN 1 12:00:00 AM EDT [facility] ([facility] ) THERAPEUTIC PX 1/> AREAS EACH 15 MIN EXERCISES 021 12:00:00 AM EDT [facility] ([facility] ) MANUAL THERAPY TQS 1/> REGIONS EACH 15 MINUTES 12:00:00 AM EDT [facility] ([facility] ) Therapeutic Activities Direct, Each 15 Minutes 12:00:00 AM EDT [facility] ([facility] ) Therapeutic Activities Direct, Each 15 Minutes 12:00:00 AM EDT [facility] ([facility] ) MANUAL THERAPY TQS 1/> REGIONS EACH 15 MINUTES 12:00:00 AM EDT [facility] ([facility] ) THERAPEUTIC PX 1/> AREAS EACH 15 MIN EXERCISES 12:00:00 AM EDT [facility] ([facility] ) Therapeutic Activities Direct, Each 15 Minutes 021 12:00:00 AM EDT [facility] ([facility] ) THERAPEUTIC PX 1/> AREAS EACH 15 MIN EXERCISES 021 12:00:00 AM EDT [facility] ([facility] ) MANUAL THERAPY TQS 1/> REGIONS EACH 15 MINUTES 021 12:00:00 AM EDT [facility] ([facility] ) THERAPEUTIC PX 1/> AREAS EACH 15 MIN EXERCISES 021 12:00:00 AM EDT [facility] ([facility] ) MANUAL THERAPY TQS 1/> REGIONS EACH 15 MINUTES 021 12:00:00 AM EDT [facility] ([facility] ) Therapeutic Activities Direct, Each 15 Minutes 021 12:00:00 AM EDT [facility] ([facility]) APPLICATION MODALITY 1/> AREAS HOT/COLD PACKS 09/23/19 21 12:00:00 AM EDT [facility] ([facility]) APPL MODALITY 1/> AREAS ELEC STIMJ EA 15 MIN 12:00:00 AM EDT [facility] ([facility] ) MANUAL THERAPY TQS 1/> REGIONS EACH 15 MINUTES 12:00:00 AM EDT [facility] ([facility] ) Therapeutic Activities Direct, Each 15 Minutes 12:00:00 AM EDT [facility] ([facility] ) THERAPEUTIC PX 1/> AREAS EACH 15 MIN EXERCISES 12:00:00 AM EDT [facility] ([facility] ) APPLICATION MODALITY 1/> AREAS HOT/COLD PACKS 09/18/19 12:00:00 AM EDT [facility] ([facility] ) APPL MODALITY 1/> AREAS ELEC STIMJ EA 15 MIN 12:00:00 AM EDT [facility] ([facility] ) THERAPEUTIC PX 1/> AREAS EACH 15 MIN EXERCISES 12:00:00 AM EDT [facility] ([facility] ) MANUAL THERAPY TQS 1/> REGIONS EACH 15 MINUTES 12:00:00 AM EDT [facility] ([facility] ) Therapeutic Activities Direct, Each 15 Minutes 12:00:00 AM EDT [facility] ([facility] ) OFFICE OUTPATIENT VISIT 15 MINUTES 09/11/2020 12:00:00 AM EDT [facility] ([facility] ) Therapeutic Activities Direct, Each 15 Minutes 021 12:00:00 AM EDT [facility] ([facility] ) THERAPEUTIC PX 1/> AREAS EACH 15 MIN EXERCISES 12:00:00 AM EDT [facility] ([facility] ) APPL MODALITY 1/> AREAS ELEC STIMJ EA 15 MIN 12:00:00 AM EDT [facility] ([facility] ) MANUAL THERAPY TQS 1/> REGIONS EACH 15 MINUTES 021 12:00:00 AM EDT [facility] ([facility]) APPL MODALITY 1/> AREAS ELEC STIMJ EA 15 MIN 05/18/202 1 12:00:00 AM EDT [facility] ([facility] ) THERAPEUTIC PX 1/> AREAS EACH 15 MIN EXERCISES 12:00:00 AM EDT [facility] ([facility] ) MANUAL THERAPY TQS 1/> REGIONS EACH 15 MINUTES 12:00:00 AM EDT [facility] ([facility] ) Therapeutic Activities Direct, Each 15 Minutes 12:00:00 AM EDT [facility] ([facility]) Physical Therapy Eval - Low Complexity 09/01/2020 12:0 0:00 AM EDT [facility] ([facility] ) OFFICE OUTPATIENT VISIT 25 MINUTES 08/06/2020 12:00:00 AM EDT [facility] ([facility]) NEUROPLASTY &/TRANSPOS MEDIAN NRV CARPAL TUNNEL 2020 12:00:00 AM EST [facility] ([facility] ) RADEX SPINE CRV COMPL W/OBLQ&FLEX&/XTN STDS 05/28/2020 12:00:00 AM EST [facility] ([facility] ) OFFICE OUTPATIENT VISIT 25 MINUTES 05/28/2020 12:00:00 AM EST [facility] ([facility] ) OFFICE OUTPATIENT VISIT 25 MINUTES 05/21/2020 12:00:00 AM EST [facility] ([facility] ) Results ID Date Data Source Fibrospect Diaz 12/11/2020 12:00:00 AM EDT [facility] ([facility]) Name Value Range Interpretation Code Description Data Clare rce(s) Supporting Document(s) SEE SEPARATE REPORT AMWesley(Alpha-2 theodore nguyen) [facility] ([facility]) ID Date Data Source [id number] 12/08/2020 07:52:00 [place] [address] PHONE: [phone] FAX: [phone] Name .................. : MARK Srivastava Acct Number.................. : [id number] ROOM. ................. : MR Number ................... : [id number] Stay type ............. : O/P Discharge Date......... ... : 12/08/20 Admit Date ......... : 12/08/20 Admit Phys .................... : ARCHANA Date of ....... : 1970 Family Phys ................... : Weblance Phone .................. : [phone] Age ................................ : 50 Film# .................. .:[id number] Sex ................................. : F Unsigned transcriptions are preliminary reports and do not represent a medical or legal document MRI CERVICAL SPINE W/O CONTRA [id number] COMPLETE:12/08/20 10:09 [facility] [address] Reason for Exam: OTHER CERVICAL DISC DEGENERATION CERVICAL SPINE MRI WITHOUT IV CONTRAST INDICATION: Rule out stenosis. Disc degeneration. COMPARISON: None CONTRAST: None TECHNIQUE: Multiple MRI sequences of the cervical spine were obtained in the sagittal and axial planes. Patient had difficulty holding still. Motion compromised images. FINDINGS: The visualized vertebral bodies are normal height. No fracture or focal bone lesion. Cervical spinal cord is normal in course and caliber. No gross abnormalities of cord signal. At C5-C6 the disc space is mildly narrowed. Posterior broad-based disc and osteophyte ridge slightly eccentrically greater toward the right. This abuts the ventral surface of the cord. There is a a minimal amount of CSF signal posterior to the cord best appreciated on sagittal images. No cord deformity. Moderate central canal stenosis. Blsr-fr-xvryfrdu bilateral foraminal narrowing left greater than right. Other disc levels show no canal stenosis, disc herniation, or foraminal narrowing. IMPRESSION: C5-6 degenerative disc change with posterior disc and osteophyte asymmetrically greater to the right resulting in moderate canal stenosis and bilateral qeud-bm-biqrwrgr foraminal narrowing. Page 1 of [address] [place] [address] PHONE: [phone] FAX: [phone] Name .................. : MARK Srivastava Acct Number.................. : [id number] ROOM. ................. : MR Number ................... : [id number] Stay type ............. : O/P Discharge Date......... ... : 12/08/20 Admit Date ......... : 12/08/20 Admit Phys .................... : ARCHANA Date of ....... : 1970 Family Phys ................... : Weblance Phone .................. : [phone] Age ................................ : 50 Film# . ................. .:[id number] Sex ................................. : F Unsigned transcriptions are preliminary reports and do not represent a medical or legal document MRI CERVICAL SPINE W/O CONTRA [id number] COMPLETE:12/08/20 10:09 [facility] [address] Reason for Exam: OTHER CERVICAL DISC DEGENERATION Electronically Reviewed and Signed By Syd Ramirez MD , 12/08/20 19:52, SCB Transcribe Initials: SSR, Transcribe Date: 12/08/20 10:31, Dictation Date: Copy for: ARCHANA Lee via fax Copy for: [address] [place] [address] REC Page 2 of 2 Name Value Range Interpretation Code Description Data Clare rce(s) Supporting Document(s) ID Date Data Source HEPATITIS A IgG 09/15/2020 12:00:00 AM EDT eCW1 ([facility]) Name Value Range Interpretation Code Description Data Clare rce(s) Supporting Document(s) Negative Negative HEPATITIS A IgG TOTAL eCW 1 ([facility]) ID Date Data Source HEPATITIS C ANTIBODY INDEX 09/15/2020 12:00:00 AM EDT eCW1 ( [facility]) Name Value Range Interpretation Code Description Data Clare rce(s) Supporting Document(s) 0.0 <0.8 HEPATITIS C VIRUS LAMINE INDEX eC W1 ([facility]) ID Date Data Source HCG SERUM QUALITATIVE 09/15/2020 12:00:00 AM EDT eCW1 ([facility]) Name Value Range Interpretation Code Description Data Clare rce(s) Supporting Document(s) NEGATIVE NEGATIVE HCG, SERUM QUALITATIVE eC W1 ([facility]) ID Date Data Source HEPATITIS B SURFACE ANTIGEN 09/15/2020 12:00:00 AM EDT eCW1 ([facility]) Name Value Range Interpretation Code Description Data Clare rce(s) Supporting Document(s) NEGATIVE NEGATIVE HEPATITIS B SURFACE ANTIG EN eCW1 ([facility]) ID Date Data Source HEPATITIS B SURFACE ANTIBODY 09/15/2020 12:00:00 AM EDT eCW1 ([facility]) Name Value Range Interpretation Code Description Data Clare rce(s) Supporting Document(s) NEGATIVE POSITIVE HEPATITIS B SURFACE ANTIB SUSAN eCW1 ([facility]) ID Date Data Source HEPATITIS A ANTIBODY IGM 09/15/2020 12:00:00 AM EDT eCW1 ([facility]) Name Value Range Interpretation Code Description Data Clare rce(s) Supporting Document(s) NEGATIVE NEGATIVE HEPATITIS A ANTIBODY IGM eCW1 ([facility]) ID Date Data Source Comprehensive Metabolic Profile (CMP) 09/15/2020 12:00:00 AM EDT eCW1 ([facility]) Name Value Range Interpretation Code Description Data Clare rce(s) Supporting Document(s) 322 70-100 GLUCOSE, FASTING eCW1 ([facility]) 8 7-18 BLOOD UREA NITROGEN eCW1 ([facility]) 0.71 0.55-1.30 CREATININE FOR GFR eCW1 ([facility]) > 60.0 >51 GLOMERULAR FILTRATION RATE eCW 1 ([facility]) 100 98-107 CHLORIDE LEVEL eCW1 ([facility]) 4.4 3.5-5.1 POTASSIUM SERUM eCW1 ([facility]) 134 136-145 SODIUM LEVEL eCW1 ([facility]) 22 7-37 AST/SGOT eCW1 ([facility]) 29 21-32 CARBON DIOXIDE LEVEL eCW1 ([facility]) 9.4 8.5-10.1 CALCIUM LEVEL eCW1 ([facility]) 7.0 6.4-8.2 TOTAL PROTEIN eCW1 ([facility]) 0.2 0.2-1.0 BILIRUBIN,TOTAL eCW1 ([facility]) 156 45-117 ALKALINE PHOSPHATASE eCW1 ([facility]) 111 12-78 ALT/SGPT eCW1 ([facility]) 3.6 3.2-5.2 ALBUMIN eCW1 ([facility]) 1.1 1.2-2.2 ALBUMIN/GLOBULIN RATIO eCW1 ([facility]) ID Date Data Source CBC with Differential 09/15/2020 12:00:00 AM EDT eCW1 ([facility]) Name Value Range Interpretation Code Description Data Clare rce(s) Supporting Document(s) 13.3 12.0-15.5 HEMOGLOBIN eCW1 ([facility]) 39.7 36.0-47.0 HEMATOCRIT eCW1 ([facility]) 10.7 4.0-10.0 WHITE BLOOD COUNT eCW1 ([facility]) 4.26 4.00-5.40 RED BLOOD COUNT eCW1 ([facility]) 31.2 27.0-33.0 MEAN CORPUSCULAR HEMOGLOB IN eCW1 ([facility]) 93.2 80.0-96.0 MEAN CORPUSCULAR VOLUME e CW1 ([facility]) 33.5 32.0-36.5 MEAN CORPUSCULAR HGB CONC eCW1 ([facility]) 13.2 11.5-14.5 RED CELL DISTRIBUTION WID TH eCW1 ([facility]) 292 150-450 PLATELET COUNT, AUTOMATED eCW1 ([facility]) 54.7 36.0-66.0 NEUTROPHILS % eCW1 ([facility]) 34.3 24.0-44.0 LYMPH % eCW1 ([facility]) 7.5 2.0-8.0 MONO % eCW1 ([facility]) 0.5 0.0-1.0 BASO % eCW1 ([facility]) 5.8 1.5-8.5 NEUTROPHILS # eCW1 ([facility]) 2.6 0.0-3.0 EOS % eCW1 ([facility]) 0.3 0.0-0.5 EOS # eCW1 ([facility]) 3.7 1.5-5.0 LYMPH # eCW1 ([facility]) 0.8 0.0-0.8 MONO # eCW1 ([facility]) 0.1 0.0-0.2 BASO # eCW1 ([facility]) ID Date Data Source ALK PHOS FRACTIONATED 09/15/2020 12:00:00 AM EDT eCW1 ([facility]) Name Value Range Interpretation Code Description Data Clare rce(s) Supporting Document(s) 99 LABILE ALKPHOS eCW1 ([facility]) 60 STABLE ALKPHOS eCW1 [facility] Hospital) 62.3 % LABILE ALKALINE PHOSPHATASE eCW1 ([facility]) ID Date Data Source [id number] 08/11/2020 12:00:00 AM EDT eCW1 ([facility]) Name Value Range Interpretation Code Description Data Clare rce(s) Supporting Document(s) Hemoglobin A1c/Hemoglobin.total in Blood 8.6 HEMOGLOBIN A1c eCW1 ([facility]) ID Date Data Source [id number] 07/05/2020 12:00:00 AM EST [facility] Name Value Range Interpretation Code Description Data Clare rce(s) Supporting Document(s) SARS coronavirus 2 Ag Negative [facility] This lab was ordered by Ashley and rep orted by Ashley. ID Date Data Source [id number] 07/05/2020 12:00:00 AM EST [facility] Name Value Range Interpretation Code Description Data Clare rce(s) Supporting Document(s) SARS coronavirus 2 Ag Negative [facility] This lab was ordered by Ashley and rep orted by Ashley. ID Date Data Source [id number] 05/27/2020 09:15:00 AM EST [facility] [address] [place] [address] PHONE: [phone] FAX: [phone] Name .................. : MARK Srivastava Acct Number.................. : [id number] ROOM. ................. : TR-02 Number ................... : [id number] Stay type ............. : E/R Discharge Date......... ... : 05/26/20 Admit Date ......... : 05/26/20 Admit Phys .................... : YAZMIN Date of ....... : 1970 Family Phys ................... : ROCIO RODARTE Phone .................. : [phone] Age ................................ : 49 Film# .................. .:[id number] Sex ................................. : F Unsigned transcriptions are preliminary reports and do not represent a medical or legal document CT LUMBAR SP W/O CONT [id number] COMPLETE:05/26/20 11:45 3485 Reason(s): REFORMAT from abd. R flank pain/spasm CT SCAN OF THE LUMBAR SPINE, 05/26/20: FINDINGS: There are mild old anterior wedge compression fracture deformities at T12 through L2. These are stable comparing to a previous CT scan of the abdomen and pelvis from 04/14/19. No acute fracture or dislocation identified. Mild spurring is present throughout the lumbar spine and the lower thoracic spine. There are Schmorl's nodes seen at the endplates at T11 through L5. There is moderate to severe disc space narrowing at T11-12 and moderate at T12-L1, L1-2, and milder L2-3. There are small disc bulges/herniations present at L1-2 through L5-S1. The paraspinal soft tissues appear unremarkable. IMPRESSION: Stable mild old compression fracture deformities at T12 through L2. No acute fracture or dislocation. Mild degenerative disease L1-5. Small disc bulges/herniations throughout lumbar spine. While performing the above CT examination, radiation dose reduction was accomplished utilizing automated exposure control, adjusting of the mA and kV based on the patient's body size and/or the use of imperative reconstructive techniques. CT dose 1134.1 mGycm. Electronically Reviewed and Signed By Hipolito Gifford MD , 05/27/20 09:16, TDS Transcribe Initials: SSR, Transcribe Date: 05/26/20 14:15, Dictation Date: Copy for: EWA ROBERSON via fax [address] [facility] [address] [place] [address] PHONE: [phone] FAX: [phone] Name .................. : MARK Srivastava Acct Number.................. : [id number] ROOM. ................. : TR-02 MR Number ................... : [id number] Stay type ............. : E/R Discharge Date......... ... : 05/26/20 Admit Date ......... : 05/26/20 Admit Phys .................... : [facility] Date of ....... : 1970 Family Phys ................... : ROCIO RODARTE Phone .................. : [phone] Age ................................ : 49 Film# .................. .:[id number] Sex ................................. : F Unsigned transcriptions are preliminary reports and do not represent a medical or legal document CT LUMBAR SP W/O CONT [id number] COMPLETE:05/26/20 11:45 3485 Reason(s): REFORMAT from abd. R flank pain/spasm Copy for: EMERGENCY DEPT via modem Copy for: 710 MED REC DISCHARGED Page 2 of 2 Name Value Range Interpretation Code Description Data Clare rce(s) Supporting Document(s) ID Date Data Source [id number] 05/27/2020 09:14:00 AM EST [facility] [address] [place] [address] PHONE: [phone] FAX: [phone] Name .................. : MARK Srivastava Acct Number.................. : [id number] ROOM. ................. : TR-02 MR Number ................... : [id number] Stay type ............. : E/R Discharge Date......... ... : 05/26/20 Admit Date ......... : 05/26/20 Admit Phys .................... : [facility] Date of ....... : 1970 Family Phys ................... : ROCIO RODARTE Phone .................. : [phone] Age ................................ : 49 Film# .................. .:[id number] Sex ................................. : F Unsigned transcriptions are preliminary reports and do not represent a medical or legal document CT ABD & PELV W/O ORAL W/O IV [id number] COMPLETE:05/26/20 11:45 3484 Reason(s): NO CONTRAST: R flank pain. ? renal stone. CT ABDOMEN/PELVIS WITHOUT CONTRAST, 05/26/20: Comparison is made to 04/14/19. FINDINGS: The liver is enlarged, measuring 20.4 cm. No focal hepatic lesions identified. There is some mild to moderate diffuse low attenuation within the liver from fatty infiltration. Spleen, pancreas, adrenals, kidneys, and gallbladder appear unremarkable. No hydronephrosis or ureterolithiasis was identified. There is no bowel dilatation or evidence of obstruction. No free fluid, pneumoperitoneum, or lymphadenopathy is identified. The appendix is not clearly identified, but inflammation is seen in the right lower quadrant to suggest appendicitis. There are no signs of diverticulitis. The uterus and ovaries are unremarkable along with the urinary bladder. Phleboliths are seen in the pelvis. Mild to moderate calcified plaque present within the aorta without focal aneurysm. The lung bases are clear. No suspicious osseous lesion or acute fracture is seen. There is some spurring of the lumbar spine and moderate to severe in the lower thoracic spine. IMPRESSION: Fatty infiltration of the liver. Hepatomegaly 20.4 cm. No acute disease. While performing the above CT examination, radiation dose reduction was accomplished utilizing automated exposure control, adjusting of the mA and kV based on the patient's body size and/or the use of imperative reconstructive techniques. CT dose 1134.1 mGycm. Electronically Reviewed and Signed By Hipolito Gifford MD , 05/27/20 09:14, TDS Page 1 of 2 [place] [address] PHONE: [phone] FAX: [phone] Name .................. : MARK CECE Srivastava Acct Number.................. : [id number] ROOM. ................. : Number ................... : [id number] Stay type ............. : E/R Discharge Date......... ... : 05/26/20 Admit Date ......... : 05/26/20 Admit Phys .................... : YAZMIN Date of ....... : 1970 Family Phys ................... : ROCIO CAYDEN Phone .................. : [phone] Age ................................ : 49 Film# .................. .:[id number] Sex ................................. : F Unsigned transcriptions are preliminary reports and do not represent a medical or legal document CT ABD & PELV W/O ORAL W/O IV [id number] COMPLETE:05/26/20 11:45 3484 Reason(s): NO CONTRAST: R flank pain. ? renal stone. Transcribe Initials: DAVID, Transcribe Date: 05/26/20 13:39, Dictation Date: Copy for: EWA ROBERSON via fax Copy for: EMERGENCY DEPT via modem Copy for: 710 MED REC DISCHARGED Page 2 of 2 Name Value Range Interpretation Code Description Data Clare rce(s) Supporting Document(s) ID Date Data Source [id number] 05/26/2020 09:52:00 AM EST [facility] 1 OrderSheet [facility] Emergency Department [address] [place] [address] Phone #: ext- [phone] 05/26/2020 09:39 Patient: CECE FLORES Sex: F : 1970 Age: 49yWEIGHT:90.7 kg (S) HEIGHT:63 inches (S) BMI:35.4ALLERGIES: NaprosynCHIEF COMPLAINT: back painDIAGNOSIS: Backache, O/E - muscle tone spasticLAB ORDERSOrder Description Priority Entered Acknowledged InitialedUrinalysis (Clean STAT 10:05 05/26/2020 10:14 Jovan Caldera) Tena Ernandez RN; Nova Diez Per protocol; Quinn NicholsCHCG Urine Qual STAT 10:05 05/26/2020 10:14 Awais Caldera Lisa RN; Noav Diez Per protocol; Quinn NicholsCCBC w Diff STAT 10:35 05/26/2020 10:45 Quinn Caldera R.N. P.A.-C;CMP STAT 10:35 05/26/2020 10:45 Quinn Caldera R.N. P.A.-C;Lipase STAT 10:35 05/26/2020 10:45 Quinn CalderaN. P.A.-C;Lactic Acid STAT 10:35 05/26/2020 10:45 Quinn Caldera R.N. P.A.-C;DIAGNOSTIC STUDY ORDERSOrder Description Priority Entered Acknowledged InitialedCT ABD PEL W/O STAT 11:45 05/26/2020 11:52 Werner,Oral W/O IV Quinn Bhatt R.N.Contrast P.A.-C;(Oxygen?(No))(IV?(No)) Reason for Study: NO CONTRAST: R flank pain. ? renal stone. 2 OrderSheet [facility] Emergency Department [address] [place] [address] Phone #: ext- [phone] 05/26/2020 09:39 Patient: CECE FLORES Sex: F : 1970 Age: 49yCT LUMBAR SP STAT 11:45 05/26/2020 11:52 Werner,W/O CONT Quinn Bhatt R.N.(Oxygen?(No)) P.A.-C;(IV?(Yes)) Reason for Study: REFORMAT from abd. R flank pain/spasmMEDICATION/IV/DRIP/FLUID ORDERSOrder Description Priority Entered Acknowledged InitialedNS IV : Bolus 500 10:35 05/26/2020 10:51 Werner,mL, then 75 mL/hr Quinn Bhatt R.N. P.A.-C;Ofirmev IV 1000 mg 10:35 05/26/2020 10:52 Werner,(NOW x1, Infuse Quinn Bhatt R.N.over 15 minutes) P.A.-C;Benadryl 25 mg IVP 10:35 05/26/2020 10:52 Werner,X1 dose: 25 mg Quinn Bhatt R.N.(NOW x1) P.A.- C;Zofran IVP 4 mg 10:35 05/26/2020 10:52 Quinn Caldera R.N. P.A.-C;Lidocaine Patch 10:35 05/26/2020 10:53 Werner,Topical (Patch 5 %) Quinn Bhatt R.N.1 Patch (On for 12 P.A.-C;hours, off for 12hours.)GENERAL ORDERSOrder Description Priority Entered Acknowledged InitialedNPO 10:35 05/26/2020 10:45 Quinn Caldera R.N. P.A.-C;Saline Lock 10:35 05/26/2020 10:45 Quinn Caldera R.N. P.A.-C;Warm blanket 10:35 05/26/2020 10:45 Quinn Caldera R.N. P.A.-C;[Electronically signed by Nova Caldera R.N. (13:26 05/26/2020)][Electronically signed by Quinn Murray P.A.-C (21:17 05/26/2020)][Electronically locked by Nova Caldera R.N. (13:26 05/26/2020)] Name Value Range Interpretation Code Description Data Clare rce(s) Supporting Document(s) ID Date Data Source [id number] 05/26/2020 09:52:00 AM EST [facility] 1 Medication Reconciliation Report [facility] Emergency Department [address] [place] [address] Phone #: ext- [phone] 05/26/2020 09:39 Patient: CECE FLORES Sex: F : 1970 Age: 49yWeight: 90.7 kgHeight/Length: 63 in.BMI: 35.4ALLERGIES: NaprosynThe patient's Home Medications are listed below:THE FOLLOWING MEDICATIONS NEED TO BE RECONCILED: Atorvastatin Calcium Oral (10 mg), daily Gimerpride 2mg, daily Lisinopril Oral (20 mg), daily Lyrica Oral (75 mg), 3x a day metFORMIN HCl Oral (1000 mg), 2x a day Paxil Oral ZyrTEC Allergy Oral (10 mg), dailyThe source(s) of the original Home Medication information:patientThe following Medications were given to the patient in the Emergency Department:NS [IV] IV Fluids bolus 500 mL over 30 minute(s), then 75 mL/hr, administered: 10:51 05/26/2020offirmev IV bolus 0, then 1000 mg, administered: 10:52 1Benadryl [IVP] IVP 25 mg, administered: 10:52 05/26/2020Zofran [IVP] IVP 4 mg, administered: 10:52 1Lidocaine Patch Transdermal 1 patch, administered: 10:53 05/26/2020 2 Medication Reconciliation Report [facility] Emergency Department [address] [place] [address] Phone #: ext- [phone] 05/26/2020 09:39 Patient: CECE FLORES Sex: F : 1970 Age: 49yThe following Medications were prescribed to the patient:Lidoderm 5 % topical patch Apply 1 patch single dose for 3 days -- Apply patch to area of pain and leaveon no more than 12hrs and remove. You are able to cut to size. Dispense 3 patch. Refills: 0. Substitutionpermitted.[facility] [address] [place], [place] [phone]. FaxNumber: .cyclobenzaprine 10 mg tablet Take 1 tablet three times a day for 3 days -- Dispense 9 tablet. Refills: 0.Substitution permitted.[facility] [address] - [address] ; [place] [address]. FaxNumber: . -- Quinn Murray P.A.-C Name Value Range Interpretation Code Description Data Clare rce(s) Supporting Document(s) ID Date Data Source [id number] 05/26/2020 09:52:00 AM EST [facility] 1 Medication Administration Record [facility] Emergency Department [address] [place] [address] Phone #: [phone]- [phone] 05/26/2020 09:39 Patient: CECE FLORES Sex: F : 1970 Age: 49yWeight: 90.7 kgHeight/Length: 63 inBMI: 35.4ALLERGIES: Naprosyn Date/Time Medication Administered Medication OrderedStart NS [IV] NS IV : Bolus 500 mL, then 7510:51 05/26/2020 Dose: IV Fluids mL/hrNova Caldera R.N. Rate: 75 mL/hr---- Bolus: 500 mL over 30 minute(s)Stop Dispensed: 1000 mL bag13:25 05/26/2020 Site: #1 left ACNova Caldera R.N.Start offirmev * Ofirmev IV 1000 mg (NOW x1,10:52 05/26/2020 Dose: 1000 mg * IV Infuse over 15 minutes)Nova Caldera R.N.----Stop13:25 05/26/2020Nova Caldera R.N.Given BENADRYL [IVP] (DIPHENHYDRAMINE Benadryl 25 mg IVP X1 dose: 2510:52 05/26/2020 HCL) mg (NOW x1)Nova Caldera R.N. Dose: 25 mg IVP Site: #1 left ACGiven ZOFRAN [IVP] (ONDANSETRON HCL) Zofran IVP 4 mg10:52 05/26/2020 Dose: 4 mg IVPNova Caldera R.N. Site: #1 left ACGiven LIDOCAINE PATCH Lidocaine Patch Topical (Patch 510:53 05/26/2020 Dose: 1 patch Transdermal %) 1 Patch (On for 12 hours, offNova Caldera R.N. for 12 hours.) Name Value Range Interpretation Code Description Data Clare rce(s) Supporting Document(s) ID Date Data Source [id number] 05/26/2020 09:52:00 AM EST [facility] 1 General Instructions [facility] Emergency Department [address] [place] [address] Phone #: ext- [phone] 05/26/2020 09:39 Patient: CECE FLORES [facility]#: [id number] Sex: F : 1970 Age: 49yAcute nontraumatic lumbar back pain associated with muscle strain; a compression fracture of T12, L1 andL2; degenerative disc disease of the lumbar spine. No radiculopathy or neurological deficit.Lower back spasm.INSTRUCTIONSApply ice for 10 minutes three times a day for one weeks foll owed by dry heat 10 minutes three times a dayfor one as needed. Don't apply ice directly to skin, don't use while asleep and don't use high setting onheating pad. No lifting greater than 5 lbs, no bending or stooping or no prolonged sitting for- 1- weeks.No strenuous activity for one weeks.No dietary restrictions.(Recommend to utilize OTC Tylenol to control inflammation and pain management. Recommend to followthe instructions on the bottle and not to exceed.).Warnings: SEDATIVE MEDICATION: You were given sedative medication during your visit. Do not driveor operate dangerous machinery.GENERAL WARNINGS: Return or contact your physician immediately if your condition worsens orchanges unexpectedly, if not improving as expected, or if other problems arise.Prescription monitor program consulted by me due to Currently a open rx. .Prescription Medications:Lidoderm 5 % topical patch Apply 1 patch single dose for 3 days -- Apply patch to area of pain and leaveon no more than 12hrs and remove. You are able to cut to size. Dispense 3 patch. Refills: 0. Substitutionpermitted.[facility] [address] [place], [place] [phone]. .cycloben zaprine 10 mg tablet Take 1 tablet three times a day for 3 days -- Dispense 9 tablet. Refills: 0.Substitution permitted.[facility] [address] ; [place] [address]. FaxNumber: .Follow-up:Return to the emergency department as needed. Follow up with your healthcare provider in about twodays if not better. Call for an appointment. 2 General Instructions [facility] Emergency Department [address] [place] [address] Phone #: ext- [phone] 05/26/2020 09:39 Patient: CECE FLORES Sex: F : 1970 Age: 49yUnderstanding of the discharge instructions verbalized by patient.Follow-up with: [facility], , , [address] [address], ,[place], [address] Follow up. Call for the next available appointment. Reason for referral: evaluation and treatment. ADDITIONAL INFORMATIONBack Pain (Acute or Chronic)Back pain is one of the most common problems. The good news is that most people feel better in 1 to2 weeks, and most of the rest in 1 to 2 months. Most people can remain active.People who have pain describe it differently--not everyone is the same. The pain can be sharp, stabbing, shooting, aching, cramping or burning. 3 General Instructions [facility] Emergency Department [address] [place] [address] Phone #: ext- [phone] 05/26/2020 09:39 Patient: CECE FLORES Sex: F : 1970 Age: 49y Movement, standing, bending, lifting, sitting, or walking may worsen pain. It can be limited to one spot or area, or it can be more generalized. It can spread upwards, to the front, or go down your arms or legs (sciatica). It can cause muscle spasm.Most of the time, mechanical problems with the muscles or spine cause the pain. Mechanicalproblems are usually caused by an injury to the muscles or ligaments. Illness can cause back pain,but it's usually not caused by a serious illness. Mechanical problems include: Physical activity such as sports, exercise, work, or normal activity Overexertion, lifting, pushing, pulling incorrectly or too aggressively Sudden twisting, bending, or stretching from an accident, or accidental movement Poor posture Stretching or moving wrong, without noticing pain at the time Poor coordination, lack of regular exercise (check with your doctor about this) Spinal disc disease or arthritis StressPain can also be related to , or illness like appendicitis, bladder or kidney infections, pelvicinfections, and many other things.Acute back pain usually gets better in 1 to 2 weeks. Back pain related to disk disease, arthritis in thespinal joints, or narrowing of the spinal canal (spinal stenosis) can become chronic and last formonths or years.Unless you had a physical injury such as a car accident or fall, X-rays are usually not needed for thefirst assessment of back pain. If pain continues and does not respond to medical treatment, you mayneed X-rays and other tests.Home careTry this home care advice: When in bed, try to find a position of comfort. A firm mattress is best. Try lying flat on your back with pillows under your knees. You can also try lying on your side with your knees bent up toward your chest and a pillow between your knees. At first, don't try to stretch out the sore spots. If there is a strain, it's not like the good soreness you get after exercising without an injury. In this case, stretching may make it worse. 4 [place] [address] Phone #: ext- [phone] 05/26/2020 09:39 [id number] Sex[facility] F : 1970 Age: 49y Don't sit for long periods, as in a long car ride or during other travel. This puts more stress on the lower back than standing or walking. During the first 24 to 72 hours after an acute injury or flare up of chronic back pain, apply an ice pack to the painful area for 20 minutes and then remove it for 20 minutes. Do this over a period of 60 to 90 minutes or several times a day. This will reduce swelling and pain. Wrap the ice pack in a thin towel or plastic to protect your skin. You can start with ice, then switch to heat. Heat (hot shower, hot bath, or heating pad) reduces pain and works well for muscle spasms. Heat can be applied to the painful area for 20 minutes then remove it for 20 minutes. Do this over a period of 60 to 90 minutes or several times a day. Don't sleep on a heating pad. It can lead to skin denny or tissue damage. You can alternate ice and heat therapy. Talk with your doctor about the best treatment for your back pain. Therapeutic massage can help relax the back muscles without stretching them. Be aware of safe lifting methods and don't lift anything without stretching first.MedicinesTalk to your doctor before using medicine, especially if you have other medical problems or are takingother medicines. You may use xelb-tim-ifkgbbd medicine as directed on the bottle to control pain, unless another pain medicine was prescribed. If you have chronic conditions like diabetes, liver or kidney disease, stomach ulcers, or gastrointestinal bleeding, or are taking blood thinners, talk to your doctor before taking any medicine. Be careful if you are given a prescription medicines, narcotics, or medicine for muscle spasms. They can cause drowsiness, affect your coordination, reflexes, and judgement. Don't drive or operate heavy machinery.Follow-up careFollow up with your healthcare provider, or as advised.If X-rays were taken, you will be told of any new find ings that may affect your careCall 911Call 911 if any of the following occur: Trouble breathing Confusion 5 General Instructions [facility] Emergency Department [address] [place] [address] Phone #: ext- [phone] 05/26/2020 09:39 Patient: CECE FLORES Car[place] Sex: F : 1970 Age: 49y Very drowsy or trouble awakening Fainting or loss of consciousness Rapid or very slow heart rate Loss of bowel or bladder controlWhen to seek medical adviceCall your healthcare provider right away if any of these occur: Pain becomes worse or spreads to your legs Weakness or numbness in one or both legs Numbness in the groin or genital area [id number] [employer]. [address] [place] [address], [place] [address] [address]. All rights reserved. This information is not intended as asubstitute for professional medical care. Always follow your healthcare professional's instructions.SciaticaSciatica is a condition that causes pain in the lower back that spreads down into the buttock, hip, andleg. Sometimes the leg pain can happen without any back pain. Sciatica happens when a spinalnerve is irritated or has pressure put on it as it comes out of the spinal canal in the lower back. This 6 General Instructions [facility] Emergency Department [address] [place] [address] Phone #: ext- [phone] 05/26/2020 09:39 Patient: CECE FLORES Sex: F : 1970 Age: 49ymost often happens when a bulge or rupture of a nearby spinal disk presses on the nerve. Sciaticacan also be caused by a narrowing of the spinal canal (spinal stenosis) or spasm of the muscle in thebuttocks that the sciatic nerve passes through (piriformis muscle). Sciatica may also be called lumbarradiculopathy.Sciatica may start after a sudden twisting or bending force, such as in a car accident. Or it canhappen after a simple awkward movement. In either case, muscle spasm often also happens. Musclespasm makes the pain worse.A healthcare provider makes a diagnosis of sciatica from your symptoms and a physical exam.Unless you had an injury from a car accident or fall, you usually won't have X-rays taken at this time.This is because the nerves and disks in your back can't be seen on an X-ray. If the pr ovider seessigns of a compressed nerve, you will need to schedule an MRI scan. Nerve conductions studies andelectromyography are nerve tests that can also help find the cause of nerve pain. Signs of acompressed nerve include loss of strength in a leg.Most sciatica gets better with medicine, exercise, and physical therapy. If your symptoms continueafter medical treatment, you may need surgery or injections to your lower back, depending on howsevere your symptoms are.Home careFollow these tips when caring for yourself at home: As soon as possible, start sitting up or walking. This will help you prevent problems that come from staying in bed for long periods. When in bed, try to find a position that is comfortable. A firm mattress is best. Try lying flat on your back with pillows under your knees. You can also try lying on your side with your knees bent up toward your chest and a pillow between your knees. Don't sit for long periods. This puts more stress on your lower back than s tanding or walking. Use heat from a hot shower, hot bath, or heating pad to help ease pain. Massage can also help. You can also try using an ice pack. You can make your own ice pack by putting ice cubes in a plastic bag. Wrap the bag in a thin towel. Try both heat and cold to see which works best. Use the method that feels best for 20 minutes several times a day. You may use acetaminophen or ibuprofen to ease pain, unless another pain medicine was prescribed. Note: If you have chronic liver or kidney disease, talk with your healthcare provider before taking these medicines. Also talk with your provider if you've had a stomach ulcer or gastrointestinal bleeding. Use safe lifting methods. Don't lift anything heavier than 15 pounds until all of the pain is gone. 7 General Instructions [facility] Emergency Department [address] [place] [address] Phone #: ext- [phone] 05/26/2020 09:39 [id number] Sex[facility] F : 1970 Age: 49yFollow-up careFollow up with your healthcare provider, or as advised. You may need physical therapy or more tests.If X-rays were taken, a radiologist will look at them. You will be told of any new findings that mayaffect your care.When to seek medical adviceCall your healthcare provider right away if any of these occur: Pain gets worse even after taking prescribed medicine Weakness or numbness in 1 or both legs or hips Numbness in your groin or genital area You can't control your bowel or bladder Fever (100.4 F or 38 C) Redness or swelling over your back or spine 0825-0084 [employer]. [address] [place] [address]. All rights reserved. This information is not intended as asubstitute for professional medical care. Always follow your healthcare professional's instructions.Back Spasm (No Trauma) 8 General Instructions [facility] Emergency Department [address] [place] [address] Phone #: ext- [phone] 05/26/2020 09:39 [id number] Sex[facility] F : 1970 Age: 49ySpasm of the back muscles can occur after a sudden forceful twisting or bending such as in a caraccident. A spasm can also happen after a simple awkward movement, or after lifting somethingheavy with poor body positioning. In any case, muscle spasm adds to the pain. Sleeping in anawkward position or on a poor quality mattress can also cause this. Some people respond toemotional stress by tensing the muscles of their back.Pain that continues may need further assessment or other types of treatment such as physicaltherapy.You don't always need X-rays for the first assessment of back pain, unless you had a physical injurysuch as from a car accident or fall. If your pain continues and doesn't respond to medical treatment,X-rays and other tests may then be done.Home care As soon as possible, start sitting or walking again. This will help prevent problems from a long bed rest. These problems include muscle weakness, worsening back stiffness and pain, and 9 General Instructions [facility] Emergency Department [address] [place] [address] Phone #: ext- [phone] 05/26/2020 09:39 [id number] Sex: F : 1970 Age: 49y blood clots in the legs. When in bed, try to find a position of comfort. A firm mattress is best. Try lying flat on your back with pillows under your knees. You can also try lying on your side with your knees bent up toward your chest and a pillow between your knees. Don't sit for long periods. Also limit car rides and travel. This puts more stress on the lower back than standing or walking. During the first 24 to 72 hours after an injury or flare-up, put an ice pack on the painful area for 20 minutes, then remove it for 20 minutes. Do this over a period of 60 to 90 minutes, or several times a day. This will reduce swelling and pain. Always wrap ice packs in a thin towel. You can start with ice, then switch to heat. Heat from a hot shower, hot bath, or heating pad reduces pain and works well for muscle spasms. Put heat on the painful area for 20 minutes, then remove it for 20 minutes. Do this over a period of 60 to 90 minutes, or several times a day. Don't sleep on a heating pad. It can burn or damage skin. Alternate using ice and heat. Be aware of safe lifting methods. don't lift anything over 15 pounds until all the pain is gone.Gentle stretching will help your back heal faster. Do this simple routine 2 to 3 times a day until yourback is feeling better. Lie on your back with your knees bent and both feet on the ground. Slowly raise your left knee to your chest as you flatten your lower back against the floor. Hold for 20 to 30 seconds. Relax and repeat the exercise with your right knee. Do 2 to 3 of these exercises for each leg. Repeat, hugging both knees to your chest at the same time. Don't bounce, but use a gentle pull.MedicinesTalk with your doctor before using medicine, especially if you have other medical problems or aretaking other medicines.You may use utta-rxc-szpupwc medicines such as acetaminophen, ibuprofen, or naprosyn to controlpain, unless your healthcare provider prescribed another pain medicine. Talk with your healthcareprovider if you have a chronic condition such as diabetes, liver or kidney disease, stomach ulcer, ordigestive bleeding, or are taking blood thinners. 10 General Instructions [facility] Emergency Department [address] [place] [address] Phone #: ext- [phone] 05/26/2020 09:39 Patient: CECE FLORES [facility]#: [id number] Sex: F : 1970 Age: 49yBe careful if you are given prescription pain medicine, opioids, or medicine for muscle spasm. Theycan cause drowsiness, and affect your coordination, reflexes, and judgment. Don't drive or operateheavy machinery when taking these medicines. Take pain medicine only as prescribed by yourhealthcare provider.Follow-up careFollow up with your doctor, or as advised. You may need physical therapy or more tests.If X-rays were taken, they may be reviewed by a radiologist. You will be told of any new findings thatmay affect your care.CallCall if any of these occur: Trouble breathing Confusion Drowsiness or trouble awakening Fainting or loss of consciousness Rapid or very slow heart rate Loss of bowel or bladder controlWhen to seek medical adviceCall your healthcare provider right away if any of these occur: Pain becomes worse or spreads to your legs Weakness or numbness in one or both legs Numbness in the groin or genital area Fever of 100.4F (38C) or higher , or as directed by your healthcare provider Chills Burning or pain when passing urine [id number] [employer]. [address] [place] [address], [place] [address]. All rights reserved. This information is not intended as asubstitute for professional medical care. Always follow your healthcare professional's instructions.Back Care Tips 11 General Instructions [facility] Emergency Department [address] [place] [address] Phone #: ext- [phone] 05/26/2020 09:39 Patient: CECE FLORES [facility]#: [id number] Sex: F : 1970 Age: 49yCaring for your backThese are things you can do to prevent a recurrence of acute back pain and to reduce symptomsfrom chronic back pain: Stay at a healthy weight. If you are overweight, losing weight will help most types of back pain. Exercise is an important part of recovery from most types of back pain. The muscles behind and in front of the spine support the back. This means strengthening both the back muscles and the abdominal muscles will provide better support for your spine. Swimming and brisk walking are good overall exercises to improve your fitness level. Practice safe lifting methods (see below). Practice good posture when sitting, standing, and walking. Don't sit for a long time. This puts 12 General Instructions [facility] Emergency Department [address] [place] [address] Phone #: ext- [phone] 05/26/2020 09:39 Patient: CECE FLORES [facility]#: [id number] Sex: F : 1970 Age: 49y more stress on the lower back than standing or walking. Wear quality shoes with good arch support. Foot and ankle alignment can affect back symptoms. Don't wear high heels. Therapeutic massage can help relax the back muscles without stretching them. During the first 24 to 72 hours after an acute injury or flare-up of chronic back pain, put an ice pack on the painful area for 20 minutes and then remove it for 20 minutes. Do thisover a period of 60 to 90 minutes, or several times a day. As a safety precaution, don't use a heating pad at bedtime. Sleeping on a heating pad can lead to skin denny or tissue damage. You can alternate using ice and heat.MedicinesTalk with your healthcare provider before using medicines, especially if you have other healthproblems or are taking other medicines. You may use ikel-pki-cduxmsr medicines, such as acetaminophen, ibuprofen, or naprosyn to control pain, unless your healthcare provider prescribed other pain medicine. Talk with your healthcare provider before taking any medicines if you have a chronic condition such as diabetes, liver or kidney disease, stomach ulcers, or digestive bleeding, or are taking blood thinners. Be careful if you are given prescription pain medicines, opioids, or medicine for muscle spasm. They can cause drowsiness, and affect your coordination, reflexes, and judgment. Don't drive or operate heavy machinery while taking these types of medicines. Take prescription pain medicine only as prescribed by your healthcare provider.Lumbar stretchThis simple stretch will help relax muscle spasm and keep your back more limber. If exercise makesyour back pain worse, don't do it. Lie on your back with your knees bent and both feet on the ground. Slowly raise your left knee to your chest as you flatten your lower back against the floor. Hold for 5 seconds. Relax and repeat the exercise with your right knee. Do 10 of these exercises for each leg.Safe lifting method 13 General Instructions [facility] Emergency Department [address] [place] [address] Phone #: ext- [phone] 05/26/2020 09:39 [id number] Sex: F : 1970 Age: 49y Don't bend over at the waist to lift an object off the floor. Instead, bend your knees and hips in a squat. Keep your back and head upright Hold the object close to your body, directly in front of you. Straighten your legs to lift the object. Lower the object to the floor in the reverse fashion. If you must slide something across the floor, push it.Posture tipsSittingSit in chairs with straight backs or low-back support. Keep your knees lower than your hips, with yourfeet flat on the floor.When driving, sit up straight. Adjust the seat forward so you are not leaning toward the steeringwheel. A small pillow or rolled towel behind your lower back may help if you are driving longdistances.StandingWhen standing for long periods, shift most of your weight to one leg at a time. Switch legs every fewminutes.SleepingThe best way to sleep is on your side with your knees bent. Put a low pillow under your head tosupport your neck in a neutral spine position. Don't use thick pillows that bend your neck to one side.Put a pillow between your legs to further relax your lower back. If you sleep on your back, put pillowsunder your knees to support your legs in a slightly flexed position. Use a firm mattress. If yourmattress sags, replace it, or use a 1/2-inch plywood board under the mattress to add support.Follow-up careFollow up with your healthcare provider, or as advised.If X-rays, a CT scan or an MRI scan were taken, they may be reviewed by a radiologist. You will betold of any new findings that may affect your care.Call [phone] General Instructions [facility] Emergency Department [address] [place] [address] Phone #: ext- [phone] 05/26/2020 09:39 [id number] Sex: F : 1970 Age: 49yCall 911 if any of the following occur: Trouble breathing Confusion Very drowsy Fainting or loss of consciousness Rapid or very slow heart rate Loss of bowel or bladder controlWhen to seek medical adviceCall your healthcare provider right away if any of the following occur: Pain becomes worse or spreads to your arms or legs Weakness or numbness in one or both arms or legs Numbness in the groin area 5265-[address] [employer] [place] [address]. All rights reserved. This information is not intended as asubstitute for professional medical care. Always follow your healthcare professional's instructions.Exercises to Strengthen Your Lower BackStrong lower back and abdominal muscles work together to support your spine. The exercises belowwill help strengthen the lower back. It's important that you start exercising slowly and increase levelsgradually.Always start any exercise program with stretching. If you feel pain while doing any of these exercises,stop and talk to your doctor about a more specific exercise program that better suits your condition.Low back stretchThe point of stretching is to make you more flexible and increase your range of motion. Stretch onlyas much as you are able. Stretch slowly. Don't push your stretch to the limit. If at any point you feelpain while stretching, this is your (temporary) limit. Lie on your back with your knees bent and both feet on the ground. Slowly raise your left knee to your chest as you flatten your lower back against the floor. Hold for 5 seconds. Relax and repeat the exercise with your right knee. 15 General Instructions [facility] Emergency Department [address] [place] [address] Phone #: ext- [phone] 05/26/2020 09:39 Patient: CECE FLORESN: [id number] [id number] Sex: F : 1970 Age: 49y Do 10 of these exercises for each leg. Repeat hugging both knees to your chest at the same time.Building lower back strengthStart your exercise routine with 10 to 30 minutes a day, 1 to 3 times a day.Initial exercisesLying on your back:1. Ankle pumps. Move your foot up and down, towards your head, and then away. Repeat 10 times with each foot.2. Heel slides. Slowly bend your knee, drawing the heel of your foot towards you. Then slide your heel/foot from you, straightening your knee. Don't lift your foot off the floor (this is not a leg lift).3. Abdominal contraction. Bend your knees and put your hands on your stomach. Tighten your stomach muscles. Hold for 5 seconds, then relax. Repeat 10 times.4. Straight leg raise. Bend one leg at the knee and keep the other leg straight. Tighten your stomach muscles. Slowly lift your straight leg 6 to 12 inches o ff the floor and hold for up to 5 seconds. Repeat 10 times on each side.Standin. Wall squats. Stand with your back against the wall. Move your feet about 12 inches away from the wall. Tighten your stomach muscles, and slowly bend your knees until they are at about a 45 degree angle. Don't go down too far. Hold about 5 seconds. Then slowly return to your starting position. Repeat 10 times.2. Heel raises. Stand facing the wall. Slowly raise the heels of your feet up and down, while keeping your toes on the floor. If you have trouble balancing, you can touch the wall with your hands. Repeat 10 times.More advanced exercisesWhen you feel comfortable enough, try these exercises.1. Kneeling lumbar extension. Start on your hands and knees. At the same time, raise and straighten your right arm and left leg until they are parallel to the ground. Hold for 2 seconds and come back slowly to a starting position. Repeat with left arm and right leg, alternating 10 times. 16 General Instructions [facility] Emergency Department [address] [place] [address] Phone #: ext- [phone] 05/26/2020 09:39 ---- Patient: CECE FLORES [facility]#: [id number] Sex: F : 1970 Age: 49y 2. Prone lumbar extension. Lie face down, arms extended overhead, palms on the floor. At the same time, raise your right arm and left leg as high as comfortably possible. Hold for 10 seconds and slowly return to start. Repeat with left arm and right leg, alternating 10 times. Gradually build up to 20 times. (Advanced: Repeat this exercise raising both arms and both legs a few inches off the floor at the same time. Hold for 5 seconds and release.) 3. Pelvic tilt. Lie on the floor on your back with your knees bent at 90 degrees. Your feet should be flat on the floor. Inhale, exhale, then slowly contract your abdominal muscles bringing your navel toward your spine. Let your pelvis rock back until your lower back is flat on the floor. Hold for 10 seconds while breathing smoothly. 4. Abdominal crunch. Perform a pelvic tilt (above) flattening your lower back against the floor. Holding the tension in your abdominal muscles, take another breath and raise your shoulder blades off the ground (this is not a full sit-up). Keep your head in line with your body (don't bend your neck forward). Hold for 2 seconds, then slowly lower. [employer]. [address] [place] [address]. All rights reserved. This information is not intended as asubstitute for professional medical care. Always follow your healthcare professional's instructions.Muscle SpasmA muscle spasm is a sudden tightening of the muscle you can't control. This may be caused by strain,overworking the muscle, or injury. It can also be caused by dehydration, electrolyte imbalance,diabetes, alcohol use, and certain medicines. If it goes on long enough the muscle spasm causespain. Common areas for muscle spasm are the legs, neck, and back.Home care Heat, massage, and stretching will help relax muscle spasm. When the spasm is in your arm or leg, stretch the muscle passively. To do this, have someone bend or straighten the joint above or below the muscle until you feel the stretch on the sore muscle. You can stretch the muscle actively by moving the affected body part. This will stretch the muscle that is in spasm. For example, if the spasm is in your calf, bend the ankle so your toes point upward toward your knee. This will stretch your calf muscle. You may use erlj-iix-tpydpuk pain medicine to control pain, unless another medicine was prescribed. If you have chronic liver or kidney disease or ever had a stomach ulcer or gastrointestinal bleeding, talk with your healthcare provider before using these medicines.Follow-up careFollow up with your healthcare provider, or as advised. 17 General Instructions [facility] Emergency Department [address] [place] [address] Phone #: [phone] 05/26/2020 09:39 [id number] Sex: F : 1970 Age: 49yWhen to seek medical adviceCall your healthcare provider right away if any of the following occur: Fingers or toes become swollen, cold, blue, numb, or tingly You develop weakness in the affected arm or leg Pain increases and is not controlled by the above measures [id number] [employer]. [address] [place] [address]. All rights reserved. This information is not intended as asubstitute for professional medical care. Always follow your healthcare professional's instructions.General Neck and Back PainBoth neck and back pain are usually caused by injury to the muscles or ligaments of the spine.Sometimes the disks that separate each bone of the spine may cause pain by pressing on a nearby 18 General Instructions [facility] Emergency Department [address] [place] [address] Phone #: ext- [phone] 05/26/2020 09:39 Patient: CECE FLORES [facility]#: [id number] Sex: F : 1970 Age: 49ynerve. Back and neck pain may appear after a sudden twisting or bending force (such as in a caraccident), or sometimes after a simple awkward movement. In either case, muscle spasm is oftenpresent and adds to the pain.Acute neck and back pain usually gets better in 1 to 2 weeks. Pain related to disk disease, arthritis inthe spinal joints, or narrowing of the spinal canal (spinal stenosis) can become chronic and last formonths or years.Back and neck pain are common problems. Most people feel better in 1 or 2 weeks, and most of therest in 1 to 2 months. Most people can remain active.People have and describe pain differently. Pain can be sharp, stabbing, shooting, aching, cramping, or burning Movement, standing, bending, lifting, sitting, or walking may worsen the pain Pain can be limited to one spot or area, or it can be more generalized Pain can spread upward, downward, to the front, or go down your arms or legs Muscle spasm may occur.Most of the time mechanical problems with the muscles or spine cause the pain. It's usually causedby an injury, whether known or not, to the muscles or ligaments. Pain without an injury is notcommon. But it can sometimes be caused by a health problem such as kidney stones or an infection.Pain is usually related to physical activity such as sports, exercise, work, or normal activity.Sometimes it can occur without an identifiable cause. This can happen simply by stretching or movingwrong, without noting pain at the time. Other causes include: Overexertion, lifting, pushing, pulling incorrectly or too aggressively. Sudden twisting, bending or stretching from an accident (car or fall), or accidental movement. Poor posture Poor conditioning, lack of regular exercise Spinal disc disease or arthritis Stress , or illness like appendicitis, bladder or kidney infection, pelvic infectionsHome care For neck pain: Use a comfortable pillow that supports the head and keeps the spine in a neutral position. The position of the head should not be tilted forward or backward. 19 General Instructions [facility] Emergency Department [address] [place] [address] Phone #: ext- [phone] 05/26/2020 09:39 Patient: CECE FLORES Sex: F : 1970 Age: 49y When in bed, try to find a position of comfort. A firm mattress is best. Try lying flat on your back with pillows under your knees. You can also try lying on your side with your knees bent up towards your chest and a pillow between your knees. At first, don't try to stretch out the sore spots. If there is a strain, it's not like the good soreness you get after exercising without an injury. In this case, stretching may make it worse. Don't sit for long periods, as in long car rides or other travel. This puts more stress on the lower back than standing or walking. During the first 24 to 72 hours after an injury, apply an ice pack to the painful area for 20 minutes and then remove it for 20 minutes over a period of 60 to 90 minutes or several times a day. You can alternate ice and heat therapies. Talk with your healthcare provider about the best treatment for your back or neck pain. As a safety precaution, don't use a heating pad at bedtime. Sleeping with a heating pad can lead to skin denny or tissue damage. Therapeutic massage can help relax the back and neck muscles without stretching them. Be aware of safe lifting methods and don't lift anything over 15 pounds until all the pain is gone.MedicinesTalk to your healthcare provider before using medicine, especially if you have other medical problemsor are taking other medicines. You may use lolq-gsk-xvkdlqs medicine to control pain, unless another pain medicine was prescribed. Talk with your doctor first if you have chronic conditions like diabetes, liver or kidney disease, stomach ulcers, gastrointestinal bleeding, or are taking blood thinner medicines. Be careful if you are given pain medicines, narcotics, or medicine for muscle spasm. They can cause drowsiness, and can affect your coordination, reflexes, and judgment. Don't drive or operate heavy machinery.Follow-up careFollow up with your healthcare provider, or as advised. You may need physical therapy or furthertests.If X-rays were taken, you will be told of any new findings that may affect your care.Call 911 20 General Instructions [facility] Emergency Department [address] [place] [address] Phone #: ext- [phone] 05/26/2020 09:39 Patient: CECE FLORES Sex: F : 1970 Age: 49yCall 911 if any of the following occur: Trouble breathing Confusion Very drowsy or trouble awakening Fainting or loss of consciousness Rapid or very slow heart rate Loss of bowel or bladder controlWhen to seek medical adviceCall your healthcare provider right away if any of these occur: Pain becomes worse or spreads into your arms or legs Weakness, numbness or pain in one or both arms or legs Numbness in the groin area Trouble walking Fever of 100.4F (38C) or higher, or as directed by your healthcare provider [phone] [employer]. [address] [place] [address]. All rights reserved. This information is not intended as asubstitute for professional medical care. Always follow your healthcare professional's instructions. You have been given the following additional information: Back Pain (Acute or Chronic) Sciatica Back Spasm, No Trauma Back Care Tips Back Exercises, Lumbar Muscle Spasm Back and Neck Pain, General No lifting greater than 5 lbs, no bending or stooping or no prolonged sitting for- 1- weeks. No strenuous activity for one weeks. 21 General Instructions [facility] Emergency Department [address] [place] [address] Phone #: ext- [phone] 05/26/2020 09:39 Patient: CECE FLORES Sex: F : 1970 Age: 49y(Electronically signed by Quinn Murray P.A.-C 05/26/2020 21:17) Name Value Range Interpretation Code Description Data Clare rce(s) Supporting Document(s) ID Date Data Source [id number] 05/26/2020 09:52:00 AM EST [facility] 1 Clinical Report - Nurses [facility] Emergency Department [address] [place] [address] Phone #: ext- [phone] 05/26/2020 09:39 Patient: CECE FLORES Sex: F : 1970 Age: 49yTRIAGEArrived by private vehicle. Historian: patient. ( presents with c/o neck and R lower back/flank pain thatshe's been dealing with since beginning of Apr. saw her PCP who did xrays and gave her muscle relaxerswhich help but make drowsy. this episode got worse this past thurs and now worse.).Triage time: 09:45 05/26/2020. Acuity: LEVEL 4.Chief Complaint: NECK PAIN and BACK PAIN.Alert. No acute distress.Onset. 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 (flexeril at 930pm).SEPSIS SCREEN: SIRS SCREEN NEGATIVE. SEPSIS SCREEN NEGATIVE. No suspected or confirmedsigns of infection present. --09:51 05/26/20 Tena Ernandez, RN09:45 05/26/20. BP: 132/73. MAP: 92. HR: 88. RR: 16. O2 saturation: 98%. Temp: 98.1 F. Pain level now:08/01. --09:51 05/26/20 Tena Ernandez RN.Weight: 90.7 kg stated. Height/Length: 63 inches Per Patient. BMI: 35.4. --09:49 05/26/20 Tena Ernandez RN.MedicationsAtorvastatin Calcium Oral (Tablet 10 mg), daily. Gimerpride 2mg, daily. Lisinopril Oral (Tablet 20 mg), daily. Lyrica Oral (Capsule 75 mg), 3x a day. metFORMIN HCl Oral (Tablet 1000 mg), 2x a day. Paxil Oral. ZyrTEC Allergy Oral (Tablet 10 mg), daily. --13:23 05/26/20 Tena Ernandez RN.AllergiesNaprosyn. --13:24 05/26/20 Tena Ernandez RNThe following entry was struck by Tena Ernandez RN, 13:22 (05/26/20) Reason - other. Naproxen.(itching) (turns red) --09:53 05/26/20 Tena Ernandez RN .PROBLEMS:Hypercholesterolemia. 2 Clinical Report - Nurses [facility] Emergency Department [address] [place] [address] Phone #: ext- [phone] 05/26/2020 09:39 Patient: CECE FLORES [facility]#: [id number] Sex: F : 1970 Age: 49yHypertension.Anxiety Reaction.COPD - Chronic Obstructive Pulmonary Disease.Spinal narrowing.Migraine Headache.Lumbar Strain. --09:53 05/26/20 Tena Ernandez RNThe following entry was modified by Tena Ernandez RN, 09:53 05/26/20Diabetes Mellitus. --09:53 05/26/20 Tena Ernandez RNThe following entry was modified by Tena Ernandez RN, 09:53 05/26/20Neuropathy. --09:53 05/26/20 Tena Ernandez RN.Medication/allergy information source: the patient and patient's previous visit record. --09:51 05/26/20Tena Ernandez RN.ADDITIONAL SURGERIES:Carpal Tunnel Surgery..Dental Surgery.Knee Surgery. --09:53 05/26/20 Tena Ernandez RN.HistoryPAST MEDICAL HX: Last normal menstrual period- 05/03.SOCIAL HX: Heavy tobacco smoker- less than 1 pack per day. Occasional alcohol use. No drug use.The patient was offered HIV testing but declined and hepatitis C testing but declined. The patient has nottraveled outside the [place]Infectious disease exposure: No infectious disease exposure.SELF HARM ASSESSMENT: Self harm assessment was performed. The patient answered "no" to thequestion(s) "Have you recently felt down, depressed, or hopeless?".ABUSE ASSESSMENT: No report of abuse.NUTRITIONAL RISK ASSESSMENT: The nutritional risk assessment revealed no deficiencies.FUNCTIONAL ASSESSMENT: Functional assessment: no impairments noted.LEARNING NEEDS ASSESSMENT: The learning needs assessment revealed no barriers.FALL RISK ASSESSMENT: Fall risk assessment completed. No risk factors identified.SKIN INTEGRITY ASSESSMENT: Skin integrity risk assessment completed. No skin integrity riskidentified. --09:51 05/26/20 Tena Ernandez RN. 3 Clinical Report - Nurses [facility] Emergency Department [address] [place] [address] Phone #: ext- [phone] 05/26/2020 09:39 ----- Patient: CECE FLORES Sex: F : 1970 Age: 49yPHYSICAL ASSESSMENTAmbulatory to room.GENERAL / NEURO / PSYCH: Alert. Oriented X 4. Appears in no acute distress.RESPIRATORY: Respirations not labored. Chest nontender. Breath sounds within normal limits.CVS: Capillary refill less than 2 seconds.GI / : Abdomen soft and nontender. Bowel sounds within normal limits. CVA tenderness.EXTREMITIES: Sensation intact in extrem ities. ROM of extremities within normal limits.BACK: Soft tissue tenderness. --10:01 05/26/20 Tena Ernandez RN.NURSING PROGRESS NOTESPatient gowned. Reassurance given. Two patient identifiers checked. Bed placed in lowest position.Brakes of bed on. Patient ready for evaluation. --09:51 05/26/20 Tena Ernandez RN Patient waiting for lab results. --10:15 05/26/20 Nova Caldera R.N. 10:51 05/26/2020 Site #1 started via IV in the left antecubital space with an 20g angiocath, with aseptic technique and good blood return; two attempts. Blood drawn: rainbow set and green tube(s). Saline lock flushed with 10 mL saline. --10:51 05/26/20 Nova Caldera R.N. 10:51 05/26/2020 Started bag #1 1000 mL IV Fluids NS; bolus of 500 mL over 30 minute(s) then at 75 mL/hr via site #1 via IV pump. Allergies verified and confirmed 5 rights. IV patency established. IV site checked: no pain, redness, or swelling. IV flushed thoroughly pre- and post-medication administration. Information reviewed with patient including reason for taking this medication. Verbalizes understanding. --10:51 05/26/20 Nova Caldera R.N. 10:52 05/26/2020 offirmev * IV 1000 mg --10:52 05/26/20 Nova Caldera R.N. 10:52 05/26/2020 Benadryl (diphenhydrAMINE HCl) IVP 25 mg given over 3 minute(s) via site #1. Allergies verified and confirmed 5 rights. IV patency established. IV site checked: no pain, redness, or swelling. IV flushed thoroughly pre- and post-medication administration. IVP given by RN. Information reviewed with patient including reason for taking this medication and sedative warning. Verbalizes understanding. --10:52 05/26/20 Nova Caballero R.N. 10:52 05/26/2020 Zofran (Ondansetron HCl) IVP 4 mg given over 3 minute(s) via site #1. Allergies verified and confirmed 5 rights. IV patency established. IV site checked: no pain, redness, or swelling. IV flushed thoroughly pre- and post-medication administration. IVP given by RN. Information reviewed with patient including reason for taking this medication. Verbalizes understanding. --10:52 05/26/20 Nova Caldera R.N. 10:53 05/26/2020 Lidocaine Patch Transdermal 1 patch applied to the right upper back. Allergies verified and confirmed 5 rights. Information reviewed with patient including reason for taking this medication. Verbalizes understanding. --10:53 05/26/20 Nova Caldera R.N. 11:02 05/26/20. BP: 129/65. MAP: 86. HR: 84. RR: 16. O2 saturation: 95%. --11:02 05/26/20 [facility] 4 Clinical Report - Nurses [facility] Emergency Department [address] [place] [address] Phone #: ext- [phone] 05/26/2020 09:39 [id number] Sex: [facility] : 1970 Age: 49y Rola Heredia, Tech1 Patient transported to [place] by wheelchair with mask and tech. --11:52 05/26/20 Nova Caldera R.N. 12:07 05/26/20. BP: 96/66. MAP: 76. HR: 78. RR: 16. O2 saturation: 96%. --12:08 05/26/20 Vida lnaRola Heredia, Tech1 The patient is calm and resting quietly. Patient waiting for CT results. --12:38 05/26/20 Nova Caldera R.N. 13:25 05/26/2020 Offirmev IV Discontinued: bag #1 completed upon discharge. Total amount infused: 50 mL. IV patency establ ished. IV site checked: no pain, redness, or swelling. IV flushed thoroughly. --13:25 05/26/20 Nova Caldera R.N. 13:25 05/26/2020 IV Fluids NS via IV site #1 Discontinued: bag #1 discontinued upon discharge. Total amount infused: 650 mL. IV patency established. IV site checked: no pain, redness, or swelling. IV flushed thoroughly. --13:25 05/26/20 Nova Caldera R.N.DISPOSITION / DISCHARGE 12:50 05/26/20. BP: 102/59. MAP: 73. HR: 77. RR: 16. O2 saturation: 98%. Temp: 98.1 F. Pain level now: 08/01. --12:50 05/26/[address] [facility], [facility] Tech1 13:15 05/26/2020 Site #1 removed upon discharge. Catheter intact. Manual pressure and bandage applied. --13:25 05/26/20 Nova Caldera R.N. Condition at departure: improved and stable. No learning barriers present. Discharge instructions provided and reviewed with the patient. Reviewed medication(s). Prescription(s) sent electronically to pharmacy. Reviewed referral to an orthopedic surgeon. Work note given. Patient verbalized understanding. Written instructions provided in Ethiopian. The patient was discharged by the physician safety assistant. She was discharged home and accompanied by family. She left ambulatory and via private vehicle. Family member driving. --13:26 05/26/20 Nova Caldera R.N.Locked/Released at 05/26/2020 13:26 by Nova Caldera R.N. Name Value Range Interpretation Code Description Data Clare rce(s) Supporting Document(s) ID Date Data Source [id number] 05/26/2020 09:52:00 AM EST [facility] 1 Clinical Report - Physicians/Mid Levels [facility] Emergency Department [address] [place] [address] Phone #: ext- [phone] 05/26/2020 09:39 [id number] Sex[facility] F : 1970 Age: 49y Time Seen: 10:16 05/26/2020; initial patient contact, initial documentation. Arrived- By private vehicle. Historian- patient. Disposition decision: 12:49 05/26/2020.HISTORY OF PRESENT ILLNESS Chief Complaint: BACK PAIN. It is described as being mild and in the area of the right flank. The quality is noted to be dull, aching and "pain". No radiation. Onset- about 2 months ago and it is still present. No bladder dysfunction, bowel dysfunction, sensory loss or motor loss. Additional history - Pt sts thant on April 01 she had to perform CPR on a pt and was alone for a small amoutn of time and did majority by herslef that resulted in excerbation of pain. Seen by her PCP in April due to neck pain and LBP. Had XRs and rx'ed muscle relaxers; sts that this helped, but not fully resolved. Sts that he had Neck pain and dizziness last week, but r esolved, but has R flank pain and this is the only reason here in the ER, R LBP/R flank pain. Patient notes the possibility of an injury. Mechanism of injury- she was lifting, turning and bending. No injury to the head or neck or other injury. Similar symptoms previously. Patient has had similar symptoms frequently. Recent medical care: The patient was seen recently at another facility in a clinic.REVIEW OF SYSTEMSLast normal menstrual period- 3 weeks ago. No fever, chills, eye irritation, difficulty with urination orurinary frequency. No hematuria, vaginal discharge, irregular periods, skin rash or headache. Nodepression, sore throat, cough, difficulty breathing or chest pain. No abdominal pain, nausea, vomiting,black stools or bloody stools. The patient has had diarrhea. All other systems reviewed and arenegative.PAST HISTORYSee nurses notes. Has had back injury. She has had prior back pain. Problems: Diabetes Mellitus Type 2. Diabetes Mellitus. Gastroenteritis. GI Disease. "bulging disks" . Cellulitis. Bronchitis. Sick Contact. Insect Bite(s). Pharyngitis. 2 Clinical Report - Physicians/Mid Levels [facility] Emergency Department [address] [place] [address] Phone #: ext- [phone] 05/26/2020 09:39 Patient: CECE FLORES Sex: F : 1970 Age: 49y Ovarian Cyst. Sinusitis. UTI - Urinary Tract Infection. Soft Tissue Foreign Body. Lung Disease. Otitis Media. Other Disease. Neuropathy. Hypercholesterolemia. Hypertension. Anxiety Reaction. COPD - Chronic Obstructive Pulmonary Disease. Spinal narrowing. Migraine Headache. Lumbar Strain. Additional Surgeries: Carpal Tunnel Surgery. . Dental Surgery. Knee Surgery. Wrist surgery. Allergies: Naproxen.(itching) (turns red).SOCIAL HISTORYHeavy tobacco smoker- less than 1 pack per day. Occasional alcohol use. No drug use.ADDITIONAL NOTESThe nursing notes have been reviewed.PHYSICAL EXAMVital Signs: 05/26/2020 09:45 BP: 132/73. MAP: 92. HR: 88. RR: 16. O2 saturation: 98%. Temp: 98.1 F.Pain level now: 10. Have been reviewed. Oxygen saturation normal.Appearance: Alert. No acute distress.ENT: Voice normal.Neck: Normal inspection. Neck nontender. Painless ROM.CVS: Normal heart rate and rhythm. No JVD present. Pulses normal. Capillary refill normal. Strongperipheral pulses. Heart sounds normal. Pulses: right radial 2+; left radial 2+; right dorsalis pedis 2+; leftdorsalis pedis 2+; right posterior tibial 2+; left posterior tibial 2+.Respiratory: Chest normal on inspection. No respiratory distress. Unlabored respirations. Lungs clear.Good chest movement. Breath sounds normal and equal. Chest nontender.Abdomen: Normal inspection. Soft. Mild tenderness in the right upper quadrant. No guarding, reboundtenderness or Cornelius's sign present. Bowel sounds normal. No distention. 3 Clinical Report - Physicians/Mid Levels [facility] Emergency Department [address] [place] [address] Phone #: ext- [phone] 05/26/2020 09:39 Patient: CECE FLORES Sex: F : 1970 Age: 49y Back: Muscle spasm of the back. CVA tenderness. Soft tissue tenderness. No vertebral point tenderness. Skin: Skin warm and dry. Extremities: Extremities exhibit normal ROM. No lower extremity edema. Extremities nontender. No calf tenderness. Neuro: Awake. Alert. Mood/affect normal. Speech normal. No motor deficit. No sensory deficit. Reflexes normal. Psych: Cognition normal. Thought process and content normal. Insight and judgement normal.LABS, X-RAYS, AND EKGCT L-Spine: Note- Ирина mancera Terence - 05/26/2020 12:31:10 PMStable mild old compression fracture deformities at T12-L2. No acute fracture or dislocation. Milddegenerative disease of lumbar spine. Small disc bulges/herniations throughout lumbar spine. The studywas interpreted by the radiologist.CT Abdomen - Pelvis: ?. Ирина mancera Terence - 05/26/2020 12:27:58 PMFatty infiltration of liver. Hepatomegaly at 20.4 cm. No calculi or hydronephrosis. Appendix not seen. Noinflammation right lower quadrant to suggest appendicitis. No acute disease. The study was interpretedby the radiologist.PROGRESS AND PROCEDURESCourse of Care: VSS, NAD, AOx3, interacting well and appropriately, no use of accessory muscle, able tospeak full sentences, stable, non-toxic looking. Enter room and pt lying peacefully in bed in NAD. Patient stable. Denies any new issues, concerns, or complaints. Pt sts that she has had LBP since March. Sts she has flucating neck pain, but has resolved. Had XRs and previously rx'ed muslce relaxers with some improvement. PE demos NV intact b/l UE and LE. Noted R sided CVA tenderness with muscle spasm/tightness. No neuro deficits ntoed. Will obtain labs and imaging for yonny gamez. Pt is NPO and Naproxen allergy, thus IV Ofirmev. Pending results. ///////////////////////////////////////////////////////////////////////// Reviewed [place] [employer] This report was requested by: Quinn Murray Reference #: [id number] Others' Prescriptions Patient Name: Cece FloresBirth Date: 1970 Address: [address] [place], [place] [address]Sex: Female Rx Written Rx Dispensed Drug Quantity Days Supply Prescriber Name Payment Method Dispenser 05/12/2020 05/17/2020 pregabalin 75 mg capsule 90 30 Estelle Craven Medicaid [facility] 4 Clinical Report - Physicians/Mid Levels [facility] Emergency Department [address] [place] [address] Phone #: ext- [phone] 05/26/2020 09:39 Patient: CECE FLORES Sex: F : 1970 Age: 49y 03/17/2020 03/23/2020 pregabalin 75 mg capsule 90 30 Estelle Craven Medicaid [facility] 02/10/2020 02/17/2020 pregabalin 75 mg capsule 90 30 Estelle Craven Medicaid [facility] 01/06/2020 01/08/2020 pregabalin 75 mg capsule 90 30 Laura Dutton A Medicaid [facility] 11/25/2019 11/27/2019 pregabalin 75 mg capsule 90 30 Estelle Craven Medicaid [facility] 06/24/2019 10/17/2019 pregabalin 75 mg capsule 90 30 Estelle Craven Medicaid [facility] 06/24/2019 09/06/2019 pregabalin 75 mg capsule 90 30 Estelle Craven Medicaid [facility] 06/24/2019 07/31/2019 pregabalin 75 mg capsule 90 30 Estelle Craven Medicaid [facility] 06/24/2019 06/26/2019 pregabalin 75 mg capsule 90 30 Estelle Craven Medicaid [facility] 02/11/2019 05/27/2019 pregabalin 75 mg capsule 90 30 Estelle Craven Medicaid [facility] /////////////////////////////////////////////////////////////////// 12:49 05/26/20. Reviewed results. Enter room and patient lying peacefully in bed in NAD. Patient stable. Denies any new issues, concerns, or complaints. Discussed results with pt. Discussed tx plan with pt. Discussed and counseled on stable condition. Discussed importance of a f/u with PCP. Discussed return to ER criteria. Answered their questions. Indicates that they understand, agree, and will comply with above. Denies any new questions or concerns. Patient has capacity to understand. Discharge decision based on the following: patient's condition is stable; patient's exam is stable; social support is adequate; transportation is available; follow-up is available. Discussed of OTC Motrin and Tylenol to control inflammation and pain management. Informed to follow directions on bottle that are appropriate for age and/or weight. Disposition: Discharged home in good and improved condition. Condition: good and stable.CLINICAL IMPRESSION Acute nontraumatic lumbar back pain associated with muscle strain; a compression fracture of T12, L1 and L2; degenerative disc disease of the lumbar spine. No radiculopathy or neurological deficit. Lower back spasm.INSTRUCTIONS Apply ice for 10 minutes three times a day for one weeks followed by dry heat 10 minutes three times a day for one as needed. Don't apply ice directly to skin, don't use while asleep and don't use high setting on heating pad. No lifting greater than 5 lbs, no bending or stooping or no prolonged sitting for- 1- weeks. No strenuous activity for one weeks. 5 Clinical Report - Physicians/Mid Levels [facility] Emergency Department [address] [place] [address] Phone #: ext- [phone] 05/26/2020 09:39 Patient: CECE FLORES Sex: F : 1970 Age: 49y No dietary restrictions. (Recommend to utilize OTC Tylenol to control inflammation and pain management. Recommend to follow the instructions on the bottle and not to exceed.). Warnings: SEDATIVE MEDICATION: You were given sedative medication during your visit. Do not drive or operate dangerous machinery. GENERAL WARNINGS: Return or contact your physician i mmediately if your condition worsens or changes unexpectedly, if not improving as expected, or if other problems arise. Prescription monitor program consulted by me due to Currently a open rx. . Prescription Medications: Lidoderm 5 % topical patch Apply 1 patch single dose for 3 days -- Apply patch to area of pain and leave on no more than 12hrs and remove. You are able to cut to size. Dispense 3 patch. Refills: 0. Substitution permitted. [facility] - [address], [place] [id number]. . cyclobenzaprine 10 mg tablet Take 1 tablet three times a day for 3 days -- Dispense 9 tablet. Refills: 0. Substitution permitted. [facility] - [address] [facility] ; [place] [address]. . Follow-up: Return to the emergency department as needed. Follow up with your healthcare provider in about two days if not better. Call for an appointment. Understanding of the discharge instructions verbalized by patient. Follow-up with: [facility], , , [address] [place] [address], [id number] Follow up. Call for the next available appointment. Reason for referral: evaluation and treatment.(Electronically signed by Quinn Murray P.A.-C 05/26/2020 21:17) Name Value Range Interpretation Code Description Data Clare rce(s) Supporting Document(s) ID Date Data Source [id number] 05/26/2020 11:34:00 AM EST [facility] Name Value Range Interpretation Code Description Data Clare rce(s) Supporting Document(s) COMPREHENSIVE METABOLIC PANEL [facility] COMPREHENSIVE METABOLIC PANEL Sodium [Moles/volume] in Serum or Plasma 136 mEq/L 134 - 153 [facility] Potassium [Moles/volume] in Serum or Plasma 4.7 mEq/L 3.6 - 5.0 [facility] Chloride [Moles/volume] in Serum or Plasma 99 mEq/L 98 - 107 [facility] Carbon dioxide, total [Moles/volume] in Serum or Plasma 26 MEQ/L 22 - 30 [facility] Glucose [Mass/volume] in Serum or Plasma 183 MG/DL 70 - 99 H [facility] BUN 10 MG/DL 7 - [facility] Creatinine [Mass/volume] in Serum or Plasma 0.6 MG/DL 0.7 - 1.5 L [facility] BUN/CREAT 17 8 - 27 [facility] al Protein [Mass/volume] in Serum or Plasma 6.5 G/DL 6.3 - 8.2 [facility] Albumin [Mass/volume] in Serum or Plasma 4.3 G/DL 3.9 - 5.0 [facility] Globulin [Mass/volume] in Serum by calculation 2.2 GM/DL 2.4 - 3.2 L [facility] A/G RATIO 2.0 0.8 - 2.0 [facility] Calcium [Mass/volume] in Serum or Plasma 9.4 MG/DL 8.4 - 10.2 [facility] Bilirubin.total [Mass/volume] in Serum or Plasma <0.7 MG/DL 0.2 - 1.3 [facility] Alkaline phosphatase [Enzymatic activity/volume] in Serum or Plasma 92 U/L 38 - 126 [facility] Aspartate aminotransferase [Enzymatic activity/volume] in Serum or Plasma 17 U/L 5 - 40 [facility] Alanine aminotransferase [Enzymatic activity/volume] in Seru m or Plasma 25 U/L 7 - 56 [facility] Anion gap 3 in Serum or Plasma 11.0 mmol/L 8.0 - 16.0 [facility] AGE 49 yrs [facility] al NON-AA GFR >60 mL/min [facility] Hosp ital AFR AMER GFR >60 mL/min [facility] Ho spital Male GFR In terprentation 20-49 yrs >60 mL/min Normal 50-59 yrs >56 mL/min Normal 60-69 yrs >49 mL/min Normal 70-79yrs >42 mL/min Normal 80 and above >35 mL/min Normal Female GFR Interpretation 20-39 yrs >60 mL/min Normal 40-49 yrs >58 mL/min Normal 50-59 yrs >51 mL/min Normal 60-69 yrs >45 mL/min Normal 70-79 yrs >39 mL/min Normal 80 and above >32 mL/min Normal ID Date Data Source [id number] 05/26/2020 11:25:00 [facility] Name Value Range Interpretation Code Description Data Clare rce(s) Supporting Document(s) Lipase [Enzymatic activity/volume] in Serum or Plasma 25 U/L 13 - 60 [facility] ID Date Data Source [id number] 05/26/2020 11:15:00 AM [facility] Value Range Interpretation Code Description Data Clare rce(s) Supporting Document(s) Lactate [Moles/volume] in Serum or Plasma 1.5 MMOL/L 0.2 - 2.2 [facility] ID Date Data Source [id number] 05/26/2020 11:08:00 AM [facility] Value Range Interpretation Code Description Data Clare rce(s) Supporting Document(s) CBC W/AUTOMATED DIFF [facility] COMPLETE BLOOD COUNT Leukocytes [#/volume] in Blood by Automated count 9.5 10^3/uL 4.2 - 1 1.0 [facility] Erythrocytes [#/volume] in Blood by Automated count 4.24 10^6/uL 4. 20 - 5.40 [facility] Hemoglobin [Mass/volume] in Blood 13.3 g/dL 12.0 - 16.0 [facility] Hematocrit [Volume Fraction] of Blood by Automated count 38.6 % 3 7.0 - 47.0 [facility] Erythrocyte mean corpuscular volume [Entitic volume] by Auto mated count 91.0 fL 81.0 - 101 [facility] Erythrocyte mean corpuscular hemoglobin [Entitic mass] by Automated count 31.4 pg 27.0 - 34.0 [facility] Erythrocyte mean corpuscular hemoglobin concentration [Mass/volume] by Automated count 34.5 g/dL 31.0 - 36.0 [facility] Erythrocyte distribution width [Ratio] by Automated count 12.3 % 11.5 - 14.5 [facility] Platelets [#/volume] in Blood by Automated count 305 10^3/uL 150 - 45 0 [facility] Platelet mean volume [Entitic volume] in Blood by Automated count 9.7 fL 7.4 - 10.4 [facility] Neutrophils/100 leukocytes in Blood by Automated count 59.4 % 37. 0 - 80.0 [facility] Lymphocytes/100 leukocytes in Blood by Manual count 30.8 % 25.0 - 40.0 [facility] Monocytes/100 leukocytes in Blood by Automated count 7.7 % 3.0 - 8.0 [facility] Eosinophils/100 leukocytes in Blood by Automated count 1.5 % 0.0 - 7.0 [facility] Basophils/100 leukocytes in Blood by Automated count 0.4 % 0.0 - 2.5 [facility] %IG 0.2 % 0.0 - [facility].0 % 0.0 - 0.0 [facility] al Neutrophils [#/volume] in Blood by Automated count 5.62 10^3/uL 2.00 - 6.90 [facility] Lymphocytes [#/volume] in Blood by Automated count 2.91 10^3/uL 0.60 - 3.40 [facility] Monocytes [#/volume] in Blood by Automated count 0.73 10^3/uL 0.00 - 0.90 [facility] Eosinophils [#/volume] in Blood by Automated count 0.14 10^3/uL 0.00 - 0.70 [facility] Basophils [#/volume] in Blood by Automated count 0.04 10^3/uL 0.00 - 0.20 [facility] #IG 0.02 10^3/uL 0.00 - 0.10 [facility] #NRBC 0.00 10^3/uL 0.00 - 0.00 [facility] MANUAL DIFF NOT INDICATED [facility] RBC MORPH NOT INDICATED [facility] ID Date Data Source [id number] 05/26/2020 10:15:00 AM EST [facility] Name Value Range Interpretation Code Description Data Clare rce(s) Supporting Document(s) HCG URINE QUAL NEGATIVE NORMAL: NEGATIVE [facility] HCG URINE QL REENTER NEGATIVE NORMAL: NEGATIVE [facility] { KIT LOT # [id number] ){ KIT EXP DATE 02.03.21 ){ PROCEDURAL CONTROL VALID ) ID Date Data Source [id number] 05/26/2020 10:15:00 [facility] Name Value Range Interpretation Code Description Data Clare rce(s) Supporting Document(s) URINALYSIS [facility] ketan URINALYSIS SOURCE R [facility] al COLOR yellow NORMAL: Yellow [facility] CLARITY clear NORMAL: Clear [facility] Specific gravity of Urine by Test strip 1.020 1.001 - 1.030 [facility] pH 6 5 - 9 [facility] al Glucose [Mass/volume] in Urine by Test strip NORM NORMAL: Negat [facility] Bilirubin.total [Presence] in Urine by Test strip NEG NORMAL: Negative [facility] Ketones [Presence] in Urine by Test strip NEG NORMAL: Negative [facility] Protein [Mass/volume] in Urine by Test strip [facility]G [facility] Nitrite [Presence] in Urine by Test strip NEG NORMAL: Negative [facility] BLOOD NEG NORMAL: Negative [facility] Leukocyte esterase [Presence] in Urine by Test strip NEG RONALD L: Negative [facility] Urobilinogen [Mass/volume] in Urine by Test strip NOR less michael n 1.0 mg/dL [facility] MICROSCOPIC Not Indicate [facility] ID Date Data Source [id number] 05/25/2020 11:25:00 AM EST [facility] ([facility]) Name Value Range Interpretation Code Description Data Clare rce(s) Supporting Document(s) Covid Rapid Testing Laboratory test result [facility] ([facility]) ID Date Data Source [id number] 05/25/2020 12:00:00 AM EST [facility] Name Value Range Interpretation Code Description Data Clare rce(s) Supporting Document(s) Covid Rapid Testing Negative [facility] This lab was ordered by [facility] and re ported by [facility]. ID Date Data Source RUBEOLA IgG ANTIBODY 04/29/2020 12:00:00 AM EST eCW1 ([facility]) Name Value Range Interpretation Code Description Data Clare rce(s) Supporting Document(s) 84.2 Immune >16.4 eCW1 ([facility]) ID Date Data Source MUMPS VIRUS IgG ANTIBODY 04/29/2020 12:00:00 AM EST eCW1 ([facility]) Name Value Range Interpretation Code Description Data Clare rce(s) Supporting Document(s) 232.0 Immune >10.9 eCW1 ([facility]) ID Date Data Source RUBELLA IgG FOR TORCH EVAL 04/29/2020 12:00:00 AM EST eCW1 ( [facility]) Name Value Range Interpretation Code Description Data Clare rce(s) Supporting Document(s) 4.97 Immune >0.99 eCW1 ([facility]) ID Date Data Source LIPID PANEL (CARDIAC RISK) 04/29/2020 12:00:00 AM EST eCW1 ( [facility]) Name Value Range Interpretation Code Description Data Clare rce(s) Supporting Document(s) Cholesterol in HDL [Moles/volume] in Serum or Plasma 37 >40 eCW1 ([facility]) Cholesterol [Moles/volume] in Serum or Plasma 207 <200 eCW1 ([facility]) Triglyceride [Mass/volume] in Serum or Plasma by calculation 340 <150 eCW1 ([facility]) 170 eCW1 ([facility]) Cholesterol in LDL [Mass/volume] in Serum or Plasma by calculation 10 2 <100 eCW1 ([facility]) 5.594 <5 eCW1 ([facility]) ID Date Data Source FREE T4 & TSH PANEL 04/29/2020 12:00:00 AM EST eCW1 ([facility]) Name Value Range Interpretation Code Description Data Clare rce(s) Supporting Document(s) 0.994 0.358-3.740 THYROID STIMULATING HORM ONE eCW1 ([facility]) 0.99 0.76-1.46 FREE T4 eCW1 ([facility]) ID Date Data Source [id number] 12/11/2019 03:36:00 PM EDT [facility] ([facility] Name Value Range Interpretation Code Description Data Clare rce(s) Supporting Document(s) Glucose, Fasting 126 mg/dL 70-100 Above high normal M [facility] ([facility] Blood Urea Nitrogen 7 mg/dL 7-18 [facility] ([facility] Sodium Level 138 meq/L 136-145 [facility] ([facility] Creatinine For GFR 0.74 mg/dL 0.55-1.30 [facility] ([facility] Glomerular Filtration Rate Laboratory test result [facility] ([facility] <content>Units are mL/min/1.73 m2</content>
<content></content>
<content>Chronic Kidney Disease Staging per NKF:</content>
<content></content>
<content>Stage I & II GFR >=60 Normal to Mildly Decreased</content>
<content>Stage III GFR 30- 59 Moderately Decreased</content>
<content>Stage IV GFR 15-29 Severely Decreased</content>
<content>Stage V GFR <15 Very Little GFR Left</content>
<content>ESRD GFR <15 on RECEIVING ASSOCIATE</content>
<content></content> Carbon Dioxide Level 32 meq/L 21-32 [facility] ([facility] Chloride Level 103 meq/L 98-107 [facility] ([facility] Potassium Serum 4.3 meq/L 3.5-5.1 [facility] ([facility] Anion Gap 3 meq/L 8-16 [facility] ([facility] Ast/Sgot 12 U/L 7-37 [facility] ([facility] Calcium Level 9.5 mg/dL 8.5-10.1 [facility] ([facility] Alt/SGPT 32 U/L 12-78 [facility] ([facility] Alkaline Phosphatase 104 U/L 45-117 [facility] ([facility] Bilirubin,Total 0.2 mg/dL 0.2-1.0 [facility] ([facility] Total Protein 7.3 GM/DL 6.4-8.2 [facility] ([facility] Albumin/Globulin Ratio 1.0 1.2-2.2 [facility] ([facility] Albumin 3.7 GM/DL 3.2-5.2 [facility] ([facility] Procedure Social History Code Duration Value Status Description Data Source(s ) Smoking 01/22/2021 12:00:00 AM EDT Current Smoker completed Curre nt Smoker eCW1 ([facility]) Smoking 01/22/2021 12:00:00 AM EDT Current Smoker completed Curre nt Smoker eCW1 ([facility]) Smoking 01/22/2021 12:00:00 AM EDT Current Smoker completed Curre nt Smoker eCW1 ([facility]) Smoking 12/11/2020 12:00:00 AM EDT Current Smoker completed Curre nt Smoker eCW1 ([facility]) Smoking 12/11/2020 12:00:00 AM EDT Current Smoker completed Curre nt Smoker eCW1 ([facility]) Smoking 12/11/2020 12:00:00 AM EDT Current Smoker completed Curre nt Smoker eCW1 ([facility]) Smoking 12/11/2020 12:00:00 AM EDT Current Smoker completed Curre nt Smoker eCW1 ([facility]) Smoking 12/11/2020 12:00:00 AM EDT Current Smoker completed Curre nt Smoker eCW1 ([facility]) Smoking 12/11/2020 12:00:00 AM EDT Current Smoker completed Curre nt Smoker eCW1 ([facility]) Smoking 11/26/2020 12:00:00 AM EDT Current Smoker completed Curre nt Smoker eCW1 ([facility]) Smoking 11/26/2020 12:00:00 AM EDT Current Smoker completed Curre nt Smoker eCW1 ([facility]) Smoking 11/26/2020 12:00:00 AM EDT Current Smoker completed Curre nt Smoker eCW1 ([facility]) Smoking 11/26/2020 12:00:00 AM EDT Current Smoker completed Curre nt Smoker eCW1 ([facility]) Smoking 10/27/2020 12:00:00 AM EDT Current Smoker completed Curre nt Smoker eCW1 ([facility]) Smoking 10/27/2020 12:00:00 AM EDT Current Smoker completed Curre nt Smoker eCW1 ([facility]) Smoking 10/27/2020 12:00:00 AM EDT Current Smoker completed Curre nt Smoker eCW1 ([facility]) Smoking 10/27/2020 12:00:00 AM EDT Current Smoker completed Curre nt Smoker eCW1 ([facility]) Smoking 10/27/2020 12:00:00 AM EDT Current Smoker completed Curre nt Smoker eCW1 ([facility]) Smoking 10/14/2020 12:00:00 AM EDT Current Smoker completed Curre nt Smoker eCW1 ([facility]) Smoking 10/14/2020 12:00:00 AM EDT Current Smoker completed Curre nt Smoker eCW1 ([facility]) Smoking 10/14/2020 12:00:00 AM EDT Current Smoker completed Curre nt Smoker eCW1 ([facility]) Smoking 10/14/2020 12:00:00 AM EDT Current Smoker completed Curre nt Smoker eCW1 ([facility]) Smoking 10/14/2020 12:00:00 AM EDT Current Smoker completed Curre nt Smoker eCW1 ([facility]) Smoking 10/14/2020 12:00:00 AM EDT Current Smoker completed Curre nt Smoker eCW1 ([facility]) Smoking 09/15/2020 12:00:00 AM EDT Current Smoker completed Curre nt Smoker eCW1 ([facility]) Smoking 09/15/2020 12:00:00 AM EDT Current Smoker completed Curre nt Smoker eCW1 ([facility]) Smoking 09/15/2020 12:00:00 AM EDT Current Smoker completed Curre nt Smoker eCW1 ([facility]) Smoking 09/15/2020 12:00:00 AM EDT Current Smoker completed Curre nt Smoker eCW1 ([facility]) Smoking 08/11/2020 12:00:00 AM EDT Current Smoker completed Curre nt Smoker eCW1 ([facility]) Smoking 08/11/2020 12:00:00 AM EDT Current Smoker completed Curre nt Smoker eCW1 ([facility]) Smoking 05/12/2020 12:00:00 AM EST Current Smoker completed Curre nt Smoker eCW1 ([facility]) Smoking 05/12/2020 12:00:00 AM EST Current Smoker completed Curre nt Smoker eCW1 ([facility]) Smoking 05/12/2020 12:00:00 AM EST Current Smoker completed Curre nt Smoker eCW1 ([facility]) Smoking 05/12/2020 12:00:00 AM EST Current Smoker completed Curre nt Smoker eCW1 ([facility]) Smoking 05/12/2020 12:00:00 AM EST Current Smoker completed Curre nt Smoker eCW1 ([facility]) Smoking 05/12/2020 12:00:00 AM EST Current Smoker completed Curre nt Smoker eCW1 ([facility]) Smoking 05/12/2020 12:00:00 AM EST Current Smoker completed Curre nt Smoker eCW1 ([facility]) Smoking 04/29/2020 12:00:00 AM EST Current Smoker completed Curre nt Smoker eCW1 ([facility]) Smoking 04/29/2020 12:00:00 AM EST Current Smoker completed Curre nt Smoker eCW1 ([facility]) Smoking 03/25/2020 12:00:00 AM EST Current Smoker completed Curre nt Smoker eCW1 ([facility]) Smoking 03/25/2020 12:00:00 AM EST Current Smoker completed Curre nt Smoker eCW1 ([facility]) Smoking 02/20/2020 12:00:00 AM EDT Current Smoker completed Curre nt Smoker eCW1 ([facility]) Smoking 02/20/2020 12:00:00 AM EDT Current Smoker completed Curre nt Smoker eCW1 ([facility]) Smoking 02/20/2020 12:00:00 AM EDT Current Smoker completed Curre nt Smoker eCW1 ([facility]) Smoking 02/20/2020 12:00:00 AM EDT Current Smoker completed Curre nt Smoker eCW1 ([facility]) Vital Signs ID Date Data Source [id number] Name Value Range Interpretation Code Description Data Source(s) Body weight 202 [lb_av] 202 [lb_av] eCW1 ([facility]) Body weight 91.63 kg 91.63 kg eCW1 ([facility]) Body height 63 [in_i] 63 [in_i] eCW1 ([facility]) Body mass index (BMI) [Ratio] 35.78 kg/m2 35.78 kg/m2 eCW1 ([facility]) Heart rate 100 /min 100 /min eCW1 ([facility]) Respiratory rate 18 /min 18 /min eCW1 ([facility]) Body temperature 97.4 [degF] 97.4 [degF] eCW1 ( [facility]) Systolic blood pressure 122 mm[Hg] 122 mm[Hg] e CW1 ([facility]) Diastolic blood pressure 68 mm[Hg] 68 mm[Hg] eCW1 ([facility]) Body weight 203.6 [lb_av] 203.6 [lb_av] eCW1 ([facility]) Body weight 92.35 kg 92.35 kg eCW1 ([facility]) Body height 63 [in_i] 63 [in_i] eCW1 ([facility]) Body mass index (BMI) [Ratio] 36.06 kg/m2 36.06 kg/m2 eCW1 ([facility]) Body weight 207 [lb_av] 207 [lb_av] eCW1 ([facility]) Body weight 93.89 kg 93.89 kg eCW1 ([facility]) Body height 63 [in_i] 63 [in_i] eCW1 ([facility]) Body mass index (BMI) [Ratio] 36.66 kg/m2 36.66 kg/m2 eCW1 ([facility]) Heart rate 98 /min 98 /min eCW1 ([facility]) Respiratory rate 18 /min 18 /min eCW1 ([facility]) Body temperature 97.2 [degF] 97.2 [degF] eCW1 ( [facility]) Systolic blood pressure 124 mm[Hg] 124 mm[Hg] e CW1 ([facility]) Diastolic blood pressure 78 mm[Hg] 78 mm[Hg] eCW1 ([facility]) Body weight 206 [lb_av] 206 [lb_av] eCW1 ([facility]) Body height 63 [in_i] 63 [in_i] eCW1 ([facility]) Body mass index (BMI) [Ratio] 36.49 kg/m2 36.49 kg/m2 eCW1 ([facility]) Heart rate 118 /min 118 /min eCW1 ([facility]) Respiratory rate 18 /min 18 /min eCW1 ([facility]) Body temperature 96.4 [degF] 96.4 [degF] eCW1 ( [facility]) Systolic blood pressure 118 mm[Hg] 118 mm[Hg] e CW1 ([facility]) Diastolic blood pressure 60 mm[Hg] 60 mm[Hg] eCW1 ([facility]) Body weight 207 [lb_av] 207 [lb_av] eCW1 ([facility]) Body height 63 [in_i] 63 [in_i] eCW1 ([facility]) Body mass index (BMI) [Ratio] 36.66 kg/m2 36.66 kg/m2 eCW1 ([facility]) Heart rate 102 /min 102 /min eCW1 ([facility]) Respiratory rate 18 /min 18 /min eCW1 ([facility]) Body temperature 97.4 [degF] 97.4 [degF] eCW1 ( [facility]) Systolic blood pressure 122 mm[Hg] 122 mm[Hg] e CW1 ([facility]) Diastolic blood pressure 68 mm[Hg] 68 mm[Hg] eCW1 ([facility]) Body mass index (BMI) [Ratio] 36.8 kg/m2 36.8 k g/m2 [facility] ([facility] Body height 63 [in_i] 63 [in_i] [facility] ([facility] 5'3" Body weight 208.00 [lb_av] 208.00 [lb_av] [facility] T ([facility] Systolic blood pressure 122 mm[Hg] 122 mm[Hg] [facility] ([facility] Diastolic blood pressure 68 mm[Hg] 68 mm[Hg] [facility] ([facility] Heart rate 93 /min 93 /min [facility] ([facility] Systolic blood pressure 142 mm[Hg] 142 mm[Hg] [facility] ([facility] ) Diastolic blood pressure 90 mm[Hg] 90 mm[Hg] [facility] ([facility]) Heart rate 90 /min 90 /min [facility] ([facility]) Oxygen saturation in Arterial blood by Pulse oximetry 95 % 95 % [facility] ([facility]) Body height 63 [in_i] 63 [in_i] [facility] ([facility]) 5'3" Body weight 206.00 [lb_av] 206.00 [lb_av] [facility] Body mass index (BMI) [Ratio] 36.5 kg/m2 36.5 k g/m2 [facility] ([facility]) Stephan body weight 115 [lb_av] 115 [lb_av] [facility] Body weight 93.442 kg 93.442 kg [facility] ([facility]) Body surface area Derived from formula 1.96 m2 1.96 m2 [facility] ([facility]) Body weight [lb_av] W1 ([facility]) Body height 63 [in_i] 63 [in_i] eCW1 ([facility]) Body mass index (BMI) [Ratio] 36.63 kg/m2 36.63 kg/m2 W1 ([facility]) Body weight 206.8 [lb_av] 206.8 [lb_av] eCW1 ([facility]) Body height 63 [in_i] 63 [in_i] eCW1 ([facility]) Body mass index (BMI) [Ratio] 36.63 kg/m2 36.63 kg/m2 eCW1 ([facility]) Heart rate 105 /min 105 /min eCW1 ([facility]) Respiratory rate 18 /min 18 /min eCW1 ([facility]) Body temperature 97.4 [degF] 97.4 [degF] eCW1 ( [facility]) Systolic blood pressure 130 mm[Hg] 130 mm[Hg] e CW1 ([facility]) Diastolic blood pressure 60 mm[Hg] 60 mm[Hg] eCW1 ([facility]) Body weight 208 [lb_av] 208 [lb_av] eCW1 ([facility]) Body height 63 [in_i] 63 [in_i] eCW1 ([facility]) Body mass index (BMI) [Ratio] 36.84 kg/m2 36.84 kg/m2 eCW1 ([facility]) Heart rate 107 /min 107 /min eCW1 ([facility]) Respiratory rate 18 /min 18 /min eCW1 ([facility]) Body temperature 97.4 [degF] 97.4 [degF] eCW1 ( [facility]) Systolic blood pressure 122 mm[Hg] 122 mm[Hg] e CW1 ([facility]) Diastolic blood pressure 70 mm[Hg] 70 mm[Hg] eCW1 ([facility]) Body weight 209 [lb_av] 209 [lb_av] eCW1 ([facility]) Heart rate 108 /min 108 /min eCW1 ([facility]) Respiratory rate 18 /min 18 /min eCW1 ([facility]) Body temperature 97.4 [degF] 97.4 [degF] eCW1 ( [facility]) Systolic blood pressure 142 mm[Hg] 142 mm[Hg] e CW1 ([facility]) Diastolic blood pressure 82 mm[Hg] 82 mm[Hg] eCW1 ([facility]) Body height 63 [in_i] 63 [in_i] eCW1 ([facility]) Body mass index (BMI) [Ratio] 37.02 kg/m2 37.02 kg/m2 W1 ([facility]) Systolic blood pressure 130 mm[Hg] 130 mm[Hg] M [facility] ([facility]) Diastolic blood pressure 74 mm[Hg] 74 mm[Hg] [facility] ([facility]) Body height 63 [in_i] 63 [in_i] [facility] 5'3" Body weight 210.00 [lb_av] 210.00 [lb_av] [facility] T ([facility]) Body mass index (BMI) [Ratio] 37.2 kg/m2 37.2 k g/m2 [facility] ([facility]) Stephan body weight 115 [lb_av] 115 [lb_av] [facility] T ([facility]) Body weight 95.256 kg 95.256 kg [facility] ([facility]) Body surface area Derived from formula 1.97 m2 1.97 m2 [facility] ([facility]) Body temperature 97.1 [degF] 97.1 [degF] [facility] ([facility]) Body weight 205.00 [lb_av] 205.00 [lb_av] [facility] T ([facility]) Body temperature 97.3 [degF] 97.3 [degF] [facility] ([facility]) Body height 63 [in_i] 63 [in_i] [facility] ([facility]) 5'3" Body mass index (BMI) [Ratio] 36.3 kg/m2 36.3 k g/[facility] Body weight 211 [lb_av] 211 [lb_av] eCW1 ([facility]) Body height 63 [in_i] 63 [in_i] eCW1 ([facility]) Body mass index (BMI) [Ratio] 37.37 kg/m2 37.37 kg/m2 eCW1 ([facility]) Heart rate 121 /min 121 /min eCW1 ([facility]) Respiratory rate 18 /min 18 /min eCW1 ([facility]) Body temperature 96.9 [degF] 96.9 [degF] eCW1 ( [facility]) Systolic blood pressure 160 mm[Hg] 160 mm[Hg] e CW1 ([facility]) Diastolic blood pressure 78 mm[Hg] 78 mm[Hg] eCW1 ([facility]) Body weight 212 [lb_av] 212 [lb_av] eCW1 ([facility]) Body height 63 [in_i] 63 [in_i] eCW1 ([facility]) Body mass index (BMI) [Ratio] 37.55 kg/m2 37.55 kg/m2 eCW1 ([facility]) Heart rate 100 /min 100 /min eCW1 ([facility]) Respiratory rate 20 /min 20 /min eCW1 ([facility]) Body temperature 96.2 [degF] 96.2 [degF] eCW1 ( [facility]) Systolic blood pressure 130 mm[Hg] 130 mm[Hg] e CW1 ([facility]) Diastolic blood pressure 70 mm[Hg] 70 mm[Hg] eCW1 ([facility]) Heart rate 110 /min 110 /min eCW1 ([facility]) Respiratory rate 20 /min 20 /min eCW1 ([facility]) Body weight 210 [lb_av] 210 [lb_av] eCW1 ([facility]) Body height 63 [in_i] 63 [in_i] eCW1 ([facility]) Body mass index (BMI) [Ratio] 37.20 kg/m2 37.20 kg/m2 eCW1 ([facility]) Diastolic blood pressure 64 mm[Hg] 64 mm[Hg] eCW1 ([facility]) Systolic blood pressure 120 mm[Hg] 120 mm[Hg] e CW1 ([facility]) Body temperature 96.7 [degF] 96.7 [degF] eCW1 ( [facility]) Body weight 209 [lb_av] 209 [lb_av] eCW1 ([facility]) Body weight 95.25 kg 95.25 kg eCW1 ([facility]) Body height 63 [in_i] 63 [in_i] eCW1 ([facility]) Body mass index (BMI) [Ratio] 37.02 kg/m2 37.02 kg/m2 eCW1 ([facility]) Systolic blood pressure 132 mm[Hg] 132 mm[Hg] e CW1 ([facility]) Diastolic blood pressure 72 mm[Hg] 72 mm[Hg] eCW1 ([facility]) Systolic blood pressure 128 mm[Hg] 128 mm[Hg] e CW1 ([facility]) Diastolic blood pressure 80 mm[Hg] 80 mm[Hg] eCW1 ([facility]) Body weight 210.0 [lb_av] 210.0 [lb_av] eCW1 ([facility]) Body height 63 [in_i] 63 [in_i] eCW1 ([facility]) Body mass index (BMI) [Ratio] 37.20 kg/m2 37.20 kg/m2 eCW1 ([facility]) Heart rate 108 /min 108 /min eCW1 ([facility]) Respiratory rate 18 /min 18 /min eCW1 ([facility]) Body temperature 97.4 [degF] 97.4 [degF] eCW1 ( [facility]) Patient Treatment Plan of Care Planned Activity Planned Date Details Description Data Source (s) pregabalin 75 MG Oral Capsule [Lyrica] 02/02/2021 12:00:00 AM EDT eCW1 ([facility]) pregabalin 75 MG Oral Capsule [Lyrica] 02/02/2021 12:00:00 AM EDT eCW1 ([facility]) Trulicity 4.5 MG/0.5ML 01/22/2021 12:00:00 AM EDT eCW1 ([facility]) Trulicity 4.5 MG/0.5ML 01/22/2021 12:00:00 AM EDT eCW1 ([facility]) Trulicity 4.5 MG/0.5ML 01/22/2021 12:00:00 AM EDT eCW1 ([facility]) pregabalin 75 MG Oral Capsule [Lyrica] 01/07/2021 12:00:00 AM EDT eCW1 ([facility]) pregabalin 75 MG Oral Capsule [Lyrica] 01/07/2021 12:00:00 AM EDT eCW1 ([facility]) levocetirizine dihydrochloride 5 MG Oral Tablet 01/06/2021 12:00:00 AM EDT eCW1 ([facility]) levocetirizine dihydrochloride 5 MG Oral Tablet 01/06/2021 12:00:00 AM EDT eCW1 ([facility]) levocetirizine dihydrochloride 5 MG Oral Tablet 01/06/2021 12:00:00 AM EDT eCW1 ([facility]) levocetirizine dihydrochloride 5 MG Oral Tablet 01/06/2021 12:00:00 AM EDT eCW1 ([facility]) levocetirizine dihydrochloride 5 MG Oral Tablet 01/06/2021 12:00:00 AM EDT eCW1 ([facility]) Trulicity 3 MG/0.5ML 12/11/2020 12:00:00 AM EDT eCW1 ([facility]) Trulicity 3 MG/0.5ML 12/11/2020 12:00:00 AM EDT eCW1 ([facility]) Trulicity 3 MG/0.5ML 12/11/2020 12:00:00 AM EDT eCW1 ([facility]) Trulicity 3 MG/0.5ML 12/11/2020 12:00:00 AM EDT eCW1 ([facility]) Trulicity 3 MG/0.5ML 12/11/2020 12:00:00 AM EDT eCW1 ([facility]) Trulicity 3 MG/0.5ML 12/11/2020 12:00:00 AM EDT eCW1 ([facility]) Levaquin 750 MG 11/26/2020 12:00:00 AM EDT eCW1 ([facility]) 12 HR Guaifenesin 600 MG Extended Release Oral Tablet [Mucinex] 11/26/2020 12:00:00 AM EDT eCW1 ([facility]) Triamcinolone Acetonide 55 MCG/ACT 11/26/2020 12:00:00 AM EDT eCW1 ([facility]) Levaquin 750 MG 11/26/2020 12:00:00 AM EDT eCW1 ([facility]) 12 HR Guaifenesin 600 MG Extended Release Oral Tablet [Mucinex] 11/26/2020 12:00:00 AM EDT eCW1 ([facility]) Triamcinolone Acetonide 55 MCG/ACT 11/26/2020 12:00:00 AM EDT eCW1 ([facility]) Levaquin 750 MG 11/26/2020 12:00:00 AM EDT eCW1 ([facility]) 12 HR Guaifenesin 600 MG Extended Release Oral Tablet [Mucinex] 11/26/2020 12:00:00 AM EDT eCW1 ([facility]) Triamcinolone Acetonide 55 MCG/ACT 11/26/2020 12:00:00 AM EDT eCW1 ([facility]) Levaquin 750 MG 11/26/2020 12:00:00 AM EDT eCW1 ([facility]) 12 HR Guaifenesin 600 MG Extended Release Oral Tablet [Mucinex] 11/26/2020 12:00:00 AM EDT eCW1 ([facility]) Triamcinolone Acetonide 55 MCG/ACT 11/26/2020 12:00:00 AM EDT eCW1 ([facility]) Triamcinolone Acetonide 55 MCG/ACT 10/15/2020 12:00:00 AM EDT eCW1 ([facility]) Triamcinolone Acetonide 55 MCG/ACT 10/15/2020 12:00:00 AM EDT eCW1 ([facility]) Triamcinolone Acetonide 55 MCG/ACT 10/15/2020 12:00:00 AM EDT eCW1 ([facility]) Triamcinolone Acetonide 55 MCG/ACT 10/15/2020 12:00:00 AM EDT eCW1 ([facility]) Flunisolide 25 MCG/ACT (0.025%) 10/14/2020 12:00:00 AM EDT eCW1 ([facility]) Flunisolide 25 MCG/ACT (0.025%) 10/14/2020 12:00:00 AM EDT eCW1 ([facility]) 0.5 ML dulaglutide 1.5 MG/ML Auto-Injector [Trulicity] 05/12/2020 12:00:00 AM EST eCW1 ([facility]) 0.5 ML dulaglutide 1.5 MG/ML Auto-Injector [Trulicity] 05/12/2020 12:00:00 AM EST eCW1 ([facility]) 0.5 ML dulaglutide 1.5 MG/ML Auto-Injector [Trulicity] 05/12/2020 12:00:00 AM EST eCW1 ([facility]) 0.5 ML dulaglutide 1.5 MG/ML Auto-Injector [Trulicity] 05/12/2020 12:00:00 AM EST eCW1 ([facility]) 0.5 ML dulaglutide 1.5 MG/ML Auto-Injector [Trulicity] 05/12/2020 12:00:00 AM EST eCW1 ([facility]) 0.5 ML dulaglutide 1.5 MG/ML Auto-Injector [Trulicity] 05/12/2020 12:00:00 AM EST eCW1 ([facility]) 0.5 ML dulaglutide 1.5 MG/ML Auto-Injector [Trulicity] 05/12/2020 12:00:00 AM EST eCW1 ([facility]) Fluconazole 150 MG Oral Tablet [Diflucan] 02/20/2020 12:00:00 AM ED T eCW1 ([facility]) Fluconazole 150 MG Oral Tablet [Diflucan] 02/20/2020 12:00:00 AM ED T eCW1 ([facility]) Fluconazole 150 MG Oral Tablet [Diflucan] 02/20/2020 12:00:00 AM ED T eCW1 ([facility]) Fluconazole 150 MG Oral Tablet [Diflucan] 02/20/2020 12:00:00 AM ED T eCW1 ([facility])
--- OUTSIDE RECORDS SUMMARY | 2021-02-06 01:25 | CCD ---
Author Author [facility] Organization [facility] Address Unknown Phone Unavailable Care Team Providers Care Orthopaedic General Name Role Phone Fish, B Reji DIAZ [...] Unavailable MCELHERAN, CB PA Unavailable Unavailable MCELHERAN, BC PA Unavailable Unavailable MCELHERAN, CB PA Unavailable [...] CB PA Unavailable Unavailable Barter, D Walter LABORER LANDSCAPE Unavailable Unavailable Barter, D Walter LABORER LANDSCAPE Unavailable Unavailable Barter, D Walter LABORER LANDSCAPE Unavailable Unavailable Barter, D Walter LABORER LANDSCAPE Unavailable Unavailable Barter, D Walter LABORER LANDSCAPE Unavailable Unavailable Barter, D Walter LABORER LANDSCAPE Unavailable Unavailable Barter, D Walter LABORER LANDSCAPE Unavailable Unavailable Barter, D Walter LABORER LANDSCAPE Unavailable Unavailable Barter, D Walter LABORER LANDSCAPE Unavailable Unavailable Barter, D Walter LABORER LANDSCAPE Unavailable Unavailable Barter, D Walter LABORER LANDSCAPE Unavailable Unavailable Barter, D Walter LABORER LANDSCAPE Unavailable Unavailable Barter, D Walter LABORER LANDSCAPE Unavailable Unavailable Barter, D Walter LABORER LANDSCAPE Unavailable Unavailable Barter, D Walter LABORER LANDSCAPE Unavailable Unavailable Barter, D Walter LABORER LANDSCAPE Unavailable Unavailable Barter, D Walter LABORER LANDSCAPE Unavailable Unavailable Barter, D Walter LABORER LANDSCAPE Unavailable Unavailable Barter, D Walter LABORER LANDSCAPE Unavailable Unavailable Barter, D Walter LABORER LANDSCAPE Unavailable Unavailable Barter, D Walter LABORER LANDSCAPE Unavailable Unavailable Barter, D Walter LABORER LANDSCAPE Unavailable Unavailable Barter, D Walter LABORER LANDSCAPE Unavailable Unavailable Barter, D Walter LABORER LANDSCAPE Unavailable Unavailable Barter, D Walter LABORER LANDSCAPE Unavailable Unavailable Barter, D Walter LABORER LANDSCAPE Unavailable Unavailable Barter, D Walter LABORER LANDSCAPE Unavailable Unavailable Barter, D Walter LABORER LANDSCAPE Unavailable Unavailable Barter, D Walter LABORER LANDSCAPE Unavailable Unavailable Barter, D Walter LABORER LANDSCAPE Unavailable Unavailable Barter, D Walter LABORER LANDSCAPE Unavailable Unavailable Barter, D Walter LABORER LANDSCAPE Unavailable Unavailable Barter, D Walter LABORER LANDSCAPE Unavailable Unavailable Barter, D Walter LABORER LANDSCAPE Unavailable Unavailable Barter, D Walter LABORER LANDSCAPE Unavailable Unavailable Barter, D Walter LABORER LANDSCAPE Unavailable Unavailable Barter, D Walter LABORER LANDSCAPE Unavailable Unavailable Barter, D Walter LABORER LANDSCAPE Unavailable Unavailable Barter, D Walter LABORER LANDSCAPE Unavailable Unavailable Barter, D Walter LABORER LANDSCAPE Unavailable Unavailable Barter, D Walter LABORER LANDSCAPE Unavailable Unavailable Barter, D Walter LABORER LANDSCAPE Unavailable Unavailable Barter, D Walter LABORER LANDSCAPE Unavailable Unavailable Barter, D Walter LABORER LANDSCAPE Unavailable Unavailable Barter, D Walter LABORER LANDSCAPE Unavailable Unavailable Barter, D Walter LABORER LANDSCAPE Unavailable Unavailable Barter, D Walter LABORER LANDSCAPE Unavailable Unavailable Barter, D Walter LABORER LANDSCAPE Unavailable Unavailable Barter, D Walter LABORER LANDSCAPE Unavailable Unavailable Barter, D Walter LABORER LANDSCAPE Unavailable Unavailable Barter, D Walter LABORER LANDSCAPE Unavailable Unavailable Barter, D Walter LABORER LANDSCAPE Unavailable Unavailable Barter, D Walter LABORER LANDSCAPE Unavailable Unavailable MAJAK, R GINO DPM Unavailable [...] R Estelle PA Unavailable Unavailable Jose Guadalupe, Eduarda Navarro PH.D., [...] Eduarda Navarro PH.D., M.D. Unavailable Unavailable Jose Ugadalupe, Eduarda Navarro PH.D., M.D. Unavailable Unavailable Jose [...] Guadalupe, C Ramon PH.D., M.D. Unavailable Unavailable Joseg Uadalupe, C Ramon PH.D., M.D. Unavailable Unavailable Jose [...] is protected by Article 27-F of the [facility] Public Health law. If you continue you may have access to information: Regarding HIV / AIDS; Provided by facilities licensed or operated by the [facility] Office of Mental Health; or Provided by the [facility] Office for People With Developmental Disabilities. If such information is present, then the following [facility] mandated warning applies: This information has been [...] law may result in a fine or correction sentence or both. A general authorization for [...] Date Indications Data Source(s ) Unknown [address] [facility] [place] [address] 02/02/2021 12:00:00 AM EDT eCW1 ([facility]) Unknown [address] [facility] [place] [address] 02/02/2021 12:00:00 AM EDT eCW1 ([facility]) Outpatient [address] [facility] [place] [address] 01/22/2021 12:00:00 AM EDT eCW1 ([facility] [place] [address] [facility] [place] [address] 01/13/2021 12:00:00 AM EDT eCW1 ([facility]) Unknown [address] [facility] [place] [address] 01/13/2021 12:00:00 AM EDT eCW1 ([facility]) [place] [address] [facility] [place] [address] 01/12/2021 12:00:00 AM EDT eCW1 ([facility]) [place] [address] [facility] [place] [address] 01/07/2021 12:00:00 AM EDT eCW1 ([facility]) Unknown [address] [facility] [place] [address] 01/05/2021 12:00:00 AM EDT eCW1 [facility] OFFICE OUTPATIENT VISIT 15 MINUTES Attender: CB VILLARREAL Physical Therapy 01/01/2021 05:30:00 PM EDT MEDENT ([facility]) Outpatient [address] [facility] [place] [address] 12/11/2020 12:00:00 AM EDT eCW1 [facility] Outpatient Attender: CB MAGAÑA PAConsultant: Estelle VILLARREAL 12/08/2020 09:15:00 AM EDT - 12/08/2020 10:15:00 AM EDT [facility] Outpatient [address] [facility] [place] [address] 11/26/2020 12:00:00 AM EDT eCW1 ([facility]) Unknown [address] [facility] [address] 11/26/2020 12:00:00 AM EDT eCW1 [facility] Unknown [address] [facility] [place] [address] 11/26/2020 12:00:00 AM EDT eCW1 ([facility] Unknown [address] [facility] [address] 11/26/2020 12:00:00 AM EDT eCW1 ([facility]) Unknown [address] [facility] [place] [address] 11/25/2020 12:00:00 AM EDT eCW1 ([facility]) Unknown [address] [facility] [address] 11/16/2020 12:00:00 AM EDT eCW1 ([facility]) Outpatient Attender: CB VILLARREAL Physical Therapy 11/12/2020 10:45:00 AM EDT MEDENT ([facility] Unknown [address] [facility] [address] 11/03/2020 12:00:00 AM EDT eCW1 ([facility]) Outpatient [address] [facility] [address] 10/27/2020 12:00:00 AM EDT eCW1 ([facility]) Unknown [address] [facility] [address] 10/20/2020 12:00:00 AM EDT eCW1 ([facility]) Outpatient Attender: GINO BARDALES [facility] Office 09/23 01:30:00 PM EDT MEDENT ([facility] Outpatient Attender: Ramon Shi PH.D., M.D. Jeffry/Yesica/Negro chavez/Kavon 10/19/2020 11:00:00 AM EDT MEDENT ([facility] [address]) Outpatient [address] [place] [address] 10/19/2020 12:00:00 AM EDT eCW1 ([facility]) Outpatient [address] [facility] [address] 10/14/2020 12:00:00 AM EDT eCW1 [facility] [place] [address] [facility] [place] [address] 10/14/2020 12:00:00 AM EDT eCW1 ([facility]) Unknown [address] [facility] [address] 10/14/2020 12:00:00 AM EDT eCW1 ([facility]) Unknown [address] [facility] [place] [address] 10/14/2020 12:00:00 AM EDT eCW1 ([facility]) Unknown [address] [facility] [place] [address] 10/07/2020 12:00:00 AM EDT eCW1 ([facility]) Unknown [address] [facility] [place] [address] 10/05/2020 12:00:00 AM EDT eCW1 ([facility]) Unknown [address] [facility] [place] [address] 09/25/2020 12:00:00 AM EDT eCW1 ([facility]) Outpatient [address] [facility] [place] [address] 09/15/2020 12:00:00 AM EDT eCW1 ([facility]) Unknown [address] [facility] [place] [address] 09/15/2020 12:00:00 AM EDT eCW1 ([facility]) OFFICE OUTPATIENT VISIT 15 MINUTES Attender: CB VILLARREAL Physical Therapy 09/11/2020 04:00:00 PM EDT MEDENT ([facility]) Unknown [address] [facility] [place] [address] 09/07/2020 12:00:00 AM EDT eCW1 [facility] Outpatient [address] [facility] [place] [address] 08/11/2020 12:00:00 AM EDT eCW1 ([facility]) Office Visit Attender: CB VILLARREAL Physical Therapy 08/10/2020 05:30:00 PM EDT MEDENT ([facility]) Outpatient Attender: CB VILLARREAL Physical Therapy 08/06/2020 02:15:00 PM EDT [facility] ([facility]) Unknown [address] [facility] [place] [address] 07/24/2020 12:00:00 AM EDT eCW1 ([facility]) [place] [address] [facility] [place] [address] 07/02/2020 12:00:00 AM EST eCW1 ([facility]) Office Visit Attender: Reji Tyson MD Physical Therapy 2020 08:15:00 AM EST [facility] ([facility]) Unknown [address] [facility] [place] [address] 06/16/2020 12:00:00 AM EST eCW1 ([facility]) Outpatient Attender: CB VILLARREAL Physical Therapy 05/28/2020 09:00:00 AM EST [facility] ([facility]) Emergency Attender: MEGAN ARCE MDConsultant: Walter ARMSTRONG 05/26/2020 09:52:00 AM EST - 05/26/2020 01:31:00 PM EST [facility] Patient discharged. Unknown [address] [facility] [place] [address] 05/22/2020 12:00:00 AM EST eCW1 ([facility]) Outpatient Attender: Reji Tyson MD Physical Therapy 05/21/2020 0 9:15:00 AM EST [facility] ([facility]) Unknown [address] [facility] [place] [address] 05/13/2020 12:00:00 AM EST eCW1 ([facility]) Outpatient [address] [facility] [place] [address] 05/12/2020 12:00:00 AM EST eCW1 ([facility]) Unknown [address] [facility] [place] [address] 05/12/2020 12:00:00 AM EST eCW1 ([facility]) Outpatient [address] [facility] [place] [address] 04/29/2020 12:00:00 AM EST eCW1 ([facility]) Unknown [address] [facility] [place] [address] 04/27/2020 12:00:00 AM EST eCW1 ([facility]) Unknown [address] [facility] [place] [address] 04/01/2020 12:00:00 AM EST eCW1 ([facility]) Outpatient [address] [facility] [place] [address] 03/25/2020 12:00:00 AM EST eCW1 ([facility]) Unknown [address] [facility] [place] [address] 03/16/2020 12:00:00 AM EST eCW1 ([facility]) Unknown [address] [facility] [place] [address] 02/27/2020 12:00:00 AM EST eCW1 ([facility]) Outpatient [address] [facility] [place] [address] 02/20/2020 12:00:00 AM EDT eCW1 ([facility]) Outpatient [address] [facility] [place] [address] 02/10/2020 12:00:00 AM EDT eCW1 ([facility]) Immunizations Vaccine Date Status Description Data Source(s) TB Skin test is not vaccine. 08/24/2020 10:12:00 AM EDT completed MEDENT ([facility], [facility]) TB Skin test is not vaccine. 08/10/2020 09:45:00 AM EDT completed MEDENT ([facility], [facility]) TB Skin test is not vaccine. 07/06/2020 04:25:00 PM EDT completed MEDENT ([facility], [facility]) Medications Medication Brand Name Start Date Product Form Dose Route Admi nistrative Instructions Pharmacy Instructions Status Indications Reaction Description Data Source(s) pregabalin 75 MG Oral Capsule [Lyrica] Lyrica 75 MG Lyrica 7 5 MG 02/02/2021 12:00:00 AM EDT active Lyrica 7 5 MG eCW1 ([facility]) 75 mg 02/02/2021 12:00:00 AM [...] EDT active Lyrica 7 5 MG eCW1 ([facility]) Trulicity 4.5 MG/0.5ML Trulicity 4.5 MG/0.5ML 01/22/2021 12:00:00 AM E DT active Trulicity 4.5 MG/0.5ML eC W1 ([facility]) Trulicity 4.5 MG/0.5ML Trulicity 4.5 MG/0.5ML 01/22/2021 12:00:00 AM E DT active Trulicity 4.5 MG/0.5ML eC W1 ([facility]) 4.5 mg/0.5 mL 01/22/2021 12:00:00 AM EDT pen injector 2 INJECT UNDER THE SKIN ONCE WEEKLY DIRECTED INJECT UNDER THE SKIN ONCE WEEKLY DIRECTED SOLD: 02/02/2021 [facility] Trulicity 4.5 MG/0.5ML Trulicity 4.5 MG/0.5ML 01/22/2021 12:00:00 AM E DT active Trulicity 4.5 MG/0.5ML eC W1 ([facility]) atorvastatin 20 MG Oral Tablet [...] DAILY DOSE = 3 CAPSULES SOLD: 01/08/2021 [facility] pregabalin 75 MG Oral Capsule [Lyrica] Lyrica 75 MG Lyrica 7 5 MG 01/07/2021 12:00:00 AM EDT active Lyrica 7 5 MG eCW1 ([facility]) pregabalin 75 MG Oral Capsule [Lyrica] Lyrica 75 MG Lyrica 7 5 MG 01/07/2021 12:00:00 AM EDT active Lyrica 7 5 MG eCW1 ([facility]) levocetirizine dihydrochloride 5 MG Oral Tablet Levocetirizine Dihydrochloride 5 MG Levocetirizine Dihydrochloride 5 MG 01/06/2021 12:00:00 AM EDT 1.0 {tablet_in_the_evening} active Levoceti rizine Dihydrochloride 5 MG eCW1 ([facility]) 5 mg 01/06/2021 12:00:00 AM EDT tablet 30 TAKE ONE TABLET BY MOUTH EVERY EVENING TAKE ONE TABLET BY MOUTH EVERY EVENING SOLD: 02/02/2021 [facility] levocetirizine dihydrochloride 5 MG Oral Tablet Levocetirizine Dihydrochloride 5 MG Levocetirizine Dihydrochloride 5 MG 01/06/2021 12:00:00 AM EDT 1.0 {tablet_in_the_evening} active Levoceti rizine Dihydrochloride 5 MG eCW1 ([facility]) levocetirizine dihydrochloride 5 MG Oral Tablet Levocetirizine Dihydrochloride 5 MG Levocetirizine Dihydrochloride 5 MG 01/06/2021 12:00:00 AM EDT 1.0 {tablet_in_the_evening} active Levoceti rizine Dihydrochloride 5 MG eCW1 ([facility]) levocetirizine dihydrochloride 5 MG Oral Tablet Levocetirizine Dihydrochloride 5 MG Levocetirizine Dihydrochloride 5 MG 01/06/2021 12:00:00 AM EDT 1.0 {tablet_in_the_evening} active Levoceti rizine Dihydrochloride 5 MG eCW1 ([facility]) 5 mg 01/06/2021 12:00:00 AM EDT tablet 30 TAKE ONE TABLET BY MOUTH EVERY EVENING TAKE ONE TABLET BY MOUTH EVERY EVENING SOLD: 01/08/2021 [facility] levocetirizine dihydrochloride 5 MG Oral Tablet Levocetirizine Dihydrochloride 5 MG Levocetirizine Dihydrochloride 5 MG 01/06/2021 12:00:00 AM EDT 1.0 {tablet_in_the_evening} active Levoceti rizine Dihydrochloride 5 MG eCW1 ([facility]) levocetirizine dihydrochloride 5 MG Oral Tablet Levocetirizine Dihydrochloride 5 MG Levocetirizine Dihydrochloride 5 MG 01/06/2021 12:00:00 AM EDT 1.0 {tablet_in_the_evening} active Levoceti rizine Dihydrochloride 5 MG eCW1 ([facility]) levocetirizine dihydrochloride 5 MG Oral Tablet Levocetirizine Dihydrochloride 5 MG Levocetirizine Dihydrochloride 5 MG 01/06/2021 12:00:00 AM EDT 1.0 {tablet_in_the_evening} active Levoceti rizine Dihydrochloride 5 MG eCW1 ([facility]) levocetirizine dihydrochloride 5 MG Oral Tablet Levocetirizine Dihydrochloride 5 MG Levocetirizine Dihydrochloride 5 MG 01/06/2021 12:00:00 AM EDT 1.0 {tablet_in_the_evening} active Levoceti rizine Dihydrochloride 5 MG eCW1 ([facility]) Trulicity 3 MG/0.5ML Trulicity 3 MG/0.5ML 12/11/2020 12:00:00 AM EDT active Trulicity 3 MG/0.5ML eCW1 ([facility]) Trulicity 3 MG/0.5ML Trulicity 3 MG/0.5ML 12/11/2020 12:00:00 AM EDT active Trulicity 3 MG/0.5ML eCW1 ([facility]) Trulicity 3 MG/0.5ML Trulicity 3 MG/0.5ML 12/11/2020 12:00:00 AM EDT active Trulicity 3 MG/0.5ML eCW1 ([facility]) 3 mg/0.5 mL 12/11/2020 12:00:00 AM EDT pen injector 2 INJECT SUBCUTANEOUSLY WEEKLY DIRECTED INJECT SUBCUTANEOUSLY WEEKLY DIRECTED SOLD: 12/15/2020 [facility] Trulicity 3 MG/0.5ML Trulicity 3 MG/0.5ML 12/11/2020 12:00:00 AM EDT active Trulicity 3 MG/0.5ML eCW1 ([facility]) Trulicity 3 MG/0.5ML Trulicity 3 MG/0.5ML 12/11/2020 12:00:00 AM EDT active Trulicity 3 MG/0.5ML eCW1 ([facility]) Trulicity 3 MG/0.5ML Trulicity 3 MG/0.5ML 12/11/2020 12:00:00 AM EDT active Trulicity 3 MG/0.5ML eCW1 ([facility]) Trulicity 3 MG/0.5ML Trulicity 3 MG/0.5ML 12/11/2020 12:00:00 AM EDT active Trulicity 3 MG/0.5ML eCW1 ([facility]) Trulicity 3 MG/0.5ML Trulicity 3 MG/0.5ML 12/11/2020 12:00:00 AM EDT active Trulicity 3 MG/0.5ML eCW1 ([facility]) Trulicity 3 MG/0.5ML Trulicity 3 MG/0.5ML 12/11/2020 12:00:00 AM EDT active Trulicity 3 MG/0.5ML eCW1 ([facility]) 3 mg/0.5 mL 12/11/2020 12:00:00 AM [...] 1.0 {tablet_as_needed} active Mucinex 600 MG eCW1 ([facility]) Levaquin 750 MG UNK 11/26/2020 12:00:00 AM EDT 1.0 {tablet} active Levaquin 750 MG eCW1 ([facility]) Levaquin 750 MG UNK 11/26/2020 12:00:00 AM EDT 1.0 {tablet} active Levaquin 750 MG eCW1 ([facility]) 12 HR Guaifenesin 600 MG Extended Release Oral Tablet [Mucinex] Mucinex 600 MG Mucinex 600 MG 11/26/2020 12:00:00 AM EDT 1.0 {tablet_as_needed} active Mucinex 600 MG eCW1 ([facility]) 12 HR Guaifenesin 600 MG Extended Release Oral Tablet [Mucinex] Mucinex 600 MG Mucinex 600 MG 11/26/2020 12:00:00 AM EDT 1.0 {tablet_as_needed} active Mucinex 600 MG eCW1 ([facility]) 12 HR Guaifenesin 600 MG Extended Release Oral Tablet [Mucinex] Mucinex 600 MG Mucinex 600 MG 11/26/2020 12:00:00 AM EDT 1.0 {tablet_as_needed} active Mucinex 600 MG eCW1 ([facility]) 12 HR Guaifenesin 600 MG Extended Release Oral Tablet [Mucinex] Mucinex 600 MG Mucinex 600 MG 11/26/2020 12:00:00 AM EDT 1.0 {tablet_as_needed} active Mucinex 600 MG eCW1 ([facility]) Triamcinolone Acetonide 55 MCG/ACT Triamcinolone Acetonide 5 5 MCG/ACT 11/26/2020 12:00:00 AM EDT 1.0 {spray_in_each_nostril} act scarlet Triamcinolone Acetonide 55 MCG/ACT eCW1 ([facility]) 12 HR Guaifenesin 600 MG Extended Release Oral Tablet [Mucinex] Mucinex 600 MG Mucinex 600 MG 11/26/2020 12:00:00 AM EDT 1.0 {tablet_as_needed} active Mucinex 600 MG eCW1 ([facility]) 12 HR Guaifenesin 600 MG Extended Release Oral Tablet [Mucinex] Mucinex 600 MG Mucinex 600 MG 11/26/2020 12:00:00 AM EDT 1.0 {tablet_as_needed} active Mucinex 600 MG eCW1 ([facility]) 12 HR Guaifenesin 600 MG Extended Release Oral Tablet [Mucinex] Mucinex 600 MG Mucinex 600 MG 11/26/2020 12:00:00 AM EDT 1.0 {tablet_as_needed} active Mucinex 600 MG eCW1 ([facility]) Levaquin 750 MG UNK 11/26/2020 12:00:00 AM EDT 1.0 {tablet} active Levaquin 750 MG eCW1 ([facility]) 12 HR Guaifenesin 600 MG Extended Release Oral Tablet [Mucinex] Mucinex 600 MG Mucinex 600 MG 11/26/2020 12:00:00 AM EDT 1.0 {tablet_as_needed} active Mucinex 600 MG eCW1 ([facility]) 750 mg 11/26/2020 12:00:00 AM EDT tablet 10 TAKE ONE TABLET BY MOUTH EVERY DAY FOR 10 DAYS TAKE ONE TABLET BY MOUTH EVERY DAY FOR 10 DAYS SOLD: 08/05/2 021 [facility] Levaquin 750 MG UNK 11/26/2020 12:00:00 AM EDT 1.0 {tablet} active Levaquin 750 MG eCW1 ([facility]) Triamcinolone Acetonide 55 MCG/ACT Triamcinolone Acetonide 5 5 MCG/ACT 11/26/2020 12:00:00 AM EDT 1.0 {spray_in_each_nostril} act scarlet Triamcinolone Acetonide 55 MCG/ACT eCW1 ([facility]) Triamcinolone Acetonide 55 MCG/ACT Triamcinolone Acetonide 5 5 MCG/ACT 11/26/2020 12:00:00 AM EDT 1.0 {spray_in_each_nostril} act scarlet Triamcinolone Acetonide 55 MCG/ACT eCW1 ([facility]) Triamcinolone Acetonide 55 MCG/ACT Triamcinolone Acetonide 5 5 MCG/ACT 11/26/2020 12:00:00 AM EDT 1.0 {spray_in_each_nostril} act scarlet Triamcinolone Acetonide 55 MCG/ACT eCW1 ([facility]) 12 HR Guaifenesin 600 MG Extended Release Oral Tablet [Mucinex] Mucinex 600 MG Mucinex 600 MG 11/26/2020 12:00:00 AM EDT 1.0 {tablet_as_needed} active Mucinex 600 MG eCW1 ([facility]) 12 HR Guaifenesin 600 MG Extended Release Oral Tablet [Mucinex] Mucinex 600 MG Mucinex 600 MG 11/26/2020 12:00:00 AM EDT 1.0 {tablet_as_needed} active Mucinex 600 MG eCW1 ([facility]) 12 HR Guaifenesin 600 MG Extended Release Oral Tablet [Mucinex] Mucinex 600 MG Mucinex 600 MG 11/26/2020 12:00:00 AM EDT 1.0 {tablet_as_needed} active Mucinex 600 MG eCW1 ([facility]) 600 mg 11/26/2020 12:00:00 AM EDT tablet extended release 12hr 10 TAKE ONE TABLET BY MOUTH EVERY 12 HOURS NEEDED FOR 5 DAYS TAKE ONE TABLET BY MOUTH EVERY 12 HOURS NEEDED FOR 5 DAYS SOLD: 11/26/2020 [facility] 12 HR Guaifenesin 600 MG Extended Release Oral Tablet [Mucinex] Mucinex 600 MG Mucinex 600 MG 11/26/2020 12:00:00 AM EDT 1.0 {tablet_as_needed} active Mucinex 600 MG eCW1 ([facility]) 75 mg 11/16/2020 12:00:00 AM EDT capsule [...] act scarlet Triamcinolone Acetonide 55 MCG/ACT eCW1 ([facility]) Triamcinolone Acetonide 55 MCG/ACT Triamcinolone Acetonide 5 5 MCG/ACT 10/15/2020 12:00:00 AM EDT 1.0 {spray_in_each_nostril} act scarlet Triamcinolone Acetonide 55 MCG/ACT eCW1 ([facility]) Triamcinolone Acetonide 55 MCG/ACT Triamcinolone Acetonide 5 5 MCG/ACT 10/15/2020 12:00:00 AM EDT 1.0 {spray_in_each_nostril} act scarlet Triamcinolone Acetonide 55 MCG/ACT eCW1 ([facility]) Triamcinolone Acetonide 55 MCG/ACT Triamcinolone Acetonide 5 5 MCG/ACT 10/15/2020 12:00:00 AM EDT 1.0 {spray_in_each_nostril} act scarlet Triamcinolone Acetonide 55 MCG/ACT eCW1 ([facility]) 55 mcg 10/15/2020 12:00:00 AM EDT aerosol,spray 16 INSTILL ONE SPRAY IN EACH NOSTRIL ONCE DAILY INSTILL ONE SPRAY IN EACH NOSTRIL ONCE DAILY SOLD: 12/15/2020 [facility] Triamcinolone Acetonide 55 MCG/ACT Triamcinolone Acetonide 5 5 MCG/ACT 10/15/2020 12:00:00 AM EDT 1.0 {spray_in_each_nostril} act scarlet Triamcinolone Acetonide 55 MCG/ACT eCW1 ([facility]) glimepiride 4 MG Oral Tablet [...] act scarlet Triamcinolone Acetonide 55 MCG/ACT eCW1 ([facility]) 55 mcg 10/15/2020 12:00:00 AM EDT aerosol,spray 16 INSTILL ONE SPRAY IN EACH NOSTRIL ONCE DAILY INSTILL ONE SPRAY IN EACH NOSTRIL ONCE DAILY SOLD: 10/19/2020 [facility] Triamcinolone Acetonide 55 MCG/ACT Triamcinolone Acetonide 5 5 MCG/ACT 10/15/2020 12:00:00 AM EDT 1.0 {spray_in_each_nostril} act scarlet Triamcinolone Acetonide 55 MCG/ACT eCW1 (Formerly [facility]) Triamcinolone Acetonide 55 MCG/ACT Triamcinolone Acetonide 5 5 MCG/ACT 10/15/2020 12:00:00 AM EDT 1.0 {spray_in_each_nostril} act scarlet Triamcinolone Acetonide 55 MCG/ACT eCW1 (Formerly [facility]) glimepiride 4 MG Oral Tablet [...] act scarlet Triamcinolone Acetonide 55 MCG/ACT eCW1 (Formerly [facility]) Triamcinolone Acetonide 55 MCG/ACT Triamcinolone Acetonide 5 5 MCG/ACT 10/15/2020 12:00:00 AM EDT 1.0 {spray_in_each_nostril} act scarlet Triamcinolone Acetonide 55 MCG/ACT eCW1 (Formerly [facility]) Triamcinolone Acetonide 55 MCG/ACT Triamcinolone Acetonide 5 5 MCG/ACT 10/15/2020 12:00:00 AM EDT 1.0 {spray_in_each_nostril} act scarlet Triamcinolone Acetonide 55 MCG/ACT eCW1 (Formerly [facility]) Triamcinolone Acetonide 55 MCG/ACT Triamcinolone Acetonide 5 5 MCG/ACT 10/15/2020 12:00:00 AM EDT 1.0 {spray_in_each_nostril} act scarlet Triamcinolone Acetonide 55 MCG/ACT [facility] (Formerly [facility]) Triamcinolone Acetonide 55 MCG/ACT Triamcinolone Acetonide 5 5 MCG/ACT 10/15/2020 12:00:00 AM EDT 1.0 {spray_in_each_nostril} act scarlet Triamcinolone Acetonide 55 MCG/ACT [facility] (Formerly [facility]) Flunisolide 25 MCG/ACT (0.025%) Flunisolide 25 MCG/ACT (0.02 5%) 10/14/2020 12:00:00 AM EDT 2.0 {sprays_in_each_nostril} act scarlet Flunisolide 25 MCG/ACT (0.025%) [facility] (Formerly [facility]) Flunisolide 25 MCG/ACT (0.025%) Flunisolide 25 MCG/ACT (0.02 5%) 10/14/2020 12:00:00 AM EDT 2.0 {sprays_in_each_nostril} act scarlet Flunisolide 25 MCG/ACT (0.025%) [facility] (Formerly [facility]) 1.5 mg/0.5 mL 10/12/2020 12:00:00 [...] MAIN MEAL OF THE DAY SOLD: 09/24/2020 [facility] glimepiride 4 MG Oral [...] #3 06/02/2020 12:00:00 AM EST active [facility] ([facility]) 300-30 mg 05/30/2020 [...] AM EST active Trulicity 0.75 MG/0.5ML eCW1 (Formerly [facility]) 0.75 mg/0.5 mL 05/12/2020 12:00:00 [...] AM EST active Trulicity 0.75 MG/0.5ML eCW1 (Formerly [facility]) 0.5 ML dulaglutide 1.5 MG/ML Auto-Injector [Trulicity] Trulicity 0.75 MG/0.5ML Trulicity 0.75 MG/0.5ML 05/12/2020 12:00:00 AM EST active Trulicity 0.75 MG/0.5ML eCW1 (Formerly [facility]) 0.5 ML dulaglutide 1.5 MG/ML Auto-Injector [Trulicity] Trulicity 0.75 MG/0.5ML Trulicity 0.75 MG/0.5ML 05/12/2020 12:00:00 AM EST active Trulicity 0.75 MG/0.5ML eCW1 ([facility]ly [facility]) 0.75 mg/0.5 mL 05/12/2020 12:00:00 AM EST pen injector 2 INJECT DIRECTED WEEKLY INJECT DIRECTED WEEKLY SOLD: 07/06/2020 [facility] 0.5 ML dulaglutide 1.5 MG/ML Auto-Injector [Trulicity] Trulicity 0.75 MG/0.5ML Trulicity 0.75 MG/0.5ML 05/12/2020 12:00:00 AM EST active Trulicity 0.75 MG/0.5ML eCW1 ([facility]ly [facility]) 0.5 ML dulaglutide 1.5 MG/ML Auto-Injector [Trulicity] Trulicity 0.75 MG/0.5ML Trulicity 0.75 MG/0.5ML 05/12/2020 12:00:00 AM EST active Trulicity 0.75 MG/0.5ML eCW1 ([facility]ly [facility]) 0.5 ML dulaglutide 1.5 MG/ML Auto-Injector [Trulicity] Trulicity 0.75 MG/0.5ML Trulicity 0.75 MG/0.5ML 05/12/2020 12:00:00 AM EST active Trulicity 0.75 MG/0.5ML eCW1 (Formerly [facility]) Cyclobenzaprine hydrochloride 10 MG Oral [...] A WEEK SOLD: 08/04/2020 [facility] [place] 02/28/2020 12:00:00 AM EST misc 30 USE [...] 1.0 {tablet} suspended Diflucan 150 MG eCW1 (Formerly [facility]) Fluconazole 150 MG Oral Tablet [Diflucan] Diflucan 150 MG Di flucan 150 MG 02/20/2020 12:00:00 AM EDT 1.0 {tablet} active Diflucan 150 MG eCW1 (Formerly [facility]) Fluconazole 150 MG Oral Tablet [Diflucan] Diflucan 150 MG Di flucan 150 MG 02/20/2020 12:00:00 AM EDT 1.0 {tablet} suspended Diflucan 150 MG eCW1 ([facility]ly [facility]) Fluconazole 150 MG Oral Tablet [Diflucan] Diflucan 150 MG Di flucan 150 MG 02/20/2020 12:00:00 AM EDT 1.0 {tablet} active Diflucan 150 MG eCW1 ([facility]ly [facility]) Fluconazole 150 MG Oral Tablet [Diflucan] Diflucan 150 MG Di flucan 150 MG 02/20/2020 12:00:00 AM EDT 1.0 {tablet} active Diflucan 150 MG eCW1 ([facility]ly [facility]) Fluconazole 150 MG Oral Tablet [Diflucan] Diflucan 150 MG Di flucan 150 MG 02/20/2020 12:00:00 AM EDT 1.0 {tablet} active Diflucan 150 MG eCW1 ([facility]) 75 mg 02/10/2020 12:00:00 AM [...] type / Coverage type Policy ID Covered republican ID Covered republican's relationship to wiggins Policy Wiggins Plan Information PRM Claims (WC) Workers Compensation [id number] Self [id number] PRM Claims () Workers Compensation [id number] Self [id number] PRM Claims (WC) Workers Compensation [id number] Self [id number] PRM Claims (WC) Workers Compensation [id number] Self [id number] PRM Claims () Workers Compensation [id number] Self [id number] PRM Claims (WC) Workers Compensation [id number] Self [id number] [facility] I [id number] Self [id number] Managed Care - [facility] Community Plan P [id number] S [id number] Medicaid S [id number] S [id number] [facility] Commercial [id number] Self [id number] [facility] Commercial [id number] Self [id number] [facility] COMMUNITY PLAN MCDHMO [id number] SP [id number] [facility] COMMUNITY PLAN MCDHMO [id number] SP [id number] [facility] COMMUNITY PLAN MCDHMO [id number] SP [id number] [facility] COMMUNITY PLAN MCDHMO [id number] SP [id number] [facility] MEDICAID [id number] Mamta [id number] [facility] Community Plan Commercial [id number] Self [id number] [facility] [id number] [facility] Health Maintenance Organization (HMO) [id number] Self [id number] [facility]-Medicaid [id number] ANSI-Medicaid [id number] ANSI-Medicaid [id number] [facility] Community Plan Commercial [id number] Self [id number] ANSI-Medicaid [id number] ANSI-Medicaid [id number] ANSI-Medicaid [id number] ANSI-Medicaid [id number] ANSI-Medicaid [id number] [facility] Community Plan Commercial [id number] Self [id number] ANSI-Medicaid [id number] [facility] Community Plan Commercial [id number] Self [id number] [facility] Health Maintenance Organization (HMO) [id number] Self [id number] ANSI-Medicaid [id number] ANSI-Medicaid [id number] ANSI-Medicaid [id number] ANSI-Medicaid [id number] ANSI-Medicaid [id number] ANSI-Medicaid [id number] ANSI-Medicaid [id number] ANSI-Medicaid [id number] [facility] Health Maintenance Organization (O) [id number] Self [id number] ANSI-Medicaid [id number] ANSI-Medicaid [id number] [facility]-Medicaid [id number] [facility] Maintenance [facility] [place] [id number] Self [id number] [facility] ([facility] [id number] Self [id number] [facility] ([facility] [id number] Self [id number] [employer] [id number] MEDICAID - O/P EMERGENCY ROOM [id number] [facility](MCAID) O [id number] S [id number] [facility] COMM PLAN BASIL [id number] S [id number] SELF PAY UNAVAILABLE SP UNAVAILA BLE BLUE CROSS BRIGHT PLAN [id number] SP [id number] [employer] COMMUNITY PLAN MCDO [id number] SP [id number] MEDICAID [id number] SP [id number] UNHC AMERICHOICE XIX -HMO [id number] 18 [id number] [employer] COMMUNITY PLAN MCDO [id number] SP [id number] [facility](MCAID) O [id number] S [id number] [employer] COMMUNITY PLAN XIX [id number] 18 [id number] ANSI-Medicaid [id number] ANSI-Medicaid [id number] [facility]-Medicaid [id number] [facility]-Medicaid [id number] [facility]-Medicaid [id number] [facility]-Medicaid [id number] [facility]-Medicaid [id number] [facility] Community Plan Commercial [id number] Self [id number] [facility] Plan Commercial [id number] Self [id number] [facility]-Medicaid [id number] [facility] Health Maintenance Organization (HMO) [id number] Self [id number] Problems, Conditions, and Diagnoses Code Display Name Description Problem Type Effective Dates Data Source(s) M9971 Connective tissue and disc s tenosis of intervertebral foramina of cervical region Connective tissue and disc stenosis of i ntervertebral foramina of cervical region Diagnosis 12/08/2020 09:15:00 AM [facility] M4802 Spinal stenosis, cervical region Spinal stenosis , cervical region Diagnosis 12/08/2020 09:15:00 AM [facility] A34771 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 Other cervical disc degeneration at C5-C6 level Diagnosis 12/08/2020 09:15:[address] 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 Diagnosis 05/26/2020 09:52:00 AM [facility] S28343 Muscle spasm of back Muscle spasm of back Diagnosis 05/26/2020 09:52:00 AM [facility] E12876 Nicotine dependence, unspecified, uncomp licated Nicotine dependence, unspecified, uncomplicated Diagnosis 05/26/2020 09:52:00 AM [facility] I10 Essential (primary) hypertension Essential (primary) h ypertension Diagnosis 05/26/2020 09:52:00 AM [facility] J449 Chronic obstructive pulmonary disease, u nspecified Chronic obstructive pulmonary disease, unspecified Diagnosis 05/26/2020 09:52:[address] [facility] E7800 Pure hypercholesterolemia, unspecified P ure hypercholesterolemia, unspecified Diagnosis 05/26/2020 09:52:00 AM [facility] E119 Type 2 diabetes mellitus without complic ations Type 2 diabetes mellitus without complications Diagnosis 05/26/2020 09:52:00 AM [facility] [id number] Wedge compression fracture o f second lumbar vertebra, initial encounter for closed fracture Wedge compression fracture of second lum bar vertebra, initial encounter for closed fracture Diagnosis 05/26/2020 09:52:00 AM [facility] [id number] Wedge compression fracture o f first lumbar vertebra, initial encounter for closed fracture Wedge compression fracture of first lumb ar vertebra, initial encounter for closed fracture Diagnosis 05/26/2020 09:52:00 AM EST [facility] [id number] Wedge compression fracture o f T11-T12 vertebra, initial encounter for closed fracture Wedge compression fracture of T11-T12 ve rtebra, initial encounter for closed fracture Diagnosis 05/26/2020 09:52:00 AM EST [facility] [id number] Strain of muscle, fascia and tendon of l ower back, initial encounter Strain of muscle, fascia and tendon of lower back, initial encounter Diagnosis 05/26/2020 09:52:00 AM [facility] M545 Low back pain Low back pain Diagnosis 05/26/2020 09:52:00 AM [facility] K76.0 [id number] Fatty liver Problem 12/11/2020 12:00:00 AM E DT eCW1 (Formerly [facility]) R42 Dizziness and giddiness Dizziness and giddiness Proble m 10/19/2020 12:00:00 AM EDT [facility] ([facility], ) M26.601 Right temporomendibular joint disorder R ight temporomendibular joint disorder Problem 10/19/2020 12:00:00 AM EDT [facility] ([facility], ) H91.90 [id number] Perceived hearing changes Problem 10/14/2020 12:00:00 AM EDT eCW1 (Formerly [facility]) R79.89 [id number] Elevated LFTs Problem 09/16/2020 12:00:00 AM EDT eCW1 ([facility]ly [facility]) N91.2 99920260 Amenorrhea Problem 09/15/2020 12:00:00 AM ED T eCW1 (Formerly [facility]) [id number] Essential hypertension Essential hypertension Problem 06/30/2020 12:00:00 AM EST [facility] ([facility], ) Z12.11 [id number] Colon cancer screening Problem 05/12/2020 12 :00:00 AM EST eCW1 (Formerly [facility]) Z12.31 [id number] Encounter for screen ing mammogram for malignant neoplasm of breast Problem 05/12/2020 12:00:00 AM EST eCW1 ([facility]) Z12.4 [id number] Cervical cancer screening Problem 05/12/2020 12:00:00 AM EST eCW1 (Formerly [facility]) Z12.39 [id number] Encounter for screen ing for malignant neoplasm of breast, unspecified screening modality Problem 05/12/2020 12:00:00 AM EST eC W1 ([facility]ly [facility]) E11.9 [id number] Type 2 diabetes pooja itus without complication, without long-term current use of insulin Problem 05/12/2020 12:00:00 AM EST eCW1 ([facility]) Surgeries/Procedures Procedure Description Date Indications Data Source(s) OFFICE OUTPATIENT VISIT 15 MINUTES 01/01/2021 12:00:00 AM EDT [facility] ([facility] ) OFFICE OUTPATIENT VISIT 25 MINUTES 11/12/2020 12:00:00 AM EDT [facility] ([facility] ) Therapeutic Activities Direct, Each 15 Minutes 12:00:00 AM EDT [facility] ([facility] ) THERAPEUTIC PX 1/> AREAS EACH 15 MIN EXERCISES 12:00:00 AM EDT [facility] ([facility] ) APPL MODALITY 1/> AREAS ELEC STIMJ EA 15 MIN 12:00:00 AM EDT [facility] ([facility] ) MANUAL THERAPY TQS 1/> REGIONS EACH 15 MINUTES 021 12:00:00 AM EDT [facility] ([facility] ) APPL MODALITY 1/> AREAS ELEC STIMJ EA 15 MIN 12:00:00 AM EDT [facility] ([facility] ) THERAPEUTIC PX 1/> AREAS EACH 15 MIN EXERCISES 021 12:00:00 AM EDT [facility] ([facility] ) MANUAL THERAPY TQS 1/> REGIONS EACH 15 MINUTES 021 12:00:00 AM EDT [facility] ([facility] ) Therapeutic Activities Direct, Each 15 Minutes 021 12:00:00 AM EDT [facility] ([facility] ) APPL MODALITY 1/> AREAS ELEC STIMJ EA 15 MIN 12:00:00 AM EDT [facility] ([facility] ) THERAPEUTIC PX 1/> AREAS EACH 15 MIN EXERCISES 12:00:00 AM EDT [facility] ([facility] ) MANUAL THERAPY TQS 1/> REGIONS EACH 15 MINUTES 12:00:00 AM EDT [facility] ([facility] ) Therapeutic Activities Direct, Each 15 Minutes 12:00:00 AM EDT [facility] ([facility] ) APPL MODALITY 1/> AREAS ELEC STIMJ EA 15 MIN 12:00:00 AM EDT [facility] ([facility] ) THERAPEUTIC PX 1/> AREAS EACH 15 MIN EXERCISES 12:00:00 AM EDT [facility] ([facility] ) MANUAL THERAPY TQS 1/> REGIONS EACH 15 MINUTES 12:00:00 AM EDT [facility] ([facility] ) Therapeutic Activities Direct, Each 15 Minutes 12:00:00 AM EDT [facility] ([facility] ) Therapeutic Activities Direct, Each 15 Minutes 12:00:00 AM EDT [facility] ([facility] ) APPLICATION MODALITY 1/> AREAS HOT/COLD PACKS 10/30/19 21 12:00:00 AM EDT [facility] ([facility] ) APPL MODALITY 1/> AREAS ELEC STIMJ EA 15 MIN 12:00:00 AM EDT [facility] ([facility] ) THERAPEUTIC PX 1/> AREAS EACH 15 MIN EXERCISES 12:00:00 AM EDT [facility] ([facility] ) MANUAL THERAPY TQS 1/> REGIONS EACH 15 MINUTES 12:00:00 AM EDT [facility] ([facility] ) APPL MODALITY 1/> AREAS ELEC STIMJ EA 15 MIN 1 12:00:00 AM EDT [facility] ([facility] ) Therapeutic Activities Direct, Each 15 Minutes 021 12:00:00 AM EDT [facility] ([facility] ) THERAPEUTIC PX 1/> AREAS EACH 15 MIN EXERCISES 12:00:00 AM EDT [facility] ([facility] ) Therapeutic Activities Direct, Each 15 Minutes 12:00:00 AM EDT [facility] ([facility]) MANUAL THERAPY TQS 1/> REGIONS EACH 15 MINUTES 12:00:00 AM EDT [facility] ([facility]) APPL MODALITY 1/> AREAS ELEC STIMJ EA 15 MIN 12:00:00 AM EDT [facility] ([facility] ) MANUAL THERAPY TQS 1/> REGIONS EACH 15 MINUTES 12:00:00 AM EDT [facility] ([facility] ) Therapeutic Activities Direct, Each 15 Minutes 12:00:00 AM EDT [facility] ([facility] ) OFFICE OUTPATIENT VISIT 15 MINUTES 10/19/2020 12:00:00 AM EDT [facility] ([facility] OFFICE OUTPATIENT NEW 30 MINUTES 10/19/2020 12:00:00 A M EDT [facility] ([facility], ) APPL MODALITY 1/> AREAS ELEC STIMJ EA 15 MIN 12:00:00 AM EDT [facility] ([facility] ) THERAPEUTIC PX 1/> AREAS EACH 15 MIN EXERCISES 12:00:00 AM EDT [facility] ([facility] ) MANUAL THERAPY TQS 1/> REGIONS EACH 15 MINUTES 12:00:00 AM EDT [facility] ([facility] ) Therapeutic Activities Direct, Each 15 Minutes 12:00:00 AM EDT [facility] ([facility] ) APPLICATION MODALITY 1/> AREAS HOT/COLD PACKS 10/13/19 21 12:00:00 AM EDT [facility] ([facility]) APPL MODALITY 1/> AREAS ELEC STIMJ EA 15 MIN 12:00:00 AM EDT [facility] ([facility]) Therapeutic Activities Direct, Each 15 Minutes 021 12:00:00 AM EDT [facility] ([facility]) Therapeutic Activities Direct, Each 15 Minutes 12:00:00 AM EDT [facility] ([facility] ) APPL MODALITY 1/> AREAS ELEC STIMJ EA 15 MIN 12:00:00 AM EDT [facility] ([facility] ) MANUAL THERAPY TQS 1/> REGIONS EACH 15 MINUTES 021 12:00:00 AM EDT [facility] ([facility] ) THERAPEUTIC PX 1/> AREAS EACH 15 MIN EXERCISES 12:00:00 AM EDT [facility] ([facility] ) APPLICATION MODALITY 1/> AREAS HOT/COLD PACKS 10/02/19 21 12:00:00 AM EDT [facility] ([facility] ) APPL MODALITY 1/> AREAS ELEC STIMJ EA 15 MIN 1 12:00:00 AM EDT [facility] ([facility] ) THERAPEUTIC PX 1/> AREAS EACH 15 MIN EXERCISES 021 12:00:00 AM EDT [facility] ([facility] ) MANUAL THERAPY TQS 1/> REGIONS EACH 15 MINUTES 12:00:00 AM EDT [facility] ([facility] ) Therapeutic Activities Direct, Each 15 Minutes 12:00:00 AM EDT [facility] ([facility] ) Therapeutic Activities Direct, Each 15 Minutes 12:00:00 AM EDT [facility] ([facility] ) MANUAL THERAPY TQS 1/> REGIONS EACH 15 MINUTES 12:00:00 AM EDT [facility] ([facility] ) THERAPEUTIC PX 1/> AREAS EACH 15 MIN EXERCISES 12:00:00 AM EDT [facility] ([facility] ) Therapeutic Activities Direct, Each 15 Minutes 021 12:00:00 AM EDT [facility] ([facility] ) THERAPEUTIC PX 1/> AREAS EACH 15 MIN EXERCISES 021 12:00:00 AM EDT [facility] ([facility] ) MANUAL THERAPY TQS 1/> REGIONS EACH 15 MINUTES 021 12:00:00 AM EDT [facility] ([facility] ) THERAPEUTIC PX 1/> AREAS EACH 15 MIN EXERCISES 021 12:00:00 AM EDT [facility] ([facility] ) MANUAL THERAPY TQS 1/> REGIONS EACH 15 MINUTES 021 12:00:00 AM EDT [facility] ([facility] ) Therapeutic Activities Direct, Each 15 Minutes 021 12:00:00 AM EDT [facility] ([facility]) APPLICATION MODALITY 1/> AREAS HOT/COLD PACKS 09/23/19 21 12:00:00 AM EDT [facility] ([facility]) APPL MODALITY 1/> AREAS ELEC STIMJ EA 15 MIN 12:00:00 AM EDT [facility] ([facility] ) MANUAL THERAPY TQS 1/> REGIONS EACH 15 MINUTES 12:00:00 AM EDT [facility] ([facility] ) Therapeutic Activities Direct, Each 15 Minutes 12:00:00 AM EDT [facility] ([facility] ) THERAPEUTIC PX 1/> AREAS EACH 15 MIN EXERCISES 12:00:00 AM EDT [facility] ([facility] ) APPLICATION MODALITY 1/> AREAS HOT/COLD PACKS 09/18/19 12:00:00 AM EDT [facility] ([facility] ) APPL MODALITY 1/> AREAS ELEC STIMJ EA 15 MIN 12:00:00 AM EDT [facility] ([facility] ) THERAPEUTIC PX 1/> AREAS EACH 15 MIN EXERCISES 12:00:00 AM EDT [facility] ([facility] ) MANUAL THERAPY TQS 1/> REGIONS EACH 15 MINUTES 12:00:00 AM EDT [facility] ([facility] ) Therapeutic Activities Direct, Each 15 Minutes 12:00:00 AM EDT [facility] ([facility] ) OFFICE OUTPATIENT VISIT 15 MINUTES 09/11/2020 12:00:00 AM EDT [facility] ([facility] ) Therapeutic Activities Direct, Each 15 Minutes 021 12:00:00 AM EDT [facility] ([facility] ) THERAPEUTIC PX 1/> AREAS EACH 15 MIN EXERCISES 12:00:00 AM EDT [facility] ([facility] ) APPL MODALITY 1/> AREAS ELEC STIMJ EA 15 MIN 12:00:00 AM EDT [facility] ([facility] ) MANUAL THERAPY TQS 1/> REGIONS EACH 15 MINUTES 021 12:00:00 AM EDT [facility] ([facility]) APPL MODALITY 1/> AREAS ELEC STIMJ EA 15 MIN 05/18/202 1 12:00:00 AM EDT [facility] ([facility] ) THERAPEUTIC PX 1/> AREAS EACH 15 MIN EXERCISES 12:00:00 AM EDT [facility] ([facility] ) MANUAL THERAPY TQS 1/> REGIONS EACH 15 MINUTES 12:00:00 AM EDT [facility] ([facility] ) Therapeutic Activities Direct, Each 15 Minutes 12:00:00 AM EDT [facility] ([facility]) Physical Therapy Eval - Low Complexity 09/01/2020 12:0 0:00 AM EDT [facility] ([facility] ) OFFICE OUTPATIENT VISIT 25 MINUTES 08/06/2020 12:00:00 AM EDT [facility] ([facility]) NEUROPLASTY &/TRANSPOS MEDIAN NRV CARPAL TUNNEL 2020 12:00:00 AM EST [facility] ([facility] ) RADEX SPINE CRV COMPL W/OBLQ&FLEX&/XTN STDS 05/28/2020 12:00:00 AM EST [facility] ([facility] ) OFFICE OUTPATIENT VISIT 25 MINUTES 05/28/2020 12:00:00 AM EST [facility] ([facility] ) OFFICE OUTPATIENT VISIT 25 MINUTES 05/21/2020 12:00:00 AM EST [facility] ([facility] ) Results ID Date Data Source Fibrospect Diaz 12/11/2020 12:00:00 AM EDT [facility] ([facility]) Name Value Range Interpretation Code Description Data Clare rce(s) Supporting Document(s) SEE SEPARATE REPORT [facility](Alpha-2 theodore nguyen) [facility] (Formerly [facility]) ID Date Data Source [id number] 12/08/2020 07:52:00 [place] [address] PHONE: [phone] FAX: [phone] Name .................. : MARK Srivastava Acct Number.................. : [id number] ROOM. ................. : MR Number ................... : [id number] Stay type ............. : O/P Discharge Date......... ... : 12/08/20 Admit Date ......... : 12/08/20 Admit Phys .................... : ARCHANA Date of ....... : 1970 Family Phys ................... : [employer] Phone .................. : [phone] Age ................................ : 50 Film# .................. .:[id number] Sex ................................. : F Unsigned transcriptions are preliminary reports and do not represent a medical or legal document MRI CERVICAL SPINE W/O CONTRA [id number] COMPLETE:12/08/20 10:09 [facility] [address] Reason for Exam: OTHER CERVICAL DISC DEGENERATION [...] No cord deformity. Moderate central canal stenosis. Txau-jz-ydtoowor bilateral foraminal narrowing left greater than right. Other disc levels show no canal stenosis, disc herniation, or foraminal narrowing. IMPRESSION: C5-6 degenerative disc change with posterior disc and osteophyte asymmetrically greater to the right resulting in moderate canal stenosis and bilateral ueqr-lq-hxdggvjl foraminal narrowing. Page 1 of [address] [place] [address] PHONE: [phone] FAX: [phone] Name .................. : MARK Srivastava Acct Number.................. : [id number] ROOM. ................. : MR Number ................... : [id number] Stay type ............. : O/P Discharge Date......... ... : 12/08/20 Admit Date ......... : 12/08/20 Admit Phys .................... : ARCHANA Date of ....... : 1970 Family Phys ................... : [employer] Phone .................. : [phone] Age ................................ : 50 Film# . ................. .:[id number] Sex ................................. : F Unsigned transcriptions are preliminary reports and do not represent a medical or legal document MRI CERVICAL SPINE W/O CONTRA [id number] COMPLETE:12/08/20 10:09 [facility] [address]190 Reason for Exam: OTHER CERVICAL DISC DEGENERATION Electronically Reviewed and Signed By Syd Ramirez MD , 12/08/20 19:52, SCB Transcribe Initials: SSR, Transcribe Date: 12/08/20 10:31, Dictation Date: Copy for: ARCHANA Lee via fax Copy for: [address] [place] [address] REC Page 2 of 2 Name Value Range Interpretation Code Description Data Clare rce(s) Supporting Document(s) ID Date Data Source HEPATITIS A IgG 09/15/2020 12:00:00 AM EDT eCW1 ([facility]) Name Value Range Interpretation Code Description Data Clare rce(s) Supporting Document(s) Negative Negative HEPATITIS A IgG TOTAL eCW 1 ([facility]) ID Date Data Source HEPATITIS C ANTIBODY INDEX 09/15/2020 12:00:00 AM EDT eCW1 ( [facility]) Name Value Range Interpretation Code Description Data Clare rce(s) Supporting Document(s) 0.0 <0.8 HEPATITIS C VIRUS LAMINE INDEX eC W1 ([facility]) ID Date Data Source HCG SERUM QUALITATIVE 09/15/2020 12:00:00 AM EDT eCW1 ([facility]) Name Value Range Interpretation Code Description Data Clare rce(s) Supporting Document(s) NEGATIVE NEGATIVE HCG, SERUM QUALITATIVE eC W1 ([facility]) ID Date Data Source HEPATITIS B SURFACE ANTIGEN 09/15/2020 12:00:00 AM EDT eCW1 ([facility]) Name Value Range Interpretation Code Description Data Clare rce(s) Supporting Document(s) NEGATIVE NEGATIVE HEPATITIS B SURFACE ANTIG EN eCW1 ([facility]) ID Date Data Source HEPATITIS B SURFACE ANTIBODY 09/15/2020 12:00:00 AM EDT eCW1 ([facility]) Name Value Range Interpretation Code Description Data Clare rce(s) Supporting Document(s) NEGATIVE POSITIVE HEPATITIS B SURFACE ANTIB SUSAN eCW1 ([facility]) ID Date Data Source HEPATITIS A ANTIBODY IGM 09/15/2020 12:00:00 AM EDT eCW1 ([facility]) Name Value Range Interpretation Code Description Data Clare rce(s) Supporting Document(s) NEGATIVE NEGATIVE HEPATITIS A ANTIBODY IGM eCW1 ([facility]) ID Date Data Source Comprehensive Metabolic Profile (CMP) 09/15/2020 12:00:00 AM EDT eCW1 ([facility]) Name Value Range Interpretation Code Description Data Clare rce(s) Supporting Document(s) 322 70-100 GLUCOSE, FASTING eCW1 ([facility]) 8 7-18 BLOOD UREA NITROGEN eCW1 ([facility]) 0.71 0.55-1.30 CREATININE FOR GFR eCW1 ([facility]) > 60.0 >51 GLOMERULAR FILTRATION RATE eCW 1 ([facility]) 100 98-107 CHLORIDE LEVEL eCW1 ([facility]) 4.4 3.5-5.1 POTASSIUM SERUM eCW1 ([facility]) 134 136-145 SODIUM LEVEL eCW1 ([facility]) 22 7-37 AST/SGOT eCW1 ([facility]) 29 21-32 CARBON DIOXIDE LEVEL eCW1 ([facility]) 9.4 8.5-10.1 CALCIUM LEVEL eCW1 ([facility]) 7.0 6.4-8.2 TOTAL PROTEIN eCW1 ([facility]) 0.2 0.2-1.0 BILIRUBIN,TOTAL eCW1 ([facility]) 156 45-117 ALKALINE PHOSPHATASE eCW1 ([facility]) 111 12-78 ALT/SGPT eCW1 ([facility]) 3.6 3.2-5.2 ALBUMIN eCW1 ([facility]) 1.1 1.2-2.2 ALBUMIN/GLOBULIN RATIO eCW1 ([facility]) ID Date Data Source CBC with Differential 09/15/2020 12:00:00 AM EDT eCW1 ([facility]) Name Value Range Interpretation Code Description Data Clare rce(s) Supporting Document(s) 13.3 12.0-15.5 HEMOGLOBIN eCW1 ([facility]) 39.7 36.0-47.0 HEMATOCRIT eCW1 ([facility]) 10.7 4.0-10.0 WHITE BLOOD COUNT eCW1 ([facility]) 4.26 4.00-5.40 RED BLOOD COUNT eCW1 ([facility]) 31.2 27.0-33.0 MEAN CORPUSCULAR HEMOGLOB IN eCW1 ([facility]) 93.2 80.0-96.0 MEAN CORPUSCULAR VOLUME e CW1 ([facility]) 33.5 32.0-36.5 MEAN CORPUSCULAR HGB CONC eCW1 ([facility]) 13.2 11.5-14.5 RED CELL DISTRIBUTION WID TH eCW1 ([facility]) 292 150-450 PLATELET COUNT, AUTOMATED eCW1 ([facility]) 54.7 36.0-66.0 NEUTROPHILS % eCW1 ([facility]) 34.3 24.0-44.0 LYMPH % eCW1 ([facility]) 7.5 2.0-8.0 MONO % eCW1 ([facility]) 0.5 0.0-1.0 BASO % eCW1 ([facility]) 5.8 1.5-8.5 NEUTROPHILS # eCW1 ([facility]) 2.6 0.0-3.0 EOS % eCW1 ([facility]) 0.3 0.0-0.5 EOS # eCW1 ([facility]) 3.7 1.5-5.0 LYMPH # eCW1 ([facility]) 0.8 0.0-0.8 MONO # eCW1 ([facility]) 0.1 0.0-0.2 BASO # eCW1 ([facility]) ID Date Data Source ALK PHOS FRACTIONATED 09/15/2020 12:00:00 AM EDT eCW1 ([facility]) Name Value Range Interpretation Code Description Data Clare rce(s) Supporting Document(s) 99 LABILE ALKPHOS eCW1 ([facility]) 60 STABLE ALKPHOS eCW1 ([facility]) 62.3 % LABILE ALKALINE PHOSPHATASE eCW1 ([facility]) ID Date Data Source [id number] 08/11/2020 12:00:00 AM EDT eCW1 ([facility]) Name Value Range Interpretation Code Description Data Clare rce(s) Supporting Document(s) Hemoglobin A1c/Hemoglobin.total in Blood 8.6 HEMOGLOBIN A1c eCW1 ([facility]) ID Date Data Source [id number] 07/05/2020 12:00:00 AM EST [facility] Name Value Range Interpretation Code Description Data Clare rce(s) Supporting Document(s) SARS coronavirus 2 Ag Negative [facility] This lab was ordered by Ashley and rep orted by Ashley. ID Date Data Source [id number] 07/05/2020 12:00:00 AM EST [facility] Name Value Range Interpretation Code Description Data Clare rce(s) Supporting Document(s) SARS coronavirus 2 Ag Negative [facility] This lab was ordered by Ashley and rep orted by Ashley. ID Date Data Source [id number] 05/27/2020 09:15:00 AM EST [facility] [address] [place] [address] PHONE: [phone] FAX: [phone] Name .................. : MARK Srivastava Acct Number.................. : [id number] ROOM. ................. : TR-02 Number ................... : [id number] Stay type ............. : E/R Discharge Date......... ... : 05/26/20 Admit Date ......... : 05/26/20 Admit Phys .................... : YAZMIN Date of ....... : 1970 Family Phys ................... : ROCIO RODARTE Phone .................. : [phone] Age ................................ : 49 Film# .................. .:[id number] Sex ................................. : F Unsigned transcriptions are preliminary reports and do not represent a medical or legal document CT LUMBAR SP W/O CONT [id number] COMPLETE:05/26/20 11:45 3485 Reason(s): REFORMAT from abd. [...] ROBERSON via fax Page 1 of 2 [facility] [address] [place] [address] PHONE: [phone] FAX: [phone] Name .................. : MARK Srivastava Acct Number.................. : [id number] ROOM. ................. : TR-02 MR Number ................... : [id number] Stay type ............. : E/R Discharge Date......... ... : 05/26/20 Admit Date ......... : 05/26/20 Admit Phys .................... : [facility] Date of ....... : 1970 Family Phys ................... : ROCIO RODARTE Phone .................. : [phone] Age ................................ : 49 Film# .................. .:[id number] Sex ................................. : F Unsigned transcriptions are preliminary reports and do not represent a medical or legal document CT LUMBAR SP W/O CONT [id number] COMPLETE:05/26/20 11:45 3485 Reason(s): REFORMAT from abd. R flank pain/spasm Copy for: EMERGENCY DEPT via modem Copy for: 710 MED REC DISCHARGED Page 2 of 2 Name Value Range Interpretation Code Description Data Clare rce(s) Supporting Document(s) ID Date Data Source [id number] 05/27/2020 09:14:00 AM EST [facility] [address] [place] [address] PHONE: [phone] FAX: [phone] Name .................. : MARK Srivastava Acct Number.................. : [id number] ROOM. ................. : TR-02 MR Number ................... : [id number] Stay type ............. : E/R Discharge Date......... ... : 05/26/20 Admit Date ......... : 05/26/20 Admit Phys .................... : [facility] Date of ....... : 1970 Family Phys ................... : ROCIO RODARTE Phone .................. : [phone] Age ................................ : 49 Film# .................. .:[id number] Sex ................................. : F Unsigned transcriptions are preliminary reports and do not represent a medical or legal document CT ABD & PELV W/O ORAL W/O IV [id number] COMPLETE:05/26/20 11:45 3484 Reason(s): NO CONTRAST: R [...] 05/27/20 09:14, TDS Page 1 of 2 [place] [address] PHONE: [phone] FAX: [phone] Name .................. : MARK CECE Srivastava Acct Number.................. : [id number] ROOM. ................. : Number ................... : [id number] Stay type ............. : E/R Discharge Date......... ... : 05/26/20 Admit Date ......... : 05/26/20 Admit Phys .................... : YAZMIN Date of ....... : 1970 Family Phys ................... : ROCIO CAYDEN Phone .................. : [phone] Age ................................ : 49 Film# .................. .:[id number] Sex ................................. : F Unsigned transcriptions are preliminary reports and do not represent a medical or legal document CT ABD & PELV W/O ORAL W/O IV [id number] COMPLETE:05/26/20 11:45 3484 Reason(s): NO CONTRAST: R flank pain. ? renal stone. Transcribe Initials: DAVID, Transcribe Date: 05/26/20 13:39, Dictation Date: Copy for: EWA ROBERSON via fax Copy for: EMERGENCY DEPT via modem Copy for: 710 MED REC DISCHARGED Page 2 of 2 Name Value Range Interpretation Code Description Data Clare rce(s) Supporting Document(s) ID Date Data Source [id number] 05/26/2020 09:52:00 AM EST [facility] 1 OrderSheet [facility] Emergency Department [address] [place] [address] Phone #: ext- [phone] 05/26/2020 09:39 Patient: CECE FLORES Sex: F : 1970 Age: 49yWEIGHT:90.7 kg (S) HEIGHT:63 inches (S) BMI:35.4ALLERGIES: NaprosynCHIEF COMPLAINT: back painDIAGNOSIS: Backache, O/E - muscle tone spasticLAB ORDERSOrder Description Priority Entered Acknowledged InitialedUrinalysis (Clean STAT 10:05 05/26/2020 10:14 Jovan Caldera) Tena Ernandez RN; Nova Diez Per protocol; Quinn NicholsCHCG Urine Qual STAT 10:05 05/26/2020 10:14 Awais Caldera Lisa RN; Nova Diez Per protocol; Quinn NicholsCCBC w Diff [...] flank pain. ? renal stone. 2 OrderSheet [facility] Emergency Department [address] [place] [address] Phone #: ext- [phone] 05/26/2020 09:39 Patient: CECE FLORES Sex: F [...] rce(s) Supporting Document(s) ID Date Data Source [id number] 05/26/2020 09:52:00 AM EST [facility] 1 Medication Reconciliation Report [facility] Emergency Department [address] [place] [address] Phone #: ext- [phone] 05/26/2020 09:39 Patient: [...] administered: 10:53 05/26/2020 2 Medication Reconciliation Report [facility] Emergency Department [address] [place] [address] Phone #: ext- [phone] 05/26/2020 09:39 Patient: CECE FLORES Sex: F : 1970 Age: 49yThe following Medications were prescribed to the patient:Lidoderm 5 % topical patch Apply 1 patch single dose for 3 days -- Apply patch to area of pain and leaveon no more than 12hrs and remove. You are able to cut to size. Dispense 3 patch. Refills: 0. Substitutionpermitted.[facility] - [address] [place], [place] [phone]. FaxNumber: [phone].cyclobenzaprine 10 mg tablet Take 1 tablet three times a day for 3 days -- Dispense 9 tablet. Refills: 0.Substitution permitted.[facility] - [address] [facility] ; [place] [address]. FaxNumber: . -- Quinn Murray P.A.-C Name Value Range Interpretation Code Description Data Clare rce(s) Supporting Document(s) ID Date Data Source [id number] 05/26/2020 09:52:00 AM EST [facility] 1 Medication Administration Record [facility] Emergency Department [address] [place] [address] Phone #: [phone]- [phone] 05/26/2020 09:39 Patient: CECE FLORES Sex: F [...] rce(s) Supporting Document(s) ID Date Data Source [id number] 05/26/2020 09:52:00 AM EST [facility] 1 General Instructions [facility] Emergency Department [address] [place] [address] Phone #: ext- [phone] 05/26/2020 09:39 Patient: CECE FLORES [facility]#: [id number] Sex: F : 1970 Age: 49yAcute nontraumatic [...] to size. Dispense 3 patch. Refills: 0. Substitutionpermitted.[facility] - [address] [place], [place] [phone]. .cycloben zaprine 10 mg tablet Take 1 tablet three times a day for 3 days -- Dispense 9 tablet. Refills: 0.Substitution permitted.[facility] - [address] [facility] ; [place] [address]. FaxNumber: .Follow-up:Return to the emergency department as needed. Follow up with your healthcare provider in about twodays if not better. Call for an appointment. 2 General Instructions [facility] Emergency Department [address] [place] [address] Phone #: ext- [phone] 05/26/2020 09:39 Patient: CECE FLORES Sex: F : 1970 Age: 49yUnderstanding of the discharge instructions verbalized by patient.Follow-up with: [facility], , , [address] [address], ,[place], [address] Follow up. Call for the next available [...] aching, cramping or burning. 3 General Instructions [facility] Emergency Department [address] [place] [address] Phone #: ext- [phone] 05/26/2020 09:39 Patient: [...] may make it worse. 4 [place] [address] Phone #: ext- [phone] 05/26/2020 09:39 [id number] Sex: F : 1970 Age: 49y Don't [...] or are takingother medicines. You may use obux-szm-cmmdjai medicine as directed on the bottle to [...] occur: Trouble breathing Confusion 5 General Instructions [facility] Emergency Department [address] [place] [address] Phone #: ext- [phone] 05/26/2020 09:39 Patient: [...] Numbness in the groin or genital area 4357-2204 [employer]. [address] [place] [address], [place] [address] [address]. All rights reserved. This information is not [...] the lower back. This 6 General Instructions [facility] Emergency Department [address] [place] [address] Phone #: ext- [phone] 05/26/2020 09:39 Patient: [...] the pain is gone. 7 General Instructions [facility] Emergency Department [address] [place] [address] Phone #: ext- [phone] 05/26/2020 09:39 [id number] Sex: F : 1970 Age: 49yFollow-up careFollow [...] or swelling over your back or spine 7964-9855 [employer]. [address] [place] [address]. All rights reserved. This information is not intended as asubstitute for professional medical care. Always follow your healthcare professional's instructions.Back Spasm (No Trauma) 8 General Instructions [facility] Emergency Department [address] [place] [address] Phone #: ext- [phone] 05/26/2020 09:39 [facility]: [id number] Sex: F : 1970 Age: 49ySpasm of [...] stiffness and pain, and 9 General Instructions [facility] Emergency Department [address] [place] [address] Phone #: ext- [phone] 05/26/2020 09:39 [facility]: [id number] Sex: F : 1970 Age: 49y blood [...] problems or aretaking other medicines.You may use imxq-tdo-ujazogd medicines such as acetaminophen, ibuprofen, or naprosyn to controlpain, unless your healthcare provider prescribed another pain medicine. Talk with your healthcareprovider if you have a chronic condition such as diabetes, liver or kidney disease, stomach ulcer, ordigestive bleeding, or are taking blood thinners. 10 General Instructions [facility] Emergency Department [address] [place] [address] Phone #: ext- [phone] 05/26/2020 09:39 Patient: CECE FLORES [facility]#: [id number] Sex: F : 1970 Age: 49yBe careful [...] Chills Burning or pain when passing urine [phone] [employer] [address] [place] [address], [place] [address]. All rights reserved. This information is not intended as asubstitute for professional medical care. Always follow your healthcare professional's instructions.Back Care Tips 11 General Instructions [facility] Emergency Department [address] [place] [address] Phone #: ext- [phone] 05/26/2020 09:39 Patient: CECE FLORES [facility]#: [id number] Sex: F : 1970 Age: 49yCaring for [...] long time. This puts 12 General Instructions [facility] Emergency Department [address] [place] [address] Phone #: ext- [phone] 05/26/2020 09:39 Patient: CECE FLORES [facility]#: [id number] Sex: F : 1970 Age: 49y more [...] are taking other medicines. You may use tawp-pvw-egumdkv medicines, such as acetaminophen, ibuprofen, or naprosyn [...] each leg.Safe lifting method 13 General Instructions [facility] Emergency Department [address] [place] [address] Phone #: ext- [phone] 05/26/2020 09:39 Patient: [id number] Sex: F : 1970 Age: 49y Don't [...] new findings that may affect your care.Call 411 14 General Instructions [facility] Emergency Department [address] [place] [address] Phone #: ext- [phone] 05/26/2020 09:39 Patient: [facility] [id number] Sex: F : 1970 Age: 49yCall 911 [...] or legs Numbness in the groin area 1122-[address] [employer] [place] [address]. All rights reserved. This information is not [...] with your right knee. 15 General Instructions [facility] Emergency Department [address] [place] [address] Phone #: ext- [phone] 05/26/2020 09:39 Patient: CECE FLORESN: [id number] [id number] Sex: F : 1970 Age: 49y Do [...] leg, alternating 10 times. 16 General Instructions [facility] Emergency Department [address] [place] [address] Phone #: ext- [phone] 05/26/2020 09:39 ---- Patient: CECE FLORES [facility]#: [id number] Sex: F : 1970 Age: 49y 2. [...] for 2 seconds, then slowly lower. [employer] [address] [place] [address]. All rights reserved. This information is not [...] stretch your calf muscle. You may use nsgw-lvp-mfkznbi pain medicine to control pain, unless another medicine was prescribed. If you have chronic liver or kidney disease or ever had a stomach ulcer or gastrointestinal bleeding, talk with your healthcare provider before using these medicines.Follow-up careFollow up with your healthcare provider, or as advised. 17 General Instructions [facility] Emergency Department [address] [place] [address] Phone #: ycd- [phone] 05/26/2020 09:39 Patient: [id number] Sex: F : 1970 Age: 49yWhen to seek medical adviceCall your healthcare provider right away if any of the following occur: Fingers or toes become swollen, cold, blue, numb, or tingly You develop weakness in the affected arm or leg Pain increases and is not controlled by the above measures 8912-8669 [employer] [address] [place] [address]. All rights reserved. This information is not intended as asubstitute for professional medical care. Always follow your healthcare professional's instructions.General Neck and Back PainBoth neck and back pain are usually caused by injury to the muscles or ligaments of the spine.Sometimes the disks that separate each bone of the spine may cause pain by pressing on a nearby 18 General Instructions [facility] Emergency Department [address] [place] [address] Phone #: ext- [phone] 05/26/2020 09:39 Patient: CECE FLORES [facility]#: [id number] Sex: F : 1970 Age: 49ynerve. Back [...] tilted forward or backward. 19 General Instructions [facility] Emergency Department [address] [place] [address] Phone #: ext- [phone] 05/26/2020 09:39 Patient: [...] are taking other medicines. You may use [id number] medicine to control pain, unless another pain [...] affect your care.Call 911 20 General Instructions [facility] Emergency Department [address] [place] [address] Phone #: ext- [phone] 05/26/2020 09:39 Patient: [...] or as directed by your healthcare provider [phone] [employer]. [address] [place] [address]. All rights reserved. This information is not [...] activity for one weeks. 21 General Instructions [facility] Emergency Department [address] [place] [address] Phone #: ext- [phone] 05/26/2020 09:39 Patient: CECE FLORES Sex: F : 1970 Age: 49y(Electronically signed by Quinn Murray P.A.-C 05/26/2020 21:17) Name Value Range Interpretation Code Description Data Clare rce(s) Supporting Document(s) ID Date Data Source [id number] 05/26/2020 09:52:00 AM EST [facility] 1 Clinical Report - Nurses [facility] Emergency Department [address] [place] [address] Phone #: ext- [phone] 05/26/2020 09:39 Patient: [...] and BACK PAIN.Alert. No acute distress.Onset. 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 2 Clinical Report - Nurses [facility] Emergency Department [address] [place] [address] Phone #: ext- [phone] 05/26/2020 09:39 Patient: CECE FLORES [facility]#: [id number] Sex: F : 1970 Age: 49yHypertension.Anxiety Reaction.COPD - Chronic Obstructive Pulmonary Disease.Spinal narrowing.Migraine Headache.Lumbar Strain. --09:53 05/26/20 Tena Ernandez RNThe following entry was modified by Tena Ernandez RN, 09:53 05/26/20Diabetes Mellitus. --09:53 05/26/20 Tnea Ernandez RNThe following entry was modified by [...] Ernandez RN. 3 Clinical Report - Nurses [facility] Emergency Department [address] [place] [address] Phone #: ext- [phone] 05/26/2020 09:39 ----- [...] RR: 16. O2 saturation: 95%. --11:02 05/26/20 [facility] 4 Clinical Report - Nurses [facility] Emergency Department [address] [place] [address] Phone #: ext- [phone] 05/26/2020 09:39 [id number] Sex: F : 1970 Age: 49y Rola Heredia, Tech1 Patient transported to [place] by wheelchair with mask and tech. --11:52 05/26/20 Nova Caldera R.N. 12:07 05/26/20. BP: 96/66. MAP: 76. HR: 78. RR: 16. O2 saturation: 96%. --12:08 05/26/20 [place] electric frying pan repairerRola Heredia, Tech1 The patient is calm and [...] F. Pain level now: 08/01. --12:50 05/26/20 [facility], [facility] Tech1 13:15 05/26/2020 Site #1 removed upon discharge. Catheter intact. Manual pressure and bandage applied. --13:25 05/26/20 Nova Caldera R.N. Condition at departure: improved and stable. No learning barriers present. Discharge instructions provided and reviewed with the patient. Reviewed medication(s). Prescription(s) sent electronically to pharmacy. Reviewed referral to an orthopedic surgeon. Work note given. Patient verbalized understanding. Written instructions provided in [place]. The patient was discharged by the physician fleet administrative assistant. She was discharged home and accompanied by family. She left ambulatory and via private vehicle. Family member driving. --13:26 05/26/20 Nova Caldera R.N.Locked/Released at 05/26/2020 13:26 by Nova Caldera R.N. Name Value Range Interpretation Code Description Data Clare rce(s) Supporting Document(s) ID Date Data Source [id number] 05/26/2020 09:52:00 AM EST [facility] 1 Clinical Report - Physicians/Mid Levels [facility] Emergency Department [address] [place] [address] Phone #: ext- [phone] 05/26/2020 09:39 [id number] Sex: F : 1970 Age: 49y Time [...] Pharyngitis. 2 Clinical Report - Physicians/Mid Levels [facility] Emergency Department [address] [place] [address] Phone #: ext- [phone] 05/26/2020 09:39 Patient: CECE FLORES Sex: F [...] distention. 3 Clinical Report - Physicians/Mid Levels [facility] Emergency Department [address] [place] [address] Phone #: ext- [phone] 05/26/2020 09:39 Patient: [...] IV Ofirmev. Pending results. ///////////////////////////////////////////////////////////////////////// Reviewed [place] [employer] NURSE This report was requested by: Quinn Murray Reference #: [id number] Others' Prescriptions Patient Name: Cece FloresBirth Date: 1970 Address: [address] [place], [place] [address]Sex: Female Rx Written Rx Dispensed Drug Quantity Days Supply Prescriber Name Payment Method Dispenser 05/12/2020 05/17/2020 pregabalin 75 mg capsule 90 30 Estelle [facility] Medicaid [facility] 4 Clinical Report - Physicians/Mid Levels [facility] Emergency Department [address] [place] [address] Phone #: ext- [phone] 05/26/2020 09:39 Patient: [...] weeks. 5 Clinical Report - Physicians/Mid Levels [facility] Emergency Department [address] [place] [address] Phone #: ext- [phone] 05/26/2020 09:39 Patient: CECE FLORES Sex: F [...] Dispense 3 patch. Refills: 0. Substitution permitted. [facility] - [address] [place], [place] [id number]. . cyclobenzaprine 10 mg tablet Take 1 tablet three times a day for 3 days -- Dispense 9 tablet. Refills: 0. Substitution permitted. [facility] - [address] [facility] ; [place] [address]. . Follow-up: Return to the emergency department as needed. Follow up with your healthcare provider in about two days if not better. Call for an appointment. Understanding of the discharge instructions verbalized by patient. Follow-up with: [facility], , , [address] [place] [address], [id number] Follow up. Call for the next available appointment. Reason for referral: evaluation and treatment.(Electronically signed by Quinn Murray P.A.-C 05/26/2020 21:17) Name Value Range Interpretation Code Description Data Clare rce(s) Supporting Document(s) ID Date Data Source [id number] 05/26/2020 11:34:00 AM EST [facility] Name Value Range Interpretation Code Description Data Clare rce(s) Supporting Document(s) COMPREHENSIVE METABOLIC PANEL [facility] COMPREHENSIVE METABOLIC PANEL Sodium [Moles/volume] in Serum or Plasma 136 mEq/L 134 - 153 [facility] Potassium [Moles/volume] in Serum or Plasma 4.7 mEq/L 3.6 - 5.0 [facility] Chloride [Moles/volume] in Serum or Plasma 99 mEq/L 98 - 107 [facility] Carbon dioxide, total [Moles/volume] in Serum or Plasma 26 MEQ/L 22 - 30 [facility] Glucose [Mass/volume] in Serum or Plasma 183 MG/DL 70 - 99 H [facility] BUN 10 MG/DL 7 - 21 [facility] Creatinine [Mass/volume] in Serum or Plasma 0.6 MG/DL 0.7 - 1.5 L [facility] BUN/CREAT 17 8 - 27 [facility] al Protein [Mass/volume] in Serum or Plasma 6.5 G/DL 6.3 - 8.2 [facility] Albumin [Mass/volume] in Serum or Plasma 4.3 G/DL 3.9 - 5.0 [facility] Globulin [Mass/volume] in Serum by calculation 2.2 GM/DL 2.4 - 3.2 L [facility] A/G RATIO 2.0 0.8 - 2.0 [facility] Calcium [Mass/volume] in Serum or Plasma 9.4 MG/DL 8.4 - 10.2 [facility] Bilirubin.total [Mass/volume] in Serum or Plasma <0.7 MG/DL 0.2 - 1.3 [facility] Alkaline phosphatase [Enzymatic activity/volume] in Serum or Plasma 92 U/L 38 - 126 [facility] Aspartate aminotransferase [Enzymatic activity/volume] in Serum or Plasma 17 U/L 5 - 40 [facility] Alanine aminotransferase [Enzymatic activity/volume] in Seru m or Plasma 25 U/L 7 - 56 [facility] Anion gap 3 in Serum or Plasma 11.0 mmol/L 8.0 - 16.0 [facility] AGE 49 yrs [facility] Hospit al NON-AA GFR >60 mL/min [facility] Hosp ital AFR AMER GFR >60 mL/min [facility] Ho spital Male GFR In terprentation [...] >32 mL/min Normal ID Date Data Source [id number] 05/26/2020 11:25:00 AM [facility] Name Value Range Interpretation Code Description Data Clare rce(s) Supporting Document(s) Lipase [Enzymatic activity/volume] in Serum or Plasma 25 U/L 13 - 60 [facility] ID Date Data Source [id number] 05/26/2020 11:15:00 AM [facility] Value Range Interpretation Code Description Data Clare rce(s) Supporting Document(s) Lactate [Moles/volume] in Serum or Plasma 1.5 MMOL/L 0.2 - 2.2 [facility] ID Date Data Source [id number] 05/26/2020 11:08:00 AM [facility] Value Range Interpretation Code Description Data Clare rce(s) Supporting Document(s) CBC W/AUTOMATED DIFF [facility] COMPLETE BLOOD COUNT Leukocytes [#/volume] in Blood by Automated count 9.5 10^3/uL 4.2 - 1 1.0 [facility] Erythrocytes [#/volume] in Blood by Automated count 4.24 10^6/uL 4. 20 - 5.40 [facility] Hemoglobin [Mass/volume] in Blood 13.3 g/dL 12.0 - 16.0 [facility] Hematocrit [Volume Fraction] of Blood by Automated count 38.6 % 3 7.0 - 47.0 [facility] Erythrocyte mean corpuscular volume [Entitic volume] by Auto mated count 91.0 fL 81.0 - 101 [facility] Erythrocyte mean corpuscular hemoglobin [Entitic mass] by Automated count 31.4 pg 27.0 - 34.0 [facility] Erythrocyte mean corpuscular hemoglobin concentration [Mass/volume] by Automated count 34.5 g/dL 31.0 - 36.0 [facility] Erythrocyte distribution width [Ratio] by Automated count 12.3 % 11.5 - 14.5 [facility] Platelets [#/volume] in Blood by Automated count 305 10^3/uL 150 - 45 0 [facility] Platelet mean volume [Entitic volume] in Blood by Automated count 9.7 fL 7.4 - 10.4 [facility] Neutrophils/100 leukocytes in Blood by Automated count 59.4 % 37. 0 - 80.0 [facility] Lymphocytes/100 leukocytes in Blood by Manual count 30.8 % 25.0 - 40.0 [facility] Monocytes/100 leukocytes in Blood by Automated count 7.7 % 3.0 - 8.0 [facility] Eosinophils/100 leukocytes in Blood by Automated count 1.5 % 0.0 - 7.0 [facility] Basophils/100 leukocytes in Blood by Automated count 0.4 % 0.0 - 2.5 [facility] %IG 0.2 % 0.0 - 0.0 [facility] %NRBC 0.0 % 0.0 - 0.0 [facility] al Neutrophils [#/volume] in Blood by Automated count 5.62 10^3/uL 2.00 - 6.90 [facility] Lymphocytes [#/volume] in Blood by Automated count 2.91 10^3/uL 0.60 - 3.40 [facility] Monocytes [#/volume] in Blood by Automated count 0.73 10^3/uL 0.00 - 0.90 [facility] Eosinophils [#/volume] in Blood by Automated count 0.14 10^3/uL 0.00 - 0.70 [facility] Basophils [#/volume] in Blood by Automated count 0.04 10^3/uL 0.00 - 0.20 [facility] #IG 0.02 10^3/uL 0.00 - 0.10 [facility] H ospital #NRBC 0.00 10^3/uL 0.00 - 0.00 [facility] ospital MANUAL DIFF NOT INDICATED [facility] RBC MORPH NOT INDICATED [facility] Ho spital ID Date Data Source [id number] 05/26/2020 10:15:00 AM EST [facility] Name Value Range Interpretation Code Description Data Clare rce(s) Supporting Document(s) HCG URINE QUAL NEGATIVE NORMAL: NEGATIVE [facility] HCG URINE QL REENTER NEGATIVE NORMAL: NEGATIVE [facility] { KIT LOT # [id number] ){ KIT EXP DATE 02.03.21 ){ PROCEDURAL CONTROL VALID ) ID Date Data Source [id number] 05/26/2020 10:15:00 AM [facility] Name Value Range Interpretation Code Description Data Clare rce(s) Supporting Document(s) URINALYSIS [facility] ketan URINALYSIS SOURCE R [facility] al COLOR yellow NORMAL: Yellow [facility] CLARITY clear NORMAL: Clear [facility] Ho spital Specific gravity of Urine by Test strip 1.020 1.001 - 1.030 [facility] pH 6 5 - 9 [facility] al Glucose [Mass/volume] in Urine by Test strip NORM NORMAL: Negat [facility] Bilirubin.total [Presence] in Urine by Test strip NEG NORMAL: Negative [facility] Ketones [Presence] in Urine by Test strip NEG NORMAL: Negative [facility] Protein [Mass/volume] in Urine by Test strip [facility] N[facility] [Presence] in Urine by Test strip NEG NORMAL: Negative [facility] BLOOD NEG NORMAL: Negative [facility] Leukocyte esterase [Presence] in Urine by Test strip NEG RONALD L: Negative [facility] Urobilinogen [Mass/volume] in Urine by Test strip NOR less michael n 1.0 mg/dL [facility] MICROSCOPIC Not Indicate [facility] ID Date Data Source [id number] 05/25/2020 11:25:00 AM EST [facility] ([facility]) Name Value Range Interpretation Code Description Data Clare rce(s) Supporting Document(s) Covid Rapid Testing Laboratory test result [facility] ([facility]) ID Date Data Source [id number] 05/25/2020 12:00:00 AM EST [facility] Name Value Range Interpretation Code Description Data Clare rce(s) Supporting Document(s) Covid Rapid Testing Negative [facility] This lab was ordered by [place] and re ported by [facility]. ID Date Data Source RUBEOLA IgG ANTIBODY 04/29/2020 12:00:00 AM EST eCW1 ([facility]) Name Value Range Interpretation Code Description Data Clare rce(s) Supporting Document(s) 84.2 Immune >16.4 eCW1 ([facility]) ID Date Data Source MUMPS VIRUS IgG ANTIBODY 04/29/2020 12:00:00 AM EST eCW1 ([facility]) Name Value Range Interpretation Code Description Data Clare rce(s) Supporting Document(s) 232.0 Immune >10.9 eCW1 ([facility]) ID Date Data Source RUBELLA IgG FOR TORCH EVAL 04/29/2020 12:00:00 AM EST eCW1 ( [facility]) Name Value Range Interpretation Code Description Data Clare rce(s) Supporting Document(s) 4.97 Immune >0.99 eCW1 ([facility]) ID Date Data Source LIPID PANEL (CARDIAC RISK) 04/29/2020 12:00:00 AM EST eCW1 ( [facility]) Name Value Range Interpretation Code Description Data Clare rce(s) Supporting Document(s) Cholesterol in HDL [Moles/volume] in Serum or Plasma 37 >40 eCW1 ([facility]) Cholesterol [Moles/volume] in Serum or Plasma 207 <200 eCW1 ([facility]) Triglyceride [Mass/volume] in Serum or Plasma by calculation 340 <150 eCW1 ([facility]) 170 eCW1 ([facility]) Cholesterol in LDL [Mass/volume] in Serum or Plasma by calculation 10 2 <100 eCW1 ([facility]) 5.594 <5 eCW1 ([facility]) ID Date Data Source FREE T4 & TSH PANEL 04/29/2020 12:00:00 AM EST eCW1 ([facility]) Name Value Range Interpretation Code Description Data Clare rce(s) Supporting Document(s) 0.994 0.358-3.740 THYROID STIMULATING HORM ONE eCW1 ([facility]) 0.99 0.76-1.46 FREE T4 eCW1 ([facility]) ID Date Data Source [id number] 12/11/2019 03:36:00 PM EDT [facility] ([facility] [...] Little GFR Left</content>
<content>ESRD GFR <15 on MAITRE D</content>
<content></content> Carbon Dioxide Level 32 meq/L 21-32 [...] Current Smoker completed Curre nt Smoker eCW1 ([facility]) Smoking 01/22/2021 12:00:00 AM EDT Current Smoker completed Curre nt Smoker eCW1 ([facility]) Smoking 01/22/2021 12:00:00 AM EDT Current Smoker completed Curre nt Smoker eCW1 ([facility]) Smoking 12/11/2020 12:00:00 AM EDT Current Smoker completed Curre nt Smoker eCW1 ([facility]) Smoking 12/11/2020 12:00:00 AM EDT Current Smoker completed Curre nt Smoker eCW1 ([facility]) Smoking 12/11/2020 12:00:00 AM EDT Current Smoker completed Curre nt Smoker eCW1 ([facility]) Smoking 12/11/2020 12:00:00 AM EDT Current Smoker completed Curre nt Smoker eCW1 ([facility]) Smoking 12/11/2020 12:00:00 AM EDT Current Smoker completed Curre nt Smoker eCW1 ([facility]) Smoking 12/11/2020 12:00:00 AM EDT Current Smoker completed Curre nt Smoker eCW1 ([facility]) Smoking 11/26/2020 12:00:00 AM EDT Current Smoker completed Curre nt Smoker eCW1 ([facility]) Smoking 11/26/2020 12:00:00 AM EDT Current Smoker completed Curre nt Smoker eCW1 ([facility]) Smoking 11/26/2020 12:00:00 AM EDT Current Smoker completed Curre nt Smoker eCW1 ([facility]) Smoking 11/26/2020 12:00:00 AM EDT Current Smoker completed Curre nt Smoker eCW1 ([facility]) Smoking 10/27/2020 12:00:00 AM EDT Current Smoker completed Curre nt Smoker eCW1 ([facility]) Smoking 10/27/2020 12:00:00 AM EDT Current Smoker completed Curre nt Smoker eCW1 ([facility]) Smoking 10/27/2020 12:00:00 AM EDT Current Smoker completed Curre nt Smoker eCW1 ([facility]) Smoking 10/27/2020 12:00:00 AM EDT Current Smoker completed Curre nt Smoker eCW1 ([facility]) Smoking 10/27/2020 12:00:00 AM EDT Current Smoker completed Curre nt Smoker eCW1 ([facility]) Smoking 10/14/2020 12:00:00 AM EDT Current Smoker completed Curre nt Smoker eCW1 ([facility]) Smoking 10/14/2020 12:00:00 AM EDT Current Smoker completed Curre nt Smoker eCW1 ([facility]) Smoking 10/14/2020 12:00:00 AM EDT Current Smoker completed Curre nt Smoker eCW1 ([facility]) Smoking 10/14/2020 12:00:00 AM EDT Current Smoker completed Curre nt Smoker eCW1 ([facility]) Smoking 10/14/2020 12:00:00 AM EDT Current Smoker completed Curre nt Smoker eCW1 ([facility]) Smoking 10/14/2020 12:00:00 AM EDT Current Smoker completed Curre nt Smoker eCW1 ([facility]) Smoking 09/15/2020 12:00:00 AM EDT Current Smoker completed Curre nt Smoker eCW1 ([facility]) Smoking 09/15/2020 12:00:00 AM EDT Current Smoker completed Curre nt Smoker eCW1 ([facility]) Smoking 09/15/2020 12:00:00 AM EDT Current Smoker completed Curre nt Smoker eCW1 ([facility]) Smoking 09/15/2020 12:00:00 AM EDT Current Smoker completed Curre nt Smoker eCW1 ([facility]) Smoking 08/11/2020 12:00:00 AM EDT Current Smoker completed Curre nt Smoker eCW1 ([facility]) Smoking 08/11/2020 12:00:00 AM EDT Current Smoker completed Curre nt Smoker eCW1 ([facility]) Smoking 05/12/2020 12:00:00 AM EST Current Smoker completed Curre nt Smoker eCW1 ([facility]) Smoking 05/12/2020 12:00:00 AM EST Current Smoker completed Curre nt Smoker eCW1 ([facility]) Smoking 05/12/2020 12:00:00 AM EST Current Smoker completed Curre nt Smoker eCW1 ([facility]) Smoking 05/12/2020 12:00:00 AM EST Current Smoker completed Curre nt Smoker eCW1 ([facility]) Smoking 05/12/2020 12:00:00 AM EST Current Smoker completed Curre nt Smoker eCW1 ([facility]) Smoking 05/12/2020 12:00:00 AM EST Current Smoker completed Curre nt Smoker eCW1 ([facility]) Smoking 05/12/2020 12:00:00 AM EST Current Smoker completed Curre nt Smoker eCW1 ([facility]) Smoking 04/29/2020 12:00:00 AM EST Current Smoker completed Curre nt Smoker eCW1 ([facility]) Smoking 04/29/2020 12:00:00 AM EST Current Smoker completed Curre nt Smoker eCW1 ([facility]) Smoking 03/25/2020 12:00:00 AM EST Current Smoker completed Curre nt Smoker eCW1 ([facility]) Smoking 03/25/2020 12:00:00 AM EST Current Smoker completed Curre nt Smoker eCW1 ([facility]) Smoking 02/20/2020 12:00:00 AM EDT Current Smoker completed Curre nt Smoker eCW1 ([facility]) Smoking 02/20/2020 12:00:00 AM EDT Current Smoker completed Curre nt Smoker eCW1 ([facility]) Smoking 02/20/2020 12:00:00 AM EDT Current Smoker completed Curre nt Smoker eCW1 ([facility]) Smoking 02/20/2020 12:00:00 AM EDT Current Smoker completed Curre nt Smoker eCW1 ([facility]) Vital Signs ID Date Data Source UNK Name Value Range Interpretation Code Description Data Source(s) Body weight 202 [lb_av] 202 [lb_av] eCW1 ([facility]) Body weight 91.63 kg 91.63 kg eCW1 ([facility]) Body height 63 [in_i] 63 [in_i] eCW1 ([facility]) Body mass index (BMI) [Ratio] 35.78 kg/m2 35.78 kg/m2 eCW1 ([facility]) Heart rate 100 /min 100 /min eCW1 ([facility]) Respiratory rate 18 /min 18 /min eCW1 ([facility]) Body temperature 97.4 [degF] 97.4 [degF] eCW1 ( [facility]) Systolic blood pressure 122 mm[Hg] 122 mm[Hg] e CW1 ([facility]) Diastolic blood pressure 68 mm[Hg] 68 mm[Hg] eCW1 ([facility]) Body weight 203.6 [lb_av] 203.6 [lb_av] eCW1 ([facility]) Body weight 92.35 kg 92.35 kg eCW1 ([facility]) Body height 63 [in_i] 63 [in_i] eCW1 ([facility]) Body mass index (BMI) [Ratio] 36.06 kg/m2 36.06 kg/m2 eCW1 ([facility]) Body weight 207 [lb_av] 207 [lb_av] eCW1 ([facility]) Body weight 93.89 kg 93.89 kg eCW1 ([facility]) Body height 63 [in_i] 63 [in_i] eCW1 ([facility]) Body mass index (BMI) [Ratio] 36.66 kg/m2 36.66 kg/m2 eCW1 ([facility]) Heart rate 98 /min 98 /min eCW1 ([facility]) Respiratory rate 18 /min 18 /min eCW1 ([facility]) Body temperature 97.2 [degF] 97.2 [degF] eCW1 ( [facility]) Systolic blood pressure 124 mm[Hg] 124 mm[Hg] e CW1 ([facility]) Diastolic blood pressure 78 mm[Hg] 78 mm[Hg] eCW1 ([facility]) Body weight 206 [lb_av] 206 [lb_av] eCW1 ([facility]) Body height 63 [in_i] 63 [in_i] eCW1 ([facility]) Body mass index (BMI) [Ratio] 36.49 kg/m2 36.49 kg/m2 eCW1 ([facility]) Heart rate 118 /min 118 /min eCW1 ([facility]) Respiratory rate 18 /min 18 /min eCW1 ([facility]) Body temperature 96.4 [degF] 96.4 [degF] eCW1 ( [facility]) Systolic blood pressure 118 mm[Hg] 118 mm[Hg] e CW1 ([facility]) Diastolic blood pressure 60 mm[Hg] 60 mm[Hg] eCW1 ([facility]) Body weight 207 [lb_av] 207 [lb_av] eCW1 ([facility]) Body height 63 [in_i] 63 [in_i] eCW1 ([facility]) Body mass index (BMI) [Ratio] 36.66 kg/m2 36.66 kg/m2 eCW1 ([facility]) Heart rate 102 /min 102 /min eCW1 ([facility]) Respiratory rate 18 /min 18 /min eCW1 ([facility]) Body temperature 97.4 [degF] 97.4 [degF] eCW1 ( [facility]) Systolic blood pressure 122 mm[Hg] 122 mm[Hg] e CW1 (Formerly [facility]) Diastolic blood pressure 68 mm[Hg] 68 mm[Hg] eCW1 (Formerly [facility]) Body mass index (BMI) [Ratio] 36.8 kg/m2 36.8 k g/m2 [facility] ([facility] Body height 63 [in_i] 63 [in_i] [facility] ([facility] 5'3" Body weight 208.00 [lb_av] 208.00 [lb_av] MEDEN T ([facility] Systolic blood pressure 122 mm[Hg] 122 mm[Hg] [facility] ([facility] Diastolic blood pressure 68 mm[Hg] 68 mm[Hg] [facility] ([facility] Heart rate 93 /min 93 /min [facility] ([facility] Systolic blood pressure 142 mm[Hg] 142 mm[Hg] [facility] ([facility], ) Diastolic blood pressure 90 mm[Hg] 90 mm[Hg] [facility] ([facility]) Heart rate 90 /min 90 /min [facility] ([facility]) Oxygen saturation in Arterial blood by Pulse oximetry 95 % 95 % [facility] ([facility]) Body height 63 [in_i] 63 [in_i] [facility] ([facility]) 5'3" Body weight 206.00 [lb_av] 206.00 [lb_av] [facility] Body mass index (BMI) [Ratio] 36.5 kg/m2 36.5 k g/m2 [facility] ([facility]) [place] body weight 115 [lb_av] 115 [lb_av] [facility] Body weight 93.442 kg 93.442 kg [facility] ([facility]) Body surface area Derived from formula 1.96 m2 1.96 m2 [facility] ([facility]) Body weight [lb_av] W1 ([facility]ly [facility]) Body height 63 [in_i] 63 [in_i] eCW1 ([facility]) Body mass index (BMI) [Ratio] 36.63 kg/m2 36.63 kg/m2 W1 (Formerly [facility]) Body weight 206.8 [lb_av] 206.8 [lb_av] eCW1 ([facility]) Body height 63 [in_i] 63 [in_i] eCW1 ([facility]) Body mass index (BMI) [Ratio] 36.63 kg/m2 36.63 kg/m2 eCW1 (Formerly [facility]) Heart rate 105 /min 105 /min eCW1 ([facility]) Respiratory rate 18 /min 18 /min eCW1 ([facility]) Body temperature 97.4 [degF] 97.4 [degF] eCW1 ( [facility]ly [facility]) Systolic blood pressure 130 mm[Hg] 130 mm[Hg] e CW1 (Formerly [facility]) Diastolic blood pressure 60 mm[Hg] 60 mm[Hg] eCW1 (Formerly [facility]) Body weight 208 [lb_av] 208 [lb_av] eCW1 ([facility]) Body height 63 [in_i] 63 [in_i] eCW1 ([facility]) Body mass index (BMI) [Ratio] 36.84 kg/m2 36.84 kg/m2 eCW1 (Formerly [facility]) Heart rate 107 /min 107 /min eCW1 ([facility]) Respiratory rate 18 /min 18 /min eCW1 ([facility]) Body temperature 97.4 [degF] 97.4 [degF] eCW1 ( [facility]ly [facility]) Systolic blood pressure 122 mm[Hg] 122 mm[Hg] e CW1 ([facility]ly [facility]) Diastolic blood pressure 70 mm[Hg] 70 mm[Hg] eCW1 ([facility]ly [facility]) Body weight 209 [lb_av] 209 [lb_av] eCW1 ([facility]) Body height 63 [in_i] 63 [in_i] eCW1 ([facility]) Diastolic blood pressure 82 mm[Hg] 82 mm[Hg] eCW1 (Formerly [facility]) Body mass index (BMI) [Ratio] 37.02 kg/m2 37.02 kg/m2 eCW1 ([facility]ly [facility]) Heart rate 108 /min 108 /min eCW1 ([facility]) Respiratory rate 18 /min 18 /min eCW1 ([facility]) Body temperature 97.4 [degF] 97.4 [degF] eCW1 ( [facility]) Systolic blood pressure 142 mm[Hg] 142 mm[Hg] e CW1 ([facility]ly [facility]) Systolic blood pressure 130 mm[Hg] 130 mm[Hg] M EDENT ([facility], ) Diastolic blood pressure 74 mm[Hg] 74 mm[Hg] [facility] ([facility]) Body height 63 [in_i] 63 [in_i] [facility] ([facility]) 5'3" Body weight 210.00 [lb_av] 210.00 [lb_av] MEDEN T ([facility]) Body mass index (BMI) [Ratio] 37.2 kg/m2 37.2 k g/m2 [facility] ([facility]) [place] body weight 115 [lb_av] 115 [lb_av] MEDEN T ([facility]) Body weight 95.256 kg 95.256 kg [facility] ([facility]) Body surface area Derived from formula 1.97 m2 1.97 m2 [facility] ([facility]) Body temperature 97.1 [degF] 97.1 [degF] [facility] ([facility]) Body weight 205.00 [lb_av] 205.00 [lb_av] MEDEN T ([facility]) Body temperature 97.3 [degF] 97.3 [degF] [facility] ([facility]) Body height 63 [in_i] 63 [in_i] [facility] ([facility]) 5'3" Body mass index (BMI) [Ratio] 36.3 kg/m2 36.3 k g/m2 [facility] ([facility]) Body weight 211 [lb_av] 211 [lb_av] eCW1 ([facility]) Body height 63 [in_i] 63 [in_i] eCW1 ([facility]) Body mass index (BMI) [Ratio] 37.37 kg/m2 37.37 kg/m2 eCW1 (Formerly [facility]) Heart rate 121 /min 121 /min eCW1 ([facility]) Respiratory rate 18 /min 18 /min eCW1 ([facility]) Body temperature 96.9 [degF] 96.9 [degF] eCW1 ( [facility]ly [facility]) Systolic blood pressure 160 mm[Hg] 160 mm[Hg] e CW1 ([facility]ly [facility]) Diastolic blood pressure 78 mm[Hg] 78 mm[Hg] eCW1 (Formerly [facility]) Body weight 212 [lb_av] 212 [lb_av] eCW1 ([facility]) Body height 63 [in_i] 63 [in_i] eCW1 ([facility]) Body mass index (BMI) [Ratio] 37.55 kg/m2 37.55 kg/m2 eCW1 (Formerly [facility]) Heart rate 100 /min 100 /min eCW1 ([facility]) Respiratory rate 20 /min 20 /min eCW1 ([facility]) Body temperature 96.2 [degF] 96.2 [degF] eCW1 ( [facility]) Systolic blood pressure 130 mm[Hg] 130 mm[Hg] e CW1 ([facility]ly [facility]) Diastolic blood pressure 70 mm[Hg] 70 mm[Hg] eCW1 ([facility]ly [facility]) Body weight 210 [lb_av] 210 [lb_av] eCW1 ([facility]) Respiratory rate 20 /min 20 /min eCW1 ([facility]) Body temperature 96.7 [degF] 96.7 [degF] eCW1 ( [facility]) Systolic blood pressure 120 mm[Hg] 120 mm[Hg] e CW1 ([facility]ly [facility]) Diastolic blood pressure 64 mm[Hg] 64 mm[Hg] eCW1 ([facility]ly [facility]) Heart rate 110 /min 110 /min eCW1 ([facility]) Body height 63 [in_i] 63 [in_i] eCW1 ([facility]) Body mass index (BMI) [Ratio] 37.20 kg/m2 37.20 kg/m2 eCW1 (Formerly [facility]) Body height 63 [in_i] 63 [in_i] eCW1 ([facility]) Body mass index (BMI) [Ratio] 37.02 kg/m2 37.02 kg/m2 eCW1 ([facility]ly [facility]) Systolic blood pressure 132 mm[Hg] 132 mm[Hg] e CW1 (Formerly [facility]) Diastolic blood pressure 72 mm[Hg] 72 mm[Hg] eCW1 ([facility]ly [facility]) Body weight 209 [lb_av] 209 [lb_av] eCW1 ([facility]) Body weight 95.25 kg 95.25 kg eCW1 ([facility]) Body weight 210.0 [lb_av] 210.0 [lb_av] eCW1 ([facility]) Body height 63 [in_i] 63 [in_i] eCW1 ([facility]) Body mass index (BMI) [Ratio] 37.20 kg/m2 37.20 kg/m2 eCW1 (Formerly [facility]) Heart rate 108 /min 108 /min eCW1 ([facility]) Respiratory rate 18 /min 18 /min eCW1 ([facility]) Body temperature 97.4 [degF] 97.4 [degF] eCW1 ( [facility]ly [facility]) Systolic blood pressure 128 mm[Hg] 128 mm[Hg] e CW1 (Formerly [facility]) Diastolic blood pressure 80 mm[Hg] 80 mm[Hg] eCW1 (Formerly [facility]) Patient Treatment Plan of Care Planned Activity Planned Date Details Description Data Source (s) pregabalin 75 MG Oral Capsule [Lyrica] 02/02/2021 12:00:00 AM EDT eCW1 (Formerly [facility]) pregabalin 75 MG Oral Capsule [Lyrica] 02/02/2021 12:00:00 AM EDT eCW1 (Formerly [facility]) Trulicity 4.5 MG/0.5ML 01/22/2021 12:00:00 AM EDT eCW1 (Formerly [facility]) Trulicity 4.5 MG/0.5ML 01/22/2021 12:00:00 AM EDT eCW1 (Formerly [facility]) Trulicity 4.5 MG/0.5ML 01/22/2021 12:00:00 AM EDT eCW1 (Formerly [facility]) pregabalin 75 MG Oral Capsule [Lyrica] 01/07/2021 12:00:00 AM EDT eCW1 (Formerly [facility]) pregabalin 75 MG Oral Capsule [Lyrica] 01/07/2021 12:00:00 AM EDT eCW1 (Formerly [facility]) levocetirizine dihydrochloride 5 MG Oral Tablet 01/06/2021 12:00:00 AM EDT eCW1 (Formerly [facility]) levocetirizine dihydrochloride 5 MG Oral Tablet 01/06/2021 12:00:00 AM EDT eCW1 ([facility]ly [facility]) levocetirizine dihydrochloride 5 MG Oral Tablet 01/06/2021 12:00:00 AM EDT eCW1 (Formerly [facility]) levocetirizine dihydrochloride 5 MG Oral Tablet 01/06/2021 12:00:00 AM EDT eCW1 ([facility]ly [facility]) levocetirizine dihydrochloride 5 MG Oral Tablet 01/06/2021 12:00:00 AM EDT eCW1 ([facility]ly [facility]) Trulicity 3 MG/0.5ML 12/11/2020 12:00:00 AM EDT eCW1 ([facility]ly [facility]) Trulicity 3 MG/0.5ML 12/11/2020 12:00:00 AM EDT eCW1 ([facility]ly [facility]) Trulicity 3 MG/0.5ML 12/11/2020 12:00:00 AM EDT eCW1 ([facility]ly [facility]) Trulicity 3 MG/0.5ML 12/11/2020 12:00:00 AM EDT eCW1 ([facility]) Trulicity 3 MG/0.5ML 12/11/2020 12:00:00 AM EDT eCW1 ([facility]ly [facility]) Trulicity 3 MG/0.5ML 12/11/2020 12:00:00 AM EDT eCW1 (Formerly [facility]) Levaquin 750 MG 11/26/2020 12:00:00 AM EDT eCW1 (Formerly [facility]) 12 HR Guaifenesin 600 MG Extended Release Oral Tablet [Mucinex] 11/26/2020 12:00:00 AM EDT eCW1 ([facility]) Triamcinolone Acetonide 55 MCG/ACT 11/26/2020 12:00:00 AM EDT eCW1 (Formerly [facility]) Levaquin 750 MG 11/26/2020 12:00:00 AM EDT eCW1 (Formerly [facility]) 12 HR Guaifenesin 600 MG Extended Release Oral Tablet [Mucinex] 11/26/2020 12:00:00 AM EDT eCW1 ([facility]) Triamcinolone Acetonide 55 MCG/ACT 11/26/2020 12:00:00 AM EDT eCW1 ([facility]ly [facility]) Levaquin 750 MG 11/26/2020 12:00:00 AM EDT eCW1 (Formerly [facility]) 12 HR Guaifenesin 600 MG Extended Release Oral Tablet [Mucinex] 11/26/2020 12:00:00 AM EDT eCW1 ([facility]) Triamcinolone Acetonide 55 MCG/ACT 11/26/2020 12:00:00 AM EDT eCW1 ([facility]) Levaquin 750 MG 11/26/2020 12:00:00 AM EDT eCW1 ([facility]ly [facility]) 12 HR Guaifenesin 600 MG Extended Release Oral Tablet [Mucinex] 11/26/2020 12:00:00 AM EDT eCW1 ([facility]) Triamcinolone Acetonide 55 MCG/ACT 11/26/2020 12:00:00 AM EDT eCW1 ([facility]) Triamcinolone Acetonide 55 MCG/ACT 10/15/2020 12:00:00 AM EDT eCW1 ([facility]ly [facility]) Triamcinolone Acetonide 55 MCG/ACT 10/15/2020 12:00:00 AM EDT eCW1 ([facility]) Triamcinolone Acetonide 55 MCG/ACT 10/15/2020 12:00:00 AM EDT eCW1 ([facility]ly [facility]) Triamcinolone Acetonide 55 MCG/ACT 10/15/2020 12:00:00 AM EDT eCW1 (Formerly [facility]) Flunisolide 25 MCG/ACT (0.025%) 10/14/2020 12:00:00 AM EDT eCW1 ([facility]ly [facility]) Flunisolide 25 MCG/ACT (0.025%) 10/14/2020 12:00:00 AM EDT eCW1 (Formerly [facility]) 0.5 ML dulaglutide 1.5 MG/ML Auto-Injector [Trulicity] 05/12/2020 12:00:00 AM EST eCW1 ([facility]) 0.5 ML dulaglutide 1.5 MG/ML Auto-Injector [Trulicity] 05/12/2020 12:00:00 AM EST eCW1 ([facility]) 0.5 ML dulaglutide 1.5 MG/ML Auto-Injector [Trulicity] 05/12/2020 12:00:00 AM EST eCW1 ([facility]) 0.5 ML dulaglutide 1.5 MG/ML Auto-Injector [Trulicity] 05/12/2020 12:00:00 AM EST eCW1 ([facility]) 0.5 ML dulaglutide 1.5 MG/ML Auto-Injector [Trulicity] 05/12/2020 12:00:00 AM EST eCW1 ([facility]) 0.5 ML dulaglutide 1.5 MG/ML Auto-Injector [Trulicity] 05/12/2020 12:00:00 AM EST eCW1 ([facility]) 0.5 ML dulaglutide 1.5 MG/ML Auto-Injector [Trulicity] 05/12/2020 12:00:00 AM EST eCW1 ([facility]) Fluconazole 150 MG Oral Tablet [Diflucan] 02/20/2020 12:00:00 AM ED T eCW1 (Formerly [facility]) Fluconazole 150 MG Oral Tablet [Diflucan] 02/20/2020 12:00:00 AM ED T eCW1 ([facility]ly [facility]) Fluconazole 150 MG Oral Tablet [Diflucan] 02/20/2020 12:00:00 AM ED T eCW1 ([facility]ly [facility]) Fluconazole 150 MG Oral Tablet [Diflucan] 02/20/2020 12:00:00 AM ED T eCW1 (Formerly [facility])
[2021-02-06] MEDS ORDERED: MECLIZINE 25 MG TABLET PO ONE (01:55)
[2021-02-06 02:29] LABS: BASO % 0.4 % (0.0-1.0); EOS # 0.2 10^3/uL (0.0-0.5); EOS % 1.6 % (0.0-3.0); HEMATOCRIT 39.6 % (36.0-47.0); HEMOGLOBIN 13.3 g/dl (12.0-15.5); LYMPH # 3.9 10^3/uL (1.5-5.0); LYMPH % 35.9 % (24.0-44.0); MEAN CORPUSCULAR HEMOGLOBIN 31.5 pg (27.0-33.0); MEAN CORPUSCULAR HGB CONC 33.6 g/dl (32.0-36.5); MEAN CORPUSCULAR VOLUME 93.8 fl (80.0-96.0); MONO # 0.9 10^3/uL (0.0-0.8); MONO % 8.3 % (2.0-8.0); NEUTROPHILS # 5.8 10^3/uL (1.5-8.5); NEUTROPHILS % 53.4 % (36.0-66.0); PLATELET COUNT, AUTOMATED 287 10^3/uL (150-450); RED BLOOD COUNT 4.22 10^6/uL (4.00-5.40); WHITE BLOOD COUNT 10.9 10^3/uL (4.0-10.0)
[2021-02-06 02:58] LABS: ALBUMIN 3.4 GM/DL (3.2-5.2); ALT/SGPT 30 U/L (12-78); BILIRUBIN,TOTAL 0.2 MG/DL (0.2-1.0); BLOOD UREA NITROGEN 12 MG/DL (7-18); CALCIUM LEVEL 8.6 MG/DL (8.5-10.1); CARBON DIOXIDE LEVEL 29 MEQ/L (21-32); CHLORIDE LEVEL 103 MEQ/L (98-107); CREATININE FOR GFR 0.74 MG/DL (0.55-1.30); GLOMERULAR FILTRATION RATE > 60.0 (>51); GLUCOSE, FASTING 169 MG/DL (70-100); MAGNESIUM LEVEL 1.8 MG/DL (1.8-2.4); POTASSIUM SERUM 4.4 MEQ/L (3.5-5.1); SODIUM LEVEL 138 MEQ/L (136-145)
--- NOTE | 2021-02-06 03:20 | REPVR ---
PROCEDURE INFORMATION: Exam: CT Head Without Contrast Exam date and time: 02/06/2021 1:55 AM Age: 50 years old Clinical indication: Dizziness; Additional info: Altered mentation TECHNIQUE: Imaging protocol: Computed tomography of the head without contrast. Radiation optimization: All CT scans at this facility use at least one of these dose optimization techniques: automated exposure control; mA and/or kV adjustment per patient size (includes targeted exams where dose is matched to clinical indication); or iterative reconstruction. COMPARISON: MRI-Spine,Cervical without con 05/15/2018 6:35 PM FINDINGS: Brain: Normal. No hemorrhage. Unremarkable white matter. No mass effect. Cerebral ventricles: No ventriculomegaly. 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 Mastoid air cells: Visualized mastoid air cells are well aerated. Bones/joints: Unremarkable. No acute fracture. Soft tissues: Unremarkable. IMPRESSION: No acute intracranial abnormality. Electronically signed by: Master Ferguson On 02/06/2021 03:19:44 AM
--- NOTE | 2021-02-06 03:39 | REPVR ---
PROCEDURE INFORMATION: Exam: XR Chest Exam date and time: 02/06/2021 3:32 AM Age: 50 years old Clinical indication: Other: Dizziness TECHNIQUE: Imaging protocol: XR of the chest. Views: 1 view. COMPARISON: CR Chest, 2 view PA, Lat 01/22/2019 12:02 PM FINDINGS: Lungs: Unremarkable. No consolidation. Pleural spaces: Unremarkable. No pleural effusion. No pneumothorax. Heart/Mediastinum: Unremarkable. No cardiomegaly. Bones/joints: Unremarkable. IMPRESSION: No acute findings. Electronically signed by: Master Ferguson On 02/06/2021 03:38:31 AM
[2021-02-06] MEDS ORDERED: MECL1TAB31 PO (08:00)
[2021-02-06 08:06] VITALS: BP 127/60
--- NOTE | 2021-02-06 08:11 | ECGEPIP ---
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
== END 2021-02-06 08:08 | disposition home or self-care (01) ==
LOC: M ED 23:34
DX: H81.4 Vertigo of central origin (principal); I10 Essential (primary) hypertension; E11.9 Type 2 diabetes mellitus without complications; E78.5 Hyperlipidemia, unspecified; Z79.84 Long term (current) use of oral hypoglycemic drugs; Z79.899 Other long term (current) drug therapy; Z88.6 Allergy status to analgesic agent

== ENCOUNTER → 2021-02-25 | Outpatient (REF) | payer OTHER ==
[~2021-02-25] MED LIST changes: +MECL1TAB31 PO
== END ==
LOC: M SFHCWAGY 19:24
PROVIDERS: ATTEND Advanced Practice Midwife
DX: Z12.4 Encounter for screening for malignant neoplasm of cervix (principal)

== ENCOUNTER → 2021-02-25 | Outpatient (CLI) | payer OTHER ==
--- NOTE | 2021-02-25 15:38 | REPMRS ---
Patient History The patient states she had a clinical breast exam in February 2021. Patient has history of basal cell skin cancer at age 32. No known family history of cancer. Patient states no breast complaints today. Patient has signed MRS History Sheet. Digital Woman Screen Mammo: February 25, 2021 - Exam #: [id number] Bilateral CC and MLO view(s) were taken. Technologist: Leida Shafer, Technologist Prior study comparison: February 20, 2020, bilateral digital woman screen mammo performed at [facility]. January 09, 2018, bilateral digital mammo screening bilat, performed at [facility]. FINDINGS: There are scattered fibroglandular densities. Screening. Digital screening (2D) mammography was performed bilaterally in the CC and MLO projections. Additionally, breast tomosynthesis (3D mammography) was performed bilaterally in the CC and MLO projections. Todays exam was compared to the prior exam/exams. By history, the patient has no complaints of a palpable breast abnormality or other significant breast complaints. The breasts are unchanged in size and shape. There are no kiersten-soft tissue densities or spiculated masses. There is no internal architectural distortion.Once again, stable benign appearing calcifications are seen. There are no suspicious kiersten-calcific clusters. Skin thickening or nipple retraction is not present. IMPRESSION: BI-RADS Category 2- Benign Findings. There is no evidence of malignant alteration of the breasts. Followup examination recommended in one year. The Volpara volumetric breast density category is B, there are scattered areas of fibroglandular densities. This mammogram was read with the assistance of [employer],an FDA approved computer aided detection system for mammography. The lifetime Tyrer-Cuzick score is 8.9 % Negative x-ray reports should not delay surgical consultation if a dominant or clinically suspicious mass is present. Not all breast cancers can be identified by mammography. Therefore, we recommend that you continue to perform regular breast self-examination and physical examination and then promptly contact your physician of any concerns or changes. Adenosis and dense breasts may obscure an underlying neoplasm. Assessment: BI-RADS/ACR category 2 mammogram. Benign Findings. Recommendation Routine screening mammogram of both breasts in 1 year. Electronically Signed By: Zachary Jj DO 02/25/21 [id number]
== END ==
LOC: M WHC 14:15
PROVIDERS: ATTEND Advanced Practice Midwife
DX: Z12.31 Encounter for screening mammogram for malignant neoplasm of breast (principal)

== ENCOUNTER → 2021-08-04 | Outpatient (CLI) | payer OTHER ==
[~2021-08-04] MED LIST changes: +ONDA8TAB8 PO
[2021-08-04 13:58] LABS: BASO % 0.3 % (0.0-1.0); EOS # 0.1 10^3/uL (0.0-0.5); EOS % 1.5 % (0.0-3.0); HEMATOCRIT 41.1 % (36.0-47.0); LYMPH # 2.9 10^3/uL (1.5-5.0); LYMPH % 33.6 % (24.0-44.0); MEAN CORPUSCULAR HEMOGLOBIN 31.4 pg (27.0-33.0); MEAN CORPUSCULAR HGB CONC 34.1 g/dl (32.0-36.5); MEAN CORPUSCULAR VOLUME 92.2 fl (80.0-96.0); MONO # 0.7 10^3/uL (0.0-0.8); NEUTROPHILS # 4.9 10^3/uL (1.5-8.5); NEUTROPHILS % 56.1 % (36.0-66.0); PLATELET COUNT, AUTOMATED 287 10^3/uL (150-450); RED BLOOD COUNT 4.46 10^6/uL (4.00-5.40); WHITE BLOOD COUNT 8.7 10^3/uL (4.0-10.0)
[2021-08-04 14:09] LABS: INR 0.9; PROTHROMBIN TIME 12.5 SECONDS (12.7-14.5)
[2021-08-04 14:10] LABS: PARTIAL THROMBOPLASTIN TIME 29.8 SECONDS (25.9-37.0)
[2021-08-04 14:11] LABS: AMORPHOUS SEDIMENT SMALL (NEGATIVE); APPEARANCE, URINE HAZY (CLEAR); BACTERIA, URINE AUTO 1+ (NEGATIVE); BILIRUBIN, URINE AUTO NEGATIVE (NEGATIVE); BLOOD, URINE BLOOD NEGATIVE (NEGATIVE); COLOR, URINE YELLOW (YELLOW); GLUCOSE, URINE (UA) AUTO NEGATIVE (NEGATIVE); KETONE, URINE AUTO NEGATIVE (NEGATIVE); LEUKOCYTE ESTERASE, URINE AUTO NEGATIVE (NEGATIVE); NITRITE, URINE AUTO NEGATIVE (NEGATIVE); PROTEIN, URINE AUTO NEGATIVE (NEGATIVE); RBC, URINE AUTO 1 /HPF (0-3); SPECIFIC GRAVITY URINE AUTO 1.015 (1.002-1.035); SQUAMOUS EPITHELIAL CELL UR AU 1 /HPF (0-6); UROBILINOGEN, URINE AUTO 0.2 mg/dL (0.0-2.0); WBC, URINE AUTO 0 /HPF (0-3)
[2021-08-04 14:33] LABS: ALBUMIN 3.8 GM/DL (3.2-5.2); ALT/SGPT 45 U/L (12-78); BILIRUBIN,TOTAL 0.4 MG/DL (0.2-1.0); BLOOD UREA NITROGEN 11 MG/DL (7-18); CALCIUM LEVEL 10.1 MG/DL (8.5-10.1); CARBON DIOXIDE LEVEL 28 MEQ/L (21-32); CHLORIDE LEVEL 105 MEQ/L (98-107); CHOLESTEROL LEVEL 272 MG/DL (<200); CHOLESTEROL RISK RATIO 8.242 (<5); CREATININE FOR GFR 0.66 MG/DL (0.55-1.30); FOLLICLE STIMULATING HORMONE 46.7 mIU/mL; FREE T4 0.91 NG/DL (0.76-1.46); GLOMERULAR FILTRATION RATE > 60.0 (>51); GLUCOSE, FASTING 151 MG/DL (70-100); HDL CHOLESTEROL 33 MG/DL (>40); LDL CHOLESTEROL 176 MG/DL (<100); LUTEINIZING HORMONE 19.2 mIU/mL; NON-HDL-C 239 MG/DL; POTASSIUM SERUM 4.4 MEQ/L (3.5-5.1); SODIUM LEVEL 140 MEQ/L (136-145); THYROID STIMULATING HORMONE 0.907 uIU/ML (0.358-3.740); TOTAL PROTEIN 7.1 GM/DL (6.4-8.2); TRIGLYCERIDES LEVEL 313 MG/DL (<150)
[2021-08-04 15:38] LABS: HEMOGLOBIN A1c 8.4 %
[2021-08-05 20:11] LABS: ANA (HEP2) Negative (.); ANTI-MITOCHONDRIAL ANTIBODY <20.0 Units (0.0-20.0)
== END ==
LOC: M PLALAB 11:07
PROVIDERS: ATTEND Physician Assistant Medical
DX: F41.9 Anxiety disorder, unspecified (principal); R79.89 Other specified abnormal findings of blood chemistry; I10 Essential (primary) hypertension; E11.8 Type 2 diabetes mellitus with unspecified complications; E78.00 Pure hypercholesterolemia, unspecified

== ENCOUNTER → 2021-08-18 | Outpatient (CLI) | payer OTHER ==
[2021-08-18 14:21] LABS: CHOLESTEROL RISK RATIO 6.388 (<5); FREE T4 0.95 NG/DL (0.76-1.46); THYROID STIMULATING HORMONE 0.808 uIU/ML (0.358-3.740)
[2021-08-18 15:05] LABS: HEMOGLOBIN A1c 8.4 %
== END ==
LOC: M PLALAB 11:04
PROVIDERS: ATTEND Physician Assistant Medical
DX: E11.9 Type 2 diabetes mellitus without complications (principal); F41.9 Anxiety disorder, unspecified; E78.00 Pure hypercholesterolemia, unspecified; S00.469A Insect bite (nonvenomous) of unspecified ear, initial encounter; X58.XXXA Exposure to other specified factors, initial encounter; Y92.9 Unspecified place or not applicable

== ENCOUNTER → 2021-12-16 | Outpatient (REF) | payer OTHER ==
[2021-12-16 15:26] LABS: MALB URINE SIEMENS 9.3 MG/L; MAU/CREAT RATIO 8.3 MCG/MG (0.0-30.0)
== END ==
LOC: M SFHCPLAZ 13:17
PROVIDERS: ATTEND Physician Assistant Medical
DX: E11.9 Type 2 diabetes mellitus without complications (principal); Z12.31 Encounter for screening mammogram for malignant neoplasm of breast

== ENCOUNTER → 2022-06-30 | Outpatient (CLI) | payer OTHER ==
[2022-06-30 14:28] LABS: CREATININE, URINE 27.4 MG/DL; MAU/CREAT RATIO 10.9 MCG/MG (0.0-30.0)
[2022-06-30 16:18] LABS: HEMATOCRIT 46.3 % (36.0-47.0); HEMOGLOBIN 15.3 g/dl (12.0-15.5); MEAN CORPUSCULAR HEMOGLOBIN 31.5 pg (27.0-33.0); MEAN CORPUSCULAR VOLUME 95.5 fl (80.0-96.0); PLATELET COUNT, AUTOMATED 320 10^3/uL (150-450); RED BLOOD COUNT 4.85 10^6/uL (4.00-5.40); WHITE BLOOD COUNT 12.7 10^3/uL (4.0-10.0)
[2022-06-30 16:43] LABS: ALBUMIN 4.2 G/DL (3.2-5.2); ALKALINE PHOSPHATASE 109 U/L (46-116); ALT/SGPT 32 U/L (7.0-40); AST/SGOT 21 U/L (<34); BILIRUBIN,TOTAL 0.5 MG/DL (0.3-1.2); BLOOD UREA NITROGEN 10 MG/DL (9-23); CALCIUM LEVEL 9.7 MG/DL (8.5-10.1); CARBON DIOXIDE LEVEL 29 MMOL/L (20-31); CHLORIDE LEVEL 103 MMOL/L (98-107); CHOLESTEROL LEVEL 221 MG/DL (<200); CHOLESTEROL RISK RATIO 5.84 (<5); CREATININE FOR GFR 0.56 MG/DL (0.55-1.30); FREE T4 0.99 NG/DL (0.89-1.76); GLOMERULAR FILTRATION RATE > 60.0 (>51); GLUCOSE, FASTING 138 MG/DL (60-100); HDL CHOLESTEROL 37.8 MG/DL (>40); LDL CHOLESTEROL 124.2 MG/DL (<100); NON-HDL-C 183.2 MG/DL; POTASSIUM SERUM 4.8 MMOL/L (3.5-5.1); SODIUM LEVEL 139 MMOL/L (136-145); TOTAL PROTEIN 7.3 G/DL (5.7-8.2); TRIGLYCERIDES LEVEL 295 MG/DL (<150)
[2022-06-30 16:45] LABS: HEMOGLOBIN A1c 9.6 % (4.0-6.0)
[2022-06-30 17:41] LABS: ATYPICAL LYMPH 5 % (0-5); EOSINOPHILS 1 % (0-3); LYMPHOCYTES 36 % (16-44); MONOCYTES 6 % (0-5); NEUTROPHILS 51 % (28-66); PLATELET ESTIMATE NORMAL (NORMAL)
== END ==
LOC: M PLALAB 11:46
PROVIDERS: ATTEND Physician Assistant Medical
DX: E11.9 Type 2 diabetes mellitus without complications (principal); I10 Essential (primary) hypertension; F41.9 Anxiety disorder, unspecified; E78.00 Pure hypercholesterolemia, unspecified

== ENCOUNTER → 2022-08-11 | Outpatient (CLI) | payer OTHER ==
[~2022-08-11] MED LIST changes: +FLUT50SP17; -FLUTISP; -OFLO3OPSO IO; +OFLO5DRO IO
[2022-08-11 15:42] LABS: ALKALINE PHOSPHATASE 111 U/L (46-116); ALT/SGPT 34 U/L (7.0-40); AST/SGOT 15 U/L (<34); BILIRUBIN,TOTAL 0.4 MG/DL (0.3-1.2); BLOOD UREA NITROGEN 14 MG/DL (9-23); CALCIUM LEVEL 9.4 MG/DL (8.5-10.1); CARBON DIOXIDE LEVEL 29 MMOL/L (20-31); CHLORIDE LEVEL 102 MMOL/L (98-107); CREATININE FOR GFR 0.52 MG/DL (0.55-1.30); GLOMERULAR FILTRATION RATE > 60.0 (>51); GLUCOSE, FASTING 225 MG/DL (60-100); POTASSIUM SERUM 4.7 MMOL/L (3.5-5.1); SODIUM LEVEL 137 MMOL/L (136-145); TOTAL PROTEIN 7.2 G/DL (5.7-8.2)
== END ==
LOC: M PLALAB 10:27
PROVIDERS: ATTEND Physician Assistant Medical
DX: E11.9 Type 2 diabetes mellitus without complications (principal); K90.9 Intestinal malabsorption, unspecified; R19.7 Diarrhea, unspecified

== ENCOUNTER → 2022-08-11 | Outpatient (REF) | payer OTHER | LOC: M SFHCPLAZ 10:08 | PROVIDERS: ATTEND Physician Assistant Medical | DX: Z53.9 Procedure and treatment not carried out, unspecified reason (principal) ==

== ENCOUNTER → 2022-09-05 | Outpatient (CLI) | payer OTHER ==
[2022-09-05 15:58] LABS: HEMATOCRIT 40.6 % (36.0-47.0); HEMOGLOBIN 14.7 g/dl (12.0-15.5); MEAN CORPUSCULAR HEMOGLOBIN 32.4 pg (27.0-33.0); MEAN CORPUSCULAR HGB CONC 36.2 g/dl (32.0-36.5); MEAN CORPUSCULAR VOLUME 89.4 fl (80.0-96.0); PLATELET COUNT, AUTOMATED 290 10^3/uL (150-450); RED BLOOD COUNT 4.54 10^6/uL (4.00-5.40); WHITE BLOOD COUNT 12.3 10^3/uL (4.0-10.0)
[2022-09-05 16:07] LABS: HEMOGLOBIN A1c 10.7 % (4.0-6.0)
[2022-09-05 16:23] LABS: ALKALINE PHOSPHATASE 134 U/L (46-116); ALT/SGPT 34 U/L (7.0-40); AST/SGOT 14 U/L (<34); BILIRUBIN,TOTAL 0.3 MG/DL (0.3-1.2); BLOOD UREA NITROGEN 8 MG/DL (9-23); CARBON DIOXIDE LEVEL 26 MMOL/L (20-31); CHLORIDE LEVEL 99 MMOL/L (98-107); CREATININE FOR GFR 0.53 MG/DL (0.55-1.30); GLOMERULAR FILTRATION RATE > 60.0 (>51); GLUCOSE, FASTING 282 MG/DL (60-100); POTASSIUM SERUM 4.4 MMOL/L (3.5-5.1); SODIUM LEVEL 134 MMOL/L (136-145)
[2022-09-05 16:34] LABS: EOSINOPHILS 5 % (0-3); LYMPHOCYTES 44 % (16-44); MONOCYTES 2 % (0-5); NEUTROPHILS 49 % (28-66); PLATELET ESTIMATE NORMAL (NORMAL)
== END ==
LOC: M PLALAB 14:35
PROVIDERS: ATTEND Physician Assistant Medical
DX: J01.00 Acute maxillary sinusitis, unspecified (principal); E11.9 Type 2 diabetes mellitus without complications

== ENCOUNTER → 2022-09-05 | Outpatient (REF) | payer OTHER | LOC: M SFHCPLAZ 14:11 | PROVIDERS: ATTEND Physician Assistant Medical | DX: E11.9 Type 2 diabetes mellitus without complications (principal); Z53.9 Procedure and treatment not carried out, unspecified reason ==

== ENCOUNTER → 2022-09-12 | Outpatient (CLI) | payer OTHER | LOC: M WHC 08:59 | PROVIDERS: ATTEND Nurse Practitioner Family | DX: Z12.31 Encounter for screening mammogram for malignant neoplasm of breast (principal) ==

== ENCOUNTER → 2022-09-12 | Outpatient (REF) | payer OTHER, MEDICAID | LOC: M SFHCWAGY 15:26 | PROVIDERS: ATTEND Nurse Practitioner Family | DX: Z12.4 Encounter for screening for malignant neoplasm of cervix (principal); N73.9 Female pelvic inflammatory disease, unspecified; R87.610 Atypical squamous cells of undetermined significance on cytologic smear of cervix (ASC-US) ==

== ENCOUNTER → 2022-12-13 | Outpatient (REF) | payer OTHER, MEDICAID | LOC: M SFHCWAGY 09:50 | PROVIDERS: ATTEND Nurse Practitioner Family | DX: N73.9 Female pelvic inflammatory disease, unspecified (principal) ==

== ENCOUNTER → 2023-03-30 | Outpatient (REF) | payer OTHER, MEDICAID ==
[~2023-03-30] MED LIST changes: -FLUT50SP17; +FLUTISP; +MECL-209 PO; -MECL1TAB31 PO
== END ==
LOC: M SFHCWAGY 09:30
PROVIDERS: ATTEND Nurse Practitioner Family
DX: N73.9 Female pelvic inflammatory disease, unspecified (principal)

== ENCOUNTER → 2023-04-27 | Outpatient (CLI) | payer OTHER ==
[2023-04-27 16:34] LABS: BASO # 0.1 10^3/uL (0.0-0.2); BASO % 0.5 % (0.0-1.0); EOS # 0.1 10^3/uL (0.0-0.5); EOS % 1.1 % (0.0-3.0); HEMATOCRIT 43.5 % (36.0-47.0); HEMOGLOBIN 15.3 g/dl (12.0-15.5); LYMPH # 5.1 10^3/uL (1.5-5.0); LYMPH % 39.7 % (24.0-44.0); MEAN CORPUSCULAR HEMOGLOBIN 32.4 pg (27.0-33.0); MEAN CORPUSCULAR HGB CONC 35.2 g/dl (32.0-36.5); MEAN CORPUSCULAR VOLUME 92.2 fl (80.0-96.0); MONO # 0.8 10^3/uL (0.0-0.8); MONO % 6.4 % (2.0-8.0); NEUTROPHILS # 6.6 10^3/uL (1.5-8.5); PLATELET COUNT, AUTOMATED 314 10^3/uL (150-450); RED BLOOD COUNT 4.72 10^6/uL (4.00-5.40); WHITE BLOOD COUNT 12.7 10^3/uL (4.0-10.0)
[2023-04-27 17:03] LABS: ALKALINE PHOSPHATASE 108 U/L (46-116); ALT/SGPT 31 U/L (7.0-40); AST/SGOT 13 U/L (<34); BILIRUBIN,TOTAL 0.5 MG/DL (0.3-1.2); BLOOD UREA NITROGEN 14 MG/DL (9-23); CALCIUM LEVEL 9.4 MG/DL (8.5-10.1); CARBON DIOXIDE LEVEL 29 MMOL/L (20-31); CHLORIDE LEVEL 99 MMOL/L (98-107); CREATININE FOR GFR 0.47 MG/DL (0.55-1.30); GLOMERULAR FILTRATION RATE > 60.0 (>51); GLUCOSE, FASTING 247 MG/DL (60-100); GLUCOSE,RANDOM 247 MG/DL (LESS THAN 200); POTASSIUM SERUM 4.5 MMOL/L (3.5-5.1); SODIUM LEVEL 134 MMOL/L (136-145); TOTAL PROTEIN 7.3 G/DL (5.7-8.2)
[2023-04-27 17:46] LABS: HEMOGLOBIN A1c 12.3 % (4.0-6.0)
== END ==
LOC: M PLALAB 13:47
PROVIDERS: ATTEND Physician Assistant Medical
DX: E11.65 Type 2 diabetes mellitus with hyperglycemia (principal); I10 Essential (primary) hypertension

== ENCOUNTER → 2023-06-06 | Outpatient (CLI) | payer OTHER | LOC: M RAD 08:37 | PROVIDERS: ATTEND Physician Assistant Medical | DX: J02.9 Acute pharyngitis, unspecified (principal); H92.02 Otalgia, left ear ==

== ENCOUNTER 2023-07-26 19:39 | Emergency (ER) | payer OTHER ==
[~2023-07-26] VITALS: Ht 160 cm; Wt 84.1 kg
[2023-07-27] MEDS ORDERED: METH-1165 PO (01:39)
[2023-07-27 01:42] VITALS: BP 134/78; TEMP 97.9; O2SAT 98
== END 2023-07-27 02:01 | disposition home or self-care (01) ==
LOC: M ED 19:39
DX: S33.5XXA Sprain of ligaments of lumbar spine, initial encounter (principal); S13.4XXA Sprain of ligaments of cervical spine, initial encounter; V49.10XA Passenger injured in collision with unspecified motor vehicles in nontraffic accident, initial encounter; K21.9 Gastro-esophageal reflux disease without esophagitis; E11.9 Type 2 diabetes mellitus without complications; F17.200 Nicotine dependence, unspecified, uncomplicated; Z88.2 Allergy status to sulfonamides; Z88.6 Allergy status to analgesic agent; Z88.8 Allergy status to other drugs, medicaments and biological substances; Z79.02 Long term (current) use of antithrombotics/antiplatelets; Z79.4 Long term (current) use of insulin; Z79.811 Long term (current) use of aromatase inhibitors; Z79.83 Long term (current) use of bisphosphonates; Z79.899 Other long term (current) drug therapy; Y92.410 Unspecified street and highway as the place of occurrence of the external cause; Y93.9 Activity, unspecified; Y99.9 Unspecified external cause status

== ENCOUNTER → 2023-08-04 | Outpatient (CLI) | payer OTHER ==
[~2023-08-04] MED LIST changes: +METH-1165 PO
[2023-08-04 15:40] LABS: HEMATOCRIT 43.3 % (36.0-47.0); MEAN CORPUSCULAR HEMOGLOBIN 31.8 pg (27.0-33.0); MEAN CORPUSCULAR HGB CONC 34.6 g/dl (32.0-36.5); MEAN CORPUSCULAR VOLUME 91.9 fl (80.0-96.0); PLATELET COUNT, AUTOMATED 290 10^3/uL (150-450); RED BLOOD COUNT 4.71 10^6/uL (4.00-5.40)
[2023-08-04 16:08] LABS: ALBUMIN 3.8 G/DL (3.2-5.2); ALKALINE PHOSPHATASE 99 U/L (46-116); ALT/SGPT 26 U/L (7.0-40); AST/SGOT 9 U/L (<34); BILIRUBIN,TOTAL 0.5 MG/DL (0.3-1.2); BLOOD UREA NITROGEN 11 MG/DL (9-23); CALCIUM LEVEL 9.3 MG/DL (8.5-10.1); CARBON DIOXIDE LEVEL 29 MMOL/L (20-31); CHLORIDE LEVEL 100 MMOL/L (98-107); CREATININE FOR GFR 0.49 MG/DL (0.55-1.30); GLOMERULAR FILTRATION RATE > 60.0 (>51); GLUCOSE, FASTING 329 MG/DL (60-100); POTASSIUM SERUM 4.5 MMOL/L (3.5-5.1); SODIUM LEVEL 136 MMOL/L (136-145); TOTAL PROTEIN 6.9 G/DL (5.7-8.2)
[2023-08-04 16:09] LABS: CREATININE, URINE 34.2 MG/DL
[2023-08-04 16:10] LABS: MALB URINE SIEMENS < 3.0 MG/L; MAU/CREAT RATIO 8.7 MCG/MG (0.0-30.0)
[2023-08-04 16:18] LABS: HEMOGLOBIN A1c 12.6 % (4.0-6.0)
[2023-08-04 16:40] LABS: LYMPHOCYTES 43 % (16-44); MONOCYTES 8 % (0-5); NEUTROPHILS 49 % (28-66); PLATELET ESTIMATE NORMAL (NORMAL)
== END ==
LOC: M PLALAB 12:02
PROVIDERS: ATTEND Physician Assistant Medical
DX: E11.8 Type 2 diabetes mellitus with unspecified complications (principal); J30.2 Other seasonal allergic rhinitis

== ENCOUNTER → 2023-09-11 | Outpatient (CLI) | payer OTHER | LOC: M PLAIMG 15:40 | PROVIDERS: ATTEND Physician Assistant Medical | DX: M25.551 Pain in right hip (principal) ==

== ENCOUNTER → 2023-09-19 | Outpatient (CLI) | payer OTHER | LOC: M WHC 09:22 | PROVIDERS: ATTEND Nurse Practitioner Family | DX: Z12.31 Encounter for screening mammogram for malignant neoplasm of breast (principal) ==

== ENCOUNTER → 2023-09-19 | Outpatient (REF) | payer OTHER, MEDICAID | LOC: M SFHCWAGY 12:14 | PROVIDERS: ATTEND Nurse Practitioner Family | DX: Z12.4 Encounter for screening for malignant neoplasm of cervix (principal); R87.610 Atypical squamous cells of undetermined significance on cytologic smear of cervix (ASC-US); N73.9 Female pelvic inflammatory disease, unspecified ==

== ENCOUNTER → 2023-10-04 | Outpatient (REF) ==
[~2023-10-04] MED LIST changes: +ONDA-284 PO; -ONDA8TAB8 PO
== END ==
LOC: M PLAIMG 10:54
PROVIDERS: ATTEND Internal Medicine
DX: M54.2 Cervicalgia (principal); M54.50 Low back pain, unspecified

== ENCOUNTER → 2024-01-04 | Outpatient (REF) | payer MEDICAID, OTHER ==
[2024-01-04 12:01] LABS: Trichomonas vaginalis (AMP) NOT DETECTED (NEGATIVE)
[2024-01-04 12:25] LABS: GC DNA AMPLIFICATION NEGATIVE (NEGATIVE)
== END ==
LOC: M SFHCWAGY 10:05
PROVIDERS: ATTEND Nurse Practitioner Family
DX: R10.2 Pelvic and perineal pain (principal); N94.10 Unspecified dyspareunia

== ENCOUNTER → 2024-02-22 | Outpatient (CLI) | payer OTHER | LOC: M PLAIMG 13:18 | PROVIDERS: ATTEND Nurse Practitioner Family | DX: I10 Essential (primary) hypertension (principal); D16.7 Benign neoplasm of ribs, sternum and clavicle ==

== ENCOUNTER → 2024-02-28 | Outpatient (CLI) | payer OTHER ==
[~2024-02-28] MED LIST changes: -CYCL5TAB PO; +CYCL5TAB4 PO
[2024-02-28 15:38] LABS: C REACTIVE PROTEIN QUANTITATIV < 0.40 MG/DL (<1.0)
[2024-02-28 15:40] LABS: ALBUMIN 3.6 G/DL (3.2-5.2); ALKALINE PHOSPHATASE 106 U/L (35-104); ALT/SGPT 29 U/L (7.0-40); AST/SGOT < 8 U/L (<34); BILIRUBIN,TOTAL 0.3 MG/DL (0.3-1.2); BLOOD UREA NITROGEN 14 MG/DL (9-23); CARBON DIOXIDE LEVEL 27 MMOL/L (20-31); CHLORIDE LEVEL 100 MMOL/L (98-107); CREATININE FOR GFR 0.57 MG/DL (0.55-1.30); GLOMERULAR FILTRATION RATE > 60.0 (>51); GLUCOSE, FASTING 365 MG/DL (60-100); POTASSIUM SERUM 5.1 MMOL/L (3.5-5.1); SODIUM LEVEL 134 MMOL/L (136-145); TOTAL PROTEIN 7.1 G/DL (5.7-8.2)
[2024-02-28 15:43] LABS: HEMATOCRIT 44.2 % (36.0-47.0); MEAN CORPUSCULAR HEMOGLOBIN 31.5 pg (27.0-33.0); MEAN CORPUSCULAR HGB CONC 33.9 g/dl (32.0-36.5); MEAN CORPUSCULAR VOLUME 92.9 fl (80.0-96.0); PLATELET COUNT, AUTOMATED 314 10^3/uL (150-450); RED BLOOD COUNT 4.76 10^6/uL (4.00-5.40); WHITE BLOOD COUNT 12.8 10^3/uL (4.0-10.0)
[2024-02-28 17:17] LABS: ATYPICAL LYMPH 2 % (0-5); BASOPHILS 1 % (0-1); LYMPHOCYTES 45 % (16-44); MONOCYTES 8 % (0-5); NEUTROPHILS 44 % (28-66); PLATELET ESTIMATE NORMAL (NORMAL)
[2024-02-28 17:44] LABS: ERYTHROCYTE SEDIMENTATION RATE 36 mm/hr (0-30)
== END ==
LOC: M PLALAB 11:55
PROVIDERS: ATTEND Physician Assistant Medical
DX: E11.8 Type 2 diabetes mellitus with unspecified complications (principal); M26.609 Unspecified temporomandibular joint disorder, unspecified side; L02.91 Cutaneous abscess, unspecified

== ENCOUNTER → 2024-03-01 | Outpatient (CLI) | payer OTHER | LOC: M WHC 12:17 | PROVIDERS: ATTEND Nurse Practitioner Family | DX: D16.7 Benign neoplasm of ribs, sternum and clavicle (principal) ==

== ENCOUNTER → 2024-03-18 | Outpatient (CLI) | payer OTHER | LOC: M WHC 13:40 | PROVIDERS: ATTEND Nurse Practitioner Family | DX: R10.2 Pelvic and perineal pain (principal); N94.10 Unspecified dyspareunia; D16.7 Benign neoplasm of ribs, sternum and clavicle ==

== ENCOUNTER → 2024-03-18 | Outpatient (CLI) | payer OTHER ==
[2024-03-18 19:13] LABS: BASO % 0.4 % (0.0-1.0); EOS # 0.2 10^3/uL (0.0-0.5); EOS % 1.8 % (0.0-3.0); HEMATOCRIT 41.1 % (36.0-47.0); HEMOGLOBIN 14.5 g/dl (12.0-15.5); LYMPH # 3.8 10^3/uL (1.5-5.0); LYMPH % 33.5 % (24.0-44.0); MEAN CORPUSCULAR HEMOGLOBIN 32.7 pg (27.0-33.0); MEAN CORPUSCULAR HGB CONC 35.3 g/dl (32.0-36.5); MEAN CORPUSCULAR VOLUME 92.8 fl (80.0-96.0); MONO # 0.8 10^3/uL (0.0-0.8); NEUTROPHILS # 6.5 10^3/uL (1.5-8.5); NEUTROPHILS % 56.9 % (36.0-66.0); PLATELET COUNT, AUTOMATED 313 10^3/uL (150-450); RED BLOOD COUNT 4.43 10^6/uL (4.00-5.40); WHITE BLOOD COUNT 11.4 10^3/uL (4.0-10.0)
[2024-03-18 19:32] LABS: C REACTIVE PROTEIN QUANTITATIV < 0.40 MG/DL (<1.0)
[2024-03-18 19:34] LABS: BLOOD UREA NITROGEN 10 MG/DL (9-23); CALCIUM LEVEL 9.9 MG/DL (8.5-10.1); CARBON DIOXIDE LEVEL 28 MMOL/L (20-31); CHLORIDE LEVEL 104 MMOL/L (98-107); CREATININE FOR GFR 0.53 MG/DL (0.55-1.30); GLOMERULAR FILTRATION RATE > 60.0 (>51); GLUCOSE, FASTING 242 MG/DL (60-100); POTASSIUM SERUM 4.7 MMOL/L (3.5-5.1); SODIUM LEVEL 137 MMOL/L (136-145)
== END ==
LOC: M PLALAB 14:11
PROVIDERS: ATTEND Physician Assistant Medical
DX: E11.65 Type 2 diabetes mellitus with hyperglycemia (principal); D72.829 Elevated white blood cell count, unspecified

== ENCOUNTER → 2024-04-12 | Outpatient (CLI) | payer MEDICAID, OTHER ==
[2024-04-12 13:28] LABS: ALBUMIN 3.6 G/DL (3.2-5.2); ALKALINE PHOSPHATASE 110 U/L (35-104); ALT/SGPT 33 U/L (7.0-40); AST/SGOT 14 U/L (<34); BILIRUBIN,TOTAL 0.3 MG/DL (0.3-1.2); BLOOD UREA NITROGEN 8 MG/DL (9-23); CALCIUM LEVEL 9.5 MG/DL (8.5-10.1); CARBON DIOXIDE LEVEL 31 MMOL/L (20-31); CHLORIDE LEVEL 103 MMOL/L (98-107); CREATININE FOR GFR 0.55 MG/DL (0.55-1.30); GLOMERULAR FILTRATION RATE > 60.0 (>51); GLUCOSE, FASTING 161 MG/DL (60-100); SODIUM LEVEL 140 MMOL/L (136-145); TOTAL PROTEIN 7.1 G/DL (5.7-8.2)
== END ==
LOC: M PLALAB 10:16
PROVIDERS: ATTEND Physician Assistant Medical
DX: E11.8 Type 2 diabetes mellitus with unspecified complications (principal); K76.0 Fatty (change of) liver, not elsewhere classified

== ENCOUNTER 2024-05-20 09:48 | Outpatient (RCR) | payer OTHER | END 2024-05-24 | LOC: M PT 09:48 | PROVIDERS: ATTEND Otolaryngology | DX: M26.601 Right temporomandibular joint disorder, unspecified (principal) ==

== ENCOUNTER → 2024-05-20 | Outpatient (CLI) | payer OTHER | LOC: M RAD 10:50 | PROVIDERS: ATTEND Emergency Medicine | DX: M79.645 Pain in left finger(s) (principal) ==

== ENCOUNTER → 2024-06-04 | Outpatient (CLI) | payer OTHER | LOC: M WHC 09:29 | PROVIDERS: ATTEND Nurse Practitioner Family | DX: N64.4 Mastodynia (principal); R92.323 Mammographic fibroglandular density, bilateral breasts ==

== ENCOUNTER → 2024-07-31 | Outpatient (CLI) | payer OTHER ==
[2024-07-31 13:27] LABS: HEMATOCRIT 41.8 % (36.0-47.0); HEMOGLOBIN 14.2 g/dl (12.0-15.5); MEAN CORPUSCULAR HEMOGLOBIN 32.1 pg (27.0-33.0); MEAN CORPUSCULAR VOLUME 94.4 fl (80.0-96.0); PLATELET COUNT, AUTOMATED 351 10^3/uL (150-450); RED BLOOD COUNT 4.43 10^6/uL (4.00-5.40); WHITE BLOOD COUNT 12.1 10^3/uL (4.0-10.0)
[2024-07-31 14:03] LABS: ALBUMIN 3.7 G/DL (3.2-5.2); ALKALINE PHOSPHATASE 102 U/L (35-104); ALT/SGPT 41 U/L (7.0-40); AST/SGOT 15 U/L (<34); BILIRUBIN,DIRECT < 0.1 MG/DL (<0.4); BILIRUBIN,TOTAL 0.3 MG/DL (0.3-1.2); TOTAL PROTEIN 7.3 G/DL (5.7-8.2)
== END ==
LOC: M PLALAB 12:01
PROVIDERS: ATTEND Physician Assistant Medical
DX: K76.0 Fatty (change of) liver, not elsewhere classified (principal); R19.4 Change in bowel habit; R19.7 Diarrhea, unspecified

== ENCOUNTER → 2024-07-31 | Outpatient (CLI) | payer OTHER ==
[2024-07-31 13:27] LABS: HEMATOCRIT 41.5 % (36.0-47.0); HEMOGLOBIN 14.2 g/dl (12.0-15.5); MEAN CORPUSCULAR HEMOGLOBIN 32.4 pg (27.0-33.0); MEAN CORPUSCULAR HGB CONC 34.2 g/dl (32.0-36.5); MEAN CORPUSCULAR VOLUME 94.7 fl (80.0-96.0); PLATELET COUNT, AUTOMATED 353 10^3/uL (150-450); RED BLOOD COUNT 4.38 10^6/uL (4.00-5.40); WHITE BLOOD COUNT 12.3 10^3/uL (4.0-10.0)
[2024-07-31 13:42] LABS: ERYTHROCYTE SEDIMENTATION RATE 34 mm/hr (0-30)
[2024-07-31 14:02] LABS: ALBUMIN 3.7 G/DL (3.2-5.2); ALKALINE PHOSPHATASE 100 U/L (35-104); ALT/SGPT 39 U/L (7.0-40); AST/SGOT 13 U/L (<34); BILIRUBIN,TOTAL 0.3 MG/DL (0.3-1.2); BLOOD UREA NITROGEN 13 MG/DL (9-23); C REACTIVE PROTEIN QUANTITATIV < 0.50 MG/DL (<1.0); CALCIUM LEVEL 9.3 MG/DL (8.5-10.1); CARBON DIOXIDE LEVEL 29 MMOL/L (20-31); CHLORIDE LEVEL 104 MMOL/L (98-107); CREATININE FOR GFR 0.56 MG/DL (0.55-1.30); GLOMERULAR FILTRATION RATE > 90.0 (>51); GLUCOSE, FASTING 176 MG/DL (60-100); POTASSIUM SERUM 4.8 MMOL/L (3.5-5.1); SODIUM LEVEL 137 MMOL/L (136-145); TOTAL PROTEIN 7.3 G/DL (5.7-8.2)
== END ==
LOC: M PLALAB 11:58
PROVIDERS: ATTEND Physician Assistant Medical
DX: R14.0 Abdominal distension (gaseous) (principal); M25.552 Pain in left hip; R10.12 Left upper quadrant pain; M54.50 Low back pain, unspecified; M16.0 Bilateral primary osteoarthritis of hip; M47.816 Spondylosis without myelopathy or radiculopathy, lumbar region

== ENCOUNTER → 2024-08-28 | Outpatient (CLI) | payer OTHER | LOC: M RAD 16:40 | PROVIDERS: ATTEND Physician Assistant Medical | DX: M54.42 Lumbago with sciatica, left side (principal); M47.816 Spondylosis without myelopathy or radiculopathy, lumbar region; I70.0 Atherosclerosis of aorta ==

== ENCOUNTER → 2024-09-12 | Outpatient (CLI) | payer OTHER ==
[2024-09-12 15:02] LABS: HEMOGLOBIN A1c 7.9 % (4.0-6.0)
== END ==
LOC: M PLALAB 11:09
PROVIDERS: ATTEND Physician Assistant Medical
DX: E11.8 Type 2 diabetes mellitus with unspecified complications (principal); E16.2 Hypoglycemia, unspecified

== ENCOUNTER → 2024-11-12 | Outpatient (CLI) | payer OTHER | LOC: M WHC 13:35 | PROVIDERS: ATTEND Surgery | DX: Z12.31 Encounter for screening mammogram for malignant neoplasm of breast (principal); N64.4 Mastodynia ==

== ENCOUNTER → 2024-11-13 | Outpatient (CLI) | payer OTHER ==
[2024-11-13 13:47] LABS: ESTIMATED AVERAGE GLUCOSE 217.0 MG/DL (60-110)
== END ==
LOC: M PLALAB 11:44
PROVIDERS: ATTEND Physician Assistant Medical
DX: E11.8 Type 2 diabetes mellitus with unspecified complications (principal)

== ENCOUNTER 2025-01-26 11:17 | Inpatient (IN) | payer OTHER ==
[~2025-01-26] VITALS: Ht 160 cm; Wt 102.2 kg
[~2025-01-26 11:17] MED LIST changes: -ALOG25TA OR; +ALOG25TA PO; -FLUTISP; +FLUTISP NARES
[2025-01-26] MEDS: ACETAMINOPHEN 500 MG TAB PO ONE (12:23)
[2025-01-26] MEDS: NS (Normal Saline) 0.9% 1,000 ML IV ONE (12:23)
[2025-01-26 12:33] LABS: BASO # 0.0 10^3/uL (0.0-0.2); BASO % 0.3 % (0.0-1.0); EOS # 0.2 10^3/uL (0.0-0.5); EOS % 1.3 % (0.0-3.0); LYMPH # 2.3 10^3/uL (1.5-5.0); LYMPH % 18.2 % (24.0-44.0); MONO # 1.0 10^3/uL (0.0-0.8); MONO % 7.5 % (2.0-8.0); NEUTROPHILS # 9.3 10^3/uL (1.5-8.5); NEUTROPHILS % 72.3 % (36.0-66.0); PLATELET COUNT, AUTOMATED 308 10^3/uL (150-450)
[2025-01-26 12:44] LABS: ALT/SGPT 22 U/L (7.0-40); AST/SGOT 13 U/L (<34); CALCIUM LEVEL 8.7 MG/DL (8.5-10.1); CARBON DIOXIDE LEVEL 27 MMOL/L (20-31); CHLORIDE LEVEL 102 MMOL/L (98-107); CREATININE FOR GFR 0.61 MG/DL (0.55-1.30); GLOMERULAR FILTRATION RATE > 90.0 (>51); POTASSIUM SERUM 4.7 MMOL/L (3.5-5.1); SODIUM LEVEL 136 MMOL/L (136-145)
[2025-01-26] MEDS: ALBUTEROL SULFATE 2.5 MG/0.5 ML INH CONCENTRATE NEB SOLN NEB ONE ×2 (12:47→15:39)
[2025-01-26] MEDS: LevoFLOXacin IV 750 MG in IV 1 EA IV ONE (12:48)
[2025-01-26 13:14] LABS: APPEARANCE, URINE HAZY (CLEAR); BACTERIA, URINE AUTO 1+ (NEGATIVE); BILIRUBIN, URINE AUTO NEGATIVE (NEGATIVE); BLOOD, URINE BLOOD NEGATIVE (NEGATIVE); GLUCOSE, URINE (UA) AUTO NEGATIVE (NEGATIVE); KETONE, URINE AUTO TRACE mg/dL (NEGATIVE); LEUKOCYTE ESTERASE, URINE AUTO NEGATIVE (NEGATIVE); NITRITE, URINE AUTO NEGATIVE (NEGATIVE); PROTEIN, URINE AUTO NEGATIVE (NEGATIVE); RBC, URINE AUTO 4 /HPF (0-3); SPECIFIC GRAVITY URINE AUTO 1.018 (1.002-1.035); SQUAMOUS EPITHELIAL CELL UR AU 4 /HPF (0-6); UROBILINOGEN, URINE AUTO 0.2 mg/dL (0.0-2.0); WBC, URINE AUTO 1 /HPF (0-3); YEAST LIKE CELL URINE AUTO SMALL
[2025-01-26 13:16] LABS: CK-MB VALUE MASS 1.2 NG/ML (<3.6)
[2025-01-26 13:18] LABS: C REACTIVE PROTEIN QUANTITATIV 0.99 MG/DL (<1.0); CPK CREATINE PHOSPHOKINASE 74 U/L (34-145); MB/CK RELATIVE INDEX 1.62 (< OR =4)
[2025-01-26] MEDS: NS (Normal Saline) 0.9% 1,970 ML in IV 1 EA IV ONE (13:31)
[2025-01-26 13:42] LABS: INR 0.94
[2025-01-26 13:52] LABS: CK-MB VALUE MASS 1.1 NG/ML (<3.6)
[2025-01-26 13:54] LABS: CPK CREATINE PHOSPHOKINASE 71.0 U/L (34-145); MB/CK RELATIVE INDEX 1.54 (< OR =4)
[2025-01-26 14:40] VITALS: O2SAT 85
[2025-01-26] MEDS ORDERED: ISOVUE-370 76% 100 ML VIAL As Ordered ONE (15:43)
[2025-01-26] MEDS ORDERED: DEXTROSE 50% 50 ML SYRINGE IV PRN (15:55)
[2025-01-26] MEDS ORDERED: GLUCAGON INJ 1 MG VIAL SC PRN (15:55)
[2025-01-26] MEDS ORDERED: GLUCOSE 4 GM CHEW PO PRN (15:55)
[2025-01-26] MEDS: IPRATROPIUM 0.5 MG/2.5 ML (0.02%) SOLN NEB INH SCH (15:56)
[2025-01-26] MEDS: LEVALBUTEROL 1.25 MG 0.5ML CONCENTRATE NEB INH SCH (15:56)
[2025-01-26] MEDS ORDERED: amLODIPine 10 MG TAB PO ONE (16:30)
[2025-01-26 16:33] LABS: ESTIMATED AVERAGE GLUCOSE 200.0 MG/DL (60-110)
[2025-01-26] MEDS: BUDESONIDE 0.5 MG/2 ML INHALATION SUSPENSION NEB ONE (16:50)
[2025-01-26] MEDS ORDERED: MECLIZINE 25 MG TABLET PO PRN (17:05)
[2025-01-26] MEDS ORDERED: ATOR40TA75 PO (17:11)
[2025-01-26] MEDS ORDERED: GLIM4TAB5 PO (17:11)
[2025-01-26] MEDS ORDERED: DULO1CAP6 PO (17:11)
[2025-01-26] MEDS ORDERED: METH-1165 PO (17:11)
[2025-01-26] MEDS ORDERED: LISI40TA10 PO (17:11)
[2025-01-26] MEDS ORDERED: METF500T13 PO (17:11)
[2025-01-26] MEDS ORDERED: DULO1CAP5 PO (17:11)
[2025-01-26] MEDS ORDERED: LANTINJ4 SC (17:11)
[2025-01-26] MEDS ORDERED: NOVOINJ2 SC ×2 (17:11)
[2025-01-26] MEDS ORDERED: RIZATRIPTAN MLT 10 MG TAB PO PRN (17:15)
[2025-01-26] MEDS ORDERED: ACETAMINOPHEN 325 MG TAB PO PRN (17:15)
[2025-01-26] MEDS ORDERED: FIORICET TAB PO PRN (17:15)
[2025-01-26] MEDS ORDERED: HOME MED LIST COMPLETE! XX SCH (17:15)
[2025-01-26] MEDS ORDERED: ONDANSETRON 4MG 2ML VIAL IV PRN (17:15)
[2025-01-26 17:18] VITALS: BP 125/75; TEMP 97.9; O2SAT 95
[2025-01-26] MEDS: MONTELUKAST 10 MG TAB PO ONE (17:54)
[2025-01-26] MEDS: CETIRIZINE 10 MG TAB PO ONE (17:55)
[2025-01-26] MEDS: guaiFENesin ER TABLET 600 MG TAB PO ONE (17:55)
[2025-01-26] MEDS: INSULIN LISPRO (NovoLOG) PER UNIT SC SCH ×3 (17:56→20:13)
[2025-01-26] MEDS: CYCLOBENZAPRINE 5 MG TABLET PO SCH (20:12)
[2025-01-26] MEDS: NICOTINE 14 MG/24 HR TRANSDERMAL TD SCH (20:12)
[2025-01-26] MEDS: PREGABALIN 50 MG CAP PO SCH (20:12)
[2025-01-26] MEDS: HEPARIN SOD 5000 UNITS/ML 1 ML VIAL/SYRINGE SQ SCH (20:12)
[2025-01-26 21:45] VITALS: BP 161/84; TEMP 98.6; O2SAT 94
[2025-01-26 22:44] VITALS: O2SAT 85
[2025-01-26 22:45] VITALS: O2SAT 92
[2025-01-26 22:47] VITALS: O2SAT 91
[2025-01-26] MEDS ORDERED: DICLOFENAC EPOLAMINE 1.3% PATCH TOP PRN (23:00)
[2025-01-27] VITALS (8 sets, daily range): BP systolic 124–130; BP diastolic 60–70; TEMP 97.5–98.1; O2SAT 85–95
[2025-01-27] MEDS: LIDOCAINE 5% PATCH TD PRN (00:12)
[2025-01-27 06:31] LABS: BASO # 0.0 10^3/uL (0.0-0.2); BASO % 0.2 % (0.0-1.0); EOS # 0.0 10^3/uL (0.0-0.5); EOS % 0.0 % (0.0-3.0); LYMPH # 1.5 10^3/uL (1.5-5.0); LYMPH % 12.5 % (24.0-44.0); MONO # 0.3 10^3/uL (0.0-0.8); MONO % 2.6 % (2.0-8.0); NEUTROPHILS # 10.1 10^3/uL (1.5-8.5); NEUTROPHILS % 84.0 % (36.0-66.0); PLATELET COUNT, AUTOMATED 286 10^3/uL (150-450)
[2025-01-27 06:50] LABS: CALCIUM LEVEL 8.3 MG/DL (8.5-10.1); CARBON DIOXIDE LEVEL 23 MMOL/L (20-31); CHLORIDE LEVEL 104 MMOL/L (98-107); CREATININE FOR GFR 0.50 MG/DL (0.55-1.30); GLOMERULAR FILTRATION RATE > 90.0 (>51); POTASSIUM SERUM 4.3 MMOL/L (3.5-5.1); SODIUM LEVEL 138 MMOL/L (136-145)
[2025-01-27] MEDS ORDERED: LanTUS (INSULIN GLARGINE INJ) 1 UNITS/0.01 ML SC SCH (09:00)
[2025-01-27] MEDS ORDERED: PARoxetine 20MG TABLET PO SCH (09:00)
[2025-01-27] MEDS: CETIRIZINE 10 MG TAB PO SCH (09:47)
[2025-01-27] MEDS: ATORVASTATIN 10 MG TAB PO SCH (09:47)
[2025-01-27] MEDS: MONTELUKAST 10 MG TAB PO SCH (09:48)
[2025-01-27] MEDS: FLUTICASONE PROPIONATE 0.05% NASAL SPRAY 16 GM NARES SCH (09:50)
[2025-01-27] MEDS: INSULIN LISPRO (NovoLOG) PER UNIT SC SCH (09:53)
[2025-01-27] MEDS: LanTUS (INSULIN GLARGINE INJ) 1 UNITS/0.01 ML SC SCH (09:55)
[2025-01-27] MEDS: PREGABALIN 75 MG CAP PO SCH (15:40)
[2025-01-27] MEDS: CYCLOBENZAPRINE 5 MG TABLET PO SCH (15:40)
[2025-01-27] MEDS: INSULIN LISPRO (NovoLOG) PER UNIT SC ONE (22:45)
[2025-01-28] MEDS: IPRATROPIUM 0.5 MG/2.5 ML (0.02%) SOLN NEB INH PRN (02:56)
[2025-01-28] MEDS: LEVALBUTEROL 1.25 MG 0.5ML CONCENTRATE NEB INH PRN (02:56)
[2025-01-28 03:09] VITALS: BP 129/65; TEMP 97.3; O2SAT 96
[2025-01-28 07:29] LABS: BASO # 0.0 10^3/uL (0.0-0.2); BASO % 0.1 % (0.0-1.0); EOS # 0.0 10^3/uL (0.0-0.5); EOS % 0.0 % (0.0-3.0); LYMPH # 1.5 10^3/uL (1.5-5.0); LYMPH % 10.5 % (24.0-44.0); MONO # 0.5 10^3/uL (0.0-0.8); MONO % 3.5 % (2.0-8.0); NEUTROPHILS # 12.5 10^3/uL (1.5-8.5); NEUTROPHILS % 85.0 % (36.0-66.0); PLATELET COUNT, AUTOMATED 308 10^3/uL (150-450)
[2025-01-28 07:54] LABS: CALCIUM LEVEL 8.6 MG/DL (8.5-10.1); CARBON DIOXIDE LEVEL 26 MMOL/L (20-31); CHLORIDE LEVEL 102 MMOL/L (98-107); CREATININE FOR GFR 0.51 MG/DL (0.55-1.30); GLOMERULAR FILTRATION RATE > 90.0 (>51); POTASSIUM SERUM 4.8 MMOL/L (3.5-5.1); SODIUM LEVEL 136 MMOL/L (136-145)
[2025-01-28 08:00] VITALS: BP 158/86; TEMP 97.7; O2SAT 88
[2025-01-28 12:00] VITALS: BP 148/80; TEMP 98.2; O2SAT 93
[2025-01-28] MEDS: INSULIN LISPRO (NovoLOG) PER UNIT SC SCH ×2 (12:02→17:18)
[2025-01-28] MEDS: HumuLIN R (REGULAR) INSULIN (NovoLIN R) **100 U/ML** PER UNIT IV STA (12:44)
[2025-01-28] MEDS: BUDESONIDE 0.5 MG/2 ML INHALATION SUSPENSION NEB SCH (19:30)
[2025-01-28 19:52] VITALS: BP 138/68; TEMP 98.2; O2SAT 92
[2025-01-28] MEDS: LanTUS (INSULIN GLARGINE INJ) 1 UNITS/0.01 ML SC SCH (20:06)
[2025-01-28] MEDS: ENOXAPARIN 40 MG/0.4 ML SYRINGE (J1650 PER 10MG) SC SCH (20:07)
[2025-01-28] MEDS: guaiFENesin SYRUP 200 MG/10 ML UDC PO PRN (21:48)
[2025-01-29 05:59] VITALS: BP 154/88; TEMP 97.3; O2SAT 93
[2025-01-29 06:31] LABS: PLATELET COUNT, AUTOMATED 322 10^3/uL (150-450)
[2025-01-29 06:58] LABS: CALCIUM LEVEL 8.6 MG/DL (8.5-10.1); CARBON DIOXIDE LEVEL 27 MMOL/L (20-31); CHLORIDE LEVEL 104 MMOL/L (98-107); CREATININE FOR GFR 0.61 MG/DL (0.55-1.30); GLOMERULAR FILTRATION RATE > 90.0 (>51); POTASSIUM SERUM 4.3 MMOL/L (3.5-5.1); SODIUM LEVEL 140 MMOL/L (136-145)
[2025-01-29 07:28] LABS: ATYPICAL LYMPH 5 % (0-5); LYMPHOCYTES 26 % (16-44); MONOCYTES 4 % (0-5); NEUTROPHILS 65 % (28-66); PLATELET ESTIMATE NORMAL (NORMAL)
[2025-01-29] MEDS: predniSONE 20 MG TAB PO SCH (08:30)
[2025-01-29] MEDS: METOPROLOL SUCC. 25 MG *XL* TAB PO SCH (08:34)
[2025-01-29 12:00] VITALS: BP 137/74; TEMP 98.4; O2SAT 90
[2025-01-29] MEDS: AZITHROMYCIN 250 MG TABLET PO SCH (15:02)
[2025-01-29] MEDS: INSULIN LISPRO (NovoLOG) PER UNIT SC SCH (17:23)
[2025-01-29] MEDS: IPRATROPIUM 0.5 MG/ALBUTEROL 2.5 MG INH SOL UD 3 ML NEB SCH (19:17)
[2025-01-29 21:12] VITALS: BP 134/74; TEMP 98.1; O2SAT 94
[2025-01-29] MEDS: LanTUS (INSULIN GLARGINE INJ) 1 UNITS/0.01 ML SC SCH (21:56)
[2025-01-29] MEDS: guaiFENesin ER TABLET 600 MG TAB PO SCH (21:57)
[2025-01-30 03:40] VITALS: BP 105/74; TEMP 97.9; O2SAT 89
[2025-01-30 04:00] VITALS: O2SAT 93
[2025-01-30 06:34] LABS: BASO # 0.0 10^3/uL (0.0-0.2); BASO % 0.2 % (0.0-1.0); EOS # 0.1 10^3/uL (0.0-0.5); EOS % 0.6 % (0.0-3.0); LYMPH # 6.2 10^3/uL (1.5-5.0); LYMPH % 40.1 % (24.0-44.0); MONO # 1.2 10^3/uL (0.0-0.8); MONO % 8.1 % (2.0-8.0); NEUTROPHILS # 7.6 10^3/uL (1.5-8.5); NEUTROPHILS % 49.6 % (36.0-66.0); PLATELET COUNT, AUTOMATED 316 10^3/uL (150-450)
[2025-01-30 06:38] LABS: CALCIUM LEVEL 8.5 MG/DL (8.5-10.1); CARBON DIOXIDE LEVEL 30 MMOL/L (20-31); CHLORIDE LEVEL 104 MMOL/L (98-107); CREATININE FOR GFR 0.63 MG/DL (0.55-1.30); GLOMERULAR FILTRATION RATE > 90.0 (>51); POTASSIUM SERUM 4.0 MMOL/L (3.5-5.1); SODIUM LEVEL 141 MMOL/L (136-145)
[2025-01-30 08:48] VITALS: BP 132/73
[2025-01-30] MEDS ORDERED: TOPR25TA PO (12:05)
[2025-01-30] MEDS ORDERED: ANOR1AER PO (12:05)
[2025-01-30] MEDS ORDERED: VENTAER INH (12:05)
[2025-01-30] MEDS ORDERED: PRED10TA2 PO (12:05)
[2025-01-30] MEDS ORDERED: LISI20TA33 PO (12:05)
[2025-01-30] MEDS ORDERED: AZIT500T5 PO (12:07)
[2025-01-30] MEDS ORDERED: MUCI1TAB16 PO (12:07)
== END 2025-01-30 15:00 | disposition home or self-care (01) | DRG 720 ==
LOC: M ED 11:17 → M ED INP 15:21 → M MSPAV 17:19
PROVIDERS: ADMIT General Practice; ATTEND Internal Medicine
DX: A41.89 Other specified sepsis (principal); J96.01 Acute respiratory failure with hypoxia; E11.51 Type 2 diabetes mellitus with diabetic peripheral angiopathy without gangrene; B34.8 Other viral infections of unspecified site; E78.5 Hyperlipidemia, unspecified; I10 Essential (primary) hypertension; I16.0 Hypertensive urgency; J06.9 Acute upper respiratory infection, unspecified; J20.9 Acute bronchitis, unspecified; G89.29 Other chronic pain; F17.200 Nicotine dependence, unspecified, uncomplicated; R91.1 Solitary pulmonary nodule; E66.812 Obesity, class 2; Z68.38 Body mass index [BMI] 38.0-38.9, adult; G43.909 Migraine, unspecified, not intractable, without status migrainosus; F41.9 Anxiety disorder, unspecified; F32.A Depression, unspecified; Z79.899 Other long term (current) drug therapy; Z88.2 Allergy status to sulfonamides; Z88.8 Allergy status to other drugs, medicaments and biological substances; E87.20 Acidosis, unspecified

== ENCOUNTER → 2025-02-13 | Outpatient (REF) | payer MEDICAID, OTHER ==
[~2025-02-13] MED LIST changes: +ANOR1AER PO; +ATOR40TA75 PO; +AZIT500T5 PO; +DULO1CAP5 PO; +DULO1CAP6 PO; +GLIM4TAB5 PO; +LANTINJ4 SC; +LISI20TA33 PO; +LISI40TA10 PO; +METF500T13 PO; +MUCI1TAB16 PO; +NOVOINJ2 SC; +PRED10TA2 PO; +TOPR25TA PO; +VENTAER INH
== END ==
LOC: M SFHCPLAZ 12:48
PROVIDERS: ATTEND Physician Assistant
DX: J06.9 Acute upper respiratory infection, unspecified (principal)

== ENCOUNTER → 2025-03-26 | Outpatient (CLI) | payer OTHER | LOC: M PLAIMG 15:36 | PROVIDERS: ATTEND Nurse Practitioner Family | DX: R10.9 Unspecified abdominal pain (principal) ==

== ENCOUNTER → 2025-04-07 | Outpatient (CLI) | payer OTHER ==
[2025-04-07 14:06] LABS: BASO # 0.1 10^3/uL (0.0-0.2); BASO % 0.4 % (0.0-1.0); EOS # 0.2 10^3/uL (0.0-0.5); EOS % 1.9 % (0.0-3.0); LYMPH # 3.2 10^3/uL (1.5-5.0); LYMPH % 25.7 % (24.0-44.0); MONO # 0.9 10^3/uL (0.0-0.8); MONO % 7.0 % (2.0-8.0); NEUTROPHILS # 8.0 10^3/uL (1.5-8.5); NEUTROPHILS % 64.5 % (36.0-66.0); PLATELET COUNT, AUTOMATED 323 10^3/uL (150-450)
[2025-04-07 14:11] LABS: ALT/SGPT 24 U/L (7.0-40); AST/SGOT 17 U/L (<34); CALCIUM LEVEL 9.1 MG/DL (8.5-10.1); CARBON DIOXIDE LEVEL 27 MMOL/L (20-31); CHLORIDE LEVEL 99 MMOL/L (98-107); CHOLESTEROL LEVEL 242 MG/DL (<200); CHOLESTEROL RISK RATIO 8.25 (<5); CREATININE FOR GFR 0.61 MG/DL (0.55-1.30); GLOMERULAR FILTRATION RATE > 90.0 (>51); NON-HDL-C 212.7 MG/DL; POTASSIUM SERUM 5.2 MMOL/L (3.5-5.1); SODIUM LEVEL 131 MMOL/L (136-145); TRIGLYCERIDES LEVEL 666 MG/DL (<150)
[2025-04-07 14:31] LABS: ESTIMATED AVERAGE GLUCOSE 269.0 MG/DL (60-110)
== END ==
LOC: M PLALAB 09:32
PROVIDERS: ATTEND Physician Assistant Medical
DX: J06.9 Acute upper respiratory infection, unspecified (principal); J30.2 Other seasonal allergic rhinitis; E78.00 Pure hypercholesterolemia, unspecified; E11.43 Type 2 diabetes mellitus with diabetic autonomic (poly)neuropathy; K31.84 Gastroparesis; E11.42 Type 2 diabetes mellitus with diabetic polyneuropathy

== ENCOUNTER → 2025-04-11 | Outpatient (CLI) | payer OTHER | LOC: M WHC 11:06 | PROVIDERS: ATTEND Nurse Practitioner Family | DX: R10.23 Pelvic and perineal pain bilateral (principal); R93.89 Abnormal findings on diagnostic imaging of other specified body structures ==

== ENCOUNTER → 2025-04-11 | Outpatient (CLI) | payer OTHER ==
[~2025-04-11] MED LIST changes: +ISOVUE-370 76% 100 ML VIAL ONE
== END ==
LOC: M PLAIMG 11:07
PROVIDERS: ATTEND Physician Assistant Medical
DX: R10.31 Right lower quadrant pain (principal); R16.0 Hepatomegaly, not elsewhere classified; K76.0 Fatty (change of) liver, not elsewhere classified
CPT/HCPCS: 74177; Q9967